=== PATIENT | male | born 1955 | race Caucasian/White ===

== ENCOUNTER 2023-05-14 21:56 | Emergency (ER) | payer OTHER, SELFPAY ==
[2023-05-14 22:02] VITALS: BP 155/78; BMI 25.6
[2023-05-14 22:22] LABS: % Basophils 0.3 % (0-2); % Eosinophils 2.4 % (0-6); % Immature Granulocytes 0.3 % (0-0.5); % Lymphocytes 23.4 % (20.5-51.1); % Monocytes 6.1 % (1.7-9.3); % Neutrophils 67.5 % (42.2-75.2); Absolute Eosinophils 0.2 10^3/uL (0-0.7); Absolute Lymphocytes 2.3 10^3/uL (1.2-3.4); Absolute Monocytes 0.6 10^3/uL (0.1-0.6); Absolute Neutrophils 6.6 10^3/uL (1.4-6.5); Hematocrit 38.6 % (39.0-52.0); Hemoglobin 14.2 g/dL (13.0-18.0); Mean Corp Hgb Conc. 36.8 g/dL (33.0-37.0); Mean Corpuscular Hgb 29.5 pg (27.0-31.0); Mean Corpuscular Volume 80.1 fL (80.0-94.0); Mean Platelet Volume 8.3 fL (7.4-10.4); Nucleated Red Blood Cells % 0 % (-); Platelet Count 193 10^3/uL (130-400); Red Blood Cell Count 4.82 10^6/uL (4.70-6.10); Red Cell Dist. Width 12.3 % (11.5-14.5); White Blood Cell Count 9.7 10^3/uL (4.8-10.8)
[2023-05-14 22:32] LABS: INR 1.05; PT 13.7 Sec (11.4-14.6)
[2023-05-14 22:36] LABS: ALT (SGPT) 24 U/L (0-50); AST (SGOT) 28 U/L (17-59); Albumin 3.7 g/dl (3.5-5.0); Alkaline Phosphatase 57 U/L (38-126); Blood Urea Nitrogen 48 mg/dl (9-20); Calcium 8.7 mg/dl (8.4-10.2); Carbon Dioxide 32 mmol/L (22-30); Chloride 93 mmol/L (98-107); Estimated Creatinine Clearance 59 ml/min; Glucose 298 mg/dl (70-99); Potassium 3.6 mmol/L (3.5-5.1); Sodium 135 mmol/L (135-145); Total Bilirubin 0.8 mg/dl (0.2-1.3); Total Protein 6.7 g/dl (6.3-8.2)
[2023-05-14 22:47] LABS: Troponin I 0.013 ng/ml
[2023-05-15 01:00] VITALS: BP 145/82
--- NOTE | 2023-05-15 01:26 | ED.GENMED ---
History of Present Illness
General
Chief Complaint: Cardiac Symptoms
Source: patient
Exam Limitations: none
Time Seen by Provider: 05/15/23 01:01
Nursing documentation reviewed up to this point in time: agreed with
Travel History
Have you had any contact with someone who has COVID-19?: No
Do you have any symptoms of coronavirus? Fever > 100 degrees, chills, cough, shortness of breath, sore throat, loss of taste or smell, muscle aches, or headache?: No
History of Present Illness
History of Present Illness:
The patient is a 67-year-old man with a past medical history of hypertension, hyperlipidemia and A-fib, on Eliquis, who reports that he developed rapid palpitations this evening, about 1 to 2 hours prior to coming to the emergency department.
Patient reports that by the time he got to the emergency department, his symptoms went away. Patient reports that while he was in A-fib, he felt tightness in his chest and a feeling of indigestion. Patient reports that he has felt comfortable for
hours now without any symptoms. He denies leg pain and leg swelling.
Past History
Past History
ED Past Medical History: Arrthythmia, CAD, COPD, HTN, Hypercholesterolemia, NIDDM and Other (Sleep apnea, BPH, CABG, anxiety)
ED Past Surgical History: Other
Social History
Tobacco: Non-smoker
Alcohol: Other
Drug: None
Personal:
Living: with family
Employment: Other
Family History
Family History: Other
Review of Systems
Review of Systems
Allergies reviewed?: Yes
All Other Systems: ROS reviewed and negative except as documented in HPI and ROS
Constitutional: Reports no symptoms
EENT: Reports no symptoms
Respiratory: Reports no symptoms
Cardiac: Reports chest pain and palpitations
ABD/GI: Reports no symptoms
: Reports no symptoms
Musculoskeletal: Reports no symptoms
Skin: Reports no symptoms
Neurological: Reports no symptoms
Endocrine: Reports no symptoms
Hematologic/Lymphatic: Reports no symptoms
Psychiatric: Reports no symptoms
Phy Exam
Physical Exam
Physical Exam:
Physical Exam
General: no apparent distress, not acutely ill. Smiling, conversational
Neck: supple. no meningeal signs. normal psoterior pharynx
Heart: s1/s2 regular rate and rhythm,
Lungs: no acute respiratory distress. clear bilaterally
Abdomen: normal bowel sounds. not tender. no CVAT. No pulsatile mass
Neuro: alert and oriented. no focal neurological deficits
Skin: no rash
Psychiatric: well kept. interactive and cooperative
Extremities: no edema. no calf tenderness. negative homans. good distal pulses
Course
Orders/Labs/Results
Orders:
Orders
05/14/23 22:01
Electrocardiogram (*1) Urgent
Reason for Study: Chest Pain
EKG- Treatment ONCE
05/14/23 22:15
Complete Blood Count/With Diff Urgent
Comprehensive Metabolic Panel Urgent
Prothrombin Time Urgent
Troponin I Urgent
05/15/23 01:24
ECG [Electrocardiogram (*1)] Urgent
Reason for Study: Atrial Fibrillation
05/15/23 01:25
EKG- Treatment ONCE
Abnormal Lab Results
05/14/23
22:15
Hct 38.6 L %
(39.0-52.0)
Absolute Neuts (auto) 6.6 H 10^3/uL
(1.4-6.5)
Chloride 93 L mmol/L
(98-107)
Carbon Dioxide 32 H mmol/L
(22-30)
BUN 48 H mg/dl
(9-20)
Creatinine 1.5 H mg/dL
(0.7-1.3)
Glucose 298 H mg/dl
(70-99)
05/14/23 22:15
05/14/23 22:15
Vital Signs
Initial and Last Documented VS:
Initial Vital Signs
Temp Pulse Resp BP Pulse Ox
98.1 F 80 16 155/78 100
05/14/23 22:02 05/14/23 22:02 05/14/23 22:02 05/14/23 22:02 05/14/23 22:02
Last Documented Vital Signs
Temp Pulse Resp BP Pulse Ox
98.1 F 68 17 145/82 95
05/14/23 22:02 05/15/23 01:30 05/15/23 01:15 05/15/23 01:00 05/15/23 01:30
MDM/Problems Addressed
Differential Diagnosis Includes:
A-fib with rapid rate, acute coronary syndrome, PE
MDM/Problems Addressed:
Patient presents with acute palpitations chest pain
Chronic conditions affecting care: Arrhythmia
Acute Exacerbation and/or Progression of Chronic Illness: HTN
*Pulse Oximetry
Patient hypoxic: no
*EKG
Interpreted by ED Provider?: Yes
Interpretation: abnormal
Comparison EKG: no changes
Rate: normal
Souris: normal axis
Interval: first degree heart block
QRS Pattern: normal QRS
Ischemia: non-specific ST changes
*Family Law Legal Assistant Interpretation
Rate: normal
Interpretation: normal
Rhythm: sinus
*Critical Care Note
Total Time (30-74mins, 75-104mins- exclusive of procedures): Not Applicable
Data Reviewed
Review of Other/Old Records Reveals: Discharge Summary (Discharge summary reviewed from cardiology from 10/12/2021 when patient was admitted for A-fib and underwent cardioversion)
Source: patient
Further Testing Considered But Not Given:
I considered doing a second troponin, however, patient's EKG looks very similar to his prior EKGs when he is in a normal sinus rhythm. Patient adamantly reports he has been chest pain-free for hours ever since the A-fib stopped. I feel the
patient's chest pain was likely due to his elevated heart rate associated with A-fib. Patient feels extremely well and comfortable and wants to go home. Patient has cardiology appointment this coming up Friday. Patient encouraged to return with
any chest pain or shortness of breath
Patient Management
Social determinants of health affecting care: Living situation and Strong social support
Escalation/DeEscalation of care consider admission/obs:
Patient looks well and comfortable and has been chest pain-free for hours. Patient happy to go home and will return with any chest pain or shortness of breath.
ED Attending Note
-
Portions of this chart may have been created with voice recognition software.� Occasional wrong word or��sound alike� substitutions may have occurred due to the inherent limitations of voice recognition software.
Discharge Plan
Departure
Patient Disposition: Home (Routine Discharge)
Date of Disposition: 05/15/23
Time of Disposition: 01:44
Patient with high blood pressure during this ER visit?: Yes
Condition: Good
Covid-19: Not Applicable
Discharge Problem:
A-fib
Instructions: Atrial Fibrillation and Atrial Flutter ED, BLOOD PRESSURE
Prescriptions:
No Action
amlodipine-benazepril 1 EACH capsule
1 ea PO DAILY
Januvia 100 MG tablet
100 mg PO DAILY
nitroglycerin 0.4 MG tablet, sublingual
0.4 mg sublingual [id number] PRN (Reason: chest pain) Qty: 25 2RF
metoprolol succinate 50 MG tablet extended release 24 hr
50 mg PO DAILY
glimepiride 2 MG tablet
2 mg PO DAILY
clonazepam 0.5 MG tablet
0.5 mg PO PRN PRN (Reason: anxiety)
atorvastatin 40 MG tablet
40 mg PO DAILY
acetaminophen 325 MG tablet
650 mg PO Q4HPRN PRN (Reason: mild pain,headache,temp >101F ) 0RF
Eliquis 5 MG tablet
5 mg PO BID Qty: 60 2RF
hydrochlorothiazide 12.5 mg Tablet
12.5 mg PO DAILY
tamsulosin [Flomax] 0.4 mg Capsule
0.4 mg PO DAILY
metoprolol succinate 50 mg Tablet Extended Release 24 Hr
25 mg PO DAILY@1999 Qty: 90 3RF
methimazole 5 mg Tablet
5 mg PO BID Qty: 180 3RF
Activity Restrictions/Additional Instructions:
Follow-up with cardiology appointment as you have scheduled this coming May 20. Please return immediately with any chest pain or difficulty breathing.
Interventions
Interventions:
*Risk Screen - Suicide Last Done: 05/14/23 22:02
*General Assessment Last Done: 05/15/23 01:33
*Neglect/Abuse Screening Last Done: 05/14/23 22:02
ED- Fall Risk Assessment Last Done: 05/15/23 01:03
*ED COVID-19 Vaccine History Last Done: 05/14/23 22:02
ED- Pulmonary Assessment Last Done: 05/15/23 01:03
ED- Cardiac Assessment Last Done: 05/15/23 01:03
== END 2023-05-15 02:09 | disposition home or self-care (01) ==
LOC: EMR 21:56
PROVIDERS: Emergency Medicine; EMERGENCY PHYSICIAN Emergency Medicine; FAMILY PHYSICIAN Internal Medicine
DX: I48.91 Unspecified atrial fibrillation (principal); I10 Essential (primary) hypertension; E78.00 Pure hypercholesterolemia, unspecified; Z79.01 Long term (current) use of anticoagulants
CPT/HCPCS: 99284; 80053; 84484; 85025; 85610; 93005

== ENCOUNTER → 2023-12-10 14:48 | Outpatient (REF) | payer OTHER, SELFPAY | LOC: HWRAD 14:48 | PROVIDERS: ATTENDING PHYSICIAN Internal Medicine Endocrinology, Diabetes & Metabolism; FAMILY PHYSICIAN Internal Medicine | DX: E04.1 Nontoxic single thyroid nodule (principal) | CPT/HCPCS: 76536 ==

== ENCOUNTER 2024-03-14 20:44 | Inpatient (IN) | payer OTHER, SELFPAY ==
[2024-03-14] VITALS (22 sets, daily range): BP systolic 73–114; BP diastolic 51–85; BMI 25.2
--- NOTE | 2024-03-14 18:32 | ED.GENMED ---
History of Present Illness
General
Chief Complaint: Heart Rate Problem
Time Seen by Provider: 03/14/24 18:32
History of Present Illness
History of Present Illness:
TIME OF INITIAL ENCOUNTER: 6:30 PM A-fib, CAD, high blood pressure, hyperlipidemia
HPI: The patient presents with general unwell feeling and feels that he is back in A-fib over the last 2 to 3 days. 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 He is known to Dr. Bolanos. He
states he has not missed any doses of Eliquis over the last couple of weeks. He has cough and congestion.
EXAM:
GENERAL: Appears somewhat generally weak
HEENT: Moist oral mucosa
CARDIOVASCULAR: No murmurs, tachycardic heart rate, irregular rhythm, No chest wall tenderness
PULMONARY: No respiratory distress, breath sounds are slightly diminished and slightly coarse
ABDOMEN: Soft with no peritoneal signs, no tenderness
NEUROLOGIC: Excellent strength all extremities, no coordination deficits
PSYCHIATRIC: Appropriate mental status, normal insight and judgement
EXTREMITIES: Nontender, minimal lower extremity edema, moves all extremities equally
SKIN: No rash, no lesions
NUMBER AND COMPLEXITY OF PROBLEMS ADDRESSED AT THE ENCOUNTER
� Chronic conditions affecting care: Paroxysmal A-fib, CAD, high blood pressure, hyperlipidemia BPH, diabetes, anxiety, there is also questionable history of COPD
� Acute Exacerbation and/or Progression of Chronic Illness: This is an acute problem
� Differential Diagnosis includes: Atrial fibrillation with RVR, thyroid disease, ACS, CHF, volume overload, MATT
AMOUNT AND/OR COMPLEXITY OF DATA TO BE REVIEWED AND ANALYZED
� I performed an independent evaluation of and my interpretation is:
EKG: A-fib 121, septal Q waves, intraventricular conduction delay with associated ST abnormality which is now more prominent in comparison to 05/15/2023 most notable inferior and laterally
CT:
X-rays: Chest x-ray does not show any significant change compared to 07/30/2020
Laboratory Studies: BNP markedly elevated, white count 26, renal insufficiency noted which is much worse, TSH normal
Other:
� Review of other/old records: Echo from October 2021 showed an EF of 50 to 55% and mild LVH with no significant valvular disease
� Clinical information was obtained by an independent historian: I spoke to at bedside lives at home
� Prescriptions/Medications Considered but not given:
� Further testing considered but not performed:
RISK OF COMPLICATIONS AND/OR MORBIDITY OR MORTALITY OF PATIENT MANAGEMENT
� Social determinants of health affecting care: Lives at home
� Discussion with other providers: I discussed case with Dr. Kellogg at around 7:15 PM who agreed with cardioversion and notified him of the abnormal troponin and he recommended heparin instead of Eliquis. I have ordered the
drip. Dr. Whyte for admission at 7:51 PM
� Escalation of care including admission/observation vs risk of discharge considered: The patient arrived hypotensive in rapid A-fib. Decision made to electrically cardiovert him. He overall felt better after cardioversion.
Repeat EKG does show inferolateral ST abnormality. One of the patient's main symptoms was cough and shortness of breath�in the setting of at least questionable COPD diagnosis, I did give a one-time dose of Solu-Medrol. Leukocytosis of uncertain
etiology.
ANY OTHER UPDATES:
8 PM: Patient feels improved after cardioversion was performed
Past History
Past History
ED Past Medical History: Arrthythmia, CAD, COPD, HTN, Hypercholesterolemia, NIDDM and Other (Sleep apnea, BPH, CABG, anxiety)
ED Past Surgical History: Other
Social History
Tobacco: Non-smoker
Alcohol: Other
Drug: None
Personal:
Living: with family
Employment: Other
Family History
Family History: Other
Phy Exam
Physical Exam
Physical Exam:
See HPI
Course
Orders/Labs/Results
Orders:
Orders
03/14/24 18:14
Electrocardiogram (*1) Urgent
Reason for Study: Atrial Fibrillation
03/14/24 18:15
EKG- Treatment ONCE
03/14/24 18:47
Basic Metabolic Panel Urgent
COVID-19 Antigen Urgent
Source: Nasal Swab
Complete Blood Count/With Diff Urgent
Magnesium Urgent
NT-proBNP Urgent
TSH Reflex To Free T4 Urgent
Troponin I Urgent
INF RAPID [Influenza A+B Rapid Molecular] Urgent
ACSEY Source: Nasal Swab
Specimen Description:
03/14/24 18:51
Portable Chest Xray [CR Chest Portable - 1 View] Urgent
Comment:
Reason For Exam: cough
Reason Study Needs to be Portable: Patient Unstable
03/14/24 19:08
MethylPREDNISolone PF [Solu-Medrol Pf] 125 mg IV NOW STA
03/14/24 19:25
Propofol [Diprivan] 20 ml .ROUTE .STK-MED
03/14/24 19:47
Electrocardiogram (*1) Urgent
Reason for Study: Other
Other Reason for Exam: post cardioversion
EKG- Treatment ONCE
03/14/24 19:49
Heparin 4,000 units IV NOW STA
Nursing to Place Non Medication Order As Directed
Physician Order: PTT 6 hours after initial start of Heparin infusion
Above order entered?: Yes
03/14/24 20:00
Heparin 30308 Units/250 ml 25,000 units in 250 ml IV PER PROTOCOL
Weight to be used for heparin protocol in kilograms (kg):: 96.5
Protocol:: Cardiac Tx/Acute Coronary
PTT Goal Range to be used:: PTT 73 to 111 seconds
Order type:: Initial
INITIAL Infusion Dose (UNITS/KG/hr) & then follow protocol:: 12 units/kg/hr
Infusion Dose in UNITS/hr & then follow protocol (UNITS/hr):: 1,000
INFUSION RATE in mL/hr & then follow protocol (mL/hr):: 10
PTT less than or equal to 64 seconds:: Increase rate by 200 units/hr (+ 2 mL/hr)
PTT 64.1 to 72.9 seconds:: Increase rate by 100 units/hr (+ 1 mL/hr)
PTT 73 to 111 seconds:: Target Range. No change in rate.
PTT 111.1 to 130.9 seconds:: Decrease rate by 100 units/hr (- 1 mL/hr)
PTT 131 to 199.9 seconds:: HOLD for 1 hr. Then decrease rate by 200 units/hr (- 2 mL/hr)
PTT greater than or equal to 200 seconds:: HOLD for 2 hrs & Notify Provider. Then decrease by 200 units/hr (-
2 mL/hr)
Lab follow-up:: Each change, PTT q6h until 2 consecutive are therapeutic. Then PTT
daily.
03/14/24 20:06
Aspirin 325 mg PO NOW STA
03/14/24 20:18
PTT Urgent
Comment: Obtain baseline before beginning heparin infusion if not already collected
03/14/24 20:29
Admit/Transfer Patient As Directed
Co-Sign Provider:
Level of Care: Inpatient admission
Assign to:: IMU- Intermediate Care
Physician / Group: Padmaja Whyte
Diagnosis: NSTEMI, Afib RVR, MATT, hyponatremia
Reason for Hospitalization: NSTEMI, Afib RVR, MATT, hyponatremia
Expected length of stay greater than two midnights?: Yes
ELOS- Estimated Length of Stay in days: 3
I certify the patient meets the requirements for IP care: Yes
PRN Pain Medication Management As Directed
May give lesser potent ordered pain med per pt: Yes
preference::
Protocol:: Medication orders for pain may be administered in a
manner that supports deferring to patient preference
when the pt is:
- Requesting an ordered lesser potent pain medication.
Least to most potent pain medications are defined
as: acetaminophen < NSAID < tramadol < opioids
(morphine, oxycodone, hydromorphone).
- Requesting a lesser dose of the same medication IF
ORDERED.
- Requesting a less intrusive route of administration
if both routes are prescribed by the provider (PO <
IV).
03/14/24 20:30
Code Status As Directed
Resuscitation Status: Full Code
03/14/24 20:39
0.9% Sodium Chloride 500 ml [Nss] 500 ml IV BOLUS
Accucheck Once [Bedside Glucose Monitoring-ONCE] As Directed
03/14/24 22:45
BMP [Basic Metabolic Panel] Urgent
03/15/24 02:30
PTT Urgent
Abnormal Lab Results
03/14/24
18:47
WBC 26.1 H 10^3/uL
(4.8-10.8)
Abs Immat Gran (auto) 0.4 H 10^3/uL
(0-0.05)
Absolute Neuts (auto) 22.3 H 10^3/uL
(1.4-6.5)
Absolute Monos (auto) 2.2 H 10^3/uL
(0.1-0.6)
Immature Gran % 1.5 H %
(0-0.5)
Neutrophils % 85.3 H %
(42.2-75.2)
Lymphocytes % 4.4 L %
(20.5-51.1)
Sodium 128 L mmol/L
(135-145)
Chloride 90 L mmol/L
(98-107)
Carbon Dioxide 21 L mmol/L
(22-30)
BUN 85 H mg/dl
(9-20)
Creatinine 3.1 H mg/dL
(0.7-1.3)
Glucose 411 H mg/dl
(70-99)
Troponin I 5.730 H* ng/ml
03/14/24 18:47
03/14/24 18:47
Vital Signs
Initial and Last Documented VS:
Initial Vital Signs
Temp Pulse Resp BP Pulse Ox
36.4 C 121 16 73/57 99
03/14/24 18:25 03/14/24 18:25 03/14/24 18:25 03/14/24 18:25 03/14/24 18:25
Last Documented Vital Signs
Temp Pulse Resp BP Pulse Ox
37.8 C 108 26 110/55 95
03/14/24 20:22 03/14/24 20:30 03/14/24 20:30 03/14/24 20:30 03/14/24 20:30
Procedures
Cardioversion
Indication:: Afib
Performed by:: , Dr. Garland
Synchronized?: Yes
Energy Used: 200 joules
Number of attempts: 1
Successful?: Yes
ASA Risk Score: Class III
Any reaction or bad outcome to prior sedation/anesthesia?: No history of a reaction
Sedation level to be attained: moderate
Chart and allergies reviewed: Yes
Patient reassessed prior to sedation: Yes
Time out completed at (validating right patient & procedure): 19:42
History of difficult intubation: No
Airway free of obstruction: Yes
Patient has a gag reflex: Yes
Patient is able to open mouth: Yes
Patient has no dentures: Yes
Patient has no loose teeth: Yes
Medication administered by Provider during Moderate Sedation: IV Propofol (mg)
Total dose administered: 60
Time drug administered: 19:42
Start Time: 19:42
Stop Time: 19:53
*Critical Care Note
Total Time (30-74mins, 75-104mins- exclusive of procedures): 60 minutes
comment:
The patient arrived hypotensive and tachycardic. Emergently discussed case with cardiology and prepared for electrical cardioversion. Vital signs continue to be monitored after cardioversion.
ED Attending Note
-
Portions of this chart may have been created with voice recognition software.� Occasional wrong word or��sound alike� substitutions may have occurred due to the inherent limitations of voice recognition software.
Discharge Plan
Departure
Patient Disposition: Admit
Date of Disposition: 03/14/24
Time of Disposition: 20:07
Presentation/result/management discussed w/ accepting MD/DO: Hospitalist
Discharge Problem:
Atrial fibrillation with rapid ventricular response
Interventions
Interventions:
*Risk Screen - Suicide Last Done: 03/14/24 18:25
*General Assessment Last Done: 03/14/24 18:25
*Neglect/Abuse Screening Last Done: 03/14/24 18:25
*ED COVID-19 Vaccine History Last Done: 03/14/24 18:41
ED- Cardiac Assessment Last Done: 03/14/24 18:50
ED- Pulmonary Assessment Last Done: 03/14/24 18:50
[2024-03-14 19:08] LABS: COVID-19 Antigen Negative (Negative)
[2024-03-14 19:11] LABS: % Basophils 0.3 % (0-2); % Immature Granulocytes 1.5 % (0-0.5); % Lymphocytes 4.4 % (20.5-51.1); % Monocytes 8.5 % (1.7-9.3); % Neutrophils 85.3 % (42.2-75.2); Absolute Basophils 0.1 10^3/uL (0-0.2); Absolute Immature Granulocytes 0.4 10^3/uL (0-0.05); Absolute Lymphocytes 1.2 10^3/uL (1.2-3.4); Absolute Monocytes 2.2 10^3/uL (0.1-0.6); Absolute Neutrophils 22.3 10^3/uL (1.4-6.5); Hematocrit 46.3 % (39.0-52.0); Mean Corp Hgb Conc. 34.6 g/dL (33.0-37.0); Mean Corpuscular Hgb 28.5 pg (27.0-31.0); Mean Corpuscular Volume 82.5 fL (80.0-94.0); Mean Platelet Volume 9.6 fL (7.4-10.4); Nucleated Red Blood Cells % 0 % (-); Platelet Count 237 10^3/uL (130-400); Red Blood Cell Count 5.61 10^6/uL (4.70-6.10); Red Cell Dist. Width 12.2 % (11.5-14.5); White Blood Cell Count 26.1 10^3/uL (4.8-10.8)
[2024-03-14] MEDS: SOLU-MEDROL PF 125 MG IV (19:26)
[2024-03-14 19:27] LABS: NT-proBNP 14500 pg/ml
[2024-03-14 19:35] LABS: Blood Urea Nitrogen 85 mg/dl (9-20); Calcium 9.7 mg/dl (8.4-10.2); Carbon Dioxide 21 mmol/L (22-30); Chloride 90 mmol/L (98-107); Estimated Creatinine Clearance 28 ml/min; Glucose 411 mg/dl (70-99); Magnesium 1.8 mg/dl (1.6-2.3); Sodium 128 mmol/L (135-145); eGFR 20.96
[2024-03-14 19:41] LABS: TSH Reflex To Free T4 2.32 uIU/ml (0.47-4.68)
--- NOTE | 2024-03-14 19:56 | HPS.HSE ---
Family Physician
-
Family Physician: Aiden Mejias
Chief Complaint
-
A-fib
History of Present Illness
Patient is a 68-year-old male with past medical history significant for hypertension, hyperlipidemia, type 2 diabetes, a-fib and COPD who presented to [place] ED for evaluation of not feeling well and a-fib. Patient reported that he started not
feeling well on afternoon and described as just 'feeling lousy.' As time progressed he reviewed watch EKG that indicated he was in a-fib. Patient felt he was in a-fib from recent medication dose reduction done by merchandise flow team member so he
increased the dose to what it was previously thinking he would convert. Patient states he never converted and continued to fell lousy through weekend and bringing himself today for evaluation since he continued to be in a-fib. Patient states he has
had intermittent fever and chills, with a moist cough and some periods of dizziness. He denies any nausea, vomiting, constipation, diarrhea, or urinary symptoms.
Medical History
Past Medical History
Past Medical History: Reports Other
Additional Past Medical History:
hypertension
hyperlipidemia
CAD
type 2 diabetes
a-fib
COPD
urinary retention
Past Surgical History: Reports Other
Additional Past Surgical History:
CABG x4 (07/2020)
wisdom teeth
Social History
Tobacco: Former Smoker (quit 50 years ago)
Alcohol: Occasional
Drug: None
Personal:
Living: With Family
Employment: Employed
Family History
Family History: Not pertinent
Allergies / Home Medications
Allergies reflects when Allergies were last updated in [facility].
Home Medications with original date entered in [facility]
Allergy/Medication List:
Allergies
Allergy/AdvReac Type Severity Reaction Status Date / Time
No Known Allergies Allergy Verified 03/14/24 18:24
Home Medications
amlodipine 10 mg-benazepril 40 mg capsule 1 ea PO DAILY Blood pressure 06/27/20
nitroglycerin 0.4 mg sublingual tablet 0.4 mg sublingual [id number] PRN chest pain #25 tabs 06/27/20
sitagliptin phosphate 100 mg tablet (Januvia) 100 mg PO DAILY Diabetes 06/27/20
clonazepam 0.5 mg tablet 0.5 mg PO PRN PRN anxiety 07/25/20
glimepiride 2 mg tablet 2 mg PO DAILY Diabetes 07/25/20
metoprolol succinate 50 mg tablet,extended release 24 hr 50 mg PO DAILY Blood pressure 07/25/20
atorvastatin 40 mg tablet 40 mg PO DAILY High cholesterol 07/28/20
acetaminophen 325 mg tablet 650 mg (2 x 325 mg) PO Q4HPRN PRN mild pain,headache,temp >101F 08/01/20
apixaban 5 mg tablet (Eliquis) 5 mg PO BID #60 tabs 08/01/20
hydrochlorothiazide 12.5 mg tablet 12.5 mg PO DAILY Blood pressure 10/06/21
tamsulosin 0.4 mg capsule (Flomax) 0.4 mg PO DAILY Urinary issue 10/06/21
methimazole 5 mg tablet 5 mg PO BID #180 tabs 10/11/21
metoprolol succinate 50 mg tablet,extended release 24 hr 25 mg (1/2 x 50 mg) PO DAILY@2000 #90 tabs 10/11/21
Review of Systems
-
History Source: Patient
Constitutional: Reports Fever, Fatigue and Chills
EENT: Reports No Symptoms
Respiratory: Reports Cough (moist)
Cardiac: Reports Other (a-fib indicated on watch EKG)
Abdomen/GI: Reports No Symptoms
: Reports No Symptoms
Musculoskeletal: Reports No Symptoms
Skin: Reports No Symptoms
Neurological: Reports Dizzy
Endocrine: Reports No Symptoms
Hematologic/Lymphatic: Reports No Symptoms
Psych: Reports No Symptoms
Physical Exam
Vital Signs
Vital Signs
Temp Pulse Resp BP Pulse Ox
97.8 F 103 24 94/56 98
03/14/24 19:47 03/14/24 19:47 03/14/24 19:47 03/14/24 19:47 03/14/24 19:47
Physical Exam
General: Well Developed, Well Nourished, No Apparent Distress, Comfortable and Conversant
HEENT: NormoCephalic, Moist mucous membranes, Atraumatic, [place] Conjunctivae, Nose Appears Normal and Ears Appear Normal
Respiratory: Clear, Non Labored Respirations and Decreased Breath Sounds
Cardiac: S1/S2 and Regular Rhythm; No Murmur, Rub or Gallop
Breast: Deferred by me
GI: Soft, Non Tender, Non Distended and Normal Bowel Sounds; No Organomegaly
Rectal: Deferred by Provider
Genito-urinary: Deferred by me
Musculoskeletal: No Clubbing, No Cyanosis and No Edema
Skin: Warm and IV/Catheter Site; No Rash
Neuro: Awake, Alert, AO x 3 and Nonfocal/grossly intact
Hematologic/Lymphatic: No Lymphadenopathy
Psych: Calm and Intact Judgment/Insight
Laboratory Results
-
03/14/24 18:47
03/14/24 18:47
Laboratory Results
Troponin I 5.730 ng/ml H* 03/14/24 18:47
Data Reviewed
-
Medical Tests (Nuc Med, Echo, EKG etc): Report Reviewed by me (EKG: ATRIAL FIBRILLATION WITH RAPID VENTRICULAR RESPONSE INCOMPLETE LEFT BUNDLE BLOCK & SINUS TACHYCARDIA WITH PREMATURE ATRIAL COMPLEXES WITH Aberrant conduction MARKED ST ABNORMALITY,
POSSIBLE INFERIOR SUBENDOCARDIAL INJURY ABNORMAL ECG)
Lab Data: Labs Reviewed by me (WBC 26.1, Na+ 128, BUN 85, Creat 3.1, Trop 5.730, BNP 23083)
Impression/Plan
-
IMPRESSION/PLAN:
#NSTEMI
Troponin 5.730
EKG: SINUS TACHYCARDIA WITH PREMATURE ATRIAL COMPLEXES WITH Aberrant conduction
MARKED ST ABNORMALITY, POSSIBLE INFERIOR SUBENDOCARDIAL INJURY
ABNORMAL ECG
- Admit to IMU
- Consult cardiology
- Heparin gtt
- trend troponin to peak with EKGs
- TSH, T4, HgA1C
#A-fib RVR
EKG: ATRIAL FIBRILLATION WITH RAPID VENTRICULAR RESPONSE
INCOMPLETE LEFT BUNDLE BLOCK
MARKED ST ABNORMALITY, POSSIBLE INFERIOR SUBENDOCARDIAL INJURY
ABNORMAL ECG
Cardioverted in ED with 1 shock
Repeat EKG: SINUS TACHYCARDIA WITH PREMATURE ATRIAL COMPLEXES WITH Aberrant conduction
MARKED ST ABNORMALITY, POSSIBLE INFERIOR SUBENDOCARDIAL INJURY
ABNORMAL ECG
- monitor electrolytes
- PRN metoprolol 5mg IV for HR >120
- consult cardiology
- Echo
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
#community acquired pneumonia
CXR: Probable minor scarring or atelectasis in the medial left lung base. Otherwise no acute cardiopulmonary process.
Patient with URI s/s since , observed moist cough, lungs clear to auscultation
Covid negative, Influenza negative
- procal pending
- start empiric antibiotics: Ceftriaxone and Azithromycin
- PRN DuoNeb
#acute kidney injury
BUN 85, Creat 3.1
- IVF bolus
- monitor BMP
#hyponatremia
Sodium 128
- NSS bolus and repeat electrolytes
- urine osmo and urine sodium
#hypertension
- hold amlodipine-benazepril for MATT
- monitor VS
#hyperlipidemia
#CAD
- continue atorvastatin
#type 2 diabetes
- hold glimepiride, and Januvia
- Accuchecks
- SSI
#urinary retention
- continue tamsulosin
#COPD
- PRN DuoNeb
Code Status: Full Code
DVT Prophylaxis: Heparin gtt
--- NOTE | 2024-03-14 20:17 | W.PN.UPDATE ---
Update Note
Progress Note Update
Patient seen in conjunction with FLASK PUSHER. I agree with the findings on history and physical. I concur with assessment plan unless stated otherwise.
This is a 59-year-old male with past medical history of CAD status post CABG several years ago, lcw-cltkzbg-[id number] diabetes, hypertension, remote smoking history, proximal atrial fibrillation status post cardioversion, hyperthyroidism on
methimazole presenting to the emergency department with palpitations and tachycardia with days recent device indicating atrial fibrillation. Patient reported that he started having indication of atrial fibrillation starting about 3 days ago. He
reported feeling dizzy and lightheaded. He denies having any chest pain. He denies any shortness of breath. He denies any worsening dyspnea on exertion. He denies any lower extremity swelling. Patient reported that his last episode of A-fib was
about a year ago and he has been fine since his cardioversion at that time. He has been maintained on methimazole with recent reduction in dose based on his lab levels. Patient and spouse reported that his had about 4 weeks of productive cough and
intermittent fevers to as high as 100.6 at home. No known sick contacts. Patient denies any nausea or vomiting. He reports consistent use of his medications including his Eliquis. Denies polyuria, denies polydipsia.
On arrival in the emergency department patient was in atrial fibrillation and the rate of 130s and BPs was 80 systolic. Given the use of Eliquis consistently the patient underwent cardioversion. Rates now around 106 in sinus. ECG status post
cardioversion shows rate of 1 5 sinus tachycardia without acute ST-T wave changes. Initial troponin was 5. BNP was elevated at 14,000. He had a white count of 26,000 CBC was otherwise unremarkable. Labs otherwise notable for a sodium of 128,
potassium of 4.0, bicarb of 21, BUN of 85 and creatinine of 3.1. His glucose was elevated at 411. No anion gap. TSH was 2.3.
Vital signs status post cardioversion with a blood pressure of 94/56 with a pulse of 103 and satting 90% on 2 L.
On my examination the patient was alert and oriented and appropriate. Lungs clear to auscultation anteriorly but few bibasilar crackles. No JVD. No peripheral edema. No murmurs. Denies current chest pain.
AFIB RVR - h/o pAFB on apixaban s/p cardioversion. Now in sinus tachycardia after cardioversion (cardioverted due to hypotension). He is on maintenance metoprolol at home. Possibly triggered by thyroid dysfunction versus acute infection or [place].
- admit to imu
- prn metoprolol 5 mg IV if SBP > 110
- diltiazem gtt if rate poorly controlled.
- heparin gtt for AC. No bolus
NSTEMI - h/o CAD s/p CABG no stents. Trop 5 prior to cardioversion. BNP elevated. Demand ischemia vs obstructive ACS vs Myocarditis given possible subacute infection. No chest pain.
- aspirin 325 x 1
- heparin gtt, trend troponin
- inflammatory markers
- echo
- cardiology consultation
Leukocytosis - WBC 26.1 with left shift. History of cough and low grade temps with sweats at home. Xray is clear on my read but can't rule out retrocardiac opacity. Negative for COVID/FLU.
- blood cultures if spike
- check legionella ag
- check procalcitonin
- start Ceftriaxone/Azithromycin empirically for CAP
- mrsa swab
MATT - Cr 3.1 up from 1.5 with elevated BUN and hyponatremia. BUN/Cr > 20. Suspect pre-renal azotemia versus ATN from hypotension. Looks dehydrated on exam.
-u/a, urine na, creatinine, protein
-treat underlying process with rate correction, antibiotics
- small bolus hydration for 1 L NS total
- follow i/o, bladder scan
- repeat lytes, if no improvement, obtain renal/bladder u/s
- holding acei
- continue flomax
Hyponateremia - Corrected Na 133. Mild hyponatremia suspect from hypovolemia and prerenal
- 1 L NS
- repeat Na in 4 hours
- correct hyperglycemia
- check urine Na and osm
- tsh normal, check free t4
Hyperglycemia - Suspect adrenargic vs infectious induced. No agap
- 1 L NS, repeat fsg
- give insulin 5 units for glucose > 400
- sliding scale insulin q 6 hours for now
Hyperthyroid
- tsh wnl, check free t4
- continue methimazole
DVT PPX - on heparin gtt
Code status - Full
[2024-03-14] MEDS: ASPIRIN 325 MG PO (20:26)
[2024-03-14] MEDS: HEPARIN 25000 UNITS/250 ML IV (20:30)
[2024-03-14] MEDS: HEPARIN 4000 UNITS IV (20:30)
[2024-03-14 20:34] LABS: APTT 31.7 Sec (23.4-35.0)
[2024-03-14] MEDS: FLUSH (NSS) 1 FLUSH IV (20:59)
[2024-03-14] MEDS: NSS 500 IV (20:59)
[2024-03-14 21:07] LABS: Glucose - Point of Care 439 mg/dl (70-99)
[2024-03-14 21:43] LABS: Blood Urea Nitrogen 86 mg/dl (9-20); Calcium 9.3 mg/dl (8.4-10.2); Carbon Dioxide 21 mmol/L (22-30); Chloride 92 mmol/L (98-107); Estimated Creatinine Clearance 31 ml/min; Glucose 416 mg/dl (70-99); Potassium 4.1 mmol/L (3.5-5.1); Sodium 128 mmol/L (135-145); eGFR 23.68
[2024-03-14] MEDS: NOVOLOG FLEXPEN 5 UNITS SC (22:09)
[2024-03-14] MEDS: PROTONIX 40 MG PO (22:40)
--- NOTE | 2024-03-14 23:00 | EDRN ---
Report received, patient resting comfortably at this time, call tapia in reach.
[2024-03-14 23:53] LABS: Glucose - Point of Care 362 mg/dl (70-99)
[2024-03-15] VITALS (20 sets, daily range): BP systolic 91–125; BP diastolic 47–102; BMI 24.7
--- NOTE | 2024-03-15 00:34 | EDRN ---
Re-checked patients blood sugar was 362, informed Alison chacon NP who is covering IMU who is going to order some more insulin to be given.
[2024-03-15] MEDS: NOVOLOG FLEXPEN 10 UNITS SC ×2 (00:38→03:51)
--- NOTE | 2024-03-15 01:32 | EDRN ---
Patients repeat trop was elevated at 6.030, patient doesn't complain of any pain, informed pelon chacon NP of the new results.
[2024-03-15] MEDS: ZITHROMAX INFUSION 250 IV ×2 (01:40→22:07)
[2024-03-15] MEDS: ROCEPHIN 1000 MG IV (01:40)
[2024-03-15] MEDS: STERILE WATER FOR INJECTION 10 ML IV (01:40)
[2024-03-15 03:29] LABS: Glucose - Point of Care 385 mg/dl (70-99)
[2024-03-15 03:33] LABS: APTT 33.4 Sec (23.4-35.0)
[2024-03-15] MEDS: HEPARIN 4000 UNITS IV (05:06)
--- NOTE | 2024-03-15 06:00 | EDRN ---
Report to ICU, Rn and patient taken upstairs.
[2024-03-15 06:18] LABS: Glucose - Point of Care 301 mg/dl (70-99)
[2024-03-15 07:00] LABS: Hematocrit 49.6 % (39.0-52.0); Hemoglobin 17.4 g/dL (13.0-18.0); Mean Corp Hgb Conc. 35.1 g/dL (33.0-37.0); Mean Corpuscular Hgb 29.1 pg (27.0-31.0); Mean Corpuscular Volume 83.1 fL (80.0-94.0); Mean Platelet Volume 10.1 fL (7.4-10.4); Platelet Count 212 10^3/uL (130-400); Red Blood Cell Count 5.97 10^6/uL (4.70-6.10); Red Cell Dist. Width 12.4 % (11.5-14.5); White Blood Cell Count 23.8 10^3/uL (4.8-10.8)
[2024-03-15 07:14] LABS: Procalcitonin 0.49 ng/ml (0.0-0.25)
[2024-03-15 07:34] LABS: ALT (SGPT) 23 U/L (0-50); AST (SGOT) 31 U/L (17-59); Albumin 3.9 g/dl (3.5-5.0); Alkaline Phosphatase 70 U/L (38-126); Blood Urea Nitrogen 84 mg/dl (9-20); Calcium 9.7 mg/dl (8.4-10.2); Carbon Dioxide 19 mmol/L (22-30); Chloride 98 mmol/L (98-107); Estimated Creatinine Clearance 38 ml/min; Glucose 318 mg/dl (70-99); HDL Cholesterol 36 mg/dl; LDL Cholesterol, Calculated 54 mg/dl; Potassium 4.2 mmol/L (3.5-5.1); Sodium 134 mmol/L (135-145); Total Bilirubin 0.7 mg/dl (0.2-1.3); Total Cholesterol 101 mg/dl (50-199); Total Protein 7.4 g/dl (6.3-8.2); Triglyceride 59 mg/dl (10-149); Very Low Density Lipoprotein 11 mg/dl (0-30); eGFR 29.99
[2024-03-15 07:49] LABS: Free T4 1.44 ng/dl (0.78-2.19)
[2024-03-15 08:20] LABS: Glucose - Point of Care 325 mg/dl (70-99)
[2024-03-15] MEDS: NOVOLOG FLEXPEN-LOW RESISTANCE 4 UNITS SC (08:25)
--- NOTE | 2024-03-15 08:54 | CON.CAR ---
Addendum entered and electronically signed by Maxx Bolanos MD 03/15/24 10:39:
I saw and examined the patient.
The ASSISTANT CORPORATE CONTROLLER or PA's note was reviewed and I agree with the note.
Comment: General: Well developed, well nourished in NAD.
Neck: Supple, no JVD, HJR, carotids +2 B/L, no bruits bilaterally.
Heart: Non displaced PMI, RRR, no murmurs, No S3, S4, no rubs.
Lungs: Scattered rhonchi
Abdomen: Normal bowel sounds, soft, non-tender, non-distended.
Extremities: No clubbing, cyanosis or edema bilaterally.
Neuro: Grossly nonfocal, awake, alert and oriented x3.
Andrew has history of CAD status post CABG in 2020 as well as atrial fibrillation on chronic Eliquis, hypothyroidism, hypertension, diabetes, hyperlipidemia, COPD. He presented with feeling poorly for 3 days. He noted he was in A-fib last week.
He thought this was correlating to decreased dose of levothyroxine so increase the dose with no improvement in A-fib. In the ER is found of a temp 100.6 as well as acute renal insufficiency and A-fib. He was cardioverted to sinus rhythm given
hypotension. Troponin was 6.03. He denies chest pain or short of breath at present.
Will restart Toprol. Will check echocardiogram.
Continue to treat possible infection and follow renal insufficiency.
Might consider cardiac catheterization depending on renal function and results of echocardiogram.
Original Note:
Consultation
Consultation Request
Date/Time Consultation Requested: 03/15/24 at 0656
Date/Time Consultation Performed: 03/15/24 at 0808
Requesting Provider: Dr. Fierro
Performing Provider: Dr. Bolanos
Reason for Consultation: Elevated Troponin, rapid Afib s/p CV in the ER
Medical History
-
History of Present Illness:
Patient came to ER yesterday with complaints of feeling poorly for at least 3 days and was found to be in rapid A-fib and is now admitted with cardiology consultation. Patient was last seen in the office on 05/19/2023 and was in SR at that time.
Initially seen in AF after CABG 07/2020 none recurrence last noted to be 10/2021 as noted above. Patient felt as though he was in AF for about 3 days prior to admission. Patient felt that this correlated with a decrease in his outpatient
levothyroxine dosing in the last several weeks, so he increase the dose, but no improvement in his AF so he finally came to ER yesterday. Patient says he also came to ER because he has been feeling sick and felt as though he had the flu for
the last 1 to 2 months. He says he feels he has a fever at times and this will correlate to a temperature of 100.6 �F when he checks his temperature at home. He says his the symptoms wax and wane and that he feels congested much of the time. He
feels SOB at times, but not consistent. No orthopnea or PND. No bloating. No LE edema. In ER last night patient was found to be in rapid AF and denied missing any Eliquis doses so he had a successful CV and remains in SR this a.m. Patient
reports dramatic symptomatic improvement following christianity of SR. Patient also noted to be in MATT with Cre up to 3.1 last evening, but improved to 2.3 this a.m. Patient reports ongoing congestion, but less SOB. Initial troponin was elevated
at 5.73, then up to 6.03, then down to 5.53 and then even though the troponin was trending down another troponin was checked and was elevated at 6.32. A 5th troponin is now pending, but patient denies any chest pain. He does have a history of CAD
s/p CABG.
PMH:
Paroxysmal Afib
initially seen s/p CABG 07/2020
recurrent Afib treated with CV in [facility] 10/06/21
recurrent Afib treated with rate control and spontaneously converted to SR 10/09/21
Chronic OAC with Eliquis
Hypothyroidism
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
CAD s/p CABG x4 07/2020
HTN
HLD
DM2
COPD
Past Medical History
Past Medical History: Other (in HPI)
Past Surgical History: Cardiac (CABG)
Social History
Tobacco: Former Smoker
Alcohol: Occasional
Drug: None
Personal:
Living: With Family
Family History
Family History: CAD, Diabetes and Hypertension
Allergies / Home Medications
Allergy/AdvReac Type Severity Reaction Status Date / Time
No Known Allergies Allergy Verified 03/14/24 18:24
�Medication �Instructions �Recorded �Confirmed �Type
amlodipine 10 mg-benazepril 40 mg 1 ea PO DAILY Blood pressure 06/27/20 10/10/21 History
capsule
nitroglycerin 0.4 mg sublingual 0.4 mg sublingual [id number] PRN 06/27/20 10/10/21 Rx
tablet chest pain #25 tabs
sitagliptin phosphate 100 mg 100 mg PO DAILY Diabetes 06/27/20 10/10/21 History
tablet (Januvia)
clonazepam 0.5 mg tablet 0.5 mg PO PRN PRN anxiety 07/25/20 10/10/21 History
glimepiride 2 mg tablet 2 mg PO DAILY Diabetes 07/25/20 10/10/21 History
metoprolol succinate 50 mg 50 mg PO DAILY Blood pressure 07/25/20 10/10/21 History
tablet,extended release 24 hr
atorvastatin 40 mg tablet 40 mg PO DAILY High cholesterol 07/28/20 10/10/21 History
acetaminophen 325 mg tablet 650 mg (2 x 325 mg) PO Q4HPRN PRN 08/01/20 10/10/21 Rx
mild pain,headache,temp >101F
apixaban 5 mg tablet (Eliquis) 5 mg PO BID #60 tabs 08/01/20 10/10/21 Rx
hydrochlorothiazide 12.5 mg tablet 12.5 mg PO DAILY Blood pressure 10/06/21 10/10/21 History
tamsulosin 0.4 mg capsule (Flomax) 0.4 mg PO DAILY Urinary issue 10/06/21 10/10/21 History
methimazole 5 mg tablet 5 mg PO BID #180 tabs 10/11/21 Rx
metoprolol succinate 50 mg 25 mg (1/2 x 50 mg) PO DAILY@199910/11/21 Rx
tablet,extended release 24 hr #90 tabs
Review of Systems
-
History Source: Patient
All other systems: Negative unless noted
Physical Exam
Vital Signs
Temp Pulse Resp BP Pulse Ox
97.8 F 87 20 125/74 97
03/15/24 07:25 03/15/24 05:00 03/15/24 05:00 03/15/24 05:00 03/15/24 05:00
GEN: NAD. AAOx3
HEENT: EOMI, MMM
LUNGS: RA. CTA B/L, no audible wheeze
CV: SR on tele. Reg, S1/S2, no murmur
ABD: soft, BS+, NT, ND
EXT: No clubbing, cyanosis, lesions or edema B/L
NEURO: Gross non-focal
SKIN: Warm, dry and pink. No rash
Lab Results
03/15/24 06:14
03/15/24 06:14
Troponin I 6.320 ng/ml H* 03/15/24 06:14
Yxp-Z-Digtgdnsbzg Pept 64573 pg/ml 03/14/24 18:47
Impression / Plan
-
PCP: Dr. Hart
[employer] Store Gift W[employer] Associate: Dr. Bolanos
Impression:
Admitted with MATT, elevated Troponin and recurrent Afib with CV in the ER 03/14/24
MATT
Elevated Troponin
Paroxysmal Afib with RVR s/p successful CV in [facility] 03/14/24
Paroxysmal Afib
initially seen s/p CABG 07/2020
recurrent Afib treated with CV in [facility] 10/06/21
recurrent Afib treated with rate control and spontaneously converted to SR 10/09/21
Chronic OAC with Eliquis
Hypothyroidism
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
CAD s/p CABG x4 07/2020
HTN
HLD
DM2
COPD
ALFREDO 07/2020: EF 60-65%, no RWMA, severe conc LVH, mod dilated LA, mildly dilated mid ascending aorta, mild sessile atheroma in descending aorta and distal arch
ECHO 10/11/21: EF 50 to 55%, no WMA, normal RA/LA size, no significant valve disease
Echo 03/15/24: Study pending
Plan:
-Patient came to ER yesterday with complaints of feeling poorly for at least 3 days and was found to be in rapid A-fib and is now admitted with cardiology consultation. Patient was last seen in the office on 05/19/2023 and was in SR at that time.
Initially seen in AF after CABG 07/2020 none recurrence last noted to be 10/2021 as noted above. Patient felt as though he was in AF for about 3 days prior to admission. Patient felt that this correlated with a decrease in his outpatient
levothyroxine dosing in the last several weeks, so he increase the dose, but no improvement in his AF so he finally came to ER yesterday. Patient says he also came to ER because he has been feeling sick and felt as though he had the flu for
the last 1 to 2 months. He says he feels he has a fever at times and this will correlate to a temperature of 100.6 �F when he checks his temperature at home. He says his the symptoms wax and wane and that he feels congested much of the time. He
feels SOB at times, but not consistent. No orthopnea or PND. No bloating. No LE edema. In ER last night patient was found to be in rapid AF and denied missing any Eliquis doses so he had a successful CV and remains in SR this a.m. Patient
reports dramatic symptomatic improvement following christianity of SR. Patient also noted to be in MATT with Cre up to 3.1 last evening, but improved to 2.3 this a.m. Patient reports ongoing congestion, but less SOB. Initial troponin was elevated
at 5.73, then up to 6.03, then down to 5.53 and then even though the troponin was trending down another troponin was checked and was elevated at 6.32. A 5th troponin is now pending, but patient denies any chest pain. He does have a history of CAD
s/p CABG.
-ECG on admission reviewed by me shows rapid Afib with IC LBBB and inferolateral T wave inversion that persists when compared to ECG post-CV.
-Troponin up to 6.32 and a 5th Troponin is trending, but overall flat in the range of 5-6 since admission.
-No chest pain. Patient states he would like to have cardiac cath, sounds like this was mentioned in the ER. Reviewed possible causes of Troponin elevation including ACS and rapid Afib. Talked about nephrotoxic risks of IV dye. Patient interested in
cath, he has not had cath since CABG in 2020. Pending Cre will plan on cath in AM.
-Echo ordered and pending.
-Patient with MATT on admission, Cre was 3.1 and has improved to 2.3 on labs reviewed by me. Reviewed with patient in room as well.
-Outpatient doses of benazepril 40 mg daily, chlorthalidone 25 mg daily on hold due to MATT. BP stable.
-Outpatient dose of amlodipine 10 mg daily is on hold due to hypotension
-Outpatient dose of Toprol XL 50 mg a.m. and 25 mg at bedtime is on hold due to hypotension, but will restart with hold parameters for SBP less than 90
-Patient with recurrent AF with RVR on admission that was successfully CV'd in the ER. He remains in SR this morning. He reports dramatic symptomatic improvement with christianity of SR. As noted above will restart Toprol XL.
-Patient reports he has not missed any of his chronic Eliquis 5 mg BID doses as an outpatient, but is currently on heparin drip due to elevated troponin and plan for cardiac cath. Will eventually resume Eliquis 5 mg BID (Cre 1.3, age 68, wt 94.3 kg)
-TFTs normal, but patient reports recent decrease in levothyroxine dosing due to elevated free T4 and that there was some discussion that he might have Fior's, but nothing official and plan was to monitor TFTs and adjust levothyroxine as
needed[place] [address], but no edema, orthopnea etc. No evidence of acute HF on CXR. Patient was not taking a loop diuretic prior to admission. No evidence of acute HF currently and will follow for now.
[2024-03-15 09:06] LABS: B-Hydroxybutyrate 0.12 mmol/L (0.02-0.27)
[2024-03-15 10:39] LABS: APTT 78.8 Sec (23.4-35.0)
[2024-03-15] MEDS: NSS 1000 IV (11:17)
[2024-03-15] MEDS: NOVOLIN N vial 0.15 UNITS SC (11:18)
[2024-03-15] MEDS: TOPROL XL 25 MG PO ×2 (11:19→19:39)
[2024-03-15] MEDS: NOVOLOG FLEXPEN-MODERATE RESISTANCE 9 UNITS SC (11:21)
[2024-03-15 11:26] LABS: Glucose - Point of Care 380 mg/dl (70-99)
--- NOTE | 2024-03-15 11:54 | PTCARENOTE ---
ivf initiated as ordered. pt given nph as ordered and aware of increased insulin coverage given elevated blood sugars. pt also given toprol at reduced dose given borderline bp. pt otherwise without complaint.
--- NOTE | 2024-03-15 12:33 | CARDSERVLU ---
Echocardiogram with Lumason completed after protocol screening completed. Allergies verified.
Patent IV site: rt FA
IV site flushed with 0.9% NaCl pre and post administration.
Diluted bolus method utilized to enhance visualization of ventricular lance.
Total volume given: ___2.5_ mL
Patient tolerated all procedures well without complications.
--- NOTE | 2024-03-15 13:00 | W.PN.HOSP.TC ---
Today's Communication/Plan
-
Echocardiogram
Scrotal ultrasound
2 view chest x-ray
Broaden antibiotics
Urology consult
Insulin therapy
Urinalysis
Assessment / Plan
Assessment / Plan
Gen-AAOx3, NAD
HEENT-NC, AT, anicteric, clear oral mm
Neck-supple
CV-reg, no M, +S1/S2
Lungs-clear B/L
Abd-soft, NT, ND
Ext-no edema
Musculoskeletal-no cyanosis, clubbing
Skin-warm and dry
Neuro-grossly non-focal
Psych-calm, cooperative
-right-sided scrotal swelling and tenderness with nodule noted
Sepsis (POA) - source unclear but includes possible pneumonia versus scrotal abscess versus other. Unfortunately blood cultures not sent on admission. Send blood cultures now. Broaden antibiotics.
1 view chest x-ray is limited, probable minor scarring or atelectasis in the medial left lung base.
Will check two-view chest x-ray.
Check scrotal ultrasound to rule out abscess. Consult urology.
Of note, procalcitonin is unreliable in the setting of MATT.
MATT -due to severe volume depletion. Creatinine improving with IV fluid support. Hold chlorthalidone, olmesartan. Hold NSAIDs.
DM2 with hyperglycemia -mild DKA noted. Anion gap 17, bicarbonate 19. Beta hydroxybutyrate 0.12. Hemoglobin A1c 8%. Not on insulin at home. NPH 15 units given this morning, increase corrective scale to moderate resistance. Start Lantus at
bedtime, NovoLog with meals.
At home he uses Farxiga 10 mg daily, Ozempic once weekly.
Troponin elevation -suspect acute nonischemic myocardial injury due to sepsis, rapid atrial fibrillation, acute illness. Echocardiogram done, report pending. Cardiology following.
Rapid paroxysmal atrial fibrillation -successfully cardioverted to sinus rhythm in the ER. IV heparin initiated, Eliquis on hold pending decision on cardiac catheterization by cardiology. Continue Toprol-XL.
Hyperthyroidism -followed by endocrinology, Dr. Denson. Patient is unsure of home dose but believes the methimazole was reduced to 5 mg once daily prior to admission. He tried to increase it back to 5 mg twice daily to abort the atrial
fibrillation to no avail.
TSH 2.32, free T4 1.44.
I spoke with Dr. Denson and confirmed that his home dose of methimazole should be 5 mg once daily on discharge.
Hyponatremia -hypovolemic, improving.
Essential hypertension -hypotensive on arrival due to rapid atrial fibrillation and volume depletion. Blood pressure now improving with IV fluid support. Hold antihypertensives.
Hyperlipidemia -resume atorvastatin.
CAD/CABG -2020.
COPD without exacerbation
Full code
Anticipated Discharge: > 48 hours
Subjective/Interval History
-
Date of Service: March 15, 2024
Patient seen and examined. Complaining of cough, right-sided scrotal pain.
Objective Data
-
Labs:
Laboratory Results
03/15/24 03/15/24 03/15/24
02:29 06:14 10:18
WBC 23.8 H
Hgb 17.4
Hct 49.6
Plt Count 212
APTT 33.4 78.8 H
Sodium 134 L
Potassium 4.2
Chloride 98
Carbon Dioxide 19 L
BUN 84 H
Creatinine 2.3 H
Glucose 318 H
Calcium 9.7
Total Bilirubin 0.7
AST 31
ALT 23
Alkaline Phosphatase 70
03/15/24
16:00
WBC
Hgb
Hct
Plt Count
APTT Pending
Sodium
Potassium
Chloride
Carbon Dioxide
BUN
Creatinine
Glucose
Calcium
Total Bilirubin
AST
ALT
Alkaline Phosphatase
Vital Signs:
Vital Signs
Temp Pulse Resp BP Pulse Ox
98.8 F 92 23 101/53 96
03/15/24 12:00 03/15/24 12:00 03/15/24 12:00 03/15/24 12:00 03/15/24 12:00
I&O
03/14/24 03/15/24 03/16/24
06:59 06:59 06:59
Intake Total 560 / 560
Output Total 750 / 750
Balance -750 / -750 560 / 560
Review of Systems
-
History Source: Patient
All other systems: Reviewed and negative
--- NOTE | 2024-03-15 13:08 | CM ---
CM following re: discharge planning.
Reviewed pt's chart, met with pt.
Pt is a 68 year old male, admitted with primary dx of NSTEMI, A-Fib.
Pt reports he lives with spouse and a daughter 2SH, 1 step to enter, has 3 sportive children. Pt described himself as independent in all areas [employer]. No DME, VN or SNF history.
PCP: Aiden Mejias
Pharmacy: [facility].
D/C plan: home with anticipated no needs. Family to transport at discharge.
CM will follow with discharge plan updates as hospitalization progresses
--- NOTE | 2024-03-15 13:24 | PTCARENOTE ---
pt sent to ultrasound/xray as ordered.
[2024-03-15] MEDS: ZOSYN 50 IV ×2 (15:01→19:39)
[2024-03-15 15:53] LABS: Osmolality Urine 558 mOsm/kg (300-900); Urine Albumin Negative (Neg - Trace); Urine Bilirubin Negative (Negative); Urine Character Clear (Clear); Urine Color Yellow; Urine Glucose 3+ (Negative); Urine Ketone Negative (Negative); Urine Leukocyte Negative (Negative); Urine Nitrite Negative (Negative); Urine Occult Blood Negative (Negative); Urine Specific Gravity 1.015 (<1.030); Urine Urobilinogen Negative (Neg - 1+)
[2024-03-15 16:06] LABS: Urine Sodium 13 mmol/L (30-90)
[2024-03-15] MEDS: NOVOLOG FLEXPEN 8 UNITS SC (17:05)
[2024-03-15] MEDS: NOVOLOG FLEXPEN-LOW RESISTANCE 5 UNITS SC (17:05)
[2024-03-15 17:15] LABS: Glucose - Point of Care 387 mg/dl (70-99)
--- NOTE | 2024-03-15 17:53 | W.PN.URO.CBU ---
Today's Communication / Plan
-
await gi ec[vbal restat flomax heat to buttock area
Assessment / Plan
-
threatened perirectal process non flocculant sugget colo rectal eval may need ct scan heat local tx fornow also restart flomax recheck pvr bladder scan may need wade
Diagnosis
-
Date of Service: March 15, 2024
-
Patient Diagnosis:mild retentionurine and scrotal pain incidentally notedm 2 weks of swillg over rt ischial tuberosity
Post Op Day:
Subjective
-
no ferve chils voided 600cc but had residual
Objective
-
Vital Signs
Temp Pulse Resp BP Pulse Ox
97.8 F 95 24 105/82 99
03/15/24 14:43 03/15/24 14:39 03/15/24 14:39 03/15/24 14:39 03/15/24 14:39
Intake and Output
03/14/24 03/15/24 03/16/24
06:59 06:59 06:59
Intake Total 1000 / 1000
Output Total 750 / 750 750 / 750
Balance -750 / -750 250 / 250
Intake:
Oral fluids 400 / 400
IV fluids (Total) 550 / 550
Nss 1,000 ml @ 100 mls/hr IV . 450 / 450
Q10H NARINDER Rx#:[id number]
heparin 100 / 100
IV piggybacks 50 / 50
Output:
Urine, Voided 750 / 750 750 / 750
Laboratory Results
03/15/24 06:14
03/15/24 06:14
Review of Systems
-
: Difficulty Voiding
Physical Exam
-
General - well developed, well nourished, no acute distress
Chest - clear bilaterally
Abdomen - soft, non-tender, positive bowel sounds, no CVAT, no incisional pain or distention
Genitalia - normal mild swellingof skin no deep tissue problems non tender
Rectal - normal sone swelling erythema outside rectal exam
Skin - warm & dry with no rash
Neuro - AOx3, no motor deficits
Extremities - no clubbing, no cyanosis, no edema
Incision - clean, dry
Dressing - clean, dry, intact
Care Review
Data Reviewed
Discussed with: Hospitalist, Nursing and Family
Ultrasound: Image Pers Reviewed
[2024-03-15] MEDS: FLOMAX 0.4 MG PO (17:55)
--- NOTE | 2024-03-15 18:25 | PTCARENOTE ---
Received a call from Bob Pena from colorectal sx with request to stop heparin and ct scan ordered. Heparin stopped as ordered. Pt and aware about test and now npo status. Dr Crowell requested k pad to buttock 'boil' area. SPD does not
have machine, been calling other units to check for machine
--- NOTE | 2024-03-15 20:00 | PTCARENOTE ---
Received pt. at 1900. Currently in bed. Awake, alert, and oriented. Afebrile. Heart rhythm sinus. Blood pressure normotensive. Currently on room air. Lungs sound diminished. Okay appetite. Voiding in urinal without issue. Skin as documented.
Discussed plan of care with patient. Vital signs stable at this time.
[2024-03-15] MEDS: STERILE WATER FOR INJECTION IV (22:01)
--- NOTE | 2024-03-15 22:01 | CON.CRS ---
Addendum entered and electronically signed by Bob Pena MD 03/15/24 22:25:
Discussed with cardiology, agrees with holding off on reversing Eliquis due to increased risk of VTE; will treat any clinically significant bleeding if it arises
Original Note:
Consultation
-
Requesting Provider: Raman Fierro MD
Performing Provider: Bob Pena MD
Reason for Consultation: Peritoneal infection
Medical History
-
History of Present Illness:
Patient is a 68-year-old with a PMH of A-fib (on Eliquis, last dose p.m. of 03/14), CAD s/p CABG 2020, diabetes, mild COPD, HTN, HLD who presents with 3 days of not feeling well and 5 days of worsening perineal pain on the right. In the ED, he was
noted to be in rapid A-fib and underwent urgent cardioversion due to hypotension. He was also noted to be in MATT and mild DKA, HbA1c 8%. WBC of 26.1, Creatinine 3.1, NA 128. He was initially admitted with IV antibiotics and a scrotal ultrasound
was obtained to rule out a scrotal abscess, which was negative. I was consulted for ruling out perineal infection. A CTAP without contrast was done showing subcutaneous gas through out the right aspect of the perineum, extending from the scrotum
posterior to the ischiorectal space. Currently denies any N/V, fevers, chest pain or shortness of breath.
Past Medical History
Past Medical History: Other (As above)
Past Surgical History: Other (CABG 2020)
Social History
Tobacco: Former Smoker (Quit 50 years ago)
Alcohol: Occasional (Rare)
Drug: None
Personal:
Living: With Family
Family History
Family History: Other (No family history of cancer)
Allergies / Home Medications
Allergy/AdvReac Type Severity Reaction Status Date / Time
No Known Allergies Allergy Verified 03/14/24 18:24
�Medication �Instructions �Recorded �Confirmed �Type
nitroglycerin 0.4 mg sublingual 0.4 mg sublingual [id number] PRN 06/27/20 03/15/24 Rx
tablet chest pain #25 tabs
clonazepam 0.5 mg tablet 0.5 mg PO PRN PRN anxiety 07/25/20 03/15/24 History
metoprolol succinate 50 mg 50 mg PO DAILY Blood pressure 07/25/20 03/15/24 History
tablet,extended release 24 hr
atorvastatin 40 mg tablet 40 mg PO DAILY High cholesterol 07/28/20 03/15/24 History
acetaminophen 325 mg tablet 650 mg (2 x 325 mg) PO Q4HPRN PRN 08/01/20 03/15/24 Rx
mild pain,headache,temp >101F
apixaban 5 mg tablet (Eliquis) 5 mg PO BID #60 tabs 08/01/20 03/15/24 Rx
tamsulosin 0.4 mg capsule (Flomax) 0.4 mg PO DAILY Urinary issue 10/06/21 03/15/24 History
metoprolol succinate 50 mg 25 mg (1/2 x 50 mg) PO DAILY@199910/11/21 03/15/24 Rx
tablet,extended release 24 hr #90 tabs
B-complex with vitamin C 1 cap PO DAILY 03/15/24 03/15/24 History
amino acids (Amino Acid capsule) 1 cap PO DAILY 03/15/24 03/15/24 History
amlodipine 10 mg-olmesartan 40 mg 1 tab PO DAILY 03/15/24 03/15/24 History
tablet
chlorthalidone 25 mg tablet 25 mg PO DAILY 03/15/24 03/15/24 History
dapagliflozin propanediol 10 mg 10 mg PO DAILY 03/15/24 03/15/24 History
tablet (Farxiga)
ibuprofen 200 mg tablet (Advil) 200 mg PO Q6H PRN pain 03/15/24 03/15/24 History
mecobalamin (vitamin B12) 1,000 1,000 mcg PO DAILY 03/15/24 03/15/24 History
mcg chewable tablet (B12 Active)
methimazole 5 mg tablet 5 mg PO BID 03/15/24 03/15/24 History
olive oil 1 ea miscellaneous DAILY 03/15/24 03/15/24 History
semaglutide 1 mg/dose (2 mg/1.5 1 mg SC QWEEK 03/15/24 03/15/24 History
mL) subcutaneous pen injector
Review of Systems
-
A 10 point review of systems was completed, and was negative except as per HPI.
Physical Exam
Vital Signs
Temp 97.8 F 03/15/24 14:43
Pulse 99 03/15/24 19:39
Resp Rate 23 03/15/24 18:21
Blood pressure 102/58 03/15/24 19:39
SaO2 99 03/15/24 20:00
03/14/24 03/15/24 03/16/24
06:59 06:59 06:59
Actual Weight 94.3 kg
Body Mass Index (BMI) 24.7
Lab Results / Allergies
03/15/24 06:14
03/15/24 06:14
WBC 23.8 10^3/uL (4.8-10.8) H 03/15/24 06:14
Hgb 17.4 g/dL (13.0-18.0) 03/15/24 06:14
Hct 49.6 % (39.0-52.0) 03/15/24 06:14
Plt Count 212 10^3/uL (130-400) 03/15/24 06:14
Abs Immat Gran (auto) 0.4 10^3/uL (0-0.05) H 03/14/24 18:47
Neutrophils % 85.3 % (42.2-75.2) H 03/14/24 18:47
Allergy/AdvReac Type Severity Reaction Status Date / Time
No Known Allergies Allergy Verified 03/14/24 18:24
Physical Exam
General: Well Developed, Well Nourished and No Apparent Distress
HEENT: Normocephalic and Atraumatic
Respiratory: Non Labored Respirations
GI: Soft, Non Tender and Non Distended
Rectal: Other (Erythema and induration along the right perineum extending to the base of the scrotum with a 2 to 3 cm subcutaneous swelling at the base of the scrotum, no palpable fluctuance or purulent drainage; the left aspect of the perineum
appears normal without erythema or induration)
Skin: Warm and Dry
Neuro: AO x 3
Data Reviewed
-
CT Scan: Image Personally Visualized and interpreted, Discussed with Physician (Radiology), Discussed with Patient and Discussed with Family
Labs: Labs Reviewed by me and Discussed with Patient
Assessment / Plan
-
Patient is a 68-year-old with a PMH of A-fib (on Eliquis, last dose p.m. of 03/14), CAD s/p CABG 2020, diabetes, mild COPD, HTN, HLD who presents with 3 days of not feeling well and 5 days of worsening perineal pain on the right. Last cscope was 30
years ago, reportly normal. In the ED, he was noted to be in rapid A-fib and underwent urgent cardioversion due to hypotension and started on a hepgtt. He was also noted to be in MATT and mild DKA, HbA1c 8%, glucose 411. WBC of 26.1, Creatinine 3.1,
NA 128. He was initially admitted with IV antibiotics and a scrotal ultrasound was obtained to rule out a scrotal abscess, which was negative. I was consulted for ruling out perineal infection. A CTAP without contrast was done showing
subcutaneous gas through out the right aspect of the perineum, extending from the scrotum posterior to the ischiorectal space.
Tmax 100.0, HR 90s to 100s sinus, normotensive
WBC 23.8, creatinine 2.3, NA 134, glucose 318, troponin 4.1 (from 6.3), UA negative
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
�Recommend prompt surgical debridement for control of infection
�Patient at significantly elevated bleeding risk due to recent Eliquis 24 hours ago; heparin drip held since 6 PM
�Discussed with cardiology; okay to hold AC perioperatively for 1 to 2 days if necessary
�Continue broad-spectrum IV antibiotics; recommend adding clindamycin for antitoxin effect
�Had lengthy discussion regarding risks benefits and alternatives with patient and patient's spouse; explained the elevated cardiac risk as well as as the other risks associated with anesthesia (i.e.�stroke, respiratory failure, DVT/PE); explained
the risks of bleeding, infection/repeat surgeries/continued spread of infection requiring multiple debridements; explained the risk of involvement of nearby structures, such as the scrotum, testicles and rectum; patient and spouse understood, all
questions were answered and they were amenable to surgical debridement
�Continue n.p.o. with IVF; discussed with hospitalist
� Pain control
�Appreciate hospitalist and consultants
[2024-03-15] MEDS: LANTUS 0.15 UNITS SC (22:06)
--- NOTE | 2024-03-15 22:11 | W.PN.UPDATE ---
Update Note
Progress Note Update
Patient with [place] gangrene and requires urgent debridement [place]. Discussed cardiovascular risk with Dr. Pena in a patient presenting with paroxysmal a fib requiring cardioversion with troponin of approximately 6. Echo shows preserved
global ejection fraction with subtle focal wall motion abnormality. History of CABG 2020. Long-standing ST changes that were slightly increased during this hospital stay. Risk of perioperative and postoperative cardiac complications will be
increased in the setting of myocardial injury likely not related to ACS, but assessment of risk and benefit clearly favors proceeding to OR. Okay to hold heparin, we can reassess in morning. We can consider amiodarone. Eventual restart of Eliquis.
Maintain metoprolol as blood pressure permits.
[2024-03-15 22:17] LABS: Glucose - Point of Care 296 mg/dl (70-99)
[2024-03-16] VITALS (33 sets, daily range): BP systolic 77–108; BP diastolic 46–65; BMI 25.6
--- NOTE | 2024-03-16 01:12 | W.IMMPOSTOP ---
Surgical Immed Post Op Note
-
Primary Surgeon: Bob Pena MD
Assisting Surgeon: None
Pre-op Diagnosis: Necrotizing soft tissue infection of perineum
Post-op Diagnosis: Necrotizing soft tissue infection of perineum
Procedure Performed: Flexible sigmoidoscopy, incision and drainage of right perineum, extensive debridement, pulse irrigation
Anesthesia Type: General And local
Specimen / Cultures: Right peritoneal infection culture, right peritoneum
Estimated Blood Loss: 20 mL
Complications: None
Operative Findings: Created elliptical incision over right anterior perineum extending into a subcutaneous bulge at the base of the scrotum; dissected down and identified necrotic malodorous subcutaneous tissue with kern/brown fluid appearance in
the right perineum, which was swabbed for anaerobic and aerobic cultures; this extended to the right ischiorectal space to the right posterior perineum and extended anteriorly towards the base of the scrotum and laterally up towards the inguinal
canal; tissue was debrided to healthy tissue; meticulous hemostasis was obtained with electrocautery; during surgery, anesthesia notified me that patient had increasing pressor requirement; 95% of the necrotic tissue was completely debrided; small
area of necrotic tissue left behind towards the right inguinal area and at the base of the scrotum; pulse irrigated the entire wound and confirmed hemostasis with electrocautery; tissue was sent for pathology; wound was packed with Surgicel and with
Betadine soaked Kerlix x 1
�Switched antibiotics to IV Zosyn, IV Vanco and clindamycin for necrotizing soft tissue infection; keep n.p.o. with aggressive IVF for possible reexploration Friday versus Friday, depending on clinical status; will need urology
available for takeback
[2024-03-16 01:15] LABS: Glucose - Point of Care 346 mg/dl (70-99)
--- NOTE | 2024-03-16 01:41 | OR.RPT ---
Addendum entered and electronically signed by Bob Pena MD 04/01/24 14:57:
for CDI: debridement involved was excisional
Original Note:
Operative Report
Operative Report
DATE OF OPERATION: 03/16/2024
SURGEON: Bob Pena MD
PREOPERATIVE DIAGNOSIS: Necrotizing soft tissue infection of the perineum
POSTOPERATIVE DIAGNOSIS: Necrotizing soft tissue infection of the perineum
OPERATION: Flexible sigmoidoscopy, incision and drainage of right perineal infection, debridement of perineal infection, pulse-irrigation of perineal wound
ASSISTANTS:
1. None
ANESTHESIA: General With local
ESTIMATED BLOOD LOSS: 20 mL
UOP: 500 mL
IVF: 1.7 L crystalloid
FINDINGS:
1. On flexible sigmoidoscopy, advanced to 20 cm; there was some hard stool within the rectum, but the majority of the mucosa was able to be visualized and appeared healthy without any evidence of ischemia or inflammation
2. Noted subcutaneous swelling at the base of the scrotum with erythema extending along the right aspect of the perineum lateral to the anus, associated with induration; made elliptical incision at the center of this area and took this down through
the subcutaneous tissue; encountered kern/brown necrotic fluid, sent cultures
3. Debrided the majority of the right perineum extending from the base of the scrotum and the right inguinal region, extending adjacent to the anus and rectum without involvement of the sphincter complex and extending posteriorly to the right
posterior perianal area
SPECIMENS:
1. Right perineal wound culture
2. Right perineal wound
DRAINS: None
COMPLICATIONS: No immediate complications.
INDICATIONS: The patient is a 68-year-old male who presented to the [place] ED complaining of 3 days of malaise and not feeling well. He was found to be in rapid A-fib associated with hypotension and underwent urgent cardioversion within the
ED, which converted him to sinus rhythm. He then complained about 5 days of right perianal pain associated with a swelling. A CT of the pelvis showed subcutaneous air tracking along the right perineum from the right inguinal region to the right
ischiorectal space. Therefore, he was recommended for urgent surgical debridement for source control. The operation was discussed with the patient in detail, including the risks, benefits and alternatives. Risks described included, but not limited
to, bleeding (especially elevated due to recent Eliquis; per cardiology, recommended against reversing due to risk of stroke), infection, requirement of multiple debridements, extension into nearby structures (i.e.�scrotum, testicles, anus), and
anesthetic risks, including but not limited to CO, stroke, DVT/PE, respiratory failure and . I provided the patient with a NSQIP risk report demonstrating an estimated 25% risk of serious complication, 32% risk of any complication, and 7% risk
of perioperative mortality. The patient understood and agreed to proceed. The same was also discussed with the spouse, who understood and agreed to proceed.
PROCEDURE IN DETAIL: The patient was taken to the operating room and placed on the operating table in supine position. Sequential compression devices were placed bilaterally. General anesthesia was induced and the patient was intubated without
complication. The patient was placed in lithotomy position with the bilateral arm secured to the armboards. Smart catheter was placed with sterile technique. Patient recently received antibiotics. The perineum was prepped and draped in a sterile
fashion. A time-out was performed verifying the correct patient, procedure, operative site, positioning, and special equipment.
I started with flexible sigmoidoscopy. I advanced the sigmoidoscope transanally to about 20 cm when I encountered hard stool. On withdrawal, there was stool within the rectum but the majority of the mucosa was able to be visualized and appeared
healthy without evidence of ischemia or necrosis. The sigmoidoscope was removed.
On evaluation of the perineum, there was erythema along the right aspect of the perineum laterally from the perianal area and extending up towards the base of the scrotum where there was a subcutaneous bulge. This was not obviously fluctuant but
more indurated. I used an 18-gauge needle with syringe to help identify any areas of purulence. However, after testing a few sites along the lateral perineum, no obvious pus was aspirated. Therefore, I created an elliptical incision over the
right perineum centered within the erythema and aided by the radiographic findings. I took this down through the subcutaneous tissue using electrocautery. I encountered necrotic tissue and fluid with dishwater appearance. This was swabbed and
sent for cultures. Using finger fracture technique, the necrotic tissue extended posteriorly into the right ischiorectal space and anteriorly to the base of the scrotum and upwards towards the right inguinal region. I extended my skin incision up
to the base of the scrotum, including the subcutaneous bulge which was clearly infected tissue, and posteriorly to the right lateral perianal skin. The necrotic tissue was debrided using forceps and Metzenbaum scissors to healthy bleeding tissue.
The debridement involved about 160 degrees around the sphincter complex, but did not involve the anal sphincter muscles, which were viable. The fascia of the scrotum was not violated and the testicles were uninvolved. Due to the patient's need for
anticoagulation for his A-fib, meticulous hemostasis was achieved with electrocautery.
At this point, anesthesia alerted me that the patient had an increasing pressor requirement. At this point, 95% of the necrotic tissue was completely debrided to healthy bleeding tissue and hemostasis had been assured. There was a small amount of
necrotic tissue left at the base of the scrotum and in the right inguinal area. However, I felt it safer at this point to return the patient to the ICU for aggressive resuscitation to prevent ensuing coagulopathy and for takeback within 12-24 hours
for additional debridement. I performed pulse irrigation using 3 L of saline to the wound. I evaluated the wound once more and hemostasis was assured. The debrided tissue was sent for pathology. The wound was packed with Surgicel for
preventative measures and with one Betadine�soaked Kerlix.
At this point, the procedure was complete. All needle, sponge and instrument counts were correct. The patient tolerated the procedure well. The area was dressed with gauze and tape.
DICTATED BY: Bob Pena MD
[2024-03-16] MEDS: NOVOLOG FLEXPEN 10 UNITS SC (01:52)
[2024-03-16] MEDS: ZOSYN 50 IV ×4 (01:52→20:31)
[2024-03-16] MEDS: NSS 1000 IV ×3 (01:52→20:28)
[2024-03-16] MEDS: DILAUDID 1 MG IV (01:53)
--- NOTE | 2024-03-16 02:00 | PTCARENOTE ---
Pt. back to unit from OR. Received bedside hand off from NURSE. Pt. is awake, alert, and oriented. C/o pain at debridement site. PRN medication given, see MAR. Afebrile. Heart rhythm is sinus. Blood pressure normotensive. Currently on 6L nasal
cannula. NPO. Maintenance IV fluids ordered. Smart catheter in place from OR. Draining without issue. Skin as documented. Vital signs stable at this time.
[2024-03-16] MEDS: CLEOCIN 50 IV ×3 (02:05→17:41)
[2024-03-16] MEDS: VANCOCIN 540 MG IV (03:09)
[2024-03-16 04:57] LABS: Hemoglobin 13.5 g/dL (13.0-18.0); Mean Corp Hgb Conc. 34.6 g/dL (33.0-37.0); Mean Corpuscular Hgb 28.7 pg (27.0-31.0); Mean Platelet Volume 9.2 fL (7.4-10.4); Platelet Count 187 10^3/uL (130-400); Red Cell Dist. Width 12.3 % (11.5-14.5); White Blood Cell Count 21.4 10^3/uL (4.8-10.8)
[2024-03-16 05:09] LABS: APTT 27.7 Sec (23.4-35.0)
[2024-03-16 05:26] LABS: ALT (SGPT) 19 U/L (0-50); AST (SGOT) 21 U/L (17-59); Albumin 2.7 g/dl (3.5-5.0); Alkaline Phosphatase 56 U/L (38-126); Blood Urea Nitrogen 80 mg/dl (9-20); Calcium 8.1 mg/dl (8.4-10.2); Carbon Dioxide 16 mmol/L (22-30); Chloride 103 mmol/L (98-107); Estimated Creatinine Clearance 44 ml/min; Glucose 349 mg/dl (70-99); Potassium 3.9 mmol/L (3.5-5.1); Sodium 133 mmol/L (135-145); Total Bilirubin 0.3 mg/dl (0.2-1.3); Total Protein 5.6 g/dl (6.3-8.2); eGFR 35.46
[2024-03-16 06:02] LABS: Hepatitis C Antibody Negative (Negative)
[2024-03-16] MEDS: TYLENOL 1000 MG PO ×4 (06:14→23:25)
--- NOTE | 2024-03-16 07:39 | W.PN.CARDCBS ---
Addendum entered and electronically signed by Maxx Bolanos MD 03/16/24 09:54:
I saw and examined the patient.
The CELLAR SUPERVISOR or PA's note was reviewed and I agree with the note.
Comment: General: Well developed, well nourished in NAD.
Neck: Supple, no JVD, HJR, carotids +2 B/L, no bruits bilaterally.
Heart: Non displaced PMI, RRR, no murmurs, No S3, S4, no rubs.
Lungs: Scattered rhonchi
Extremities: No clubbing, cyanosis or edema bilaterally.
Neuro: Grossly nonfocal, awake, alert and oriented x3.
Stable cardiology status remains in sinus rhythm. Eventually resume heparin when okay with surgery. Could consider eventual ischemic evaluation versus outpatient evaluation as ejection fraction is normal. Of note renal function has improved but
would be high risk for ATN with dye with renal insufficiency.
Original Note:
Today's Communication / Plan
-
Remains in SR following CV 03/14/24, need to restart Heparin gtt as soon as possible
Troponin peaked at 6.3, abnormal ECG, new WMA on echo and a h/o CABG.
Follow volume status closely with pro-BNP 65561 on admission, 2.5 L IVFs thus far
51 min face to face and coordination of care
Impression / Plan
-
PCP: Dr. Hart
Primary Organic Extractions Technician: Dr. Bolanos
Impression:
Admitted with MATT, elevated Troponin and recurrent Afib with CV in the ER 03/14/24
MATT
Elevated Troponin
Paroxysmal Afib with RVR s/p successful CV in [facility] 03/14/24
Paroxysmal Afib
initially seen s/p CABG 07/2020
recurrent Afib treated with CV in [facility] 10/06/21
recurrent Afib treated with rate control and spontaneously converted to SR 10/09/21
Chronic OAC with Eliquis
Hypothyroidism
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
CAD s/p CABG x4 07/2020
HTN
HLD
DM2
COPD
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
ALFREDO 07/2020: EF 60-65%, no RWMA, severe conc LVH, mod dilated LA, mildly dilated mid ascending aorta, mild sessile atheroma in descending aorta and distal arch
ECHO 10/11/21: EF 50 to 55%, no WMA, normal RA/LA size, no significant valve disease
Echo 03/15/24: EF 55%, mild hypokinesis of the basal-mid inferoseptal, apical lateral and basal inferior lance, normal RV size and function, trileaflet sclerotic aortic valve with dense calcification on the noncoronary cusp, no /AR
Plan:
-Overnight events noted, patient reports a week or so of perineal pain. He had flex sig, I&D and extensive debridement of the perineum 03/15/24 PM. Antibiotics were switched to Zosyn, vancomycin and clindamycin. He is receiving 'aggressive' IVF for
possible reexploration 03/16/2024 afternoon
-Outpatient dose of Farxiga has been stopped. Patient reports Farxiga was started about 6 months ago by his PCP and he recalls being warned about infections, but figured he did so well for so long and it slipped his mind.
-Patient had CV in [facility] 03/14/24 PM, prior to that he had not missed any doses of his outpatient Eliquis 5 mg BID (Cre 2.0, age 68, wt 94.3 kg). In [facility] due to elevated Troponin he was changed to Heparin gtt on admission.
-Heparin gtt was stopped for OR on 03/15/24 PM and remains off. Patient was not reversed. Given CV on 03/14/24 would push to resume Heparin gtt as soon as possible
-Remains in SR on tele review by me 03/16/24
-Troponin peaked at 6.32. No chest pain, but ECG with inferolateral T wave inversions and IC LBBB. Patient also with new WMA on echo 03/15/24.
-Plan prior to overnight perineal abscess drainage was cardiac cath 03/16/24. Patient interested in cath, he has not had cath since CABG in 2020. Cath is acutely deferred, but will continue to reassess potential need for and timing of cath.
-Heparin gtt on hold, will start aspirin 81 mg daily 03/16/24
-Cre improved to 2.0 on 03/16/24
-Outpatient doses of benazepril 40 mg daily, chlorthalidone 25 mg daily on hold due to MATT. BP stable.
-Outpatient dose of amlodipine 10 mg daily is on hold due to hypotension
-Outpatient dose of Toprol XL 50 mg AM and 25 mg HS has been reduced to 25 mg BID due to hypotension, dose held 03/16/24 held due for SBP less than 90.
[place] [address] on admission, but no edema, orthopnea etc. No evidence of acute HF on CXR. Patient was not taking a loop diuretic prior to admission. No evidence of acute HF currently and will follow for now. Patient has received 2.5 L
IVFs thus far. Weight is up 8 lbs 03/16/24, but this is a bed scale weight.
HPI: Patient came to ER yesterday with complaints of feeling poorly for at least 3 days and was found to be in rapid A-fib and is now admitted with cardiology consultation. Patient was last seen in the office on 05/19/2023 and was in SR at that
time. Initially seen in AF after CABG 07/2020 none recurrence last noted to be 10/2021 as noted above. Patient felt as though he was in AF for about 3 days prior to admission. Patient felt that this correlated with a decrease in his outpatient
levothyroxine dosing in the last several weeks, so he increase the dose, but no improvement in his AF so he finally came to ER yesterday. Patient says he also came to ER because he has been feeling sick and felt as though he had the flu for
the last 1 to 2 months. He says he feels he has a fever at times and this will correlate to a temperature of 100.6 �F when he checks his temperature at home. He says his the symptoms wax and wane and that he feels congested much of the time. He
feels SOB at times, but not consistent. No orthopnea or PND. No bloating. No LE edema. In ER last night patient was found to be in rapid AF and denied missing any Eliquis doses so he had a successful CV and remains in SR this a.m. Patient
reports dramatic symptomatic improvement following lutheran of SR. Patient also noted to be in MATT with Cre up to 3.1 last evening, but improved to 2.3 this a.m. Patient reports ongoing congestion, but less SOB. Initial troponin was elevated
at 5.73, then up to 6.03, then down to 5.53 and then even though the troponin was trending down another troponin was checked and was elevated at 6.32. A 5th troponin is now pending, but patient denies any chest pain. He does have a history of CAD
s/p CABG.
Progress Note - Organic Extractions Technician
Subjective
Date of Service: March 16, 2024
He feels better, no more fevers, no chest pain
Objective
Labs:
03/16/24 04:44
03/16/24 04:44
Labs
Hgb 13.5 g/dL (13.0-18.0) D 03/16/24 04:44
Hct 39.0 % (39.0-52.0) 03/16/24 04:44
Plt Count 187 10^3/uL (130-400) 03/16/24 04:44
APTT 27.7 Sec (23.4-35.0) 03/16/24 04:44
Sodium 133 mmol/L (135-145) L 03/16/24 04:44
Potassium 3.9 mmol/L (3.5-5.1) 03/16/24 04:44
BUN 80 mg/dl (9-20) H 03/16/24 04:44
Creatinine 2.0 mg/dL (0.7-1.3) H 03/16/24 04:44
Glucose 349 mg/dl (70-99) H 03/16/24 04:44
Troponins
03/14/24 03/15/24 03/15/24
18:47 00:37 03:23
Troponin I 5.730 H* 6.030 H* 5.530 H*
03/15/24 03/15/24 03/16/24
06:14 14:47 04:44
Troponin I 6.320 H* 4.120 H* 2.050 H*
Vital Signs and I&O:
Vital Signs
Temp Pulse Resp BP Pulse Ox
98.6 F 80 11 93/59 98
03/16/24 04:00 03/16/24 06:01 03/16/24 06:01 03/16/24 06:01 03/16/24 06:01
Vital Signs
Temp Pulse Resp BP Pulse Ox
98.6 F 80 11 93/59 98
03/16/24 04:00 03/16/24 06:01 03/16/24 06:01 03/16/24 06:01 03/16/24 06:01
Intake & Output
03/14/24 03/15/24 03/16/24 03/17/24
06:59 06:59 06:59 06:59
Intake Total 5022 / 5022
Output Total 750 / 750 3125 / 3125
Balance -750 / -750 1897 / 1897
Physical Exam
Physical Exam
GEN: AAOx3
HEENT: MMM
LUNGS: 2 L NC. No audible wheeze
CV: SR on tele.
ABD: ND
EXT: No edema B/L
NEURO: Gross non-focal
SKIN: No rash
--- NOTE | 2024-03-16 07:49 | W.PN.ANS.POP ---
Anesthesia Post Operative
- Anesthesia Post Op Note
Vital Signs Stable-See Nursing Note: Yes
Airway Patent: Yes
Adequate Pain Control: Yes
Change in Mental Status: No
Current Postoperative Nausea & Vomiting: No
Anesthesia Complications: No
General Anesthetic Recall: No
Unplanned Admission: No
Post Op Hydration Adequate: Yes
[2024-03-16] MEDS: NOVOLOG FLEXPEN-LOW RESISTANCE 4 UNITS SC (08:44)
[2024-03-16] MEDS: NOVOLOG FLEXPEN SC (08:44)
[2024-03-16] MEDS: LIPITOR 40 MG PO (08:46)
[2024-03-16] MEDS: FLOMAX PO (08:46)
[2024-03-16] MEDS: TAPAZOLE 5 MG PO (08:47)
[2024-03-16] MEDS: TOPROL XL PO ×2 (08:47→20:33)
[2024-03-16 08:54] LABS: Glucose - Point of Care 343 mg/dl (70-99)
--- NOTE | 2024-03-16 09:23 | W.PN.HOSP.TC ---
Today's Communication/Plan
-
ID consult
IV fluid bolus
IV insulin
Diabetes TALEND ETL DEVELOPER consult
Certified Medical Dosimetrist consult
Await decision on further surgical debridement
Continue IV antibiotics
Assessment / Plan
Assessment / Plan
Gen-AAOx3, NAD
HEENT-NC, AT, anicteric, clear oral mm
Neck-supple
CV-reg, no M, +S1/S2
Lungs-clear B/L
Abd-soft, NT, ND
Ext-no edema
Musculoskeletal-no cyanosis, clubbing
Skin-warm and dry
Neuro-grossly non-focal
Psych-calm, cooperative
-right-sided scrotal swelling and tenderness with nodule noted
Septic shock due to necrotizing perineal infection -early Williams's gangrene. CT scan noted. Continue broad-spectrum antibiotics, consult ID. Appreciate colorectal surgery input. Had incision and drainage and debridement cake inspector 03/16.
Cultures from the OR pending. Blood cultures from yesterday pending.
Currently n.p.o. awaiting decision on further debridement. Patient states pain in his pereneum him started about a week prior to admission. Discussed permanently stopping SGLT2 inhibitors moving forward. Informed his customer professional
Janiya as well.
Still hypotensive, IV fluid bolus ordered. May need vasopressors if not improved. WBC count trending down.
Upgrade to ICU level. Consult creative art director.
MATT -due to severe volume depletion. Creatinine improving with IV fluid support. Hold chlorthalidone, olmesartan. Hold NSAIDs.
DM2 with hyperglycemia -mild DKA noted. Anion gap 17, bicarbonate 19. Beta hydroxybutyrate 0.12. Hemoglobin A1c 8%. Not on insulin at home. Start glycemic protocol, IV insulin. Consult diabetes TALEND ETL DEVELOPER.
At home he uses Farxiga 10 mg daily, Ozempic once weekly.
Moving forward, permanently discontinue SGL 2 inhibitors given presentation with Williams's gangrene. Discussed with patient.
Troponin elevation -suspect acute nonischemic myocardial injury due to sepsis, rapid atrial fibrillation, acute illness. Echocardiogram shows LVEF 55%, mild hypokinesis of the basal�mid inferior septal, apical lateral, basal inferior lance. Normal
RV size and systolic function.
Rapid paroxysmal atrial fibrillation -successfully cardioverted to sinus rhythm in the ER. IV heparin initiated, Eliquis on hold pending decision on cardiac catheterization by cardiology. Continue Toprol-XL. IV heparin currently on hold pending
further surgical intervention.
Hyperthyroidism -followed by endocrinology, Dr. Denson. Patient is unsure of home dose but believes the methimazole was reduced to 5 mg once daily prior to admission. He tried to increase it back to 5 mg twice daily to abort the atrial
fibrillation to no avail.
TSH 2.32, free T4 1.44.
I spoke with Dr. Denson and confirmed that his home dose of methimazole should be 5 mg once daily on discharge.
Hyponatremia -hypovolemic, improving.
Essential hypertension -hypotensive on arrival due to rapid atrial fibrillation and volume depletion. IV fluid bolus ordered. May need vasopressors. Hold antihypertensives.
Hyperlipidemia -resume atorvastatin.
CAD/CABG -2020.
COPD without exacerbation
Full code
Anticipated Discharge: > 48 hours
Subjective/Interval History
-
Date of Service: March 16, 2024
Patient seen and examined. Feeling better than yesterday. Mild groin pain.
Objective Data
-
Labs:
Laboratory Results
03/16/24
04:44
WBC 21.4 H
Hgb 13.5 D
Hct 39.0
Plt Count 187
APTT 27.7
Sodium 133 L
Potassium 3.9
Chloride 103
Carbon Dioxide 16 L
BUN 80 H
Creatinine 2.0 H
Glucose 349 H
Calcium 8.1 L D
Total Bilirubin 0.3
AST 21
ALT 19
Alkaline Phosphatase 56
Vital Signs:
Vital Signs
Temp Pulse Resp BP Pulse Ox
97.5 F 77 19 87/57 99
03/16/24 07:46 03/16/24 07:00 03/16/24 07:00 03/16/24 08:47 03/16/24 07:46
I&O
03/15/24 03/16/24 03/17/24
06:59 06:59 06:59
Intake Total 5022 / 5022
Output Total 750 / 750 3125 / 3125
Balance -750 / -750 1897 / 1897
Review of Systems
-
History Source: Patient
All other systems: Reviewed and negative
--- NOTE | 2024-03-16 09:32 | PHA.VAN.IN ---
Assessment
- Assessment
Renal Function: Appears elevated from baseline
Maximum Temperature: 100.0
Plan
- Plan
Initial / Loading Dose: 2000mg (20 mg/kg) 03/16 03:09
Maintenance Regimen: dose by level
Monitoring: R 03/17
Pharmacokinetics Vancomycin I
- -
Patient Age: 68
Patient Sex: Male
Vancomycin Day #: 1
Indication: Skin And Soft Tissue (Williams's gangrene)
Requesting Provider: Dr Pena
Pertinent Antimicrobial Allergies:
no known allergies
Height / Weight:
Height 6 ft 5 in
Actual Weight 97.7 kg
- Vital Signs / Lab Results
Temp Pulse Resp BP Pulse Ox
97.5 F 77 19 87/57 99
03/16/24 07:46 03/16/24 07:00 03/16/24 07:00 03/16/24 08:47 03/16/24 07:46
Lab Results - Hematology
03/14/24 03/15/24 03/16/24
18:47 06:14 04:44
WBC 26.1 H 23.8 H 21.4 H
Lab Results - Chemistry
03/14/24 03/14/24 03/14/24
18:47 21:08 22:45
BUN 85 H 86 H Cancelled
Creatinine 3.1 H 2.8 H Cancelled
Estimated Creat Clear 28 31 Cancelled
Albumin
03/15/24 03/16/24
06:14 04:44
BUN 84 H 80 H
Creatinine 2.3 H 2.0 H
Estimated Creat Clear 38 44
Albumin 3.9 2.7 L
Lab Results - Urine
03/15/24
15:35
Urine Nitrite Negative
Ur Leukocyte Esterase Negative
Microbiology Results
03/14/24 18:47 Influenza Types A & B (YOMI) - Final
Nasal Swab Negative for Influenza A & B, NAAT
Negative results must be combined with clinical observations
and patient history.
Nucleic Acid Amplification test (NAAT)performed on the
[employer] platform.
[2024-03-16] MEDS: NSS 500 IV ×2 (09:36→11:22)
[2024-03-16] MEDS: NOVOLIN R 6 UNITS IV (10:24)
[2024-03-16] MEDS: NOVOLIN R INSULIN INFUSION 100 IV ×2 (10:25→14:04)
[2024-03-16 10:33] LABS: Glucose - Point of Care 346 mg/dl (70-99)
[2024-03-16] MEDS: LOW STRENGTH ASPIRIN 81 MG PO (10:37)
--- NOTE | 2024-03-16 11:20 | PTCARENOTE ---
Dr Sousa aware that sbp below 90 after fluid bolus. additional bolus ordered and intiated
--- NOTE | 2024-03-16 11:37 | CON.ID ---
Consultation
-
Date/Time Consultation Requested: March 16, 2024 0917
Date/Time Consultation Performed: March 16, 2024 1135
Requesting Provider: Dr. Raman Fierro
Performing Provider: Dr. Janeen Salas
Reason for Consultation: Williams's gangrene
Chief Complaint / Past History
Chief Complaint
Scrotal pain
History of Present Illness
68 year old male with history of diabetes mellitus, CAD, paroxysmal atrial fibrillation, BPH who presented to the hospital on March 14 due right scrotal pain and feeling unwell. He states that for about a week or 2, he noted posterior right
scrotal discomfort when he drove for long time. Last week on he felt the right side of his scrotum was enlarged. On Friday the pain and redness extended to the front. On Friday redness went up his groin. He came to the ER March 14.
Patient noted to be in A-fib with RVR, hypotensive, status post cardioversion. + troponin. Patient was started on ceftriaxone and azithromycin for possible pneumonia as he had been complaining of a dry cough for 4 weeks. Scrotal ultrasound showed
edematous changes. He then had CT of the abdomen pelvis which showed extensive edema and gas throughout the right aspect of the perineum. Patient was taken to the OR emergently around midnight status post extensive debridement of necrotizing
tissue. Antibiotics changed to vancomycin, Zosyn, clindamycin. Today he is feeling better. No urinary symptoms.
Past History
Additional Past Medical History:
Diabetes mellitus
Hyperthyroidism
CAD status post CABG x 4
Atrial fibrillation
Hypertension
COPD
Dyslipidemia
BPH
Allergy History:
No Known Allergies Allergy (Verified 03/14/24 18:24)
Medications Reviewed: Yes
Current Antibiotics:
Vancomycin
Zosyn d2
Clindamycin d2
Social History
Tobacco: Former Smoker
Alcohol: Occasional
Drug: None
Personal:
Family History
Family History: Not Pertinent
Review of Systems
Review of Systems
General: Chills and Change in Appetite; Negative Fever
HEENT: Negative Stiff Neck, Sinus Problems, Headache or Pharyngitis
Cardiovascular: Negative Chest Pain or Dyspnea
Respiratory: Cough; Negative Sputum Production
Gasteroenterology: Negative Nausea, Vomiting or Diarrhea
Genital / Urological: Negative Dysuria or Flank Pain
Endocrine: Weakness
Neurological: Negative Dizziness
All systems: All other systems were reviewed and were negative
Vital Signs
Temp Pulse Resp BP Pulse Ox
97.5 F 65 19 88/55 96
03/16/24 07:46 03/16/24 11:00 03/16/24 11:00 03/16/24 11:00 03/16/24 11:03
Physical Exam
Physical Exam
Constitutional: No Acute Distress and Comfortable
Eyes: No Conjunctival Hemorrhage and Sclera Anicteric
Cardiovascular: Regular Rate and S1/S2
Pulmonary: Clear
Gastrointestinal: Soft, Non Tender, Non Distended and Normal Bowel Sounds
Genito-Urinary: Other (Right perineum dressing noted. ); Negative CVA Tenderness
Extremities: Negative Edema
Neurological: AO x 3
Lab / Diagnostic Study Results
03/16/24 04:44
03/16/24 04:44
Abs Immat Gran (auto) 0.4 10^3/uL (0-0.05) H 03/14/24 18:47
Absolute Neuts (auto) 22.3 10^3/uL (1.4-6.5) H 03/14/24 18:47
Absolute Lymphs (auto) 1.2 10^3/uL (1.2-3.4) 03/14/24 18:47
Absolute Monos (auto) 2.2 10^3/uL (0.1-0.6) H 03/14/24 18:47
Absolute Basos (auto) 0.1 10^3/uL (0-0.2) 03/14/24 18:47
Immature Gran % 1.5 % (0-0.5) H 03/14/24 18:47
Neutrophils % 85.3 % (42.2-75.2) H 03/14/24 18:47
Lymphocytes % 4.4 % (20.5-51.1) L 03/14/24 18:47
Monocytes % 8.5 % (1.7-9.3) 03/14/24 18:47
Eosinophils % 0.0 % (0-6) 03/14/24 18:47
Basophils % 0.3 % (0-2) 03/14/24 18:47
Procalcitonin 0.49 ng/ml (0.0-0.25) H 03/15/24 06:14
Microbiology Results
Micro:
03/15/24 23:42 Wound Culture - Pending
Ángela-anal Gram Stain - Preliminary
03/15/24 23:42 Anaerobic Culture - Pending
Perineum
03/15/24 15:00 Blood Culture - Pending
Blood/Venous
03/15/24 14:47 Blood Culture - Pending
Blood/Venous
03/14/24 18:47 Influenza Types A & B (YOMI) - Final
Nasal Swab Negative for Influenza A & B, NAAT
Negative results must be combined with clinical observations
and patient history.
Nucleic Acid Amplification test (NAAT)performed on the
[employer] platform.
03/14/24 CXR: Probable minor scarring or atelectasis in the medial left lung base. Otherwise no acute cardiopulmonary process.
03/15/24 Scrotal US: Scrotal edematous changes. Small left hydrocele and small left varicocele. No abnormal collection suspicious for abscess identified at ultrasound.
03/15/24 CT a/p: Extensive subcutaneous edema and gas throughout the right aspect of the perineum extending into the visualized proximal aspect of the scrotum/right inguinal canal. No loculated fluid collections. Findings are suspicious for
Williams's gangrene in the appropriate clinical context.
Assessment / Plan
#Fourniere's gangrene of right perineum
- s/p I+D 03/15/24.
- Gram stain: polymicrobial org; Cx pending
- For further I+D today.
-Continue Vancomycin, Zosyn, IV clindamycin pending culture data.
Monitor Vancomycin level closely
# Sepsis. leukocytosis, hypotensive due to above
- Follow blood cx
-Follow temps/wbc.
# MATT
- Follow closely especially in setting of Vancomycin/Zosyn combo.
# Afib with RVR triggered by infection
-s/p cardioversion, now in sinus.
# Conditions PTGA
Diabetes mellitus
Hyperthyroidism
CAD status post CABG x 4
Atrial fibrillation
Hypertension
COPD
Dyslipidemia
BPH
--- NOTE | 2024-03-16 11:45 | W.PN.CRS1 ---
Today's Communication / Plan
-
� As below
Assessment/Plan
-
68-year-old with a PMH of A-fib (on Eliquis, last dose p.m. of 03/14), CAD s/p CABG 2020, diabetes, mild COPD, HTN, HLD who presents with 3 days of not feeling well and 5 days of worsening perineal pain on the right. Last cscope was 30 years ago,
reportedly normal. In the ED, he was noted to be in rapid A-fib and underwent urgent cardioversion due to hypotension and started on a hepgtt. He was also noted to be in MATT and mild DKA, HbA1c 8%, glucose 411. WBC of 26.1, Creatinine 3.1, NA 128.
He was initially admitted with IV antibiotics and a scrotal ultrasound was obtained to rule out a scrotal abscess, which was negative. I was consulted for ruling out perineal infection. A CTAP without contrast was done showing subcutaneous gas
through out the right aspect of the perineum, extending from the scrotum posterior to the ischiorectal space.
POD 1 flex sig (well-perfused rectum), incision and drainage and debridement of perineal infection
Afebrile, HR WNL, BP systolic 80s to 90s
WBC 21.4 from 23.8, creatinine 2.0 from 2.3, troponin 2.0 from 4.1 (from 6.3), UA negative
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
�Unhealthy tissue extended to the base of the scrotum; discussed with Dr. Crowell; plan for repeat exam under anesthesia with urology for evaluation of the scrotum and likely debridement
�Continue holding hep drip; d/w Dr. Goodwin from cardiology; okay to hold AC perioperatively for 1 to 2 days if necessary, but will restart PAULINO
�Continue IV Zosyn, IV Vanco and IV clinda for antitoxin effect; follow-up or cultures
�Discussed risks, benefits and alternatives with patient and patient's spouse at bedside; agreeable for repeat exam under anesthesia for today; consent signed and placed in the start
�Continue n.p.o
�MATT, improving; continue Smart, strict I's/O, continue aggressive IVF, agree with fluid boluses due to sepsis
�Appreciate cardiology; troponin improving
�DKA, continue glucose control with insulin drip
� Pain control with Tylenol and Dilaudid as needed
�Appreciate hospitalist and jig operator
Subjective Data
Subjective Data
Date of Service: March 16, 2024
No overnight events.
Pain controlled.
Denies nausea/vomiting. Currently n.p.o.
+ Smart
Objective Data
-
Vital Signs
Temp Pulse Resp BP Pulse Ox
97.5 F 65 19 88/55 96
03/16/24 11:42 03/16/24 11:00 03/16/24 11:00 03/16/24 11:00 03/16/24 11:03
Intake & Output
03/15/24 03/16/24 03/17/24
06:59 06:59 06:59
Intake Total 5022 / 5147 1162.5 / 1162.5
Output Total 750 / 750 3125 / 3125 375 / 375
Balance -750 / -750 1896 / 2021 787.5 / 787.5
Intake:
Oral fluids 1040 / 1040
IV fluids (Total) 2992 / 3117 562.5 / 562.5
NSS fluid bolus from OR 1000 / 1000
Nss 1,000 ml @ 100 mls/hr IV . 1250 / 1250
Q10H NARINDER Rx#:[id number]
Nss 1,000 ml @ 125 mls/hr IV . 625 / 750 562.5 / 562.5
Q8H NARINDER Rx#:[id number]
heparin 117 / 117
IV piggybacks 990 / 990 600 / 600
Output:
Urine, Smart 1225 / 1225 375 / 375
Urine, Voided 750 / 750 1900 / 1900
Lab Results
03/16/24 04:44
03/16/24 04:44
Physical Exam
-
General: No Acute Distress and AOx3
HEENT: Grossly Normal
Abdomen: Soft, Non Distended and Non Tender
Skin: Warm and Dry
Wound: Dressing in Place (To right groin)
[2024-03-16 11:47] LABS: Glucose - Point of Care 319 mg/dl (70-99)
--- NOTE | 2024-03-16 11:53 | CON.INTV ---
Consultation
Consultation Request
Date/Time Consultation Requested: 03/16/2024
Date/Time Consultation Performed: 03/16/2024
Requesting Provider: Dr. Fierro
Performing Provider: Dr. Deep Sousa
Reason for Consultation: Severe sepsis/necrotizing fasciitis.
Medical History
-
History of Present Illness:
Should be on 68-year-old man with past medical history significant for hypertension, hyperlipidemia, type 2 diabetes, atrial fibrillation and COPD who presented to [facility] for evaluation of fatigue, atrial fibrillation. Symptoms started
about afternoon he was feeling lousy' patient also was discovered to have leukocytosis with left shift.
Ongoing evaluation for of sepsis on a CAT scan from 03/14/2024 discovered extensive subcutaneous edema and gas throughout the right aspect of the peritoneum extending to the scrotum and right inguinal canal. Emergently taken to the operating room on
03/14/2024Flexible sigmoidoscopy, incision and drainage of right perineum, extensive debridement, pulse irrigation.
Subsequently developed hypotension despite IV fluid resuscitation.
Transferred to the critical care unit 03/16/2024 for further care.
Past Medical History
Past Medical History: Other (See assessment)
Social History
Tobacco: Former Smoker (Quit 50 years ago)
Alcohol: Occasional
Drug: None
Living: With Family
Employment: Employed
Family History
Family History: Reviewed & Not Pertinent
Allergies / Home Medications
Allergies
Allergy/AdvReac Type Severity Reaction Status Date / Time
No Known Allergies Allergy Verified 03/14/24 18:24
Home Medications
�Medication �Instructions �Recorded �Confirmed �Last Taken �Type
nitroglycerin 0.4 mg sublingual 0.4 mg sublingual [id number] PRN 06/27/20 03/15/24 03/12/24 Rx
tablet chest pain #25 tabs
clonazepam 0.5 mg tablet 0.5 mg PO PRN PRN anxiety 07/25/20 03/15/24 02/23/24 History
metoprolol succinate 50 mg 50 mg PO DAILY Blood pressure 07/25/20 03/15/24 1 Day Ago History
tablet,extended release 24 hr ~10/09/21
atorvastatin 40 mg tablet 40 mg PO DAILY High cholesterol 07/28/20 03/15/24 1 Day Ago History
~10/09/21
acetaminophen 325 mg tablet 650 mg (2 x 325 mg) PO Q4HPRN PRN 08/01/20 03/15/24 Unknown Rx
mild pain,headache,temp >101F
apixaban 5 mg tablet (Eliquis) 5 mg PO BID #60 tabs 08/01/20 03/15/24 03/14/24 08:00 Rx
tamsulosin 0.4 mg capsule (Flomax) 0.4 mg PO DAILY Urinary issue 10/06/21 03/15/24 1 Day Ago History
~10/09/21
metoprolol succinate 50 mg 25 mg (1/2 x 50 mg) PO DAILY@199910/11/21 03/15/24 Unknown Rx
tablet,extended release 24 hr #90 tabs
B-complex with vitamin C 1 cap PO DAILY 03/15/24 03/15/24 Unknown History
amino acids (Amino Acid capsule) 1 cap PO DAILY 03/15/24 03/15/24 Unknown History
amlodipine 10 mg-olmesartan 40 mg 1 tab PO DAILY 03/15/24 03/15/24 Unknown History
tablet
chlorthalidone 25 mg tablet 25 mg PO DAILY 03/15/24 03/15/24 Unknown History
dapagliflozin propanediol 10 mg 10 mg PO DAILY 03/15/24 03/15/24 Unknown History
tablet (Farxiga)
ibuprofen 200 mg tablet (Advil) 200 mg PO Q6H PRN pain 03/15/24 03/15/24 Unknown History
mecobalamin (vitamin B12) 1,000 1,000 mcg PO DAILY 03/15/24 03/15/24 Unknown History
mcg chewable tablet (B12 Active)
methimazole 5 mg tablet 5 mg PO BID 03/15/24 03/15/24 Unknown History
olive oil 1 ea miscellaneous DAILY 03/15/24 03/15/24 Unknown History
semaglutide 1 mg/dose (2 mg/1.5 1 mg SC QWEEK 03/15/24 03/15/24 03/10/24 History
mL) subcutaneous pen injector
Review of Systems
-
History Source: Patient
All other systems: Negative unless noted
Vitals / Labs / Diagnostic Testing
Vital Signs
Temp Pulse Resp BP Pulse Ox
97.5 F 65 19 88/55 96
03/16/24 11:42 03/16/24 11:00 03/16/24 11:00 03/16/24 11:00 03/16/24 11:03
Lab Data
03/16/24 04:44
03/16/24 04:44
Laboratory Results
03/15/24 03/16/24
16:20 04:44
APTT 33.0 27.7
Microbiology
03/15/24 23:42 Ángela-anal Gram Stain - Preliminary
03/14/24 18:47 Nasal Swab Influenza Types A & B (YOMI) - Final
Negative for Influenza A & B, NAAT
Negative results must be combined with clinical observations
and patient history.
Nucleic Acid Amplification test (NAAT)performed on the
[employer] platform.
Diagnostic Testing:
Physical Exam
-
HEENT: Normocephalic
Cardiovascular: S1/S2 and Irregular Rhythm
Respiratory: Non-Labored Respirations
GI: Soft, Non Distended, Non Tender and Other (Incision is intact without hematoma)
Neurology: Awake, Alert, AO x 3 and No Motor Deficits
Skin: Warm
General: Comfortable
Assessment
-
68-year-old man with past medical history noted, initially admitted with rapid atrial fibrillation, fevers, leukocytosis, not feeling well. CT abdomen pelvis discovered necrotizing fasciitis. Taken to the operating room 03/14/2024 for debridement.
Developed hypotension and transferred to the critical care unit blintze roller 03/16/2024 for further care.
Severe sepsis/early septic shock
Necrotizing fasciitis
CT abdomen pelvis 03/15/2024:Reviewed, showed extensive subcutaneous emphysema and gas throughout the right aspect of the perineum extending into the visualized proximal aspect of the scrotum/right inguinal canal. No loculated fluid
collections. Suspicious Williams's gangrene.
Hypotension
acute kidney injury
Anion gap metabolic acidosis
Atrial fibrillation with rapid ventricular response: Status post cardioversion in the emergency room
History of coronary artery disease: Increased troponin-denies chest pain
Hyponatremia
Hyperglycemia
Conditions present prior admission:
Hypertension
Hyperlipidemia
Coronary artery disease
Type 2 diabetes
Atrial fibrillation
COPD
Obstructive sleep apnea-on CPAP poor compliant
History of urinary retention
Former smoker
CABG x 4 in July 2020
Former smoker
echocardiogram 03/15/2024: Normal LVEF. Mild hypokinesis in the basal mid inferior septal, apical lateral and basal inferior lance. Ejection fraction 55%. Normal RV function. No pericardial effusion.
Assessment and plan:
Patient is critically: Remains hypotensive ill after surgical intervention.
-
Severe sepsis: ?Evolving septic shock-due to necrotizing fasciitis.
Blood pressure remains borderline but patient mentating well, does not appear toxic. Pain is controlled.
Continue IV fluid resuscitation
Smart in place
Straight I/O
Will give additional bolus of 500 mL
Smart urinary output and renal function
Vasopressors may be needed if mean arterial blood pressure remains under 65.
Obtain lactic acid and if elevated will trend
If pressors needed will start with Vivek-Synephrine given recent increased troponins.
-
Acute kidney injury: Likely hypotensive insult,high risk of contrast-induced nephropathy
Hold antihypertensives
Continue hemodynamic support.
Will follow metabolic acidosis
Lactic acid will be obtained
Fluid resuscitation
Repeat BMP now.
-
Status post incision and drainage 03/15/2024
Surgery following-back to the OR today.
Continue antibiotics Zosyn/clindamycin
Infectious disease has been consulted
Wait for cultures
Surgery following-operative report reviewed.
Patient will remain n.p.o.
-
Hyperglycemia: Not controlled due to ongoing infection
Insulin drip will continue
Hourly Accu-Cheks per protocol
-
Atrial fibrillation
History of coronary to disease-positive troponins -Improving
No evidence for acute coronary syndrome
Eventually to restart heparin
Echocardiogram showed normal LVEF.
Cardiology follow
-
History of COPD: Patient has a chronic cough)
Not bronchospastic on exam.
Does not take any inhalers in the outpatient setting
-
Obstructive sleep apnea-has a CPAP at home. Does not know settings. Will add CPAP 10 cm of water at bedtime
-
N.p.o. aspiration precaution
Head of the evaluation
-
Critical care statement: A total of 42 minutes of critical care time was provided for this patient today. This includes management of unstable vital signs, evaluation of the patient at bedside, reviewing the patient's pertinent medical records
including ventilator settings, arterial blood gases, radiographs, microbiology, laboratory evaluations and discussion with primary team, critical care nursing, and respiratory therapy.
--- NOTE | 2024-03-16 12:42 | PN.DE.MGMTRT ---
Insulin Management
- -
03/16/2024 Diabetes Management Consult
Patient admitted 03/14 due to heart rate issues, with a fib - cardioverted. 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 PMH afib, CAD, HTN, HLD, BPH, diabetes 20 years and anxiety. Prior to admission was taking farxinga
10 mg daily and Ozempic 1 mg weekly. A1c on admission 8%, cr 2, eGFR 35.49.
Patient is awake alert and oriented able to discuss diabetes management. States he has a glucose monitor with supplies.
Patient did have procedure yesterday for Fourniers gangrene 01/13. Glucose since procedure has ranged 296 to 387. Glycemic protocol started, requiring up to 8 units of insulin per hour.
Will continue glycemic protocol.
Discussed with patient and that when ready to transition off of insulin infusion he will require insulin, they are in agreement. Will reassess in AM insulin requirements and readiness to transition.
Will follow.
Discussed with patients nurse.
Diabetes History
- -
Type of Diabetes: 2
Pre-Admission Diabetes Regimen
03/16/24
04:44
Creatinine 2.0 H
Lab Results
Hemoglobin A1c 8.0 % (4.0-5.6) H 03/15/24 06:14
Insulin Pump Settings
IP Diabetes Regimen
03/15/24 03/15/24 03/16/24
17:03 22:05 01:03
Glucose
POC Glucose 387 H 296 H 346 H
03/16/24 03/16/24 03/16/24
04:44 08:43 10:22
Glucose 349 H
POC Glucose 343 H 346 H
03/16/24
11:36
Glucose
POC Glucose 319 H
Meal type: Lunch
Amount consumed: 40%
Patient Education
[2024-03-16 12:47] LABS: Glucose - Point of Care 269 mg/dl (70-99)
[2024-03-16 13:42] LABS: Lactic Acid 1.2 mmol/L (0.7-2.0)
[2024-03-16 13:44] LABS: Blood Urea Nitrogen 74 mg/dl (9-20); Calcium 7.8 mg/dl (8.4-10.2); Carbon Dioxide 18 mmol/L (22-30); Chloride 106 mmol/L (98-107); Estimated Creatinine Clearance 46 ml/min; Glucose 257 mg/dl (70-99); Potassium 3.9 mmol/L (3.5-5.1); Sodium 136 mmol/L (135-145); eGFR 37.71
[2024-03-16 13:57] LABS: Glucose - Point of Care 233 mg/dl (70-99)
--- NOTE | 2024-03-16 14:31 | PTCARENOTE ---
while sleeping, pt sats dropped as low as 64% on room air. placed on 2l and sats improved briefly until pt fell asleep again and sats dropped as low as 70s. dr Sousa aware and approved cpap when sleeping as well as overnight.
--- NOTE | 2024-03-16 14:33 | CM ---
CM following re: discharge planning.
Reviewed pt's chart, met with pt.
Pt is POD 1 flex sig (well-perfused rectum), continue supportive care.
Pt lives with spouse and a daughter 2SH, 1 step to enter, has 3 sportive children and pt is independent in all areas [employer]
D/C plan: home with anticipated no needs. Family to transport at discharge.
CM will follow with discharge plan updates as hospitalization progresses
[2024-03-16 14:48] LABS: Glucose - Point of Care 217 mg/dl (70-99)
--- NOTE | 2024-03-16 15:50 | PTCARENOTE ---
bedside report given to nurse anesthetists. blood sugar treated as charted. pt without complaint at time of transfer.
[2024-03-16 15:54] LABS: Glucose - Point of Care 180 mg/dl (70-99)
[2024-03-16 16:08] LABS: Glucose - Point of Care 188 mg/dl (70-99)
--- NOTE | 2024-03-16 16:37 | W.SUR.POST ---
Surgical Immediate Post Op
Note
Pre Op Diagnosis: scrotal abscess perirectal abscess Fourniers gangrene
Post Op Diagnosis: same
Procedure Performed: incision and drainage abcess debridement of defunctionalized skin and sq tissue
Primary Surgeon: hyun
Secondary Surgeons:
Anesthesia: dr knight
Estimated Blood Loss: 5cc
Fluids: nss
Drains/Shunts: 1/2 inch julien
Specimens/Cultures: devitalized tissue
Doppler/Duplex/Angio (Y/N):
Complications: 0
Operative Findings: seen with Dr Pena who debrided perineal / perirectal abscess A pus pocket had developed up the rt inguinal canal this wias opened drained dbebirded and devitalized tissue excised A julien drain was placed
[2024-03-16 17:01] LABS: Glucose - Point of Care 152 mg/dl (70-99)
--- NOTE | 2024-03-16 17:20 | W.IMMPOSTOP ---
Surgical Immed Post Op Note
-
Primary Surgeon: Bob Pena MD
Assisting Surgeon: None
Pre-op Diagnosis: Necrotizing soft tissue infection of the perineum
Post-op Diagnosis: Necrotizing soft tissue infection of the perineum
Procedure Performed: Exam under anesthesia, debridement of perineal wound, pulse-irrigation of wound; Dr. Crowell from urology performed drainage of scrotal abscess with further debridement of scrotal and inguinal wound
Anesthesia Type: LMA with local
Specimen / Cultures: Perineal wound specimen
Estimated Blood Loss: 10 mL
IVF: 1.0 L
UOP 100 mL
Complications: None
Operative Findings: Minimal accumulation of fibrinous/necrotic tissue in areas already debrided; Dr. Crowell evaluated the scrotum and inguinal region, performed debridement at the base of the scrotum and inguinal region, openned up a small scrotal
abscess, and placed a [place] drain through a right inguinal counterincision; I performed some debridement of the wound base and edges to healthy bleeding tissue; meticulous hemostasis assured; pulse-irrigated; packed with Betadine soaked Kerlix
--- NOTE | 2024-03-16 17:26 | OR.RPT ---
Operative Report
Operative Report
DATE OF OPERATION: 03/16/2024
SURGEON: Bob Pena MD
PREOPERATIVE DIAGNOSIS: Necrotizing soft tissue infection of the perineum
POSTOPERATIVE DIAGNOSIS: Necrotizing soft tissue infection of the perineum
OPERATION: Exam under anesthesia, excisional debridement of perineal wound, pulse irrigation of perineal wound; Dr. Crowell (urology) performed drainage of scrotal abscess, excisional debridement of scrotal and inguinal wound, placement of Nat
drain
ASSISTANTS:
1. None
ANESTHESIA: LMA with local
ESTIMATED BLOOD LOSS: 10 mL
UOP: 100 mL
IVF: 1.0 L
FINDINGS:
1. Additional fibrinous exudate and necrotic tissue at the base of the scrotum and inguinal region was noted; Dr. Crowell performed additional debridement at the base of the scrotum with drainage of a small scrotal abscess; he secured a Leroy
drain in the right inguinal region
2. I performed additional superficial excisional debridement in the ischiorectal area
SPECIMENS:
1. Perineal wound
DRAINS: Leroy drain
COMPLICATIONS: No immediate complications.
INDICATIONS: The patient is a 68-year-old male who presented to the [place] ED complaining of 3 days of malaise and not feeling well. He was found to be in rapid A-fib and underwent cardioversion. He was also discovered to have a necrotizing
infection of the right perineum and underwent debridement last night. The majority of the wound was debrided to healthy bleeding tissue. However, he did have an increase in pressor requirement. Therefore, he was transferred back to the ICU for
aggressive resuscitation with plans for prompt reevaluation in the operating room. After the sedation was weaned off, he responded well to fluid and the pressors were weaned off promptly. As the infection was noted to involve the base of the scrotum
and inguinal region, the case was discussed with Dr. Crowell from urology, who agreed to evaluate the area intraoperatively with me. The operation was discussed with the patient in detail, including the risks, benefits and alternatives. Risks
described included, but not limited to, bleeding, recurrent infection, requirement of multiple debridements, extension into nearby structures (i.e.�scrotum, testicles, anus), and anesthetic risks. The patient understood and agreed to proceed. The
same was also discussed with the spouse, who understood and agreed to proceed.
PROCEDURE IN DETAIL: The patient was taken to the operating room and placed on the operating table in supine position. Sequential compression devices were placed bilaterally. Sedation was commenced and the patient was intubated with an LMA without
complication. The patient was placed in lithotomy position with the bilateral arm secured to the armboards. Smart catheter was already in place. Patient recently received antibiotics. The perineum was prepped and draped in the usual sterile
fashion with Betadine. A time-out was performed verifying the correct patient, procedure, operative site, positioning, and special equipment.
I evaluated the wound with Dr. Crowell. There was minimal fibrinous exudate noted in the upper aspect of the wound as well as a small to moderate amount of necrotic tissue at the base of the scrotum and right inguinal region, which was noted on
the index surgery. There was a minor amount of additional dusky/necrotic tissue that appeared superficial in the ischiorectal region and a minor amount extending posteriorly towards the subcutaneous tissue of the right buttock. Dr. Crowell
performed additional wound exploration, drained a scrotal abscess, performed additional debridement and placed a Nat drain in the right inguinal region. This will be dictated by him separately.
After Dr. Crowell's portion was complete, I did additional excisional debridement using toothed forceps and Metzenbaum scissors down to healthy bleeding tissue in the perianal region just anterior to the sphincter complex as well as in the right
ischiorectal space and posteriorly in the subcutaneous tissue of the right buttock. Hemostasis was achieved with electrocautery. There was no involvement of the anal sphincter complex or rectum. I placed a lubricated finger in the anal canal and
there was plenty of healthy subcutaneous tissue between the wound and the rectum. I performed pulse irrigation with 3 L of saline. I evaluated the wound once more and hemostasis was assured with electrocautery. The debrided tissue was sent for
pathology. The wound was packed with 1 Betadine-soaked Kerlix.
At this point, the procedure was complete. All needle, sponge and instrument counts were correct. The patient tolerated the procedure well. The area was dressed with gauze and tape.
DICTATED BY: Bob Pena MD
[2024-03-16 17:50] LABS: Glucose - Point of Care 141 mg/dl (70-99)
[2024-03-16] MEDS: NOVOLOG FLEXPEN 4 UNITS SC (18:47)
[2024-03-16 18:55] LABS: Glucose - Point of Care 125 mg/dl (70-99)
--- NOTE | 2024-03-16 19:47 | PTCARENOTE ---
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 denies sob. no acute distress.
assisted with repositioning in bed, betadine soaked gauze packing from perineum/buttocks to anterior scrotum area. pt c/o more discomfort this evening in scrotal area after surgery, medicated with standing tylenol as ordered. pt not requesting
dilaudid at this time, aware he can have it if needed. pt requesting food, mouthwash done prior to medicating pt. dr ramos notified of pt request and diet resumed/stool softener added at pt request as ordered. in to see pt. otherwise please
refer to charting.
--- NOTE | 2024-03-16 20:00 | PTCARENOTE ---
rec`d pt at 1900. AAOx3. glycemic protocol continued. SR on monitor. HR 70s. SCDS. POX 92-97%. RA. coarse diminished lung sounds. wade in place. wound on sacrum packed. left FA, LT AC, RT AC. insulin gtt at 5, NS going at 125. call tapia in reach,
safe environment maintained.
[2024-03-16 20:09] LABS: Glucose - Point of Care 111 mg/dl (70-99)
[2024-03-16] MEDS: COLACE PO ×2 (20:28→20:34)
[2024-03-16 22:15] LABS: Glucose - Point of Care 111 mg/dl (70-99)
[2024-03-17] VITALS (25 sets, daily range): BP systolic 83–132; BP diastolic 51–86; PULSE 2–63; BMI 26.0
[2024-03-17] LABS: Glucose - Point of Care 76 mg/dl (70-99)
--- NOTE | 2024-03-17 | PTCARENOTE ---
cpap of 10 on pt. pt reassessed. no changes in pt assessment. call tapia in reach.
[2024-03-17 01:15] LABS: Glucose - Point of Care 102 mg/dl (70-99)
[2024-03-17 02:06] LABS: Glucose - Point of Care 102 mg/dl (70-99)
[2024-03-17] MEDS: CLEOCIN 50 IV ×3 (02:41→18:32)
[2024-03-17] MEDS: ZOSYN 50 IV ×4 (03:13→20:25)
[2024-03-17 03:16] LABS: Glucose - Point of Care 108 mg/dl (70-99)
[2024-03-17 03:33] LABS: Hematocrit 36.1 % (39.0-52.0); Hemoglobin 12.5 g/dL (13.0-18.0); Mean Corp Hgb Conc. 34.6 g/dL (33.0-37.0); Mean Corpuscular Hgb 28.9 pg (27.0-31.0); Mean Corpuscular Volume 83.6 fL (80.0-94.0); Mean Platelet Volume 9.7 fL (7.4-10.4); Platelet Count 203 10^3/uL (130-400); Red Blood Cell Count 4.32 10^6/uL (4.70-6.10); Red Cell Dist. Width 12.6 % (11.5-14.5); White Blood Cell Count 18.2 10^3/uL (4.8-10.8)
[2024-03-17] MEDS: NSS 1000 IV ×2 (03:53→13:26)
[2024-03-17 03:57] LABS: ALT (SGPT) 26 U/L (0-50); AST (SGOT) 31 U/L (17-59); Albumin 2.4 g/dl (3.5-5.0); Alkaline Phosphatase 45 U/L (38-126); Blood Urea Nitrogen 67 mg/dl (9-20); Calcium 7.5 mg/dl (8.4-10.2); Carbon Dioxide 21 mmol/L (22-30); Chloride 109 mmol/L (98-107); Estimated Creatinine Clearance 59 ml/min; Glucose 112 mg/dl (70-99); Potassium 3.7 mmol/L (3.5-5.1); Sodium 138 mmol/L (135-145); Total Bilirubin 0.2 mg/dl (0.2-1.3); Total Protein 4.9 g/dl (6.3-8.2); eGFR 50.08
[2024-03-17 04:03] LABS: Vancomycin Random 8.5 ug/ml
[2024-03-17 04:26] LABS: Glucose - Point of Care 133 mg/dl (70-99)
--- NOTE | 2024-03-17 05:14 | PTCARENOTE ---
pt reassessed. no changes in pt assessment. call tapia in reach.
--- NOTE | 2024-03-17 06:00 | PTCARENOTE ---
cpap off pt. pt sheets changed.
[2024-03-17] MEDS: TYLENOL 1000 MG PO ×3 (06:02→18:32)
[2024-03-17 06:11] LABS: Glucose - Point of Care 86 mg/dl (70-99)
--- NOTE | 2024-03-17 08:08 | PN.DE.MGMTRT ---
Insulin Management
- -
03/17/2024 Diabetes Management Consult Follow up
Patient admitted 03/14 due to heart rate issues, with a fib - cardioverted. 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 PMH afib, CAD, HTN, HLD, BPH, diabetes 20 years and anxiety. Prior to admission was taking farxinga
10 mg daily and Ozempic 1 mg weekly. A1c on admission 8%, cr 2, eGFR 35.49.
Patient is awake alert and oriented able to discuss diabetes management. States he has a glucose monitor with supplies.
03/16 Patient did have procedure yesterday for Fourniers gangrene 01/13. Glucose since procedure has ranged 296 to 387. Glycemic protocol started, requiring up to 8 units of insulin per hour.
03/17 Will transition glycemic protocol to lantus 20 units now, insulin infusion off in 2 hours. Novolog 4 units AC with moderate corrective and 2000 calorie diet.
Discussed with patients nurse.
Will follow.
Diabetes History
- -
Type of Diabetes: 2 requiring insulin
Pre-Admission Diabetes Regimen
03/16/24 03/17/24
13:17 03:23
Creatinine 1.9 H 1.5 H
Lab Results
Hemoglobin A1c 8.0 % (4.0-5.6) H 03/15/24 06:14
Insulin Pump Settings
IP Diabetes Regimen
03/16/24 03/16/24 03/16/24
08:43 10:22 11:36
Glucose
POC Glucose 343 H 346 H 319 H
03/16/24 03/16/24 03/16/24
12:36 13:17 13:46
Glucose 257 H
POC Glucose 269 H 233 H
03/16/24 03/16/24 03/16/24
14:37 15:37 16:07
Glucose
POC Glucose 217 H 180 H 188 H
03/16/24 03/16/24 03/16/24
16:58 17:39 18:44
Glucose
POC Glucose 152 H 141 H 125 H
03/16/24 03/16/24 03/16/24
19:58 22:04 23:49
Glucose
POC Glucose 111 H 111 H 76
03/17/24 03/17/24 03/17/24
01:04 01:56 03:05
Glucose
POC Glucose 102 H 102 H 108 H
03/17/24 03/17/24 03/17/24
03:23 04:15 06:00
Glucose 112 H
POC Glucose 133 H 86
Meal type: Dinner
Patient Education
--- NOTE | 2024-03-17 08:18 | W.PN.CRS1 ---
Today's Communication / Plan
-
OR tomorrow
NPO at midnight
DM diet today
okay for heparin gtt/heparin subq (stop heparin gtt at 8am tomorrow if started)
Assessment/Plan
-
POD#1 Exam under anesthesia, debridement of perineal wound, pulse-irrigation of wound; Dr. Crowell from urology performed drainage of scrotal abscess with further debridement of scrotal and inguinal wound
-Plan is for OR tomorrow, 03/18/24 for a potential debridement.
-NPO at midnight
-Okay to start a heparin gtt today (hold Eliquis) but please hold heparin gtt on 03/18/24 at 8am if started. If not restarted, okay for heparin subq TID.
-OOB as tolerated
-Wound care
-DM diet
-OR pathology pending
Subjective Data
Procedure
03/16/2024- Exam under anesthesia, debridement of perineal wound, pulse-irrigation of wound; Dr. Crowell from urology performed drainage of scrotal abscess with further debridement of scrotal and inguinal wound
Subjective Data
Date of Service: March 17, 2024
Patient states he feels well. He is not in any pain if he does not move his leg. He has no nausea or vomiting.
Objective Data
-
Vital Signs
Temp Pulse Resp BP Pulse Ox
97.4 F 71 13 111/61 97
03/17/24 03:18 03/17/24 06:00 03/17/24 06:00 03/17/24 06:00 03/17/24 06:00
Intake & Output
03/16/24 03/17/24 03/18/24
06:59 06:59 06:59
Intake Total 5022 / 5147 3645.7 / 3645.7
Output Total 3125 / 3125 2225 / 2225
Balance 1896 1420.7 / 1420.7
Intake:
Oral fluids 1040 / 1040 100 / 100
IV fluids (Total) 2992 / 3117 2895.7 / 2895.7
NSS fluid bolus from OR 1000 / 1000
Nss 1,000 ml @ 100 mls/hr IV . 1250 / 1250
Q10H NARINDER Rx#:[id number]
Nss 1,000 ml @ 125 mls/hr IV . 625 / 750 2812.5 / 2812.5
Q8H NARINDER Rx#:[id number]
heparin 117 / 117
insulin 83.2 / 83.2
IV piggybacks 990 / 990 650 / 650
Output:
Urine, Smart 1225 / 1225 2225 / 2225
Urine, Voided 1900 / 1900
Lab Results
03/17/24 03:23
03/17/24 03:23
Physical Exam
-
General: No Acute Distress and AOx3
Abdomen: Soft, Non Distended and Non Tender
Wound: Dressing in Place (packing in place) and Other (wound with packing in place, no erythema noted)
[2024-03-17] MEDS: TAPAZOLE 5 MG PO (08:28)
[2024-03-17] MEDS: LOW STRENGTH ASPIRIN 81 MG PO (08:28)
[2024-03-17] MEDS: FLOMAX 0.4 MG PO (08:28)
[2024-03-17] MEDS: COLACE 100 MG PO (08:28)
[2024-03-17] MEDS: LIPITOR 40 MG PO (08:28)
--- NOTE | 2024-03-17 08:30 | PTCARENOTE ---
Assumed care of pt at 0715 following shift report. Pt awake and resting quietly in bed, watching TV. visiting at bedside. Conversation appropriate, denies c/o pain 'it's a little uncomfortable (perineal area/coccyx) but not bad'. Declined prn
pain med. Pt remains on RA w/ POx 95-97%. 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 Denies SOB. Physical assessment completed as documented. Mitzy VUONG on unit to see pt- new orders received. Pt updated on plan of care. Call regina w/in pt reach. Safe
environment maintained.
[2024-03-17 08:38] LABS: Glucose - Point of Care 142 mg/dl (70-99)
--- NOTE | 2024-03-17 08:38 | W.PN.HOSP.TC ---
Today's Communication/Plan
-
Resume IV heparin
Reduce metoprolol
Continue antibiotics
Assessment / Plan
Assessment / Plan
Gen-AAOx3, NAD
HEENT-NC, AT, anicteric, clear oral mm
Neck-supple
CV-reg, no M, +S1/S2
Lungs-clear B/L
Abd-soft, NT, ND
Ext-no edema
Musculoskeletal-no cyanosis, clubbing
Skin-warm and dry
Neuro-grossly non-focal
Psych-calm, cooperative
-right-sided scrotal swelling and tenderness with nodule noted
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 CT scan noted. Continue broad-spectrum antibiotics as per ID. Appreciate colorectal surgery input. Had incision and drainage and debridement plant propagator 03/16. Cultures
from the OR pending, Gram stain shows many gram-negative rods, gram-positive cocci, gram-positive rods. Blood cultures negative so far but they were drawn after starting antibiotics. Patient states pain in his pereneum him started about a week
prior to admission. Discussed permanently stopping SGLT2 inhibitors moving forward. Informed his reading aide Dr. Denson as well.
Hemodynamically improved. Not on vasopressors.
MATT -due to severe volume depletion. Creatinine improving with IV fluid support. Hold chlorthalidone, olmesartan. Hold NSAIDs.
DM2 with hyperglycemia -DKA resolved. Transition off insulin drip to subcutaneous. Diabetes BIOMEDICAL ENGINEERING AIDE following. Hemoglobin A1c 8%. Will be discharged on insulin.
At home he uses Farxiga 10 mg daily, Ozempic once weekly.
Moving forward, permanently discontinue SGL 2 inhibitors given presentation with Williams's gangrene. Discussed with patient.
Troponin elevation -suspect acute nonischemic myocardial injury due to sepsis, rapid atrial fibrillation, acute illness. Echocardiogram shows LVEF 55%, mild hypokinesis of the basal�mid inferior septal, apical lateral, basal inferior lance. Normal
RV size and systolic function.
Rapid paroxysmal atrial fibrillation -successfully cardioverted to sinus rhythm in the ER. Okay to resume IV heparin today as per colorectal surgery. Resume metoprolol at lower dose 12.5 mg twice daily.
Hyperthyroidism -followed by endocrinology, Dr. Denson. Patient is unsure of home dose but believes the methimazole was reduced to 5 mg once daily prior to admission. He tried to increase it back to 5 mg twice daily to abort the atrial
fibrillation to no avail.
TSH 2.32, free T4 1.44.
I spoke with Dr. Denson and confirmed that his home dose of methimazole should be 5 mg once daily on discharge.
Hyponatremia -resolved.
Essential hypertension -hypotensive on arrival due to rapid atrial fibrillation and volume depletion. IV fluid bolus ordered. May need vasopressors. Hold antihypertensives.
Hyperlipidemia -resume atorvastatin.
CAD/CABG -2020.
COPD without exacerbation
Full code
Anticipated Discharge: > 48 hours
Subjective/Interval History
-
Date of Service: March 17, 2024
Patient seen and examined. Overall feeling better. No complaints.
Objective Data
-
Labs:
Laboratory Results
03/17/24
03:23
WBC 18.2 H
Hgb 12.5 L
Hct 36.1 L
Plt Count 203
Sodium 138
Potassium 3.7
Chloride 109 H
Carbon Dioxide 21 L
BUN 67 H
Creatinine 1.5 H
Glucose 112 H
Calcium 7.5 L
Total Bilirubin 0.2
AST 31
ALT 26
Alkaline Phosphatase 45
Vital Signs:
Vital Signs
Temp Pulse Resp BP Pulse Ox
97.4 F 71 13 111/61 97
03/17/24 03:18 03/17/24 06:00 03/17/24 06:00 03/17/24 06:00 03/17/24 06:00
I&O
03/16/24 03/17/24 03/18/24
06:59 06:59 06:59
Intake Total 5022 / 5147 3645.7 / 3645.7
Output Total 3125 / 3125 2225 / 2225
Balance 1896 1420.7 / 1420.7
Review of Systems
-
History Source: Patient
All other systems: Reviewed and negative
--- NOTE | 2024-03-17 08:56 | PHA.VAN.FU ---
Vancomycin Assessment / Plan
- Assessment
Renal Function: SCR Decreasing
WBC's are: Trending Down
In the past 24 hrs, patient has been: Afebrile
Concomitant Antimicrobials: clindamycin, piperacillin-tazobactam
- Assessment - Therapeutic Drug Monitoring
Random Level: 8.5, 24 hours post 2 g dose
- Dosing Plan
Continue: to dose by level, patient not yet at baseline renal function
Dosing by Level: Re-dose today (1250mg now, 500 mg at 1800)
- Monitoring Plan
Random Level: 12/12 am
- Follow Up
Pharmacy will continue to follow.
Vancomycin Follow UP
- -
Patient Age: 68
Patient Sex: Male
Vancomycin Day #: 2
Indication: Skin And Soft Tissue (Williams's gangrene)
Requesting Provider: Dr Pena/ Dr Salas
Pertinent Antimicrobial Allergies:
no known allergies
Height / Weight:
Height 6 ft 5 in
Actual Weight 99.4 kg
Pertinent Past Medical History: Debridement in OR 03/16
- Vital Signs / Lab Results
Temp Pulse Resp BP Pulse Ox
97.4 F 71 13 111/61 97
03/17/24 03:18 03/17/24 06:00 03/17/24 06:00 03/17/24 06:00 03/17/24 06:00
Lab Results - Hematology
03/14/24 03/15/24 03/16/24
18:47 06:14 04:44
WBC 26.1 H 23.8 H 21.4 H
03/17/24
03:23
WBC 18.2 H
Lab Results - Chemistry
03/14/24 03/14/24 03/14/24
18:47 21:08 22:45
BUN 85 H 86 H Cancelled
Creatinine 3.1 H 2.8 H Cancelled
Estimated Creat Clear 28 31 Cancelled
Albumin
03/15/24 03/16/24 03/16/24
06:14 04:44 13:17
BUN 84 H 80 H 74 H
Creatinine 2.3 H 2.0 H 1.9 H
Estimated Creat Clear 38 44 46
Albumin 3.9 2.7 L
03/17/24
03:23
BUN 67 H
Creatinine 1.5 H
Estimated Creat Clear 59
Albumin 2.4 L
03/16/24
13:17
Lactic Acid 1.2
Microbiology Results
03/15/24 15:00 Blood Culture - Preliminary
Blood/Venous No Growth in 24 hours- Final report to follow
03/15/24 14:47 Blood Culture - Preliminary
Blood/Venous No Growth in 24 hours- Final report to follow
03/15/24 23:42 Gram Stain - Preliminary
Ángela-anal
Therapeutic Drug Monitoring
Random Vancomycin 8.5 ug/ml 03/17/24 03:23
[2024-03-17] MEDS: LANTUS 0.2 UNITS SC (09:31)
--- NOTE | 2024-03-17 09:34 | W.PN.URO.CBU ---
Today's Communication / Plan
-
pefr colo rectal surgery maintain wade
Assessment / Plan
-
sw/p debridement and dfrainage of fournoers and perirectal; abscess Will possibl;y need reeval under anesthesia but clibically much imoprived Discharge planing will be in[potrat foer wound care may ask stoma nurse for intervention and see f
family can do packing
Diagnosis
-
Date of Service: March 17, 2024
-
Patient Diagnosis:
Post Op Day:
Patient Diagnosis:mild retention urine perirectal preineal abscess and fourniers
Post Op Day:
Subjective
-
extremelkty better no pain and fever chills gone
Objective
-
Vital Signs
Temp Pulse Resp BP Pulse Ox
97.4 F 71 13 111/61 97
03/17/24 03:18 03/17/24 06:00 03/17/24 06:00 03/17/24 06:00 03/17/24 06:00
Intake and Output
03/16/24 03/17/24 03/18/24
06:59 06:59 06:59
Intake Total 5022 / 5147 3645.7 / 3645.7
Output Total 3125 / 3125 2225 / 2225
Balance 1896 1420.7 / 1420.7
Intake:
Oral fluids 1040 / 1040 100 / 100
IV fluids (Total) 2992 / 3117 2895.7 / 2895.7
NSS fluid bolus from OR 1000 / 1000
Nss 1,000 ml @ 100 mls/hr IV . 1250 / 1250
Q10H NARINDER Rx#:[id number]
Nss 1,000 ml @ 125 mls/hr IV . 625 / 750 2812.5 / 2812.5
Q8H NARINDER Rx#:[id number]
heparin 117 / 117
insulin 83.2 / 83.2
IV piggybacks 990 / 990 650 / 650
Output:
Urine, Wade 1225 / 1225 2225 / 2225
Urine, Voided 1900 / 1900
Laboratory Results
03/17/24 03:23
03/17/24 03:23
Review of Systems
-
Abdomen/GI: Abdominal Pain
: Difficulty Voiding
Physical Exam
-
General - well developed, well nourished, no acute distress
Chest - clear bilaterally
Abdomen - soft, non-tender, positive bowel sounds, no CVAT, no incisional pain or distention
Genitalia - normal
Rectal - normal
Skin - warm & dry with no rash
Neuro - AOx3, no motor deficits
Extremities - no clubbing, no cyanosis, no edema
Incision - clean, dry
Dressing - clean, dry, intact
Care Review
Data Reviewed
Discussed with: Internal Medicine, Nursing and Family
[2024-03-17] MEDS: VANCOCIN 275 MG IV (09:54)
[2024-03-17] MEDS: LOPRESSOR 12.5 MG PO ×2 (10:03→20:24)
[2024-03-17] MEDS: HEPARIN 25000 UNITS/250 ML IV (10:04)
--- NOTE | 2024-03-17 10:27 | W.PN.CARDCBS ---
Today's Communication / Plan
-
Resume IV heparin if okay with surgery
Eventually resume Eliquis
Hold off on ischemic evaluation given possible need for recurrent surgery and high risk of stent thrombosis if Plavix would need to be stopped
Consider outpatient stress testing versus catheterization
Outpatient Meds on hold due to renal sufficiency and hypotension
Impression / Plan
-
PCP: Dr. Hart
Primary Superintendent Institution: Dr. Bolanos
Impression:
Admitted with MATT, elevated Troponin and recurrent Afib with CV in the ER 03/14/24
MATT
nstemi, peak troponin 6.3
Williams's gangrene, perineal abscess on Farxiga status post surgery March 15March 16
Paroxysmal Afib with RVR s/p successful CV in [facility] 03/14/24
Paroxysmal Afib
initially seen s/p CABG 07/2020
recurrent Afib treated with CV in [facility] 10/06/21
recurrent Afib treated with rate control and spontaneously converted to SR 10/09/21
Chronic OAC with Eliquis
Hypothyroidism
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
CAD s/p CABG x4 07/2020
HTN
HLD
DM2
COPD
ALFREDO 07/2020: EF 60-65%, no RWMA, severe conc LVH, mod dilated LA, mildly dilated mid ascending aorta, mild sessile atheroma in descending aorta and distal arch
ECHO 10/11/21: EF 50 to 55%, no WMA, normal RA/LA size, no significant valve disease
Echo 03/15/24: EF 55%, mild hypokinesis of the basal-mid inferoseptal, apical lateral and basal inferior lance, normal RV size and function, trileaflet sclerotic aortic valve with dense calcification on the noncoronary cusp, no /AR
Plan:
He continues to do well from a cardiology viewpoint
He remains in sinus rhythm
Discussed with primary service and plan to start IV heparin if okay with surgery
Eventually resume Eliquis
Likely address elevated troponin as an outpatient. Consider stress testing versus catheterization as an outpatient
Considering that if he were to have cardiac catheterization and stent placement there could be risk for stent thrombosis if Plavix would need to be stopped if more surgery would be needed
Outpatient doses of benazepril 40 mg daily, chlorthalidone 25 mg daily on hold due to MATT. BP stable.
Outpatient dose of amlodipine 10 mg daily is on hold due to hypotension
Outpatient dose of Toprol XL 50 mg AM and 25 mg HS has been reduced to 25 mg BID due to hypotension, dose held 03/16/24 held due for SBP less than 90.
Renal function continues to improve with creatinine of 1.5
Could need eventual Lasix given weight gain with IV fluids but will hold off for now
Discussed with primary service as well as patient's at bedside
HPI: Patient came to ER yesterday with complaints of feeling poorly for at least 3 days and was found to be in rapid A-fib and is now admitted with cardiology consultation. Patient was last seen in the office on 05/19/2023 and was in SR at that
time. Initially seen in AF after CABG 07/2020 none recurrence last noted to be 10/2021 as noted above. Patient felt as though he was in AF for about 3 days prior to admission. Patient felt that this correlated with a decrease in his outpatient
levothyroxine dosing in the last several weeks, so he increase the dose, but no improvement in his AF so he finally came to ER yesterday. Patient says he also came to ER because he has been feeling sick and felt as though he had the flu for
the last 1 to 2 months. He says he feels he has a fever at times and this will correlate to a temperature of 100.6 �F when he checks his temperature at home. He says his the symptoms wax and wane and that he feels congested much of the time. He
feels SOB at times, but not consistent. No orthopnea or PND. No bloating. No LE edema. In ER last night patient was found to be in rapid AF and denied missing any Eliquis doses so he had a successful CV and remains in SR this a.m. Patient
reports dramatic symptomatic improvement following protestant of SR. Patient also noted to be in MATT with Cre up to 3.1 last evening, but improved to 2.3 this a.m. Patient reports ongoing congestion, but less SOB. Initial troponin was elevated
at 5.73, then up to 6.03, then down to 5.53 and then even though the troponin was trending down another troponin was checked and was elevated at 6.32. A 5th troponin is now pending, but patient denies any chest pain. He does have a history of CAD
s/p CABG.
Progress Note - Superintendent Institution
Subjective
Date of Service: March 17, 2024
No chest pain or shortness of breath. Remains in sinus rhythm.
Objective
Labs:
03/17/24 03:23
03/17/24 03:23
Labs
Hgb 12.5 g/dL (13.0-18.0) L 03/17/24 03:23
Hct 36.1 % (39.0-52.0) L 03/17/24 03:23
Plt Count 203 10^3/uL (130-400) 03/17/24 03:23
APTT 27.7 Sec (23.4-35.0) 03/16/24 04:44
Sodium 138 mmol/L (135-145) 03/17/24 03:23
Potassium 3.7 mmol/L (3.5-5.1) 03/17/24 03:23
BUN 67 mg/dl (9-20) H 03/17/24 03:23
Creatinine 1.5 mg/dL (0.7-1.3) H 03/17/24 03:23
Glucose 112 mg/dl (70-99) H 03/17/24 03:23
Troponins
03/14/24 03/15/24 03/15/24
18:47 00:37 03:23
Troponin I 5.730 H* 6.030 H* 5.530 H*
03/15/24 03/15/24 03/16/24
06:14 14:47 04:44
Troponin I 6.320 H* 4.120 H* 2.050 H*
Vital Signs and I&O:
Vital Signs
Temp Pulse Resp BP Pulse Ox
97.4 F 94 13 132/76 97
03/17/24 03:18 03/17/24 10:03 03/17/24 06:00 03/17/24 10:03 03/17/24 06:00
Vital Signs
Temp Pulse Resp BP Pulse Ox
97.4 F 94 13 132/76 97
03/17/24 03:18 03/17/24 10:03 03/17/24 06:00 03/17/24 10:03 03/17/24 06:00
Intake & Output
03/15/24 03/16/24 03/17/24 03/18/24
06:59 06:59 06:59 06:59
Intake Total 5022 / 5147 3645.7 / 3645.7
Output Total 750 / 750 3125 / 3125 2225 / 2225
Balance -750 / -750 1896 / 2021 1420.7 / 1420.7
Physical Exam
Physical Exam
General: Well developed, well nourished in NAD.
Neck: Supple, no JVD, HJR, carotids +2 B/L, no bruits bilaterally.
Heart: Non displaced PMI, RRR, no murmurs, No S3, S4, no rubs.
Lungs: Scattered rhonchi
Extremities: No clubbing, cyanosis or edema bilaterally.
Neuro: Grossly nonfocal, awake, alert and oriented x3.
[2024-03-17] MEDS: NOVOLOG FLEXPEN 4 UNITS SC ×3 (10:32→17:34)
[2024-03-17 10:40] LABS: Glucose - Point of Care 154 mg/dl (70-99)
[2024-03-17 10:44] LABS: INR 1.07; PT 14.4 Sec (11.4-14.6)
[2024-03-17] MEDS: TOPROL XL PO (11:25)
--- NOTE | 2024-03-17 11:34 | W.PN.INTV ---
Today's Communication / Plan
Recommendations
Continue with surgical management
Tomorrow back to the OR
Continue antibiotics
Follow culture
Follow renal function
Transfer to intermediate care unit
Critical care team will sign off
Assessment
-
68-year-old man with past medical history noted, initially admitted with rapid atrial fibrillation, fevers, leukocytosis, not feeling well. CT abdomen pelvis discovered necrotizing fasciitis. Taken to the operating room 03/14/2024 for debridement.
Developed hypotension and transferred to the critical care unit soil science technical officer 03/16/2024 for further care.
Severe sepsis/early septic shock
Necrotizing fasciitis
CT abdomen pelvis 03/15/2024:Reviewed, showed extensive subcutaneous emphysema and gas throughout the right aspect of the perineum extending into the visualized proximal aspect of the scrotum/right inguinal canal. No loculated fluid
collections. Suspicious Williams's gangrene.
Hypotension
acute kidney injury
Anion gap metabolic acidosis
Atrial fibrillation with rapid ventricular response: Status post cardioversion in the emergency room
History of coronary artery disease: Increased troponin-denies chest pain
Hyponatremia
Hyperglycemia
Conditions present prior admission:
Hypertension
Hyperlipidemia
Coronary artery disease
Type 2 diabetes
Atrial fibrillation
COPD
Obstructive sleep apnea-on CPAP poor compliant
History of urinary retention
Former smoker
CABG x 4 in July 2020
Former smoker
echocardiogram 03/15/2024: Normal LVEF. Mild hypokinesis in the basal mid inferior septal, apical lateral and basal inferior lance. Ejection fraction 55%. Normal RV function. No pericardial effusion.
Assessment and plan:
Patient observed in the critical care unit for 36 hours, no vasopressor requirement.
Status post incision and drainage/lavage of the peritoneum x 2. Last 03/16/2024.
This morning hemodynamics improved.
Patient denies any significant symptoms.
-
necrotizing fasciitis.
Hemodynamics improved. Never required vasopressors
Status post fluid resuscitation per
Smart in place
Renal function improving
Patient does not appear toxic.
Afebrile
Leukocytosis improving.
-
Surgical correspondence reviewed/urology correspondence reviewed status post debridement.
Status post incision and drainage 03/15/2024 and 03/16/2024
Continue with wound care
Likely OR tomorrow 03/18/2024.
Follow cultures: Positive for Streptococcus. Follow final identification.
-
Antibiotics per infectious disease
-
Acute kidney injury: Likely hypotensive insult,high risk of contrast-induced nephropathy
Improving
Continue to hold antihypertensive
No significant metabolic acidosis
-
Hyperglycemia: Not controlled due to ongoing infection-insulin drip discontinued
Transition to subcu insulin
Advance diet
-
Atrial fibrillation
History of coronary to disease-positive troponins -Improving-denies chest pain.
No evidence for acute coronary syndrome
Anticoagulation when cleared by surgery
Echocardiogram showed normal LVEF.
Cardiology follow
-
History of COPD: Patient has a chronic cough)
Not bronchospastic on exam.
Does not take any inhalers in the outpatient setting
-
Obstructive sleep apnea-continue BiPAP at bedtime while in the hospital. Patient does have CPAP at home. Not using frequently.
-
Increase mobility
Nutritional support
Transferred to intermediate care unit
Critical care team will sign off.
-
Case discussed with primary team and urology.
Subjective Dataa
Subjective Data
Date of Service:
Date of Service: March 17, 2024
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
Subjective:
This morning complaining of some discomfort in the perineum.
Denies shortness of breath.
Denies lightheadedness
Tolerated breakfast
Review of Systems
General: Fever (n)
Cardiopulmonary: Dyspnea (n), Cough (n) and Chest Pain (n)
GI: Abdominal Pain (n) and Nausea (n)
Objective Data
Data Reviewed
Vital Signs / I&O / Oxygen:
Vital Signs
Temp Pulse Resp BP Pulse Ox
97.4 F 94 13 132/76 97
03/17/24 03:18 03/17/24 10:03 03/17/24 06:00 03/17/24 10:03 03/17/24 06:00
Intake and Output
03/16/24 03/17/24 03/18/24
06:59 06:59 06:59
Intake Total 5022 / 5147 3645.7 / 3771.1 639.8 / 639.8
Output Total 3125 / 3125 2225 / 2225
Balance 1896 / 2 1420.7 / 1546.1 639.8 / 639.8
SaO2 97
Nasal Cannula flow liters per 4
minute
Physical Exam
General: Comfortable
HEENT: Normocephalic
Cardiovascular: S1-S2
Respiratory: Non-Labored Respirations
GI: Soft and Non Distended
Neurology: Awake, Alert, AO x 3 and No Motor Deficits
Skin: Warm
Labs/Micro/Reports
Lab Data
03/17/24 03:23
03/17/24 03:23
Laboratory Results
03/17/24
10:16
PT 14.4
INR 1.07
APTT 26.0
Microbiology
03/15/24 23:42 Ángela-anal Wound Culture - Preliminary
Streptococcus species
03/15/24 23:42 Ángela-anal Gram Stain - Preliminary
03/15/24 15:00 Blood/Venous Blood Culture - Preliminary
No Growth in 24 hours- Final report to follow
03/15/24 14:47 Blood/Venous Blood Culture - Preliminary
No Growth in 24 hours- Final report to follow
03/14/24 18:47 Nasal Swab Influenza Types A & B (YOMI) - Final
Negative for Influenza A & B, NAAT
Negative results must be combined with clinical observations
and patient history.
Nucleic Acid Amplification test (NAAT)performed on the
[employer] platform.
[2024-03-17] MEDS: DILAUDID 0.5 MG IV ×2 (12:21→16:19)
--- NOTE | 2024-03-17 12:30 | PTCARENOTE ---
Dr Pena to bedside to change dressing. Pt premedicated w/ Dilaudid 0.5mg IV per Dr Pena order. Pt tolerated well. Continues to rest quietly in bed. Occasional moist harsh cough productive of small amount of white sputum. Pt remains on RA w/ POx
91-94%. No additional changes from previous assessment findings.
--- NOTE | 2024-03-17 12:38 | PN.CDI ---
CDI
- -
CDI:
Physician Documentation Request
Admit Date: 03/14/24 20:44
Dear Doctor Mervat,
Patient admitted for sepsis.
03/16 Operative Note: 'Tissue was debrided, necrotic tissue... I then saw the debrided tissue around this area and removed this with Metzenbaum scissors and maintained electrocautery for hemostasis.'
03/16 Immediate Operative Note: 'incision and drainage abcess debridement of defunctionalized skin and sq tissue'
Could you provide, in the progress notes further clarification regarding the debridement.
Please specify the type of debridement performed:
1. Excisional Debridement - defined as removal by excision of devitalized tissue, necrosis or slough
2. Non-excisional debridement - defined as removal of devitalized tissue, necrosis or slough by such methods as irrigation, brushing, scrubbing or washing.
If the debridement was excisional, please also include:
1. Type of instrument used (#11 blade, #15 blade etc.)
2. What was excised (necrotic tissue, gangrenous tissue, slough etc.)
For excisional or non-excisional, please also include:
1. Depth of debridement (skin, subcutaneous tissue, fascia, muscle, bone etc)
2. Size and appearance of the wound (L, W, D, color of wound, drainage)
Use of terms such as suspected, likely, concern for, or probable (associated with a specific diagnosis that is being evaluated, monitored, or treated as if it exists) are acceptable and can be coded in the inpatient setting, when documented at the
time of discharge.
Thank you,
Catie Olguin RN, BSN
CDI Specialist
Available via [place] text
Please use your independent medical judgment in providing your response.
[2024-03-17] MEDS: NOVOLOG FLEXPEN-MODERATE RESISTANCE SC (13:30)
[2024-03-17] MEDS: NOVOLOG FLEXPEN SC (13:30)
--- NOTE | 2024-03-17 13:36 | W.PN.ID1 ---
Date of Service
Date of Service: March 17, 2024
Today's Communication
DC Vanco.
Continue Zosyn/clinda
Assessment / Plan
#Fourniere's gangrene of right perineum
- s/p I+D 03/15/24 and 03/16/24
- Gram stain: polymicrobial org; Cx Strep species
-Discontinue Vancomycin
- Continue Zosyn and IV clindamycin for now.
# Sepsis. leukocytosis, hypotensive due to above
- Blood cx neg to date
-Leukocytosis trending down.
-Follow temps/wbc.
# MATT - improving
# Afib with RVR triggered by infection
-s/p cardioversion, now in sinus.
# Conditions PTGA
Diabetes mellitus
Hyperthyroidism
CAD status post CABG x 4
Atrial fibrillation
Hypertension
COPD
Dyslipidemia
BPH
Chief Complaint
-: Other (Williams's)
Subjective / Review of Systems
Some post-op pain. No diarrhea.
Vital Signs / Physical Exam
Vital Signs
Vital Signs
Temp Pulse Resp BP Pulse Ox
98.1 F 88 17 107/67 97
03/17/24 11:10 03/17/24 11:00 03/17/24 11:00 03/17/24 11:00 03/17/24 08:00
Physical Exam
Constitutional: No Acute Distress and Comfortable
Pulmonary: Clear
Gastrointestinal: Soft, Non Tender and Non Distended
Extremities: Negative Edema
Neurological: AO x 3
Objective Data
Lab Data
Lab Results
03/17/24 03:23
03/17/24 03:23
PT 14.4 Sec (11.4-14.6) 03/17/24 10:16
INR 1.07 03/17/24 10:16
APTT 26.0 Sec (23.4-35.0) 03/17/24 10:16
Estimated Creat Clear 59 ml/min 03/17/24 03:23
Lactic Acid 1.2 mmol/L (0.7-2.0) 03/16/24 13:17
Total Bilirubin 0.2 mg/dl (0.2-1.3) 03/17/24 03:23
AST 31 U/L (17-59) 03/17/24 03:23
ALT 26 U/L (0-50) 03/17/24 03:23
Alkaline Phosphatase 45 U/L (38-126) 03/17/24 03:23
Most recent labs reviewed.
Micro Results:
03/15/24 23:42 Wound Culture - Preliminary
Ángela-anal Streptococcus species
Gram Stain - Preliminary
03/15/24 15:00 Blood Culture - Preliminary
Blood/Venous No Growth in 24 hours- Final report to follow
03/15/24 14:47 Blood Culture - Preliminary
Blood/Venous No Growth in 24 hours- Final report to follow
03/15/24 23:42 Anaerobic Culture - Pending
Perineum
03/14/24 18:47 Influenza Types A & B (YOMI) - Final
Nasal Swab Negative for Influenza A & B, NAAT
Negative results must be combined with clinical observations
and patient history.
Nucleic Acid Amplification test (NAAT)performed on the
[employer] platform.
03/14/24 CXR: Probable minor scarring or atelectasis in the medial left lung base. Otherwise no acute cardiopulmonary process.
03/15/24 Scrotal US: Scrotal edematous changes. Small left hydrocele and small left varicocele. No abnormal collection suspicious for abscess identified at ultrasound.
03/15/24 CT a/p: Extensive subcutaneous edema and gas throughout the right aspect of the perineum extending into the visualized proximal aspect of the scrotum/right inguinal canal. No loculated fluid collections. Findings are suspicious for
Williams's gangrene in the appropriate clinical context.
--- NOTE | 2024-03-17 15:48 | PTCARENOTE ---
Pt assisted OOB to chair- using air donut cushion on chair. Pt reported 'a little' lightheadedness w/ sitting up at edge of bed. Transferred w/o complication and reported lightheadedness 'better' once in chair. Pt remains on RA w/ POx 91%. No
additional changes or complaints noted. Call tapia remains in reach and safe environment maintained.
[2024-03-17 16:38] LABS: APTT 41.5 Sec (23.4-35.0)
[2024-03-17] MEDS: NOVOLOG FLEXPEN-MODERATE RESISTANCE 3 UNITS SC (17:33)
[2024-03-17 17:44] LABS: Glucose - Point of Care 213 mg/dl (70-99)
[2024-03-17] MEDS: COLACE PO (20:29)
[2024-03-17] MEDS: DILAUDID 1 MG IV (22:34)
[2024-03-17] MEDS: NSS IV ×2 (22:42→23:44)
[2024-03-17 23:22] LABS: Glucose - Point of Care 235 mg/dl (70-99)
[2024-03-17] MEDS: TYLENOL PO (23:43)
[2024-03-17 23:54] LABS: APTT 58.5 Sec (23.4-35.0)
[2024-03-18] VITALS (29 sets, daily range): BP systolic 88–157; BP diastolic 54–101; PULSE 2–70; BMI 26.6
[2024-03-18] MEDS: HEPARIN 25000 UNITS/250 ML IV (00:38)
[2024-03-18] MEDS: CLEOCIN 50 IV ×2 (02:30→10:17)
[2024-03-18] MEDS: ZOSYN 50 IV ×4 (03:00→19:56)
[2024-03-18] MEDS: DILAUDID 0.5 MG IV ×3 (05:34→22:56)
[2024-03-18 06:24] LABS: % Basophils 0.3 % (0-2); % Eosinophils 0.2 % (0-6); % Immature Granulocytes 2.9 % (0-0.5); % Lymphocytes 12.4 % (20.5-51.1); % Monocytes 5.9 % (1.7-9.3); % Neutrophils 78.3 % (42.2-75.2); Absolute Immature Granulocytes 0.4 10^3/uL (0-0.05); Absolute Lymphocytes 1.8 10^3/uL (1.2-3.4); Absolute Monocytes 0.9 10^3/uL (0.1-0.6); Absolute Neutrophils 11.5 10^3/uL (1.4-6.5); Hematocrit 44.4 % (39.0-52.0); Hemoglobin 14.9 g/dL (13.0-18.0); Mean Corp Hgb Conc. 33.6 g/dL (33.0-37.0); Mean Corpuscular Hgb 28.7 pg (27.0-31.0); Mean Corpuscular Volume 85.5 fL (80.0-94.0); Mean Platelet Volume 9.5 fL (7.4-10.4); Nucleated Red Blood Cells % 0 % (-); Platelet Count 210 10^3/uL (130-400); Red Blood Cell Count 5.19 10^6/uL (4.70-6.10); Red Cell Dist. Width 12.7 % (11.5-14.5); White Blood Cell Count 14.7 10^3/uL (4.8-10.8)
[2024-03-18 06:38] LABS: APTT 79.6 Sec (23.4-35.0)
[2024-03-18] MEDS: TYLENOL PO (06:47)
[2024-03-18 07:21] LABS: Blood Urea Nitrogen 52 mg/dl (9-20); Calcium 7.9 mg/dl (8.4-10.2); Carbon Dioxide 23 mmol/L (22-30); Chloride 106 mmol/L (98-107); Estimated Creatinine Clearance 59 ml/min; Glucose 185 mg/dl (70-99); Potassium 3.6 mmol/L (3.5-5.1); Sodium 137 mmol/L (135-145); eGFR 50.08
--- NOTE | 2024-03-18 07:25 | PTCARENOTE ---
Addendum entered by Waldemar Grant RN 03/18/24 07:26:
BM was at approx. 2230
Original Note:
Pt had a large gelatinous brown BM in the bedside commode. Some stool entered the wound and wound care was performed by this RN, see documentation.
--- NOTE | 2024-03-18 07:47 | PN.DE.MGMTRT ---
Insulin Management
- -
03/18/2024 Diabetes Management Consult Follow up
Patient admitted 03/14 due to heart rate issues, with a fib - cardioverted. 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 PMH afib, CAD, HTN, HLD, BPH, diabetes 20 years and anxiety. Prior to admission was taking farxinga
10 mg daily and Ozempic 1 mg weekly. A1c on admission 8%, cr 2, eGFR 35.49.
Patient is awake alert and oriented able to discuss diabetes management. States he has a glucose monitor with supplies.
03/17 Transitioned from glycemic protocol to lantus 20 units now, insulin infusion off in 2 hours. Novolog 4 units AC with moderate corrective and 2000 calorie diet.
03/18 Glucose trended up to 235 yesterday, 185 Fasting today. Will increase AM lantus to 24 units and increase AC novolog to 6 units with moderate corrective.
Patient is for OR today AC novolog to be held, may receive corrective insulin.
Discussed with patients nurse.
Will follow.
Diabetes History
- -
Type of Diabetes: 2 requiring insulin
Pre-Admission Diabetes Regimen
03/18/24
06:08
Creatinine 1.5 H
Lab Results
Hemoglobin A1c 8.0 % (4.0-5.6) H 03/15/24 06:14
Insulin Pump Settings
IP Diabetes Regimen
03/17/24 03/17/24 03/17/24
08:26 10:29 17:32
Glucose
POC Glucose 142 H 154 H 213 H
03/17/24 03/18/24
23:11 06:08
Glucose 185 H
POC Glucose 235 H
Meal type: Dinner
Meal type: Lunch
Meal type: Breakfast
Amount consumed: 100%
Amount consumed: Patient refused
Amount consumed: 50%
Patient Education
[2024-03-18] MEDS: FLOMAX 0.4 MG PO (07:49)
[2024-03-18] MEDS: TAPAZOLE 5 MG PO (07:49)
[2024-03-18] MEDS: LOPRESSOR 12.5 MG PO ×2 (07:49→18:34)
[2024-03-18] MEDS: COLACE 100 MG PO ×2 (07:50→19:56)
[2024-03-18] MEDS: LIPITOR 40 MG PO (07:50)
[2024-03-18] MEDS: LOW STRENGTH ASPIRIN 81 MG PO (07:50)
[2024-03-18] MEDS: NOVOLOG FLEXPEN-MODERATE RESISTANCE 1 UNITS SC ×2 (07:55→12:31)
[2024-03-18 08:03] LABS: Glucose - Point of Care 178 mg/dl (70-99)
[2024-03-18] MEDS: NOVOLOG FLEXPEN SC ×3 (08:50→11:40)
[2024-03-18] MEDS: LANTUS 0.24 UNITS SC (09:07)
--- NOTE | 2024-03-18 10:57 | W.PN.ID1 ---
Date of Service
Date of Service: March 18, 2024
Today's Communication
DC clindamycin.
Continue Zosyn.
Assessment / Plan
#Fourniere's gangrene of right perineum
- s/p I+D 03/15/24 and 03/16/24
- Gram stain: polymicrobial org; Cx Strep species
-Discontinue clindamycin.
- Continue Zosyn
# s/p Sepsis, hypotensive due to above
- Blood cx neg to date
-Leukocytosis trending down.
-wbc.
# MATT - improving
# Afib with RVR triggered by infection
-s/p cardioversion, now in sinus.
# Conditions PTGA
Diabetes mellitus
Hyperthyroidism
CAD status post CABG x 4
Atrial fibrillation
Hypertension
COPD
Dyslipidemia
BPH
Chief Complaint
-: Other (Williams's)
Subjective / Review of Systems
No complaints today.
Vital Signs / Physical Exam
Vital Signs
Vital Signs
Temp Pulse Resp BP Pulse Ox
97.3 F 96 22 138/75 94
03/18/24 07:27 03/18/24 10:17 03/18/24 10:17 03/18/24 10:17 03/18/24 10:17
Physical Exam
Constitutional: No Acute Distress and Comfortable
Cardiovascular: Regular Rate and S1/S2
Pulmonary: Clear
Gastrointestinal: Soft, Non Tender and Non Distended
Neurological: AO x 3
Objective Data
Lab Data
Lab Results
03/18/24 06:08
03/18/24 06:08
PT 14.4 Sec (11.4-14.6) 03/17/24 10:16
INR 1.07 03/17/24 10:16
APTT 79.6 Sec (23.4-35.0) H 03/18/24 06:08
Estimated Creat Clear 59 ml/min 03/18/24 06:08
Lactic Acid 1.2 mmol/L (0.7-2.0) 03/16/24 13:17
Total Bilirubin 0.2 mg/dl (0.2-1.3) 03/17/24 03:23
AST 31 U/L (17-59) 03/17/24 03:23
ALT 26 U/L (0-50) 03/17/24 03:23
Alkaline Phosphatase 45 U/L (38-126) 03/17/24 03:23
Most recent labs reviewed.
Micro Results:
03/15/24 15:00 Blood Culture - Preliminary
Blood/Venous No Growth in 48 hours- Final report to follow
03/15/24 14:47 Blood Culture - Preliminary
Blood/Venous No Growth in 48 hours- Final report to follow
03/15/24 23:42 Anaerobic Culture - Preliminary
Perineum Culture pending. Anaerobic cultures are examined after 3
days incubation. Additional information to follow.
03/15/24 23:42 Wound Culture - Preliminary
Ángela-anal Streptococcus species
Gram Stain - Preliminary
03/14/24 18:47 Influenza Types A & B (YOMI) - Final
Nasal Swab Negative for Influenza A & B, NAAT
Negative results must be combined with clinical observations
and patient history.
Nucleic Acid Amplification test (NAAT)performed on the
[employer] platform.
03/14/24 CXR: Probable minor scarring or atelectasis in the medial left lung base. Otherwise no acute cardiopulmonary process.
03/15/24 Scrotal US: Scrotal edematous changes. Small left hydrocele and small left varicocele. No abnormal collection suspicious for abscess identified at ultrasound.
03/15/24 CT a/p: Extensive subcutaneous edema and gas throughout the right aspect of the perineum extending into the visualized proximal aspect of the scrotum/right inguinal canal. No loculated fluid collections. Findings are suspicious for
Williams's gangrene in the appropriate clinical context.
--- NOTE | 2024-03-18 11:21 | PTCARENOTE ---
Pt received start of shift, HR SR w/ BBB on tele. Spoke w/ outreach educator about insulin coverage while NPO prior to procedure, okay to give novolog sliding scale and ordered Lantus. Colorectal surgery at bedside, heparin ordered to stop. Pt with
loose, gelatinous BM. Fecal matter in wound. Contaminated gauze cut away, wound cleansed with sterile gauze and saline. PRN dilaudid for pain at procedure site - see JUN.
[2024-03-18 12:03] LABS: Glucose - Point of Care 160 mg/dl (70-99)
--- NOTE | 2024-03-18 12:20 | W.PN.HOSP.TC ---
Addendum entered and electronically signed by Raman Fierro DO 03/18/24 13:58:
Troponin elevation due to NSTEMI. Discussed with cardiology.
Echocardiogram did show mild hypokinesis of the basal�mid inferior septal, apical lateral and basal inferior lance. LVEF 55%.
Original Note:
Today's Communication/Plan
-
PT
Assessment / Plan
Assessment / Plan
Gen-AAOx3, NAD
HEENT-NC, AT, anicteric, clear oral mm
Neck-supple
CV-reg, no M, +S1/S2
Lungs-clear B/L
Abd-soft, NT, ND
Ext-no edema
Musculoskeletal-no cyanosis, clubbing
Skin-warm and dry
Neuro-grossly non-focal
Psych-calm, cooperative
-right-sided scrotal swelling and tenderness with nodule noted
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 CT scan noted. Antibiotics per infectious disease. Appreciate colorectal surgery input. Had incision and drainage and debridement numberer and wirer 03/16. Wound cultures
positive for strep species. Blood cultures negative so far but they were drawn after starting antibiotics. Patient states pain in his pereneum him started about a week prior to admission. Discussed permanently stopping SGLT2 inhibitors moving
forward. Informed his enterer Dr. Denson as well.
Hemodynamically improved. Not on vasopressors. Sepsis and shock resolved.
MATT -due to severe volume depletion. Creatinine improving with IV fluid support. Hold chlorthalidone, olmesartan. Hold NSAIDs.
DM2 with hyperglycemia -DKA resolved. Basal/bolus insulin to continue. Diabetes BOX PRINTER following. Hemoglobin A1c 8%. Will be discharged on insulin.
At home he uses Farxiga 10 mg daily, Ozempic once weekly.
Moving forward, permanently discontinue SGL 2 inhibitors given presentation with Williams's gangrene. Discussed with patient.
Troponin elevation -suspect acute nonischemic myocardial injury due to sepsis, rapid atrial fibrillation, acute illness. Echocardiogram shows LVEF 55%, mild hypokinesis of the basal�mid inferior septal, apical lateral, basal inferior lance. Normal
RV size and systolic function.
Rapid paroxysmal atrial fibrillation -successfully cardioverted to sinus rhythm in the ER. Heparin on hold for OR today. Resume metoprolol at lower dose 12.5 mg twice daily.
Hyperthyroidism -followed by endocrinology, Dr. Denson. Patient is unsure of home dose but believes the methimazole was reduced to 5 mg once daily prior to admission. He tried to increase it back to 5 mg twice daily to abort the atrial
fibrillation to no avail.
TSH 2.32, free T4 1.44.
I spoke with Dr. Denson and confirmed that his home dose of methimazole should be 5 mg once daily on discharge.
Hyponatremia -resolved.
Essential hypertension -hypotensive on arrival due to rapid atrial fibrillation and volume depletion. IV fluid bolus ordered. May need vasopressors. Hold antihypertensives.
Hyperlipidemia -resume atorvastatin.
CAD/CABG -2020.
COPD without exacerbation
Full code
Anticipated Discharge: > 48 hours
Subjective/Interval History
-
Date of Service: March 18, 2024
Patient seen and examined. No new complaints.
Objective Data
-
Labs:
Laboratory Results
03/18/24 03/18/24
06:08 12:00
WBC 14.7 H
Hgb 14.9
Hct 44.4
Plt Count 210
APTT 79.6 H Cancelled
Sodium 137
Potassium 3.6
Chloride 106
Carbon Dioxide 23
BUN 52 H
Creatinine 1.5 H
Glucose 185 H
Calcium 7.9 L
Vital Signs:
Vital Signs
Temp Pulse Resp BP Pulse Ox
98.5 F 96 22 138/75 94
03/18/24 11:17 03/18/24 10:17 03/18/24 10:17 03/18/24 10:17 03/18/24 10:17
I&O
03/17/24 03/18/24 03/19/24
06:59 06:59 06:59
Intake Total 3645.7 / 3771.1 3099.8 / 3099.8
Output Total 2225 / 2225 1987 / 1987 750 / 750
Balance 1420.7 / 1546.1 1111.8 / 1111.8 -750 / -750
Review of Systems
-
History Source: Patient
All other systems: Reviewed and negative
[2024-03-18] MEDS: TYLENOL 1000 MG PO ×3 (12:30→23:59)
--- NOTE | 2024-03-18 13:29 | PN.CDI ---
CDI
- -
CDI:
Physician Documentation Request
Admit Date: 03/14/24 20:44
Dear Doctor Vadim,
Patient admitted for Williams's gangrene.
03/17 Cardiology PN: 'Hold off on ischemic evaluation given possible need for recurrent surgery and high risk of stent thrombosis if Plavix would need to be stopped...nstemi, peak troponin 6.3'
03/18 Hospitalist PN: 'Troponin elevation -suspect acute nonischemic myocardial injury due to sepsis, rapid atrial fibrillation, acute illness.'
Please clarify the following regarding the documented myocardial infarction
NSTEMI
Non-ischemic troponin elevation
Other
Use of terms such as suspected, likely, concern for, or probable (associated with a specific diagnosis that is being evaluated, monitored, or treated as if it exists) are acceptable and can be coded in the inpatient setting, when documented at the
time of discharge.
Thank you,
Catie Olguin RN, BSN
CDI Specialist
Available via [place] text
Please use your independent medical judgment in providing your response.
--- NOTE | 2024-03-18 13:32 | PN.CDI ---
CDI
- -
CDI:
Physician Documentation Request
Admit Date: 03/14/24 20:44
Dear Doctor Vadim,
Patient admitted for Williams's gangrene.
03/17 Cardiology PN: 'Hold off on ischemic evaluation given possible need for recurrent surgery and high risk of stent thrombosis if Plavix would need to be stopped...nstemi, peak troponin 6.3'
03/18 Hospitalist PN: 'Troponin elevation -suspect acute nonischemic myocardial injury due to sepsis, rapid atrial fibrillation, acute illness.'
Please clarify the following regarding the documented myocardial infarction
NSTEMI
Non-ischemic myocardial injury
Other
Use of terms such as suspected, likely, concern for, or probable (associated with a specific diagnosis that is being evaluated, monitored, or treated as if it exists) are acceptable and can be coded in the inpatient setting, when documented at the
time of discharge.
Thank you,
Catie Olguin RN, BSN
CDI Specialist
Available via [place] text
Please use your independent medical judgment in providing your response.
--- NOTE | 2024-03-18 13:52 | W.PN.CARDCBS ---
Addendum entered and electronically signed by Waldemar Arenas MD 03/18/24 16:58:
I saw and examined the patient on morning rounds.
The Final Assembly Worker's note was reviewed and I agree with the note.
Comment: Briefly, 68-year-old man past medical history of CAD status post CABG and atrial fibrillation presenting with atrial fibrillation with rapid ventricular response for which he underwent direct-current cardioversion to [facility] emergency
department on 03/14/2024, subsequently found to have Williams's gangrene requiring multiple surgeries for debridement
In regards to his atrial fibrillation, currently maintaining sinus rhythm
Continue heparin for now, can transition back to outpatient Eliquis when no further surgeries are planned
Troponin was elevated on admission and ECG with nonspecific ST/T wave changes
Patient tells me he was not experiencing any chest pain or pressure
Possible troponin elevation is related to A-fib RVR and/or sepsis
As he is asymptomatic would favor medical management at this time -aspirin/statin, beta-austen, heparin gtt
Would consider ischemic evaluation after Williams's gangrene has been treated, this could be done as an outpatient
proBNP was significantly elevated on admission and his weight is up over the last several days
Suspect that he will need diuresis prior to discharge
Recommend judicious use of IV fluids for now
Rest per Valerie Eaton
Original Note:
Today's Communication / Plan
-
Eventually restart Heparin gtt
Recheck pro-BNP, weight is up
Impression / Plan
-
PCP: Dr. Hart
Primary Polyethylene Combiner: Dr. Bolanos
Impression:
Admitted with MATT, elevated Troponin and recurrent Afib with CV in the ER 03/14/24
MATT
NSTEMI, peak troponin 6.3
CAD s/p CABG x4 07/2020
Williams's gangrene, perineal abscess on Farxiga status post surgery 03/15/24 and 03/16/24
Paroxysmal Afib with RVR s/p successful CV in [facility] 03/14/24
Paroxysmal Afib
initially seen s/p CABG 07/2020
recurrent Afib treated with CV in [facility] 10/06/21
recurrent Afib treated with rate control and spontaneously converted to SR 10/09/21
Chronic OAC with Eliquis
Hypothyroidism
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
HTN
HLD
DM2
COPD
ALFREDO 07/2020: EF 60-65%, no RWMA, severe conc LVH, mod dilated LA, mildly dilated mid ascending aorta, mild sessile atheroma in descending aorta and distal arch
ECHO 10/11/21: EF 50 to 55%, no WMA, normal RA/LA size, no significant valve disease
Echo 03/15/24: EF 55%, mild hypokinesis of the basal-mid inferoseptal, apical lateral and basal inferior lnace, normal RV size and function, trileaflet sclerotic aortic valve with dense calcification on the noncoronary cusp, no /AR
Plan:
-Patient with necrotizing perineal infection managed with IV antibiotics and I&D and debridement of perineal wound and small scrotal abscess in the OR 03/15/24. Patient returned to the OR 03/16/24 with I&D and additional debridement. Patient reports
that he is likely returning to the OR 03/18/24 for additional debridement
-Surgery notes reviewed and patient can start Heparin gtt, but it should be held 6 hours prior to surgery. Will attempt to restart Heparin gtt 03/19/24
-Tele reviewed by me and patient remains in SR following CV in [facility] 03/14/24 PM, prior to that he had not missed any doses of his outpatient Eliquis 5 mg BID. [facility] to elevated Troponin he was changed to Heparin gtt on admission.
-Troponin peaked at 6.32. No chest pain, but ECG with inferolateral T wave inversions and IC LBBB. Patient also with new WMA on echo 03/15/24. Will manage as a NSTEMI. Would eventually start on Plavix and consider transitioning to Plavix and Eliquis
at time of d/c. For now he remains on aspirin which is a new med this admission.
-Plan prior to perineal abscess drainage was cardiac cath 03/16/24. Patient interested in cath, he has not had cath since CABG in 2020. Cath is acutely deferred, but will continue to reassess potential need for and timing of cath.
-Outpatient dose of Toprol XL changed to Lopressor.
-Outpatient doses of benazepril 40 mg daily, chlorthalidone 25 mg daily on hold due to MATT. BP stable.
-Outpatient dose of amlodipine 10 mg daily is on hold due to hypotension
-LDL 54 and outpatient dose of atorvastatin 40 mg daily has been continued
-Patient is not a candidate for cardiac rehab due to acute illness
-Weight is up at least 9 lbs. He has received 7.5 L IVFs. Eventual diuresis. Patient was not taking a loop diuretic prior to admission.
-Recheck pro-BNP, was [id number] on admission
-Outpatient dose of Farxiga has been stopped. Patient reports Farxiga was started about 6 months ago by his PCP and he recalls being warned about infections, but figured he did so well for so long and it slipped his mind.
HPI: Patient came to ER yesterday with complaints of feeling poorly for at least 3 days and was found to be in rapid A-fib and is now admitted with cardiology consultation. Patient was last seen in the office on 05/19/2023 and was in SR at that
time. Initially seen in AF after CABG 07/2020 none recurrence last noted to be 10/2021 as noted above. Patient felt as though he was in AF for about 3 days prior to admission. Patient felt that this correlated with a decrease in his outpatient
levothyroxine dosing in the last several weeks, so he increase the dose, but no improvement in his AF so he finally came to ER yesterday. Patient says he also came to ER because he has been feeling sick and felt as though he had the flu for
the last 1 to 2 months. He says he feels he has a fever at times and this will correlate to a temperature of 100.6 �F when he checks his temperature at home. He says his the symptoms wax and wane and that he feels congested much of the time. He
feels SOB at times, but not consistent. No orthopnea or PND. No bloating. No LE edema. In ER last night patient was found to be in rapid AF and denied missing any Eliquis doses so he had a successful CV and remains in SR this a.m. Patient
reports dramatic symptomatic improvement following buddhist of SR. Patient also noted to be in MATT with Cre up to 3.1 last evening, but improved to 2.3 this a.m. Patient reports ongoing congestion, but less SOB. Initial troponin was elevated
at 5.73, then up to 6.03, then down to 5.53 and then even though the troponin was trending down another troponin was checked and was elevated at 6.32. A 5th troponin is now pending, but patient denies any chest pain. He does have a history of CAD
s/p CABG.
Progress Note - Polyethylene Combiner
Subjective
Date of Service: March 18, 2024
Objective
Labs:
03/18/24 06:08
03/18/24 06:08
Labs
Hgb 14.9 g/dL (13.0-18.0) 03/18/24 06:08
Hct 44.4 % (39.0-52.0) 03/18/24 06:08
Plt Count 210 10^3/uL (130-400) 03/18/24 06:08
PT 14.4 Sec (11.4-14.6) 03/17/24 10:16
INR 1.07 03/17/24 10:16
APTT Cancelled 03/18/24 12:00
Sodium 137 mmol/L (135-145) 03/18/24 06:08
Potassium 3.6 mmol/L (3.5-5.1) 03/18/24 06:08
BUN 52 mg/dl (9-20) H 03/18/24 06:08
Creatinine 1.5 mg/dL (0.7-1.3) H 03/18/24 06:08
Glucose 185 mg/dl (70-99) H 03/18/24 06:08
Troponins
03/15/24 03/16/24
14:47 04:44
Troponin I 4.120 H* 2.050 H*
Vital Signs and I&O:
Vital Signs
Temp Pulse Resp BP Pulse Ox
98.5 F 96 22 138/75 94
03/18/24 11:17 03/18/24 10:17 03/18/24 10:17 03/18/24 10:17 03/18/24 10:17
Vital Signs
Temp Pulse Resp BP Pulse Ox
98.5 F 96 22 138/75 94
03/18/24 11:17 03/18/24 10:17 03/18/24 10:17 03/18/24 10:17 03/18/24 10:17
Intake & Output
03/16/24 03/17/24 03/18/24 03/19/24
06:59 06:59 06:59 06:59
Intake Total 5022 / 5147 3645.7 / 3771.1 3099.8 / 3099.8
Output Total 3125 / 3125 2225 / 2225 1987 / 1987 1000 / 1000
Balance 1896 / 2021 1420.7 / 1546.1 1111.8 / 1111.8 -1000 / -1000
Scores
DENNY for NSTEMI
Age >/= 65: Yes
>/=3 CAD risk factors-HTN,High Chol,Fam hx CAD,DM,Smoker: Yes
Known CAD (stenosis >/=50%): Yes
ASA use in past 7 days: Yes
Severe angina (>/= 2 episodes in 24 hrs): No
EKG ST Changes >/= 0.5mm: No
Positive cardiac marker: Yes
Score: 5
Risk at 14 days-mortality, new/recurrent ND, severe ischemia: Intermediate Risk- 26% Risk at 14 days- all cause mortality, new or recurrent ND, or severe recurrent ischemia requiring urgent revascularization
[2024-03-18 16:15] LABS: NT-proBNP 2460 pg/ml
--- NOTE | 2024-03-18 17:11 | W.IMMPOSTOP ---
Surgical Immed Post Op Note
-
Primary Surgeon: Bob Pena MD
Co-surgeon: Renny Canales MD
Pre-op Diagnosis: Necrotizing soft tissue infection of the perineum
Post-op Diagnosis: Necrotizing soft tissue infection of the perineum
Procedure Performed: Exam under anesthesia, debridement of perineal wound, pulse lavage of the wound
Anesthesia Type: LMA with local
Specimen / Cultures: None
Estimated Blood Loss: 10 mL
Complications: None
Operative Findings: A few small areas of brown/kern fluid drainage with blunt dissection in the right lower scrotum and right inguinal region; performed additional debridement with Dr. Canales, urology, of this area with extension of the wound more
superiorly; minor debridement of the base of the wound and the ischiorectal space and posterior right gluteal subcutaneous space; debridement was to healthy bleeding tissue; still no involvement of the testicles or rectum; about 160 degrees of anal
sphincter complex free-floating
--- NOTE | 2024-03-18 17:18 | OR.RPT ---
Addendum entered and electronically signed by Bob Pena MD 04/01/24 14:58:
for CDI: debridement involved was excisional
Original Note:
Operative Report
Operative Report
DATE OF OPERATION: 03/18/2024
SURGEON: Bob Pena MD
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
OPERATION: Exam under anesthesia, debridement of right perineal wound and pulse lavage
ASSISTANTS:
1. None
CO-SURGEON: Renny Canales MD
ANESTHESIA: LMA/sedation with local
ESTIMATED BLOOD LOSS: 10 mL
UOP: 100 mL
IVF: 500 mL
FINDINGS:
1. Additional necrotic debris with minimal amount of kern/brown fluid at the right scrotum and right inguinal region; evaluated with Dr. Canales and performed further debridement; dartos fascia still intact and testicles remain uninvolved
2. Small amount of additional necrotic debris in the base of the wound along right ischiorectal space and posteriorly in the subcutaneous space of the right buttock, which was debrided
SPECIMENS:
1. None
DRAINS: None
COMPLICATIONS: No immediate complications.
INDICATIONS: The patient is a 68-year-old male who initially presented with necrotizing soft tissue infection of the right perineum and has undergone two debridements so far for source control. As there was some necrotic material at the last
debridement, I recommended another exam under anesthesia with possible additional debridement. The operation was discussed with the patient and patient's spouse in detail, including the risks, benefits and alternatives. Risks described included,
but not limited to, bleeding, continued infection requiring further debridement, recurrent infection, damage to nearby structures, debridement of nearby structures, anal dysfunction and anesthetic risks. The patient understood and agreed to proceed.
PROCEDURE IN DETAIL: The patient was taken to the operating room and placed on the operating table in supine position. Sequential compression devices were placed bilaterally. Sedation was commenced and the patient was intubated with an LMA. The
patient already had an indwelling Smart. The patient was placed in lithotomy position with bilateral arms secured to the armboards. The perineum was prepped and draped with Betadine in the usual fashion. A time-out was then performed verifying the
correct patient, procedure, operative site, positioning, and special equipment.
On evaluation with Dr. Canales present, there was additional necrotic debris overlying dartos fascia at the base of the right scrotum and up into the right inguinal region. The Nat drain was removed. With blunt dissection, a minimal amount of
kern/brown fluid was expressed from the area. Therefore, this tissue was sharply debrided with Metzenbaum scissors. Additionally, the skin overlying the right inguinal region appeared somewhat dusky and thin. This was sharply excised to healthy
bleeding skin, extending the wound superiorly towards the right inguinal region. A little more debridement in the right inguinal region was performed, down to healthy bleeding tissue. Hemostasis was achieved with electrocautery. Dartos fascia was
still intact and the testicles remain uninvolved. There is still remains enough healthy scrotal skin that may serve as a flap in the future for wound closure.
There was a small amount of superficial necrotic debris along the base of the wound overlying the right ischiorectal space, which was debrided with Metzenbaum scissors. Posteriorly, using finger fracture technique, there was a softness to the
subcutaneous adipose that led to a small track posteriorly, but only by 2 to 3 cm. The subcutaneous band was incised in order to open up the tract and improve future packing to this aspect of the wound. There was no additional necrotic debris or
infection in this area. Hemostasis was achieved with electrocautery.
I performed pulse irrigation with 1 L of saline to the entire extent of the wound. Hemostasis was confirmed with electrocautery. I packed the wound with Betadine soaked Kerlix. At this point, the procedure was complete. All needle, sponge and
instrument counts were correct. The patient tolerated the procedure well. The area was dressed with an ABD pad and mesh underwear was placed.
DICTATED BY: Bob Pena MD
[2024-03-18 17:33] LABS: Glucose - Point of Care 143 mg/dl (70-99)
[2024-03-18] MEDS: NOVOLOG FLEXPEN-MODERATE RESISTANCE SC (17:36)
[2024-03-18] MEDS: NOVOLOG FLEXPEN 6 UNITS SC (17:37)
--- NOTE | 2024-03-18 18:05 | PTCARENOTE ---
Pt received back from PACU. Breath sounds present, diminished and coarse b/l. Pt tachycardic - ekg completed, reads sinus tach. Fast HR resolved without intervention. Pt states he feels great - no complaints of pain. POX 94% 2L NC, weaned from
simple mask. BP stable.
[2024-03-18 21:52] LABS: Glucose - Point of Care 263 mg/dl (70-99)
--- NOTE | 2024-03-18 22:00 | PTCARENOTE ---
Pt transferred to room 2137 via bed after report to Guerrero GONZALEZ.
[2024-03-19] VITALS (9 sets, daily range): BP systolic 124–158; BP diastolic 72–90; PULSE 2–78; O2SAT 94; BMI 25.9
--- NOTE | 2024-03-19 00:41 | PTCARENOTE ---
Patient transferred from ICU to room 2136. Patient's VSS as documented. Assessment as documented. Patient AAOx3. Patient oriented to room, bed in lowest position, call tapia within reach.
[2024-03-19] MEDS: ZOSYN 50 IV ×2 (02:29→09:25)
[2024-03-19 03:13] LABS: Glucose - Point of Care 233 mg/dl (70-99)
[2024-03-19] MEDS: TYLENOL 1000 MG PO ×3 (05:54→17:11)
--- NOTE | 2024-03-19 07:11 | PN.DE.MGMTRT ---
Insulin Management
- -
03/19/2024 Diabetes Management Consult Follow up
Patient admitted 03/14 due to heart rate issues, with a fib - cardioverted. 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 PMH afib, CAD, HTN, HLD, BPH, diabetes 20 years and anxiety. Prior to admission was taking farxinga
10 mg daily and Ozempic 1 mg weekly. A1c on admission 8%, cr 2, eGFR 35.49.
Patient is awake alert and oriented able to discuss diabetes management. States he has a glucose monitor with supplies.
03/18 Glucose trended up to 235 yesterday, 185 Fasting today. AM lantus increased to 24 units and AC novolog increased to 6 units with moderate corrective.
Patient is for OR today AC novolog to be held, may receive corrective insulin.
03/19 Patient had further debridement of wound yesterday, NPO for most of day. Diet resumed glucose up to 263. Will give AM lantus reduced dose 15 units and start 30 units lantus @ hs. Will increase novolog to 10 units AC with moderate
corrective. Will check 3AM glucose.
Discussed with patients nurse.
Will follow.
Diabetes History
- -
Type of Diabetes: 2 requiring insulin
Pre-Admission Diabetes Regimen
03/18/24
06:08
Creatinine 1.5 H
Lab Results
Hemoglobin A1c 8.0 % (4.0-5.6) H 03/15/24 06:14
Insulin Pump Settings
IP Diabetes Regimen
03/18/24 03/18/24 03/18/24
06:08 07:52 11:52
Glucose 185 H
POC Glucose 178 H 160 H
03/18/24 03/18/24 03/19/24
17:22 21:41 03:12
Glucose
POC Glucose 143 H 263 H 233 H
Meal type: Lunch
Meal type: Breakfast
Patient Education
[2024-03-19 07:44] LABS: Glucose - Point of Care 194 mg/dl (70-99)
[2024-03-19] MEDS: LANTUS 0.15 UNITS SC (07:46)
[2024-03-19] MEDS: DILAUDID 0.5 MG IV ×3 (07:46→22:29)
[2024-03-19 09:17] LABS: % Basophils 0.2 % (0-2); % Immature Granulocytes 3.9 % (0-0.5); % Lymphocytes 7.6 % (20.5-51.1); % Monocytes 3.6 % (1.7-9.3); % Neutrophils 84.7 % (42.2-75.2); Absolute Immature Granulocytes 0.6 10^3/uL (0-0.05); Absolute Lymphocytes 1.2 10^3/uL (1.2-3.4); Absolute Monocytes 0.6 10^3/uL (0.1-0.6); Hematocrit 41.4 % (39.0-52.0); Hemoglobin 14.1 g/dL (13.0-18.0); Mean Corp Hgb Conc. 34.1 g/dL (33.0-37.0); Mean Corpuscular Hgb 28.4 pg (27.0-31.0); Mean Corpuscular Volume 83.3 fL (80.0-94.0); Mean Platelet Volume 9.4 fL (7.4-10.4); Nucleated Red Blood Cells % 0 % (-); Platelet Count 245 10^3/uL (130-400); Red Blood Cell Count 4.97 10^6/uL (4.70-6.10); Red Cell Dist. Width 12.3 % (11.5-14.5); White Blood Cell Count 15.3 10^3/uL (4.8-10.8)
[2024-03-19] MEDS: LIPITOR 40 MG PO (09:17)
[2024-03-19] MEDS: COLACE 100 MG PO ×2 (09:17→20:48)
[2024-03-19] MEDS: LOW STRENGTH ASPIRIN 81 MG PO (09:18)
[2024-03-19] MEDS: TAPAZOLE 5 MG PO (09:18)
[2024-03-19] MEDS: LOPRESSOR 12.5 MG PO ×2 (09:18→20:47)
--- NOTE | 2024-03-19 09:20 | W.PN.URO.CBU ---
Today's Communication / Plan
-
no gu changes
Assessment / Plan
-
sw/p debridement and dfrainage of fournoers and perirectal; abscess Will possibl;y need reeval under anesthesia but clibically much imoprived Discharge planing will be in[potrat foer wound care may ask stoma nurse for intervention and see f
family can do packing keepy as goingback to op room tomorrow
Diagnosis
-
Date of Service: March 19, 2024
-
Patient Diagnosis:
Post Op Day:
Patient Diagnosis:
Post Op Day:
Patient Diagnosis:mild retention urine perirectal preineal abscess and fourniers
Post Op Day:
Subjective
-
improving
Objective
-
Vital Signs
Temp Pulse Resp BP Pulse Ox
98.1 F 80 16 150/80 95
03/19/24 03:35 03/19/24 03:35 03/19/24 03:35 03/19/24 03:35 03/19/24 03:35
Intake and Output
03/18/24 03/19/24 03/20/24
06:59 06:59 06:59
Intake Total 3099.8 / 3099.8 1490 / 1490
Output Total 1987 / 1987 2975 / 2975
Balance 1111.8 / 1111.8 -1485 / -1485
Intake:
Oral fluids 960 / 960 1440 / 1440
IV fluids (Total) 2088.8 / 2088.8
Nss 1,000 ml @ 125 mls/hr IV . 1750 / 1750
Q8H NARINDER Rx#:[id number]
heparin 325 / 325
insulin 14.8 / 14.8
IV piggybacks 50 / 50 50 / 50
Output:
Urine, Smart 1987 2975 / 2975
Laboratory Results
03/19/24 08:53
Review of Systems
-
: Other (perineal discomfort but much better)
Physical Exam
-
General - well developed, well nourished, no acute distress
Chest - clear bilaterally
Abdomen - soft, non-tender, positive bowel sounds, no CVAT, no incisional pain or distention
Genitalia - normal
Rectal - normal
Skin - warm & dry with no rash
Neuro - AOx3, no motor deficits
Extremities - no clubbing, no cyanosis, no edema
Incision - clean, dry
Dressing - clean, dry, intact
Care Review
Data Reviewed
Discussed with: Nursing
[2024-03-19] MEDS: FLOMAX 0.4 MG PO (09:24)
[2024-03-19] MEDS: NOVOLOG FLEXPEN-MODERATE RESISTANCE 1 UNITS SC ×2 (09:25→14:57)
[2024-03-19] MEDS: NOVOLOG FLEXPEN 10 UNITS SC ×2 (09:26→17:17)
--- NOTE | 2024-03-19 09:49 | W.PN.HOSP.TC ---
Today's Communication/Plan
-
Acapella, incentive spirometer
resume IV heparin
Out of bed to chair
Assessment / Plan
Assessment / Plan
Gen-AAOx3, NAD
HEENT-NC, AT, anicteric, clear oral mm
Neck-supple
CV-reg, no M, +S1/S2
Lungs-clear B/L
Abd-soft, NT, ND
Ext-no edema
Musculoskeletal-no cyanosis, clubbing
Skin-warm and dry
Neuro-grossly non-focal
Psych-calm, cooperative
-right-sided scrotal swelling and tenderness with nodule noted
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 CT scan noted. Antibiotics per infectious disease. Appreciate colorectal surgery input. Had incision and drainage and debridement informaticist 03/16. Wound cultures
positive for strep species. Blood cultures negative so far but they were drawn after starting antibiotics. Patient states pain in his pereneum him started about a week prior to admission. Discussed permanently stopping SGLT2 inhibitors moving
forward. 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
Hemodynamically improved. Not on vasopressors. Sepsis and shock resolved.
MATT -due to severe volume depletion. Creatinine improving. Hold chlorthalidone, olmesartan. Hold NSAIDs. Weight is up 4 kg but not symptomatic, denies shortness of breath. No peripheral edema. Hold further IV fluids.
DM2 with hyperglycemia -DKA resolved. Basal/bolus insulin to continue. Diabetes BUSINESS ACCOUNT EXECUTIVE following. Hemoglobin A1c 8%. Will be discharged on insulin.
At home he uses Farxiga 10 mg daily, Ozempic once weekly.
Moving forward, permanently discontinue SGL 2 inhibitors given presentation with Williams's gangrene. Discussed with patient.
Troponin elevation -suspect acute nonischemic myocardial injury due to sepsis, rapid atrial fibrillation, acute illness. Echocardiogram shows LVEF 55%, mild hypokinesis of the basal�mid inferior septal, apical lateral, basal inferior lance. Normal
RV size and systolic function.
Rapid paroxysmal atrial fibrillation -successfully cardioverted to sinus rhythm in the ER. Okay to resume heparin today, hold tomorrow morning for OR. Resume metoprolol at lower dose 12.5 mg twice daily.
Hyperthyroidism -followed by endocrinology, Dr. Denson. Patient is unsure of home dose but believes the methimazole was reduced to 5 mg once daily prior to admission. He tried to increase it back to 5 mg twice daily to abort the atrial
fibrillation to no avail.
TSH 2.32, free T4 1.44.
I spoke with Dr. Denson and confirmed that his home dose of methimazole should be 5 mg once daily on discharge.
Hyponatremia -resolved.
Essential hypertension -hypotensive on arrival due to rapid atrial fibrillation and volume depletion. IV fluid bolus ordered. May need vasopressors. Hold antihypertensives.
Hyperlipidemia -resume atorvastatin.
CAD/CABG -2020.
COPD without exacerbation
Full code
Anticipated Discharge: > 48 hours
Subjective/Interval History
-
Date of Service: March 19, 2024
Patient seen and examined. Complaining of cough but denies shortness of breath.
Objective Data
-
Labs:
Laboratory Results
03/19/24
08:53
WBC 15.3 H
Hgb 14.1
Hct 41.4
Plt Count 245
Sodium Pending
Potassium Pending
Chloride Pending
Carbon Dioxide Pending
BUN Pending
Creatinine Pending
Glucose Pending
Calcium Pending
Vital Signs:
Vital Signs
Temp Pulse Resp BP Pulse Ox
98.5 F 91 16 156/65 96
03/19/24 07:45 03/19/24 09:18 03/19/24 07:45 03/19/24 09:18 03/19/24 07:45
I&O
03/18/24 03/19/24 03/20/24
06:59 06:59 06:59
Intake Total 3099.8 / 3099.8 1490 / 1490
Output Total 1987 2975 / 2975
Balance 1111.8 / 1111.8 -1485 / -1485
Review of Systems
-
History Source: Patient
All other systems: Reviewed and negative
[2024-03-19 09:56] LABS: Blood Urea Nitrogen 34 mg/dl (9-20); Calcium 7.7 mg/dl (8.4-10.2); Carbon Dioxide 23 mmol/L (22-30); Chloride 103 mmol/L (98-107); Estimated Creatinine Clearance 73 ml/min; Glucose 199 mg/dl (70-99); Potassium 3.9 mmol/L (3.5-5.1); Sodium 136 mmol/L (135-145); eGFR > 60.00
--- NOTE | 2024-03-19 10:27 | W.PN.ID1 ---
Date of Service
Date of Service: March 19, 2024
Today's Communication
Narrow Zosyn to Unasyn.
Assessment / Plan
#Fourniere's gangrene of right perineum
- s/p I+D 03/15/24, 03/16/24, 03/18/24.
- Gram stain: polymicrobial org; Cx Strep species
- Narrow Zosyn to Unasyn
# s/p Sepsis, hypotensive due to above
- Blood cx neg to date
-Leukocytosis
-Follow wbc.
# MATT - improving
# Afib with RVR triggered by infection
-s/p cardioversion, now in sinus.
# Conditions PTGA
Diabetes mellitus
Hyperthyroidism
CAD status post CABG x 4
Atrial fibrillation
Hypertension
COPD
Dyslipidemia
BPH
Chief Complaint
-: Other (Williams's)
Subjective / Review of Systems
Stable
Vital Signs / Physical Exam
Vital Signs
Vital Signs
Temp Pulse Resp BP Pulse Ox
98.5 F 91 16 156/65 96
03/19/24 07:45 03/19/24 09:18 03/19/24 07:45 03/19/24 09:18 03/19/24 07:45
Physical Exam
Constitutional: No Acute Distress and Comfortable
Cardiovascular: Regular Rate and S1/S2
Gastrointestinal: Soft, Non Tender and Non Distended
Neurological: AO x 3
Objective Data
Lab Data
Lab Results
03/19/24 08:53
03/19/24 08:53
PT 14.4 Sec (11.4-14.6) 03/17/24 10:16
INR 1.07 03/17/24 10:16
APTT Cancelled 03/18/24 12:00
Estimated Creat Clear 73 ml/min 03/19/24 08:53
Lactic Acid 1.2 mmol/L (0.7-2.0) 03/16/24 13:17
Total Bilirubin 0.2 mg/dl (0.2-1.3) 03/17/24 03:23
AST 31 U/L (17-59) 03/17/24 03:23
ALT 26 U/L (0-50) 03/17/24 03:23
Alkaline Phosphatase 45 U/L (38-126) 03/17/24 03:23
Most recent labs reviewed.
Micro Results:
03/15/24 15:00 Blood Culture - Preliminary
Blood/Venous No Growth in 72 hours- Final report to follow
03/15/24 14:47 Blood Culture - Preliminary
Blood/Venous No Growth in 72 hours- Final report to follow
03/15/24 23:42 Wound Culture - Preliminary
[place]-anal Streptococcus species
Gram Stain - Preliminary
03/15/24 23:42 Anaerobic Culture - Preliminary
Perineum Culture pending. Anaerobic cultures are examined after 3
days incubation. Additional information to follow.
03/14/24 18:47 Influenza Types A & B (YOMI) - Final
Nasal Swab Negative for Influenza A & B, NAAT
Negative results must be combined with clinical observations
and patient history.
Nucleic Acid Amplification test (NAAT)performed on the
[employer] platform.
03/14/24 CXR: Probable minor scarring or atelectasis in the medial left lung base. Otherwise no acute cardiopulmonary process.
03/15/24 Scrotal US: Scrotal edematous changes. Small left hydrocele and small left varicocele. No abnormal collection suspicious for abscess identified at ultrasound.
03/15/24 CT a/p: Extensive subcutaneous edema and gas throughout the right aspect of the perineum extending into the visualized proximal aspect of the scrotum/right inguinal canal. No loculated fluid collections. Findings are suspicious for
Williams's gangrene in the appropriate clinical context.
--- NOTE | 2024-03-19 11:04 | W.PN.CRS1 ---
Today's Communication / Plan
-
plan for another debridement tomorrow morning
NPO at midnight
Assessment/Plan
-
POD#3 Exam under anesthesia, debridement of perineal wound, pulse-irrigation of wound; Dr. Crowell from urology performed drainage of scrotal abscess with further debridement of scrotal and inguinal wound
POD#1 Exam under anesthesia, debridement of perineal wound, pulse lavage of the wound
-Plan is for OR tomorrow AM, 03/20/24 for a potential debridement.
-NPO at midnight, 03/20/2024
-Okay to start a heparin gtt today (hold Eliquis) but please hold heparin gtt on 03/20/24 at midnight
-OOB as tolerated
-Wound care
-DM diet
-OR pathology pending
Subjective Data
Procedure
03/16/2024- Exam under anesthesia, debridement of perineal wound, pulse-irrigation of wound; Dr. Crowell from urology performed drainage of scrotal abscess with further debridement of scrotal and inguinal wound
Subjective Data
Date of Service: March 19, 2024
Patient states he feels well after surgery. His pain is controlled. He has no nausea or vomiting.
Objective Data
-
Vital Signs
Temp Pulse Resp BP Pulse Ox
98.5 F 91 16 156/65 96
03/19/24 07:45 03/19/24 09:18 03/19/24 07:45 03/19/24 09:18 03/19/24 11:00
Intake & Output
03/18/24 03/19/24 03/20/24
06:59 06:59 06:59
Intake Total 3099.8 / 3099.8 1490 / 1490
Output Total 1987 / 1987 2975 / 2975
Balance 1111.8 / 1111.8 -1485 / -1485
Intake:
Oral fluids 960 / 960 1440 / 1440
IV fluids (Total) 2088.8 / 2088.8
Nss 1,000 ml @ 125 mls/hr IV . 1750 / 1750
Q8H NARINDER Rx#:[id number]
heparin 325 / 325
insulin 14.8 / 14.8
IV piggybacks 50 / 50 50 / 50
Output:
Urine, Smart 1987 / 1987 2975 / 2975
Lab Results
03/19/24 08:53
03/19/24 08:53
Physical Exam
-
General: No Acute Distress and AOx3
Abdomen: Soft, Non Distended and Non Tender
Wound: Dressing in Place
[2024-03-19] MEDS: UNASYN IV ×2 (11:05→17:14)
[2024-03-19] MEDS: HEPARIN 25000 UNITS/250 ML IV (11:11)
--- NOTE | 2024-03-19 11:15 | PTCARENOTE ---
Patient's perineal wound dressing saturated with betadine through ABD pads, cavidian, and bedding. This RN reapplied fresh ABD pads and mesh underwear. Wound packing intact. Colorectal surgery made aware, no new orders at this time.
--- NOTE | 2024-03-19 11:24 | W.PN.CARDCBS ---
Today's Communication / Plan
-
Heparin gtt when able
Monitor fluid status
Eventual ischemic evaluation
Impression / Plan
-
PCP: Dr. Hart
Primary Math Tutor: Dr. Bolanos
Impression:
Admitted with MATT, elevated Troponin and recurrent Afib with CV in the ER 03/14/24
MATT
NSTEMI, peak troponin 6.3
CAD s/p CABG x4 07/2020
Williams's gangrene, perineal abscess on Farxiga status post surgery 03/15/24, 03/16/24, 03/18/2024; planned debridement 03/20/2024
Paroxysmal Afib
initially seen s/p CABG 07/2020
recurrent Afib treated with CV in [facility] 10/06/21
recurrent Afib treated with rate control and spontaneously converted to SR 10/09/21
DCCV in [facility] 03/14/2024
Chronic OAC with Eliquis
Hypothyroidism
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
HTN
HLD
DM2
COPD
ALFREDO 07/2020: EF 60-65%, no RWMA, severe conc LVH, mod dilated LA, mildly dilated mid ascending aorta, mild sessile atheroma in descending aorta and distal arch
ECHO 10/11/21: EF 50 to 55%, no WMA, normal RA/LA size, no significant valve disease
Echo 03/15/24: EF 55%, mild hypokinesis of the basal-mid inferoseptal, apical lateral and basal inferior lance, normal RV size and function, trileaflet sclerotic aortic valve with dense calcification on the noncoronary cusp, no /AR
Plan:
-Patient with necrotizing perineal infection managed with IV antibiotics and I&D and debridement of perineal wound and small scrotal abscess in the OR 03/15/24. Patient returned to the OR 03/16/24 with I&D and additional debridement. Patient reports
that he is likely returning to the OR 03/18/24 for additional debridement
-Surgery notes reviewed and patient can start Heparin gtt, but it should be held 6 hours prior to surgery. Will attempt to restart Heparin gtt 03/19/24
-Tele reviewed by me and patient remains in SR following CV in [facility] 03/14/24 PM, prior to that he had not missed any doses of his outpatient Eliquis 5 mg BID. In [facility] due to elevated Troponin he was changed to Heparin gtt on admission.
-Troponin peaked at 6.32. No chest pain, but ECG with inferolateral T wave inversions and IC LBBB. Patient also with new WMA on echo 03/15/24. Will manage as a NSTEMI -> Would eventually start on Plavix and consider transitioning to Plavix and
Eliquis at time of d/c. For now he remains on aspirin which is a new med this admission.
-Plan prior to perineal abscess drainage was cardiac cath 03/16/24. Patient interested in cath, he has not had cath since CABG in 2020. Cath is acutely deferred, but will continue to reassess potential need for and timing of cath; would benefit from
ischemic evaluation when stable from surgical/infection standpoint
-Outpatient dose of Toprol XL changed to Lopressor; return to toprol XL on DC
-Outpatient doses of benazepril 40 mg daily, chlorthalidone 25 mg daily on hold due to MATT. BP stable.
-Outpatient dose of amlodipine 10 mg daily is on hold due to hypotension
-LDL 54 and outpatient dose of atorvastatin 40 mg daily has been continued
-Patient is not a candidate for cardiac rehab due to acute illness
-Weight is up at least 9 lbs. He has received 7.5 L IVFs. Eventual diuresis. Patient was not taking a loop diuretic prior to admission.
-Recheck pro-BNP, was 50811 on admission; repeat 2400
-Outpatient dose of Farxiga has been stopped. Patient reports Farxiga was started about 6 months ago by his PCP and he recalls being warned about infections, but figured he did so well for so long and it slipped his mind.
HPI: Patient came to ER yesterday with complaints of feeling poorly for at least 3 days and was found to be in rapid A-fib and is now admitted with cardiology consultation. Patient was last seen in the office on 05/19/2023 and was in SR at that
time. Initially seen in AF after CABG 07/2020 none recurrence last noted to be 10/2021 as noted above. Patient felt as though he was in AF for about 3 days prior to admission. Patient felt that this correlated with a decrease in his outpatient
levothyroxine dosing in the last several weeks, so he increase the dose, but no improvement in his AF so he finally came to ER yesterday. Patient says he also came to ER because he has been feeling sick and felt as though he had the flu for
the last 1 to 2 months. He says he feels he has a fever at times and this will correlate to a temperature of 100.6 �F when he checks his temperature at home. He says his the symptoms wax and wane and that he feels congested much of the time. He
feels SOB at times, but not consistent. No orthopnea or PND. No bloating. No LE edema. In ER last night patient was found to be in rapid AF and denied missing any Eliquis doses so he had a successful CV and remains in SR this a.m. Patient
reports dramatic symptomatic improvement following cheondoism of SR. Patient also noted to be in MATT with Cre up to 3.1 last evening, but improved to 2.3 this a.m. Patient reports ongoing congestion, but less SOB. Initial troponin was elevated
at 5.73, then up to 6.03, then down to 5.53 and then even though the troponin was trending down another troponin was checked and was elevated at 6.32. A 5th troponin is now pending, but patient denies any chest pain. He does have a history of CAD
s/p CABG.
Progress Note - Math Tutor
Subjective
Date of Service: March 19, 2024
Patient seen and examined. No acute events overnight. Patient with groin/abdominal discomfort. No cp, sob, palpitations, or weakness. Tele SR
Objective
Labs:
03/19/24 08:53
03/19/24 08:53
Labs
Hgb 14.1 g/dL (13.0-18.0) 03/19/24 08:53
Hct 41.4 % (39.0-52.0) 03/19/24 08:53
Plt Count 245 10^3/uL (130-400) 03/19/24 08:53
PT 14.4 Sec (11.4-14.6) 03/17/24 10:16
INR 1.07 03/17/24 10:16
APTT Cancelled 03/18/24 12:00
Sodium 136 mmol/L (135-145) 03/19/24 08:53
Potassium 3.9 mmol/L (3.5-5.1) 03/19/24 08:53
BUN 34 mg/dl (9-20) H 03/19/24 08:53
Creatinine 1.2 mg/dL (0.7-1.3) 03/19/24 08:53
Glucose 199 mg/dl (70-99) H 03/19/24 08:53
Vital Signs and I&O:
Vital Signs
Temp Pulse Resp BP Pulse Ox
98.5 F 91 16 156/65 96
03/19/24 07:45 03/19/24 09:18 03/19/24 07:45 03/19/24 09:18 03/19/24 11:00
Vital Signs
Temp Pulse Resp BP Pulse Ox
98.5 F 91 16 156/65 96
03/19/24 07:45 03/19/24 09:18 03/19/24 07:45 03/19/24 09:18 03/19/24 11:00
Intake & Output
03/17/24 03/18/24 03/19/24 03/20/24
06:59 06:59 06:59 06:59
Intake Total 3645.7 / 3771.1 3099.8 / 3099.8 1490 / 1490
Output Total 2225 / 2225 1987 / 1987 2975 / 2975
Balance 1420.7 / 1546.1 1111.8 / 1111.8 -1485 / -1485
Physical Exam
Physical Exam
General: Well developed, well nourished in NAD.
Neck: Supple, no JVD, HJR, carotids +2 B/L, no bruits bilaterally.
Heart: Non displaced PMI, RRR, no murmurs, No S3, S4, no rubs.
Lungs: Scattered rhonchi
Extremities: No clubbing, cyanosis or edema bilaterally.
Neuro: Grossly nonfocal, awake, alert and oriented x3.
[2024-03-19 12:07] LABS: Glucose - Point of Care 164 mg/dl (70-99)
[2024-03-19] MEDS: NOVOLOG FLEXPEN SC ×2 (12:10→14:33)
--- NOTE | 2024-03-19 12:15 | PTCARENOTE ---
Heparin gtt resumed at 19 ml/hr per MD order. Heparin gtt to go on hold tonight at midnight in preparation for OR tomorrow AM per colorectal surgery. Next PTT scheduled for 17:45.
[2024-03-19 14:56] LABS: Glucose - Point of Care 150 mg/dl (70-99)
--- NOTE | 2024-03-19 15:28 | CM ---
Reviewed the chart notes. Per notes, plan is for OR tomorrow for potential debridement. IV abx now Unasyn. PT evaluation today recommends homecare vs no needs. CM continues to be available to patient/family and is monitoring medical plan for
needs at discharge.
Plan: Discharge to home when medically stable. Potential need for VN services.
[2024-03-19 17:05] LABS: Glucose - Point of Care 120 mg/dl (70-99)
[2024-03-19] MEDS: NOVOLOG FLEXPEN-MODERATE RESISTANCE SC (17:11)
[2024-03-19 18:56] LABS: APTT 76.8 Sec (23.4-35.0)
[2024-03-19 21:39] LABS: Glucose - Point of Care 187 mg/dl (70-99)
[2024-03-19] MEDS: LANTUS 0.3 UNITS SC (22:25)
[2024-03-20] VITALS (14 sets, daily range): BP systolic 114–164; BP diastolic 65–94; PULSE 2–84; BMI 26.2
[2024-03-20] MEDS: TYLENOL 1000 MG PO ×2 (00:02→20:05)
[2024-03-20] MEDS: UNASYN IV ×4 (00:02→20:02)
[2024-03-20 05:45] LABS: Glucose - Point of Care 112 mg/dl (70-99)
[2024-03-20] MEDS: TYLENOL PO ×2 (06:03→14:45)
[2024-03-20] MEDS: DILAUDID 0.5 MG IV ×3 (06:13→16:39)
[2024-03-20] MEDS: NOVOLOG FLEXPEN SC ×2 (06:55→14:44)
[2024-03-20] MEDS: NOVOLOG FLEXPEN-MODERATE RESISTANCE SC ×2 (06:56→14:44)
--- NOTE | 2024-03-20 08:13 | W.PN.HOSP.TC ---
Today's Communication/Plan
-
Stop IV fluids
OR today
Assessment / Plan
Assessment / Plan
Gen-AAOx3, NAD
HEENT-NC, AT, anicteric, clear oral mm
Neck-supple
CV-reg, no M, +S1/S2
Lungs-clear B/L
Abd-soft, NT, ND
Ext-no edema
Musculoskeletal-no cyanosis, clubbing
Skin-warm and dry
Neuro-grossly non-focal
Psych-calm, cooperative
-right-sided scrotal swelling and tenderness with nodule noted
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 CT scan noted. Antibiotics per infectious disease. Appreciate colorectal surgery input. Had incision and drainage and debridement in flight refueling craftsman 03/16. Revisit to the OR
03/18 for further debridement. Back to the OR today 03/20 for further debridement today wound cultures positive for strep species. Blood cultures negative so far but they were drawn after starting antibiotics. Patient states pain in his perineum
him started about a week prior to admission. Discussed permanently stopping SGLT2 inhibitors moving forward. Informed his engineering mathematician Dr. Denson as well.
Hemodynamically improved. Not on vasopressors. Sepsis and shock resolved.
MATT -due to severe volume depletion. Creatinine improving. Hold chlorthalidone, olmesartan. Hold NSAIDs. Weight is up 6 kg but not symptomatic, denies shortness of breath. No peripheral edema. Hold further IV fluids. Discussed with Dr. Pena.
May need IV Lasix soon.
DM2 with hyperglycemia -DKA resolved. Basal/bolus insulin to continue. Diabetes LICENSED CUSTOMS BROKER following. Hemoglobin A1c 8%. Will be discharged on insulin. Glucose 112 this morning.
At home he uses Farxiga 10 mg daily, Ozempic once weekly.
Moving forward, permanently discontinue SGLT-2 inhibitors given presentation with Williams's gangrene. Discussed with patient.
NSTEMI - Echocardiogram shows LVEF 55%, mild hypokinesis of the basal�mid inferior septal, apical lateral, basal inferior lance. Normal RV size and systolic function. Anticipate outpatient ischemic evaluation as per cardiology.
Rapid paroxysmal atrial fibrillation -successfully cardioverted to sinus rhythm in the ER. IV heparin on hold for OR today. Continue low-dose metoprolol.
Hyperthyroidism -followed by endocrinology, Dr. Denson. Patient is unsure of home dose but believes the methimazole was reduced to 5 mg once daily prior to admission. He tried to increase it back to 5 mg twice daily to abort the atrial
fibrillation to no avail.
TSH 2.32, free T4 1.44.
I spoke with Dr. Denson and confirmed that his home dose of methimazole should be 5 mg once daily on discharge.
Hyponatremia -resolved.
Essential hypertension -hypotensive on arrival due to rapid atrial fibrillation and volume depletion. IV fluid bolus ordered. May need vasopressors. Hold antihypertensives.
Hyperlipidemia - atorvastatin.
CAD/CABG -2020.
COPD without exacerbation
Full code
Anticipated Discharge: > 48 hours
Subjective/Interval History
-
Date of Service: March 20, 2024
Patient seen and examined. Overall improving, no complaints.
Objective Data
-
Vital Signs:
Vital Signs
Temp Pulse Resp BP Pulse Ox
98.3 F 77 16 148/86 96
03/20/24 07:40 03/20/24 07:40 03/20/24 07:40 03/20/24 07:40 03/20/24 07:40
I&O
03/19/24 03/20/24 03/21/24
06:59 06:59 06:59
Intake Total 1490 / 1490 1660 / 1660
Output Total 2975 / 2975 1650 / 1650
Balance -1485 / -1485
Review of Systems
-
History Source: Patient
All other systems: Reviewed and negative
[2024-03-20] MEDS: LOPRESSOR 12.5 MG PO ×2 (08:46→20:11)
[2024-03-20] MEDS: TAPAZOLE PO (08:47)
[2024-03-20] MEDS: FLOMAX PO (08:47)
[2024-03-20] MEDS: COLACE PO (08:47)
[2024-03-20] MEDS: LIPITOR PO (08:47)
[2024-03-20] MEDS: LOW STRENGTH ASPIRIN PO (08:47)
--- NOTE | 2024-03-20 09:04 | W.PN.ID1 ---
Date of Service
Date of Service: March 20, 2024
Today's Communication
Continue Unasyn.
Assessment / Plan
#Fourniere's gangrene of right perineum
- s/p I+D 03/15/24, 03/16/24, 03/18/24.
- Gram stain: polymicrobial org; Cx Strep species
- Continue Unasyn
- For more OR debridement today, per colorectal.
# s/p Sepsis, hypotensive due to above
- Blood cx neg to date
-Leukocytosis
-Follow wbc.
# MATT - improving
# Afib with RVR triggered by infection
-s/p cardioversion, now in sinus.
# Conditions PTGA
Diabetes mellitus
Hyperthyroidism
CAD status post CABG x 4
Atrial fibrillation
Hypertension
COPD
Dyslipidemia
BPH
Chief Complaint
-: Other (Williams's)
Subjective / Review of Systems
Feels well. No compliants.
Vital Signs / Physical Exam
Vital Signs
Vital Signs
Temp Pulse Resp BP Pulse Ox
98.3 F 77 16 148/86 96
03/20/24 07:40 03/20/24 08:46 03/20/24 07:40 03/20/24 08:46 03/20/24 07:40
Physical Exam
Constitutional: No Acute Distress and Comfortable
Pulmonary: Clear
Gastrointestinal: Soft, Non Tender, Non Distended and Normal Bowel Sounds
Extremities: Negative Edema
Neurological: AO x 3
Objective Data
Lab Data
Lab Results
03/19/24 08:53
03/19/24 08:53
PT 14.4 Sec (11.4-14.6) 03/17/24 10:16
INR 1.07 03/17/24 10:16
APTT 76.8 Sec (23.4-35.0) H 03/19/24 18:35
Estimated Creat Clear 73 ml/min 03/19/24 08:53
Lactic Acid 1.2 mmol/L (0.7-2.0) 03/16/24 13:17
Total Bilirubin 0.2 mg/dl (0.2-1.3) 03/17/24 03:23
AST 31 U/L (17-59) 03/17/24 03:23
ALT 26 U/L (0-50) 03/17/24 03:23
Alkaline Phosphatase 45 U/L (38-126) 03/17/24 03:23
Most recent labs reviewed.
Micro Results:
03/15/24 15:00 Blood Culture - Preliminary
Blood/Venous No Growth in 4 days- Final report to follow
03/15/24 14:47 Blood Culture - Preliminary
Blood/Venous No Growth in 4 days- Final report to follow
03/15/24 23:42 Anaerobic Culture - Preliminary
Perineum Culture pending. Anaerobic cultures are examined after 3
days incubation. Additional information to follow.
03/15/24 23:42 Wound Culture - Preliminary
Ángela-anal Streptococcus species
Gram Stain - Preliminary
03/14/24 18:47 Influenza Types A & B (YOMI) - Final
Nasal Swab Negative for Influenza A & B, NAAT
Negative results must be combined with clinical observations
and patient history.
Nucleic Acid Amplification test (NAAT)performed on the
[employer] platform.
03/14/24 CXR: Probable minor scarring or atelectasis in the medial left lung base. Otherwise no acute cardiopulmonary process.
03/15/24 Scrotal US: Scrotal edematous changes. Small left hydrocele and small left varicocele. No abnormal collection suspicious for abscess identified at ultrasound.
03/15/24 CT a/p: Extensive subcutaneous edema and gas throughout the right aspect of the perineum extending into the visualized proximal aspect of the scrotum/right inguinal canal. No loculated fluid collections. Findings are suspicious for
Williams's gangrene in the appropriate clinical context.
--- NOTE | 2024-03-20 12:55 | W.IMMPOSTOP ---
Surgical Immed Post Op Note
-
Primary Surgeon: Bob Pena MD
Co- Surgeon: Ovidio Herndon MD
Pre-op Diagnosis: Necrotizing soft tissue infection of the right perineum
Post-op Diagnosis: Necrotizing soft tissue infection of the right perineum
Procedure Performed: Exam under anesthesia, debridement of fibrinous material, partial closure around the anal sphincter
Anesthesia Type: Sedation
Specimen / Cultures: None
Estimated Blood Loss: 5 mL
Complications: None
Operative Findings: Additional fibrinous exudate noted in the right inguinal region as well as scattered areas throughout the wound; did some mild additional debridement to healthy bleeding tissue with Dr. Herndon; no additional evidence of infection
or abscesses; wound extends superiorly from the right inguinal region to the base of the right scrotum and down to the right ischiorectal space and right buttock; remainder of wound had evidence of granulation tissue; Dr. Herndon closed an area of
dartos fascia with a few Vicryl stitches; performed pulse irrigation; meticulous hemostasis achieved with electrocautery; I reapproximated some subcutaneous tissue adjacent to the right aspect of the sphincter complex and stapled closed the skin
from the external sphincter to the right buttock, extending about 5 cm in length; superior wound and inferior wound packed with Betadine soaked gauze
--- NOTE | 2024-03-20 12:57 | W.PN.UPDATE ---
Update Note
Progress Note Update
Assisted Dr. Pena with exam under anesthesia, debridement, wound packing
Well healing and granulating/bleeding tissue in the wound bed
No remaining purulent discharge
Closed some of thinned dartos fascia over R hemiscrotum
Continue wound care
--- NOTE | 2024-03-20 12:59 | OR.RPT ---
Operative Report
Operative Report
DATE OF OPERATION: 03/20/2024
SURGEON: Bob Pena MD
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
OPERATION: Exam under anesthesia, debridement of perineal wound with partial closure
ASSISTANTS:
1. Ovidio Herndon MD
ANESTHESIA: LMA with MAC
ESTIMATED BLOOD LOSS: 5 mL
FINDINGS:
1. No additional infected tissue; debrided some superficial fibrinous areas; debrided some of the wound bed in the right inguinal portion, but bleeding tissue was encountered immediately superficially
2. The majority of the wound bed appeared healthy with granulating tissue
3. Dr. Herndon closed an area of dartos fascia that had some thinning over the right hemiscrotum with interrupted Vicryls
4. Approximated the anoderm of the right lateral portion of the anal sphincter complex to the skin of the right buttock with subcutaneous Vicryl's and skin cailin
SPECIMENS:
1. None
DRAINS: None
COMPLICATIONS: No immediate complications.
INDICATIONS: The patient is a 68-year-old male who initially presented with necrotizing soft tissue infection of the right perineum requiring multiple debridements. On the last debridement, there was still some unhealthy tissue that was debrided
by myself and Dr. Canales of urology. Therefore, a repeat exam under anesthesia was recommended to ensure there was no additional necrotic tissue or involvement of adjacent structures. The operation was discussed with the patient in detail,
including the risks, benefits and alternatives. Risks described included, but not limited to, bleeding, continued infection requiring further debridement, recurrent infection, damage to nearby structures, debridement of nearby structures, anal
dysfunction and anesthetic risks. The patient understood and agreed to proceed.
PROCEDURE IN DETAIL: The patient was taken to the operating room and placed on the operating table in supine position. Sequential compression devices were placed bilaterally. Sedation was commenced and the patient was intubated with an LMA. The
patient already had an indwelling Smart. The patient was placed in lithotomy position with bilateral arms secured to the armboards. The perineum was prepped and draped with Betadine in the usual fashion. A time-out was then performed verifying the
correct patient, procedure, operative site, positioning, and special equipment.
On evaluation with Dr. Herndon present, the majority of the wound appeared healthy with granulating tissue. Upon exploration of the base of the scrotum in the inguinal region, there was no additional infection or necrotic tissue. There was some
thinning of the dartos fascia at the right aspect towards the base of the scrotum. Dr. Herndon placed interrupted imbricating Vicryl stitches to reinforce this area. There was some fibrinous exudate along the left aspect of the base of the scrotum,
which was debrided with Metzenbaum scissors. Immediately underlying the fibrinous exudate was healthy bleeding tissue. Within the right inguinal portion of the wound, with blunt palpation, it was discovered that the wound extended into the right
inguinal canal. However, there was no necrotic tissue or infection in this area. This connection was left open to allow drainage by gravity. Some light debridement was performed in the inguinal region, but healthy bleeding tissue was immediately
encountered, confirming the area was well-perfused.
The base of the wound overlying the right ischiorectal space was healthy without necrotic tissue. The posterior aspect towards the right buttock had some areas of darker adipose and fibrinous exudate. This was lightly debrided and healthy bleeding
tissue was immediately encountered, confirming that this area was healthy as well. There was no grossly necrotic or infected tissue. I performed pulse irrigation with 1 L of saline. Meticulous hemostasis was achieved with electrocautery.
As the wound had no evidence of further infection and the skin edges were healthy, including the anoderm overlying the sphincter complex, Dr. Herndon and I agreed that reapproximating the anoderm to the right aspect of the right gluteal skin would
appropriately recreate the perineum with minimal risk of recurrent infection. I placed 3 to 4 Vicryl stitches to reapproximate the subcutaneous tissue to the sphincter complex. I used skin cailin to reapproximate the anoderm to the skin of the
right buttock. This converted one large wound extending the entire length of the perineum, from the right inguinal region to the medial posterior aspect of the right buttock into 2 separate wounds. I packed the superior wound and inferior wounds
separately with Betadine soaked Kerlix. At this point, the procedure was complete. All needle, sponge and instrument counts were correct. The patient tolerated the procedure well. The area was dressed with an ABD pad and mesh underwear was placed.
Of note, Ovidio Herndon MD, curatorial assistant, was necessary during this procedure for traction, countertraction, and exploratory purposes. I was present for the entire duration of the case.
DICTATED BY: Bob Pena MD
[2024-03-20 14:39] LABS: Glucose - Point of Care 125 mg/dl (70-99)
--- NOTE | 2024-03-20 16:00 | PTCARENOTE ---
pt returned form PACU, BG 125; no complains of pain, call tapia within reach.
[2024-03-20 18:41] LABS: Glucose - Point of Care 224 mg/dl (70-99)
[2024-03-20 19:46] LABS: Glucose - Point of Care 233 mg/dl (70-99)
[2024-03-20] MEDS: COLACE 100 MG PO (20:02)
[2024-03-20] MEDS: NOVOLOG FLEXPEN 10 UNITS SC (20:03)
[2024-03-20] MEDS: NOVOLOG FLEXPEN-MODERATE RESISTANCE 3 UNITS SC (20:05)
[2024-03-20] MEDS: HEPARIN 25000 UNITS/250 ML IV (21:11)
[2024-03-20 22:07] LABS: Glucose - Point of Care 198 mg/dl (70-99)
[2024-03-20] MEDS: LANTUS 0.3 UNITS SC (22:56)
[2024-03-21] VITALS (7 sets, daily range): BP systolic 104–148; BP diastolic 66–78; PULSE 2–88; BMI 25.8
[2024-03-21] MEDS: TYLENOL 1000 MG PO ×4 (01:28→23:55)
[2024-03-21] MEDS: UNASYN IV ×5 (01:28→23:55)
[2024-03-21] MEDS: DILAUDID 0.5 MG IV ×6 (01:29→23:56)
[2024-03-21] MEDS: TUMS CHEWABLE TABLET 200 MG PO (01:33)
[2024-03-21 02:00] LABS: APTT 78.1 Sec (23.4-35.0)
[2024-03-21 07:45] LABS: Glucose - Point of Care 92 mg/dl (70-99)
[2024-03-21] MEDS: NOVOLOG FLEXPEN-MODERATE RESISTANCE SC ×3 (07:49→16:15)
[2024-03-21 07:59] LABS: % Basophils 0.2 % (0-2); % Eosinophils 0.8 % (0-6); % Immature Granulocytes 4.5 % (0-0.5); % Lymphocytes 15.7 % (20.5-51.1); % Monocytes 5.8 % (1.7-9.3); Absolute Eosinophils 0.1 10^3/uL (0-0.7); Absolute Immature Granulocytes 0.7 10^3/uL (0-0.05); Absolute Lymphocytes 2.6 10^3/uL (1.2-3.4); Absolute Neutrophils 11.9 10^3/uL (1.4-6.5); Hematocrit 42.9 % (39.0-52.0); Hemoglobin 14.9 g/dL (13.0-18.0); Mean Corp Hgb Conc. 34.7 g/dL (33.0-37.0); Mean Corpuscular Volume 83.6 fL (80.0-94.0); Mean Platelet Volume 8.7 fL (7.4-10.4); Nucleated Red Blood Cells % 0 % (-); Platelet Count 237 10^3/uL (130-400); Red Blood Cell Count 5.13 10^6/uL (4.70-6.10); Red Cell Dist. Width 12.1 % (11.5-14.5); White Blood Cell Count 16.4 10^3/uL (4.8-10.8)
[2024-03-21] MEDS: FLOMAX 0.4 MG PO (07:59)
[2024-03-21] MEDS: TAPAZOLE 5 MG PO (07:59)
[2024-03-21] MEDS: LIPITOR 40 MG PO (07:59)
[2024-03-21] MEDS: LOPRESSOR 12.5 MG PO (07:59)
[2024-03-21] MEDS: LOW STRENGTH ASPIRIN 81 MG PO (07:59)
[2024-03-21] MEDS: COLACE 100 MG PO ×2 (07:59→20:46)
[2024-03-21] MEDS: NOVOLOG FLEXPEN 10 UNITS SC ×3 (08:00→17:42)
[2024-03-21 08:23] LABS: APTT 85.2 Sec (23.4-35.0)
[2024-03-21 08:25] LABS: ALT (SGPT) 22 U/L (0-50); AST (SGOT) 21 U/L (17-59); Albumin 2.5 g/dl (3.5-5.0); Alkaline Phosphatase 42 U/L (38-126); Blood Urea Nitrogen 20 mg/dl (9-20); Calcium 7.8 mg/dl (8.4-10.2); Carbon Dioxide 31 mmol/L (22-30); Chloride 103 mmol/L (98-107); Estimated Creatinine Clearance 88 ml/min; Glucose 89 mg/dl (70-99); Potassium 3.7 mmol/L (3.5-5.1); Sodium 138 mmol/L (135-145); Total Bilirubin 0.4 mg/dl (0.2-1.3); Total Protein 5.6 g/dl (6.3-8.2); eGFR > 60.00
[2024-03-21 09:39] LABS: Glucose - Point of Care 92 mg/dl (70-99)
--- NOTE | 2024-03-21 10:47 | W.PN.URO.CBU ---
Today's Communication / Plan
-
Continue wound care
Assessment / Plan
-
68M with Williams's gangrene, perirectal/perianal abscess s/p drainage and debridement
Some urinary retention with wade placed
s/p takeback to OR 03/20 for exam, minimal debridement
Well healing with fully controlled infection and healthy wound bed
Partial wound closure performed
- Continue wound packing and routine wound care
- Further wound closure likely best facilitated with a scrotal skin transposition once groin/inguinal cavity has had further granulation
- Trial of void before discharge
Diagnosis
-
Date of Service: March 21, 2024
-
Patient Diagnosis:
Williams's gangrene
Urinary retention
Post Op s/p incision and drainage, debridement, and follow up exam under anesthesia last on 03/20
Subjective
-
Feeling well
pain controlled
wade tolerated
Objective
-
Vital Signs
Temp Pulse Resp BP Pulse Ox
98.5 F 62 18 143/78 94
03/21/24 07:40 03/21/24 07:59 03/21/24 07:40 03/21/24 07:59 03/21/24 10:12
Intake and Output
03/20/24 03/21/24 03/22/24
06:59 06:59 06:59
Intake Total 1660 / 1660 1868.5 / 1868.5
Output Total 1650 / 1650 1900 / 1900
Balance 10 10 -31.5 / -31.5
Intake:
Oral fluids 1220 / 1220 1200 / 1200
IV fluids (Total) 0 / 0 250 / 250
normosol 250 / 250
IV piggybacks 440 / 440 418.5 / 418.5
Output:
Urine, Wade 1650 / 1650 1900 / 190
Other:
Number of unmeasured liquid
stools
Rectum 2
Laboratory Results
03/21/24 07:54
03/21/24 07:54
Physical Exam
-
General - well developed, well nourished, no acute distress
Chest - clear
Abdomen - soft, non-tender
- stable mild R hemiscrotum swelling
Incision - clean, dry
Dressing - clean, dry, intact
Healthy wound edges
[2024-03-21 11:18] LABS: Glucose - Point of Care 103 mg/dl (70-99)
[2024-03-21] MEDS: HEPARIN 25000 UNITS/250 ML IV (11:35)
--- NOTE | 2024-03-21 12:52 | W.PN.ID1 ---
Date of Service
Date of Service: March 21, 2024
Today's Communication
Continue Unasyn
Assessment / Plan
#Fourniere's gangrene of right perineum
- s/p I+D 03/15/24, 03/16/24, 03/18/24, 03/20/24
- Gram stain: polymicrobial org; Cx Strep species
- Continue Unasyn
# s/p Sepsis, hypotensive due to above
- Blood cx neg to date
-Leukocytosis
-Follow wbc.
# MATT - improving
# Afib with RVR triggered by infection
-s/p cardioversion, now in sinus.
# Conditions PTGA
Diabetes mellitus
Hyperthyroidism
CAD status post CABG x 4
Atrial fibrillation
Hypertension
COPD
Dyslipidemia
BPH
Chief Complaint
-: Other (Williams's)
Subjective / Review of Systems
Feels OK.
Vital Signs / Physical Exam
Vital Signs
Vital Signs
Temp Pulse Resp BP Pulse Ox
98.5 F 60 18 138/78 97
03/21/24 11:10 03/21/24 11:10 03/21/24 11:10 03/21/24 11:10 03/21/24 11:10
Physical Exam
Constitutional: No Acute Distress
Pulmonary: Clear
Gastrointestinal: Soft, Non Tender, Non Distended and Normal Bowel Sounds
Neurological: AO x 3
Objective Data
Lab Data
Lab Results
03/21/24 07:54
03/21/24 07:54
PT 14.4 Sec (11.4-14.6) 03/17/24 10:16
INR 1.07 03/17/24 10:16
APTT 85.2 Sec (23.4-35.0) H 03/21/24 07:54
Estimated Creat Clear 88 ml/min 03/21/24 07:54
Lactic Acid 1.2 mmol/L (0.7-2.0) 03/16/24 13:17
Total Bilirubin 0.4 mg/dl (0.2-1.3) 03/21/24 07:54
AST 21 U/L (17-59) 03/21/24 07:54
ALT 22 U/L (0-50) 03/21/24 07:54
Alkaline Phosphatase 42 U/L (38-126) 03/21/24 07:54
Most recent labs reviewed.
Micro Results:
03/15/24 23:42 Wound Culture - Final
Ángela-anal Streptococcus species
Gram Stain - Final
03/15/24 23:42 Anaerobic Culture - Final
Perineum
03/15/24 15:00 Blood Culture - Final
Blood/Venous No Growth - Final Report
03/15/24 14:47 Blood Culture - Final
Blood/Venous No Growth - Final Report
03/14/24 18:47 Influenza Types A & B (YOMI) - Final
Nasal Swab Negative for Influenza A & B, NAAT
Negative results must be combined with clinical observations
and patient history.
Nucleic Acid Amplification test (NAAT)performed on the
[employer] platform.
03/14/24 CXR: Probable minor scarring or atelectasis in the medial left lung base. Otherwise no acute cardiopulmonary process.
03/15/24 Scrotal US: Scrotal edematous changes. Small left hydrocele and small left varicocele. No abnormal collection suspicious for abscess identified at ultrasound.
03/15/24 CT a/p: Extensive subcutaneous edema and gas throughout the right aspect of the perineum extending into the visualized proximal aspect of the scrotum/right inguinal canal. No loculated fluid collections. Findings are suspicious for
Williams's gangrene in the appropriate clinical context.
--- NOTE | 2024-03-21 13:37 | W.PN.HOSP.TC ---
Today's Communication/Plan
-
Continue wound care.
Continue IV antibiotics per
Continue IV heparin
Monitor volume status closely while off Lasix.
Assessment / Plan
Assessment / Plan
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 CT scan noted. Antibiotics per infectious disease consolidated to Unasyn. Appreciate colorectal surgery input. Had incision and drainage and debridement early childhood educator aide
03/16. Revisit to the OR 03/18 for further debridement. Status post additional wound inspection and debridement on 03/20. Blood cultures negative so far but they were drawn after starting antibiotics. Patient states pain in his perineum him
started about a week prior to admission. Discussed permanently stopping SGLT2 inhibitors moving forward. Informed his resource forester Dr. Denson as well.
Hemodynamically improved. Not on vasopressors. Sepsis and shock resolved.
MATT -due to severe volume depletion. Creatinine improving. Hold chlorthalidone, olmesartan. Hold NSAIDs. Weight is up 6 kg but not symptomatic, denies shortness of breath. No peripheral edema. Hold further IV fluids. Discussed with Dr. Pena.
May need IV Lasix soon.
DM2 with hyperglycemia -DKA resolved. Basal/bolus insulin to continue. Diabetes PIGMENT MAKING SUPERVISOR following. Hemoglobin A1c 8%. Will be discharged on insulin. Glucose 112 this morning.
At home he uses Farxiga 10 mg daily, Ozempic once weekly.
Moving forward, permanently discontinue SGLT-2 inhibitors given presentation with Williams's gangrene. Discussed with patient.
NSTEMI - Echocardiogram shows LVEF 55%, mild hypokinesis of the basal�mid inferior septal, apical lateral, basal inferior lance. Normal RV size and systolic function. Anticipate outpatient ischemic evaluation as per cardiology.
Rapid paroxysmal atrial fibrillation -successfully cardioverted to sinus rhythm in the ER. IV heparin on hold for OR today. Continue low-dose metoprolol.
Hyperthyroidism -followed by endocrinology, Dr. Denson. Patient is unsure of home dose but believes the methimazole was reduced to 5 mg once daily prior to admission. He tried to increase it back to 5 mg twice daily to abort the atrial
fibrillation to no avail.
TSH 2.32, free T4 1.44.
I spoke with Dr. Denson and confirmed that his home dose of methimazole should be 5 mg once daily on discharge.
Hyponatremia -resolved.
Essential hypertension -hypotensive on arrival due to rapid atrial fibrillation and volume depletion. IV fluid bolus ordered. May need vasopressors. Hold antihypertensives.
Hyperlipidemia - atorvastatin.
CAD/CABG -2020.
COPD without exacerbation
Full code
Anticipated Discharge: > 48 hours
Subjective/Interval History
-
Date of Service: March 21, 2024
Objective Data
-
Labs:
Laboratory Results
03/21/24 03/21/24
01:39 07:54
WBC 16.4 H
Hgb 14.9
Hct 42.9
Plt Count 237
APTT 78.1 H 85.2 H
Sodium 138
Potassium 3.7
Chloride 103
Carbon Dioxide 31 H
BUN 20
Creatinine 1.0
Glucose 89
Calcium 7.8 L
Total Bilirubin 0.4
AST 21
ALT 22
Alkaline Phosphatase 42
Vital Signs:
Vital Signs
Temp Pulse Resp BP Pulse Ox
98.5 F 60 18 138/78 97
03/21/24 11:10 03/21/24 11:10 03/21/24 11:10 03/21/24 11:10 03/21/24 11:10
I&O
03/20/24 03/21/24 03/22/24
06:59 06:59 06:59
Intake Total 1660 / 1660 1868.5 / 1868.5
Output Total 1650 / 1650 1900 / 1900
Balance 10 -31.5 / -31.5
Physical Exam
-
General: Well Developed and Well Nourished
HEENT: Normocephalic and Atraumatic
Respiratory: Clear to Auscultation; Negative Wheezes, Rales or Rhonchi
Cardiac: Irregular Rhythm
GI: Soft, Nontender, Nondistended and Normal Bowel Sounds
Genito-urinary: No Costovertebral Tender
Musculoskeletal: No Edema
Neuro: AO x 3
Hematologic / Lymphatic: No Lymphadenopathy
Psych: Calm
[2024-03-21 16:13] LABS: Glucose - Point of Care 105 mg/dl (70-99)
--- NOTE | 2024-03-21 16:59 | W.PN.CRS1 ---
Addendum entered and electronically signed by Bob Pena MD 03/21/24 18:26:
I saw and examined the patient.
The MACHINE STUFFER's note was reviewed and I agree with the note.
�Continue daily packing
�No plans takeback's; will watch course and monitor wound
�We will plan to get plastic surgery input this week
Original Note:
Today's Communication / Plan
-
Wound care
Assessment/Plan
-
68 yo male presenting with necrotizing soft tissue infection of the right perineum
POD#5 Exam under anesthesia, debridement of perineal wound, pulse-irrigation of wound; Dr. Crowell from urology performed drainage of scrotal abscess with further debridement of scrotal and inguinal wound
POD#3 Exam under anesthesia, debridement of perineal wound, pulse lavage of the wound
POD #1Exam under anesthesia, debridement of fibrinous material, partial closure around the anal sphincter
AFVSS
Improving clinically
Leukocytosis still present
cailin intact to the perineum. right scrotal and right perirectal wound with granulation tissue without purulence. Packing changed.
-Continue ABX as per ID
-Trend labs
-OOB as tolerated
-Surgery will change packing daily at this time, ok to change overlying ABD pads
-DM diet
-Analgesics prn
Subjective Data
Procedure
03/16/2024- Exam under anesthesia, debridement of perineal wound, pulse-irrigation of wound; Dr. Crowell from urology performed drainage of scrotal abscess with further debridement of scrotal and inguinal wound
03/18/24 Exam under anesthesia, debridement of fibrinous material
03/20/24 Exam under anesthesia, debridement of fibrinous material, partial closure around the anal sphincter
Subjective Data
Date of Service: March 21, 2024
Patient seen and examined at bedside with Dr. Pena. Pain well controlled. Continent of stool with regular BM's.
Objective Data
-
Vital Signs
Temp Pulse Resp BP Pulse Ox
98.4 F 67 18 124/66 92
03/21/24 15:25 03/21/24 15:25 03/21/24 15:25 03/21/24 15:25 03/21/24 15:25
Intake & Output
03/20/24 03/21/24 03/22/24
06:59 06:59 06:59
Intake Total 1660 / 1660 1868.5 / 1868.5
Output Total 1650 / 1650 1900 / 1900
Balance 10 / 10 -31.5 / -31.5
Intake:
Oral fluids 1220 / 1220 1200 / 1200
IV fluids (Total) 0 / 0 250 / 250
normosol 250 / 250
IV piggybacks 440 / 440 418.5 / 418.5
Output:
Urine, Smart 1650 / 1650 1900 / 1900
Other:
Number of unmeasured liquid
stools
Rectum 2
Lab Results
03/21/24 07:54
03/21/24 07:54
Physical Exam
-
General: No Acute Distress and AOx3
Abdomen: Soft, Non Distended and Non Tender
Wound: Granulating Well, Dressing Changed and Other (cailin intact to the perineum. right scrotal and right perirectal wound with granulation tissue without purulence. Packing changed.)
[2024-03-21] MEDS: TYLENOL PO (18:07)
[2024-03-21] MEDS: LOPRESSOR PO (20:56)
[2024-03-21 21:51] LABS: Glucose - Point of Care 103 mg/dl (70-99)
[2024-03-21] MEDS: LANTUS 0.3 UNITS SC (22:18)
[2024-03-22] VITALS (7 sets, daily range): BP systolic 125–153; BP diastolic 69–74; PULSE 2; BMI 26.2
[2024-03-22] MEDS: HEPARIN 25000 UNITS/250 ML IV ×2 (00:47→13:51)
--- NOTE | 2024-03-22 02:33 | PTCARENOTE ---
patient has not had a bm for 3 days, he has no nausea or abd pain, he has good bowel sounds and is passing gas, patient states his appetite has been poor with all his surgeries.
[2024-03-22] MEDS: DILAUDID 0.5 MG IV ×3 (03:48→14:45)
[2024-03-22] MEDS: TYLENOL 1000 MG PO ×4 (06:11→23:21)
[2024-03-22] MEDS: UNASYN IV ×4 (06:11→23:21)
[2024-03-22 06:19] LABS: % Basophils 0.2 % (0-2); % Eosinophils 1.1 % (0-6); % Immature Granulocytes 4.5 % (0-0.5); % Lymphocytes 10.6 % (20.5-51.1); % Monocytes 5.9 % (1.7-9.3); % Neutrophils 77.7 % (42.2-75.2); Absolute Eosinophils 0.2 10^3/uL (0-0.7); Absolute Immature Granulocytes 0.7 10^3/uL (0-0.05); Absolute Lymphocytes 1.6 10^3/uL (1.2-3.4); Absolute Monocytes 0.9 10^3/uL (0.1-0.6); Absolute Neutrophils 11.8 10^3/uL (1.4-6.5); Hematocrit 38.3 % (39.0-52.0); Hemoglobin 13.1 g/dL (13.0-18.0); Mean Corp Hgb Conc. 34.2 g/dL (33.0-37.0); Mean Corpuscular Hgb 28.5 pg (27.0-31.0); Mean Corpuscular Volume 83.4 fL (80.0-94.0); Mean Platelet Volume 8.8 fL (7.4-10.4); Nucleated Red Blood Cells % 0 % (-); Platelet Count 230 10^3/uL (130-400); Red Blood Cell Count 4.59 10^6/uL (4.70-6.10); Red Cell Dist. Width 12.1 % (11.5-14.5); White Blood Cell Count 15.1 10^3/uL (4.8-10.8)
[2024-03-22 06:43] LABS: Blood Urea Nitrogen 18 mg/dl (9-20); Calcium 7.3 mg/dl (8.4-10.2); Carbon Dioxide 28 mmol/L (22-30); Chloride 101 mmol/L (98-107); Estimated Creatinine Clearance 98 ml/min; Glucose 91 mg/dl (70-99); Potassium 3.6 mmol/L (3.5-5.1); Sodium 133 mmol/L (135-145); eGFR > 60.00
--- NOTE | 2024-03-22 07:08 | PN.DE.MGMTRT ---
Insulin Management
- -
03/22/2024 Diabetes Management Consult Follow up
Patient admitted 03/14 due to heart rate issues, with a fib - cardioverted. 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 PMH afib, CAD, HTN, HLD, BPH, diabetes 20 years and anxiety. Prior to admission was taking farxinga
10 mg daily and Ozempic 1 mg weekly. A1c on admission 8%, cr 2, eGFR 35.49.
Patient is awake alert and oriented able to discuss diabetes management. States he has a glucose monitor with supplies.
03/22 Patient is awake alert and oriented able to discuss diabetes management. Patient did return to the OR on 03/20. Glucose has ranged 91 to 105, required no corrective insulin for 2 days. Fasting glucose this AM 67, Dr. Perez has reduced
lantus to 25 units, and novolog to 7 units AC.
Discussed with patients nurse.
Will follow.
Diabetes History
- -
Type of Diabetes: 2 requiring insulin
Pre-Admission Diabetes Regimen
03/21/24 03/22/24
07:54 06:07
Creatinine 1.0 0.9
Lab Results
Hemoglobin A1c 8.0 % (4.0-5.6) H 03/15/24 06:14
Insulin Pump Settings
IP Diabetes Regimen
03/21/24 03/21/24 03/21/24
07:44 07:54 09:38
Glucose 89
POC Glucose 92 92
03/21/24 03/21/24 03/21/24
11:17 16:12 21:48
Glucose
POC Glucose 103 H 105 H 103 H
03/22/24
06:07
Glucose 91
POC Glucose
Meal type: Dinner
Meal type: Lunch
Meal type: Breakfast
Amount consumed: 100%
Amount consumed: 100%
Amount consumed: 100%
Patient Education
[2024-03-22 07:44] LABS: Glucose - Point of Care 67 mg/dl (70-99)
[2024-03-22 08:11] LABS: Glucose - Point of Care 84 mg/dl (70-99)
--- NOTE | 2024-03-22 08:17 | PTCARENOTE ---
Patient's blood sugar this AM 67. Patient provided 4oz orange juice by tech, repeat blood sugar after drinking orange juice 84. Diabetic medicare biller made aware, stated to give scheduled 10 units with breakfast as ordered. Patient asymptomatic, states no
complaints at this time.
--- NOTE | 2024-03-22 08:33 | W.PN.URO.CBU ---
Today's Communication / Plan
-
Trial of void
Continue wound care
Assessment / Plan
-
68M with Williams's gangrene, perirectal/perianal abscess s/p drainage and debridement
Some urinary retention with wade placed
s/p takeback to OR 03/20 for exam, minimal debridement
Well healing with fully controlled infection and healthy wound bed
Partial wound closure performed
- Continue wound packing and routine wound care
- Dressing/packing change done by surgery team
- Further wound closure likely best facilitated with a scrotal skin transposition once groin/inguinal cavity has had further granulation
- Trial of void today - patients states he has no history of urinary retention
Diagnosis
-
Date of Service: March 22, 2024
-
Patient Diagnosis:
Williams's gangrene
Perirectal abscess
Urinary retention
Post Op s/p incision and drainage, debridement, and follow up exam under anesthesia last on 03/20
Subjective
-
No events overnight
Packing change done by surgery
Objective
-
Vital Signs
Temp Pulse Resp BP Pulse Ox
98.3 F 58 16 148/73 99
03/22/24 07:30 03/22/24 07:30 03/22/24 07:30 03/22/24 07:30 03/22/24 07:30
Intake and Output
03/21/24 03/22/24 03/23/24
06:59 06:59 06:59
Intake Total 1868.5 / 1868.5 2640 / 2640
Output Total 1900 / 1900 2845 / 2845
Balance -31.5 / -31.5 -205 / -205
Intake:
Oral fluids 1200 / 1200 2160 / 2160
IV fluids (Total) 250 / 250
normosol 250 / 250
IV piggybacks 418.5 / 418.5 480 / 480
Output:
Urine, Wade 1900 / 1900 2845 / 2845
Laboratory Results
03/22/24 06:07
03/22/24 06:07
Physical Exam
-
General - well developed, well nourished, no acute distress
Chest - clear
Abdomen - soft, non-tender
Wade in place clear urine
Dressing in place/mesh underwear
[2024-03-22] MEDS: NOVOLOG FLEXPEN-MODERATE RESISTANCE SC ×2 (08:35→12:29)
[2024-03-22] MEDS: TAPAZOLE 5 MG PO (08:36)
[2024-03-22] MEDS: LIPITOR 40 MG PO (08:36)
[2024-03-22] MEDS: LOPRESSOR 12.5 MG PO ×2 (08:36→20:01)
[2024-03-22] MEDS: COLACE 100 MG PO ×2 (08:44→20:02)
[2024-03-22] MEDS: FLOMAX 0.4 MG PO (08:44)
[2024-03-22] MEDS: LOW STRENGTH ASPIRIN 81 MG PO (08:44)
[2024-03-22] MEDS: NOVOLOG FLEXPEN 10 UNITS SC ×2 (08:45→13:47)
[2024-03-22 10:35] LABS: Glucose - Point of Care 93 mg/dl (70-99)
--- NOTE | 2024-03-22 10:37 | W.PN.CARDCBS ---
Today's Communication / Plan
-
Cont IV Heparin and eventual resume Eliquis.
Remains in SR following CV in [facility] 03/14/24 PM, prior to that he had not missed any doses of his outpatient Eliquis 5 mg BID.
In [facility] due to elevated Troponin he was changed to Heparin gtt on admission.
Troponin peaked at 6.32. No chest pain, but ECG with inferolateral T wave inversions and IC LBBB. Patient also with new WMA on echo 03/15/24. Cont medical therapy for NSTEMI
Eventually start Plavix and transition to Plavix and Eliquis at d/c.
Plan prior to perineal abscess drainage was cardiac cath 03/16/24. Patient interested in cath, he has not had cath since CABG in 2020.
Cath has been deferred for now due to colorectal surgery.
Cont outpatient dose of Toprol XL changed to Lopressor; return to toprol XL on DC
Outpatient doses of benazepril 40 mg daily, chlorthalidone 25 mg daily on hold due to MATT. BP stable.
Outpatient dose of amlodipine 10 mg daily is on hold due to hypotension
LDL 54 and outpatient dose of atorvastatin 40 mg daily has been continued
Recheck pro-BNP, was 51809 on admission; repeat 2400. He appears euvolemic
-Outpatient dose of Farxiga has been stopped.
Impression / Plan
-
.
PCP: Dr. Hart
Primary Calibration Laboratory Technician: Dr. Bolanos
Impression:
Admitted with MATT, elevated Troponin and recurrent Afib with CV in the ER 03/14/24
MATT
NSTEMI, peak troponin 6.3
CAD s/p CABG x4 07/2020
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
Paroxysmal Afib
initially seen s/p CABG 07/2020
recurrent Afib treated with CV in [facility] 10/06/21
recurrent Afib treated with rate control and spontaneously converted to SR 10/09/21
DCCV in [facility] 03/14/2024
Chronic OAC with Eliquis
Hypothyroidism
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
HTN
HLD
DM2
COPD
ALFREDO 07/2020: EF 60-65%, no RWMA, severe conc LVH, mod dilated LA, mildly dilated mid ascending aorta, mild sessile atheroma in descending aorta and distal arch
ECHO 10/11/21: EF 50 to 55%, no WMA, normal RA/LA size, no significant valve disease
Echo 03/15/24: EF 55%, mild hypokinesis of the basal-mid inferoseptal, apical lateral and basal inferior lance, normal RV size and function, trileaflet sclerotic aortic valve with dense calcification on the noncoronary cusp, no /AR
Plan:
-Patient with necrotizing perineal infection managed with IV antibiotics and I&D and debridement of perineal wound and small scrotal abscess in the OR 03/15/24. Patient returned to the OR 03/16/24, 03/18/24 and 03/20/2024 for additional debridement.
Cont IV Heparin and eventual resume Eliquis.
Remains in SR following CV in [facility] 03/14/24 PM, prior to that he had not missed any doses of his outpatient Eliquis 5 mg BID.
[facility] due to elevated Troponin he was changed to Heparin gtt on admission.
Troponin peaked at 6.32. No chest pain, but ECG with inferolateral T wave inversions and IC LBBB. Patient also with new WMA on echo 03/15/24. Cont medical therapy for NSTEMI
Eventually start Plavix and transition to Plavix and Eliquis at d/c.
Plan prior to perineal abscess drainage was cardiac cath 03/16/24. Patient interested in cath, he has not had cath since CABG in 2020.
Cath has been deferred for now due to colorectal surgery.
Cont outpatient dose of Toprol XL changed to Lopressor; return to toprol XL on DC
Outpatient doses of benazepril 40 mg daily, chlorthalidone 25 mg daily on hold due to MATT. BP stable.
Outpatient dose of amlodipine 10 mg daily is on hold due to hypotension
LDL 54 and outpatient dose of atorvastatin 40 mg daily has been continued
Recheck pro-BNP, was 88264 on admission; repeat 2400. He appears euvolemic
-Outpatient dose of Farxiga has been stopped.
HPI: Patient came to ER yesterday with complaints of feeling poorly for at least 3 days and was found to be in rapid A-fib and is now admitted with cardiology consultation. Patient was last seen in the office on 05/19/2023 and was in SR at that
time. Initially seen in AF after CABG 07/2020 none recurrence last noted to be 10/2021 as noted above. Patient felt as though he was in AF for about 3 days prior to admission. Patient felt that this correlated with a decrease in his outpatient
levothyroxine dosing in the last several weeks, so he increase the dose, but no improvement in his AF so he finally came to ER yesterday. Patient says he also came to ER because he has been feeling sick and felt as though he had the flu for
the last 1 to 2 months. He says he feels he has a fever at times and this will correlate to a temperature of 100.6 �F when he checks his temperature at home. He says his the symptoms wax and wane and that he feels congested much of the time. He
feels SOB at times, but not consistent. No orthopnea or PND. No bloating. No LE edema. In ER last night patient was found to be in rapid AF and denied missing any Eliquis doses so he had a successful CV and remains in SR this a.m. Patient
reports dramatic symptomatic improvement following yazidism of SR. Patient also noted to be in MATT with Cre up to 3.1 last evening, but improved to 2.3 this a.m. Patient reports ongoing congestion, but less SOB. Initial troponin was elevated
at 5.73, then up to 6.03, then down to 5.53 and then even though the troponin was trending down another troponin was checked and was elevated at 6.32. A 5th troponin is now pending, but patient denies any chest pain. He does have a history of CAD
s/p CABG.
Progress Note - Calibration Laboratory Technician
Subjective
Date of Service: March 22, 2024
Pt seen and examined. No complaints. No chest pain or shortness of breath.
Objective
Labs:
03/22/24 06:07
03/22/24 06:07
Labs
Hgb 13.1 g/dL (13.0-18.0) 03/22/24 06:07
Hct 38.3 % (39.0-52.0) L 03/22/24 06:07
Plt Count 230 10^3/uL (130-400) 03/22/24 06:07
PT 14.4 Sec (11.4-14.6) 03/17/24 10:16
INR 1.07 03/17/24 10:16
APTT 122.0 Sec (23.4-35.0) H 03/22/24 06:07
Sodium 133 mmol/L (135-145) L 03/22/24 06:07
Potassium 3.6 mmol/L (3.5-5.1) 03/22/24 06:07
BUN 18 mg/dl (9-20) 03/22/24 06:07
Creatinine 0.9 mg/dL (0.7-1.3) 03/22/24 06:07
Glucose 91 mg/dl (70-99) 03/22/24 06:07
Vital Signs and I&O:
Vital Signs
Temp Pulse Resp BP Pulse Ox
98.3 F 90 16 148/73 99
03/22/24 07:30 03/22/24 08:36 03/22/24 07:30 03/22/24 08:36 03/22/24 09:37
Vital Signs
Temp Pulse Resp BP Pulse Ox
98.3 F 90 16 148/73 99
03/22/24 07:30 03/22/24 08:36 03/22/24 07:30 03/22/24 08:36 03/22/24 09:37
Intake & Output
03/20/24 03/21/24 03/22/24 03/23/24
06:59 06:59 06:59 06:59
Intake Total 1660 / 1660 1868.5 / 1868.5 2640 / 2640
Output Total 1650 / 1650 1900 / 1900 2845 / 2845 1500 / 1500
Balance 10 / 10 -31.5 / -31.5 -205 / -205 -1500 / -1500
Physical Exam
Physical Exam
General: No acute distress, AAOX3
Neck: Negative JVD
Heart: Regular, Negative S3 positive S1/S2, Negative S4, No murmur
Lungs: CTA b/l, negative wheezes/rales/rhonchi
Abd: Positive BS, NT/ND, neg rebound/rigidity/guarding
Ext: Negative cyanosis/clubbing/edema
Neuro: nonfocal
--- NOTE | 2024-03-22 11:07 | W.PN.CRS1 ---
Today's Communication / Plan
-
wound RN consult
glucerna BID
d/c wade
Assessment/Plan
-
68 yo male presenting with necrotizing soft tissue infection of the right perineum
POD#6 Exam under anesthesia, debridement of perineal wound, pulse-irrigation of wound; Dr. Crowell from urology performed drainage of scrotal abscess with further debridement of scrotal and inguinal wound
POD#4 Exam under anesthesia, debridement of perineal wound, pulse lavage of the wound
POD#2 Exam under anesthesia, debridement of fibrinous material, partial closure around the anal sphincter
AFVSS
Improving clinically
Leukocytosis still present - 15.1 (16.4)
Soldier intact to the perineum. right scrotal and right perirectal wound with granulation tissue without purulence. Packing changed at bedside.
-Continue ABX as per ID
-Trend labs
-OOB as tolerated
-Wound RN consulted for wound management. Changed at bedside with wet Kerlix.
-DM diet, added Glucerna BID
-Analgesics prn
-Discontinued wade (discussed with urology)
Subjective Data
Procedure
03/16/2024- Exam under anesthesia, debridement of perineal wound, pulse-irrigation of wound; Dr. Crowell from urology performed drainage of scrotal abscess with further debridement of scrotal and inguinal wound
03/18/24 Exam under anesthesia, debridement of fibrinous material
03/20/24 Exam under anesthesia, debridement of fibrinous material, partial closure around the anal sphincter
Subjective Data
Date of Service: March 22, 2024
Patient states he is sore. He is having bowel movements. He denies nausea or vomiting.
Objective Data
-
Vital Signs
Temp Pulse Resp BP Pulse Ox
98.3 F 90 16 148/73 99
03/22/24 07:30 03/22/24 08:36 03/22/24 07:30 03/22/24 08:36 03/22/24 09:37
Intake & Output
03/21/24 03/22/24 03/23/24
06:59 06:59 06:59
Intake Total 1868.5 / 1868.5 2640 / 2640
Output Total 1900 / 1900 2845 / 2845 1500 / 1500
Balance -31.5 / -31.5 -205 / -205 -1500 / -1500
Intake:
Oral fluids 1200 / 1200 2160 / 2160
IV fluids (Total) 250 / 250
normosol 250 / 250
IV piggybacks 418.5 / 418.5 480 / 480
Output:
Urine, Wade 1900 / 1900 2845 / 2845 1500 / 1500
Lab Results
03/22/24 06:07
03/22/24 06:07
Physical Exam
-
General: No Acute Distress and AOx3
Abdomen: Soft, Non Distended and Non Tender
Skin: Warm and Dry
Wound: Dressing Changed (wet kerilex dressing, no erythema or necrotic tissue noted)
--- NOTE | 2024-03-22 12:05 | PTCARENOTE ---
Smart removed per MD order. Patient tolerated procedure, due to void by 1800.
[2024-03-22 12:26] LABS: Glucose - Point of Care 96 mg/dl (70-99)
[2024-03-22 13:19] LABS: APTT 92.1 Sec (23.4-35.0)
--- NOTE | 2024-03-22 13:30 | PTCARENOTE ---
Wound Consult placed this AM. orthodontic technician spoke with RN and patient about wound care. Per patient and the patient's primary RN, surgery team already completed wound care/packing this AM (per colorectal surgery progress note, they used 'wet kerlix'
to pack the wound).
Will reevaluate tomorrow and provide wound care recommendations at that time.
--- NOTE | 2024-03-22 14:09 | W.PN.ID1 ---
Date of Service
Date of Service: March 22, 2024
Today's Communication
Continue Unasyn.
Tomorrow transition to po abx.
Assessment / Plan
#Fourniere's gangrene of right perineum
- s/p I+D 03/15/24, 03/16/24, 03/18/24, 03/20/24
- Gram stain: polymicrobial org; Cx Strep species
- Continue Unasyn (d8 abx)
- Anticipate transition to po Augmentin tomorrow.
# s/p Sepsis, hypotensive due to above
- Blood cx neg
-Leukocytosis trending down
-Follow wbc.
# MATT - resolved
# Afib with RVR triggered by infection
-s/p cardioversion, now in sinus.
# Conditions PTGA
Diabetes mellitus
Hyperthyroidism
CAD status post CABG x 4
Atrial fibrillation
Hypertension
COPD
Dyslipidemia
BPH
Chief Complaint
-: Other (Williams's)
Subjective / Review of Systems
No pain.
No BM x 2 days.
Vital Signs / Physical Exam
Vital Signs
Vital Signs
Temp Pulse Resp BP Pulse Ox
99.0 F 69 16 144/70 96
03/22/24 11:30 03/22/24 11:30 03/22/24 11:30 03/22/24 11:30 03/22/24 11:30
Physical Exam
Constitutional: No Acute Distress and Comfortable
Cardiovascular: Regular Rate and S1/S2
Pulmonary: Clear
Gastrointestinal: Soft, Non Tender and Non Distended
Neurological: AO x 3
Objective Data
Lab Data
Lab Results
03/22/24 06:07
03/22/24 06:07
PT 14.4 Sec (11.4-14.6) 03/17/24 10:16
INR 1.07 03/17/24 10:16
APTT 92.1 Sec (23.4-35.0) H 03/22/24 12:46
Estimated Creat Clear 98 ml/min 03/22/24 06:07
Lactic Acid 1.2 mmol/L (0.7-2.0) 03/16/24 13:17
Total Bilirubin 0.4 mg/dl (0.2-1.3) 03/21/24 07:54
AST 21 U/L (17-59) 03/21/24 07:54
ALT 22 U/L (0-50) 03/21/24 07:54
Alkaline Phosphatase 42 U/L (38-126) 03/21/24 07:54
Most recent labs reviewed.
Micro Results:
03/15/24 23:42 Wound Culture - Final
Ángela-anal Streptococcus species
Gram Stain - Final
03/15/24 23:42 Anaerobic Culture - Final
Perineum
03/15/24 15:00 Blood Culture - Final
Blood/Venous No Growth - Final Report
03/15/24 14:47 Blood Culture - Final
Blood/Venous No Growth - Final Report
03/14/24 18:47 Influenza Types A & B (YOMI) - Final
Nasal Swab Negative for Influenza A & B, NAAT
Negative results must be combined with clinical observations
and patient history.
Nucleic Acid Amplification test (NAAT)performed on the
[employer] platform.
03/14/24 CXR: Probable minor scarring or atelectasis in the medial left lung base. Otherwise no acute cardiopulmonary process.
03/15/24 Scrotal US: Scrotal edematous changes. Small left hydrocele and small left varicocele. No abnormal collection suspicious for abscess identified at ultrasound.
03/15/24 CT a/p: Extensive subcutaneous edema and gas throughout the right aspect of the perineum extending into the visualized proximal aspect of the scrotum/right inguinal canal. No loculated fluid collections. Findings are suspicious for
Williams's gangrene in the appropriate clinical context.
--- NOTE | 2024-03-22 14:26 | W.PN.HOSP.TC ---
Today's Communication/Plan
-
Continue wound care
Antibiotics.
Trial of voiding.
Hold Lasix monitoring weight and respiratory status
Continue IV heparin.
With hypoglycemia reduce dose of insulin Lantus/NovoLog. Continue basal bolus protocol.
Assessment / Plan
Assessment / Plan
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 CT scan noted. Antibiotics per infectious disease consolidated to Unasyn. Appreciate colorectal surgery input. Had incision and drainage and debridement manager psychiatry
03/16. Revisit to the OR 03/18 for further debridement. Status post additional wound inspection and debridement on 03/20. Blood cultures negative so far but they were drawn after starting antibiotics. Patient states pain in his perineum him
started about a week prior to admission. Discussed permanently stopping SGLT2 inhibitors moving forward. Informed his commercial engineer Dr. Denson as well.
Hemodynamically improved. Not on vasopressors. Sepsis and shock resolved.
MATT -due to severe volume depletion. Creatinine improving. Hold chlorthalidone, olmesartan. Hold NSAIDs. Weight is up 6 kg but not symptomatic, denies shortness of breath. No peripheral edema. Hold further IV fluids. Discussed with Dr. Pena.
May need IV Lasix soon. Smart discontinued for trial of voiding on 03/22
DM2 with hyperglycemia -DKA resolved. Basal/bolus insulin to continue. Diabetes GRINDING MACHINE TENDER following. Hemoglobin A1c 8%. Will be discharged on insulin. Glucose 112 this morning.
At home he uses Farxiga 10 mg daily, Ozempic once weekly.
Moving forward, permanently discontinue SGLT-2 inhibitors given presentation with Williams's gangrene. Discussed with patient.
NSTEMI - Echocardiogram shows LVEF 55%, mild hypokinesis of the basal�mid inferior septal, apical lateral, basal inferior lance. Normal RV size and systolic function. Anticipate outpatient ischemic evaluation as per cardiology.
Rapid paroxysmal atrial fibrillation -successfully cardioverted to sinus rhythm in the ER. IV heparin on hold for OR today. Continue low-dose metoprolol.
Hyperthyroidism -followed by endocrinology, Dr. Denson. Patient is unsure of home dose but believes the methimazole was reduced to 5 mg once daily prior to admission. He tried to increase it back to 5 mg twice daily to abort the atrial
fibrillation to no avail.
TSH 2.32, free T4 1.44.
I spoke with Dr. Denson and confirmed that his home dose of methimazole should be 5 mg once daily on discharge.
Hyponatremia -resolved.
Essential hypertension -hypotensive on arrival due to rapid atrial fibrillation and volume depletion. IV fluid bolus ordered. May need vasopressors. Hold antihypertensives.
Hyperlipidemia - atorvastatin.
CAD/CABG -2020.
COPD without exacerbation
Full code
Anticipated Discharge: > 48 hours
Subjective/Interval History
-
Date of Service: March 22, 2024
Objective Data
-
Labs:
Laboratory Results
03/22/24 03/22/24 03/22/24
06:07 12:46 18:45
WBC 15.1 H
Hgb 13.1
Hct 38.3 L
Plt Count 230
APTT 122.0 H 92.1 H Pending
Sodium 133 L
Potassium 3.6
Chloride 101
Carbon Dioxide 28
BUN 18
Creatinine 0.9
Glucose 91
Calcium 7.3 L
Vital Signs:
Vital Signs
Temp Pulse Resp BP Pulse Ox
99.0 F 69 16 144/70 96
03/22/24 11:30 03/22/24 11:30 03/22/24 11:30 03/22/24 11:30 03/22/24 11:30
I&O
03/21/24 03/22/24 03/23/24
06:59 06:59 06:59
Intake Total 1868.5 / 1868.5 2640 / 2640
Output Total 1900 / 1900 2845 / 2845 1500 / 1500
Balance -31.5 / -31.5 -205 / -205 -1500 / -1500
Physical Exam
-
General: Well Developed and Well Nourished
HEENT: Normocephalic and Atraumatic
Respiratory: Clear to Auscultation; Negative Wheezes, Rales or Rhonchi
Cardiac: Irregular Rhythm
GI: Soft, Nontender, Nondistended and Normal Bowel Sounds
Genito-urinary: No Costovertebral Tender
Musculoskeletal: No Edema
Neuro: AO x 3
Hematologic / Lymphatic: No Lymphadenopathy
Psych: Calm
--- NOTE | 2024-03-22 15:25 | PTCARENOTE ---
Patient with small amount of urination when having bowel movement in bathroom. Patient bladder scanned post void for 406ml. Patient states he feels urge to void but cannot urinate. Surgery and urology made aware, per urology bladder scan patient in
few hours and replace wade if bladder scan >600ml.
--- NOTE | 2024-03-22 15:25 | CM ---
Reviewed the chart notes and spoke with the patient at the bedside. Discussed discharge plans. Patient anticipates being discharged to home with VN services. Discussed area VNs. Patient selected VN as first choice. Referral sent via [facility] continues to be available to patient/family and is monitoring medical plan for needs at discharge.
Plan: Discharge to home with VN services.
[2024-03-22 17:06] LABS: Glucose - Point of Care 165 mg/dl (70-99)
[2024-03-22] MEDS: NOVOLOG FLEXPEN 7 UNITS SC (17:13)
[2024-03-22] MEDS: NOVOLOG FLEXPEN-MODERATE RESISTANCE 1 UNITS SC (17:13)
[2024-03-22] MEDS: DILAUDID 1 MG IV (18:15)
[2024-03-22 18:48] LABS: APTT 88.8 Sec (23.4-35.0)
--- NOTE | 2024-03-22 19:23 | PTCARENOTE ---
Patient with bladder scan of 621 ml after small urination in bathroom. This RN communicated with urology, wade order placed for urology determination. 16Fr wade inserted by this RN with initial output of 650 ml clear yellow urine. Patient
tolerated procedure, states no concerns at this time.
[2024-03-22 21:28] LABS: Glucose - Point of Care 106 mg/dl (70-99)
[2024-03-22] MEDS: LANTUS 0.25 UNITS SC (21:36)
[2024-03-23] VITALS (21 sets, daily range): BP systolic 98–160; BP diastolic 54–90; PULSE 2–80; BMI 26.4
[2024-03-23] MEDS: DILAUDID 0.5 MG IV ×3 (00:23→10:39)
[2024-03-23 04:01] LABS: Glucose - Point of Care 81 mg/dl (70-99)
[2024-03-23] MEDS: HEPARIN 25000 UNITS/250 ML IV (05:08)
[2024-03-23] MEDS: UNASYN IV ×2 (05:11→12:37)
[2024-03-23] MEDS: TYLENOL 1000 MG PO ×3 (05:12→23:04)
[2024-03-23 07:28] LABS: % Basophils 0.4 % (0-2); % Eosinophils 0.8 % (0-6); % Lymphocytes 12.4 % (20.5-51.1); % Monocytes 6.5 % (1.7-9.3); % Neutrophils 75.9 % (42.2-75.2); Absolute Basophils 0.1 10^3/uL (0-0.2); Absolute Eosinophils 0.1 10^3/uL (0-0.7); Absolute Immature Granulocytes 0.5 10^3/uL (0-0.05); Absolute Lymphocytes 1.5 10^3/uL (1.2-3.4); Absolute Monocytes 0.8 10^3/uL (0.1-0.6); Absolute Neutrophils 9.2 10^3/uL (1.4-6.5); Hematocrit 37.3 % (39.0-52.0); Hemoglobin 12.9 g/dL (13.0-18.0); Mean Corp Hgb Conc. 34.6 g/dL (33.0-37.0); Mean Corpuscular Hgb 28.7 pg (27.0-31.0); Mean Corpuscular Volume 82.9 fL (80.0-94.0); Nucleated Red Blood Cells % 0 % (-); Platelet Count 231 10^3/uL (130-400); Red Cell Dist. Width 12.4 % (11.5-14.5); White Blood Cell Count 12.2 10^3/uL (4.8-10.8)
[2024-03-23 07:47] LABS: Blood Urea Nitrogen 14 mg/dl (9-20); Calcium 7.5 mg/dl (8.4-10.2); Carbon Dioxide 29 mmol/L (22-30); Chloride 100 mmol/L (98-107); Estimated Creatinine Clearance 88 ml/min; Glucose 122 mg/dl (70-99); Potassium 3.8 mmol/L (3.5-5.1); Sodium 135 mmol/L (135-145); eGFR > 60.00
[2024-03-23 07:55] LABS: Glucose - Point of Care 112 mg/dl (70-99)
[2024-03-23] MEDS: NOVOLOG FLEXPEN-MODERATE RESISTANCE SC ×3 (08:15→17:04)
--- NOTE | 2024-03-23 08:16 | PN.DE.MGMTRT ---
Insulin Management
- -
03/23/2024 Diabetes Management Consult Follow up
Patient admitted 03/14 due to heart rate issues, with a fib - cardioverted. 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 PMH afib, CAD, HTN, HLD, BPH, diabetes 20 years and anxiety. Prior to admission was taking farxinga
10 mg daily and Ozempic 1 mg weekly. A1c on admission 8%, cr 2, eGFR 35.49.
Patient is awake alert and oriented able to discuss diabetes management. States he has a glucose monitor with supplies.
03/23 Patient did return to the OR on 03/20. Glucose has ranged 81 to 165. Fasting glucose this AM 122 venous, [address] Perez reduced lantus to 25 units, and novolog to 7 units AC 03/22. Will make no change to current regimen.
Discussed with patients nurse.
Will follow.
Diabetes History
- -
Type of Diabetes: 2 requiring insulin
Pre-Admission Diabetes Regimen
03/23/24
06:24
Creatinine 1.0
Lab Results
Hemoglobin A1c 8.0 % (4.0-5.6) H 03/15/24 06:14
Insulin Pump Settings
IP Diabetes Regimen
03/22/24 03/22/24 03/22/24
10:33 12:25 17:02
Glucose
POC Glucose 93 96 165 H
03/22/24 03/23/24 03/23/24
21:26 03:59 06:24
Glucose 122 H
POC Glucose 106 H 81
03/23/24
07:54
Glucose
POC Glucose 112 H
Meal type: Lunch
Meal type: Breakfast
Amount consumed: 100%
Amount consumed: 100%
Patient Education
[2024-03-23] MEDS: NOVOLOG FLEXPEN 7 UNITS SC (08:57)
[2024-03-23] MEDS: FLOMAX 0.4 MG PO (08:58)
[2024-03-23] MEDS: TAPAZOLE 5 MG PO (08:58)
[2024-03-23] MEDS: LOW STRENGTH ASPIRIN 81 MG PO (08:58)
[2024-03-23] MEDS: COLACE 100 MG PO ×2 (08:58→21:03)
[2024-03-23] MEDS: LIPITOR 40 MG PO (08:58)
[2024-03-23] MEDS: LOPRESSOR 12.5 MG PO (08:58)
--- NOTE | 2024-03-23 09:15 | W.PN.CRS1 ---
Today's Communication / Plan
-
-As below
Assessment/Plan
-
68-year-old with a PMH of A-fib (on Eliquis, last dose p.m. of 03/14), CAD s/p CABG 2020, diabetes, mild COPD, HTN, HLD who presents with 3 days of not feeling well and 5 days of worsening perineal pain on the right. Last cscope was 30 years ago,
reportedly normal. In the ED, he was noted to be in rapid A-fib and underwent urgent cardioversion due to hypotension and started on a hepgtt. He was also noted to be in MATT and mild DKA, HbA1c 8%, glucose 411. WBC of 26.1, Creatinine 3.1, NA 128.
He was initially admitted with IV antibiotics and a scrotal ultrasound was obtained to rule out a scrotal abscess, which was negative. A CTAP without contrast was done showing subcutaneous gas through out the right aspect of the perineum, extending
from the scrotum posteriorly to the ischiorectal space.
03/16 (1am) flex sig (well-perfused rectum), incision and drainage and debridement of perineal infection
03/16 (4pm) debridement of perineal wound, urology debrided small scrotal abscess and placed julien in R inguinal
03/18 additional debridement into inguinal region and base of scrotum with urology
03/20 minimal debridement, wound healthy with evidence of granulation; urology closed superficial defect in dartos fascia, partial closure around anus creating an anterior and posterior wound
AFVSS, packing not changed this morning
WBC 12.2 from 15.1
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
�Wound now without any additional infectious/necrotic tissue; no further planned debridements
� Discussed with Dr. Alas from plastics; continue local wound care, he would not consider closing wound currently
�Will consult wound care; will need follow-up in the wound care center with Dr. Guidry
�Appreciate ID; continue IV Unasyn
�Continue regular diet
� Continue hep drip for AC; appreciate cardiology
�MATT, resolved; strict I/Os
�Discussed with urology, replaced wade due to retention; cont floxmax
� Pain control with Tylenol and Dilaudid as needed
� Encourage OOB/IS; patient needs mesh underwear to keep packing in place if getting OOB; appreciate PT
�Appreciate hospitalist and cardiology
Subjective Data
Procedure
03/16/2024- Exam under anesthesia, debridement of perineal wound, pulse-irrigation of wound; Dr. Crowell from urology performed drainage of scrotal abscess with further debridement of scrotal and inguinal wound
03/18/24 Exam under anesthesia, debridement of fibrinous material
03/20/24 Exam under anesthesia, debridement of fibrinous material, partial closure around the anal sphincter
Subjective Data
Date of Service: March 23, 2024
No overnight events.
Pain controlled.
Denies nausea/vomiting. Tolerating diet.
+flatus +BMs (no incontinence, difficult with discernment) +voiding
Objective Data
-
Vital Signs
Temp Pulse Resp BP Pulse Ox
99.2 F 70 16 138/68 95
03/23/24 07:44 03/23/24 07:44 03/23/24 07:44 03/23/24 08:58 03/23/24 07:44
Intake & Output
03/22/24 03/23/24 03/24/24
06:59 06:59 06:59
Intake Total 2640 / 2640 1380 / 1380
Output Total 2845 / 2845 3430 / 3430
Balance -205 / -205 -2049 / -2049
Intake:
Oral fluids 2160 / 2160 1140 / 1140
IV piggybacks 480 / 480 240 / 240
Output:
Urine, Wade 2845 / 2845 3430 / 3430
Other:
Number of approximated SMALL 1
amounts of urine
Lab Results
03/23/24 06:24
03/23/24 06:24
Physical Exam
-
General: No Acute Distress and AOx3
HEENT: Grossly Normal
Abdomen: Soft, Non Distended and Non Tender
Wound: No Signs of Infection, Dressing in Place and No Skin Erythema
--- NOTE | 2024-03-23 10:56 | W.PN.CARDCBS ---
Addendum entered and electronically signed by Jose C Bravo MD 03/23/24 12:54:
I saw and examined the patient.
The Vocational Adviser's note was reviewed and I agree with the note.
Comment:
GEN: No distress, awake, Ox3
HEENT: supple, anicteric, mmm
LUNGS: CTA, no wheezes/rales
CV: Reg, S1/S2, 1/6 syst LSB, no gallop
ABD: soft, BS+, NT/ND
EXT: No edema
NEURO: Gross non-focal
SKIN: dressing intact
Plan:
He is improving. Continue with antibiotics. Per surgery there are no further plans for debridement.
With abnormal troponin, history of CABG, and echo we will proceed with cardiac cath later this week. Possibly consider cath tomorrow if everything remains stable. Hemoglobin at 12.9. Make n.p.o.
Continue aspirin, Toprol, atorvastatin. Remains on IV heparin.
Original Note:
Today's Communication / Plan
-
ideally would cath patient this admission, discussions regarding timing ongoing with colorectal surgery
continue wound care
continue asa, IV heparin
transition lopressor to toprol 25mg daily
Impression / Plan
-
.
PCP: Dr. Hart
Primary Size Tester: Dr. Bolanos
Impression:
Admitted with MATT, elevated Troponin and recurrent Afib with CV in the ER 03/14/24
MATT
NSTEMI, peak troponin 6.3
CAD s/p CABG x4 07/2020
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
Paroxysmal Afib
initially seen s/p CABG 07/2020 at
[facility]
recurrent Afib treated with rate control and spontaneously converted to SR 10/09/21
DCCV in [facility] 03/14/2024
Chronic OAC with Eliquis
Hypothyroidism
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
HTN
HLD
DM2
COPD
ALFREDO 07/2020: EF 60-65%, no RWMA, severe conc LVH, mod dilated LA, mildly dilated mid ascending aorta, mild sessile atheroma in descending aorta and distal arch
ECHO 10/11/21: EF 50 to 55%, no WMA, normal RA/LA size, no significant valve disease
Echo 03/15/24: EF 55%, mild hypokinesis of the basal-mid inferoseptal, apical lateral and basal inferior lance, normal RV size and function, trileaflet sclerotic aortic valve with dense calcification on the noncoronary cusp, no /AR
Plan:
-Patient with necrotizing perineal infection managed with IV antibiotics and I&D and debridement of perineal wound and small scrotal abscess in the OR 03/15/24. Patient returned to the OR 03/16/24, 03/18/24 and 03/20/2024 for additional debridement.
-he presented in afib with RVR and had undergone CV in [facility] 03/14/24. he remains in SR at this time on review of tele.
-he has history of CAD s/p CABG in 2020 at . ruled in for NSTEMI with trop of 6. echo with new RWMA and EKG with inferolateral T wave inversions. ideally would cath this admission. reached out to colorectal via TT to discuss timing with regards to
Williams's gangrene
-continue asa, IV heparin. was on eliquis as OP
-will transition lopressor to toprol 25mg daily, was on 50mg QAM and 25mg QPM prior to admission. uptitrate to preadmission dosing as able
-OP amlodipine/olmesartan, chlorthalidone initially on hold due to MATT, normalized. now on hold due to relative hypotension
-LDL 54. continue OP lipitor
-proBNP much improved from admission. appears euvolemic.
-OP farxiga has been stopped as felt to be etiology for Williams's gangrene.
HPI: Patient came to ER yesterday with complaints of feeling poorly for at least 3 days and was found to be in rapid A-fib and is now admitted with cardiology consultation. Patient was last seen in the office on 05/19/2023 and was in SR at that
time. Initially seen in AF after CABG 07/2020 none recurrence last noted to be 10/2021 as noted above. Patient felt as though he was in AF for about 3 days prior to admission. Patient felt that this correlated with a decrease in his outpatient
levothyroxine dosing in the last several weeks, so he increase the dose, but no improvement in his AF so he finally came to ER yesterday. Patient says he also came to ER because he has been feeling sick and felt as though he had the flu for
the last 1 to 2 months. He says he feels he has a fever at times and this will correlate to a temperature of 100.6 �F when he checks his temperature at home. He says his the symptoms wax and wane and that he feels congested much of the time. He
feels SOB at times, but not consistent. No orthopnea or PND. No bloating. No LE edema. In ER last night patient was found to be in rapid AF and denied missing any Eliquis doses so he had a successful CV and remains in SR this a.m. Patient
reports dramatic symptomatic improvement following episcopal of SR. Patient also noted to be in MATT with Cre up to 3.1 last evening, but improved to 2.3 this a.m. Patient reports ongoing congestion, but less SOB. Initial troponin was elevated
at 5.73, then up to 6.03, then down to 5.53 and then even though the troponin was trending down another troponin was checked and was elevated at 6.32. A 5th troponin is now pending, but patient denies any chest pain. He does have a history of CAD
s/p CABG.
Progress Note - Size Tester
Subjective
Date of Service: March 23, 2024
no CP, SOB.
Objective
Labs:
03/23/24 06:24
03/23/24 06:24
Labs
Hgb 12.9 g/dL (13.0-18.0) L 03/23/24 06:24
Hct 37.3 % (39.0-52.0) L 03/23/24 06:24
Plt Count 231 10^3/uL (130-400) 03/23/24 06:24
PT 14.4 Sec (11.4-14.6) 03/17/24 10:16
INR 1.07 03/17/24 10:16
APTT 100.0 Sec (23.4-35.0) H 03/23/24 06:24
Sodium 135 mmol/L (135-145) 03/23/24 06:24
Potassium 3.8 mmol/L (3.5-5.1) 03/23/24 06:24
BUN 14 mg/dl (9-20) 03/23/24 06:24
Creatinine 1.0 mg/dL (0.7-1.3) 03/23/24 06:24
Glucose 122 mg/dl (70-99) H 03/23/24 06:24
Vital Signs and I&O:
Vital Signs
Temp Pulse Resp BP Pulse Ox
99.2 F 70 16 138/68 95
03/23/24 07:44 03/23/24 07:44 03/23/24 07:44 03/23/24 08:58 03/23/24 07:44
Vital Signs
Temp Pulse Resp BP Pulse Ox
99.2 F 70 16 138/68 95
03/23/24 07:44 03/23/24 07:44 03/23/24 07:44 03/23/24 08:58 03/23/24 07:44
Intake & Output
03/21/24 03/22/24 03/23/24 03/24/24
07:59 07:59 07:59 07:59
Intake Total 1868.5 / 1868.5 2640 / 2640 1380 / 1380
Output Total 1899 / 190 2845 / 2845 3430 / 3430
Balance -31.5 / -31.5 -205 / -205 -2049 /
Physical Exam
Physical Exam
GEN: No distress, awake, alert, oriented x3
HEENT: supple, anicteric, mmm, eomi
LUNGS: CTA B/L, no wheezes/rales
CV: Reg, S1/S2, no murmur
ABD: soft, BS+, NT/ND
EXT: No cyanosis, clubbing. trace edema of B/L LE
NEURO: Gross non-focal
SKIN: Warm, pink, dry. No rash
--- NOTE | 2024-03-23 12:09 | WOUNDNOTE ---
R POSTERIOR SCROTUM/ PERINEUM
--- NOTE | 2024-03-23 12:09 | W.PN.ID1 ---
Date of Service
Date of Service: March 23, 2024
Today's Communication
Transition Unasyn (d8 abx) to po Augmentin 875mg po bid through 03/29/24
Assessment / Plan
#Fourniere's gangrene of right perineum
- s/p I+D 03/15/24, 03/16/24, 03/18/24, 03/20/24
- Gram stain: polymicrobial org; Cx Strep species
- Transition Unasyn (d8 abx) to po Augmentin 875mg po bid through 03/29/24
# s/p Sepsis, hypotensive due to above
- Blood cx neg
-Leukocytosis resolving
-Follow wbc.
# MATT - resolved
# Afib with RVR triggered by infection
-s/p cardioversion, now in sinus.
# Conditions PTGA
Diabetes mellitus
Hyperthyroidism
CAD status post CABG x 4
Atrial fibrillation
Hypertension
COPD
Dyslipidemia
BPH
Chief Complaint
-: Other (Williams's)
Subjective / Review of Systems
Doing well.
Vital Signs / Physical Exam
Vital Signs
Vital Signs
Temp Pulse Resp BP Pulse Ox
99.1 F 69 18 126/59 95
03/23/24 11:41 03/23/24 11:41 03/23/24 11:41 03/23/24 11:41 03/23/24 11:41
Physical Exam
Constitutional: No Acute Distress and Comfortable
Cardiovascular: Regular Rate and S1/S2
Pulmonary: Clear
Gastrointestinal: Soft, Non Tender and Non Distended
Neurological: AO x 3
Objective Data
Lab Data
Lab Results
03/23/24 06:24
03/23/24 06:24
PT 14.4 Sec (11.4-14.6) 03/17/24 10:16
INR 1.07 03/17/24 10:16
APTT 100.0 Sec (23.4-35.0) H 03/23/24 06:24
Estimated Creat Clear 88 ml/min 03/23/24 06:24
Lactic Acid 1.2 mmol/L (0.7-2.0) 03/16/24 13:17
Total Bilirubin 0.4 mg/dl (0.2-1.3) 03/21/24 07:54
AST 21 U/L (17-59) 03/21/24 07:54
ALT 22 U/L (0-50) 03/21/24 07:54
Alkaline Phosphatase 42 U/L (38-126) 03/21/24 07:54
Most recent labs reviewed.
Micro Results:
03/15/24 23:42 Wound Culture - Final
Ángela-anal Streptococcus species
Gram Stain - Final
03/15/24 23:42 Anaerobic Culture - Final
Perineum
03/15/24 15:00 Blood Culture - Final
Blood/Venous No Growth - Final Report
03/15/24 14:47 Blood Culture - Final
Blood/Venous No Growth - Final Report
03/14/24 18:47 Influenza Types A & B (YOMI) - Final
Nasal Swab Negative for Influenza A & B, NAAT
Negative results must be combined with clinical observations
and patient history.
Nucleic Acid Amplification test (NAAT)performed on the
[employer] platform.
03/14/24 CXR: Probable minor scarring or atelectasis in the medial left lung base. Otherwise no acute cardiopulmonary process.
03/15/24 Scrotal US: Scrotal edematous changes. Small left hydrocele and small left varicocele. No abnormal collection suspicious for abscess identified at ultrasound.
03/15/24 CT a/p: Extensive subcutaneous edema and gas throughout the right aspect of the perineum extending into the visualized proximal aspect of the scrotum/right inguinal canal. No loculated fluid collections. Findings are suspicious for
Williams's gangrene in the appropriate clinical context.
--- NOTE | 2024-03-23 12:10 | WOUNDNOTE ---
ANTONINA RN note: Patient admitted with A Fib with rapid ventricular response-cardioversion done.
See H&P for complete history.
PMH: A Fib, CAD, HTN, urgency, DM and anxiety.
Wound Location and type/assessment: Patient admitted with: Scrotal swelling, determined necrosis of soft tissue infection requiring multiple I&D's in OR. Being followed by [place]-rectal surgical team and plastics evaluated. No further surgical
intervention planned, R scrotum and perineum sites are clean, cailin intact distally. Scrotum swollen and painful to touch, patient was medicated for pain. Wound care consulted to evaluate for possible wound vac, not a candidate. Extensive packing
with saline moistened kerlix removed, unable to remove section by distal anterior scrotum near cailin. Large amt of bleeding during dressing change- on blood thinners, stopped on own. Discussed the above with KAMERON Cotto, aware of remaining
packing left in and bleeding during removal. KAMERON Cotto will follow this afternoon to remove remainder of packing. Obtained wound care orders, ok for nursing to change daily.
Appetite: Good, encouraged protein in diet.
Pressure redistribution devices in place: On versa care air bed, air chair cushion in use.
Plan: Packing daily with saline moistened Kerlix, cover with ABD's and secure with mesh underwear. Ice pack given for scrotal swelling and pain, confirmed wound care with KAMERON Cotto. Updated nurse, care plan and will follow as needed.
Note to case management of equipment requested for discharge: KD
Recommend follow up at wound care center upon discharge.
--- NOTE | 2024-03-23 12:19 | CM ---
Reviewed the chart notes. Per ID, transition Unasyn (d8 abx) to po Augmentin 875mg po bid through 03/29/24. Smart placed due to residual. CM continues to be available to patient/family and is monitoring medical plan for needs at discharge.
Plan: Discharge to home with [facility] services when medically stable.
[2024-03-23] MEDS: DILAUDID 1 MG IV ×2 (12:46→23:04)
[2024-03-23] MEDS: AUGMENTIN 875 MG/125 MG 1 TABLET PO ×2 (12:46→21:03)
[2024-03-23] MEDS: TOPROL XL 25 MG PO (12:47)
--- NOTE | 2024-03-23 13:31 | PTCARENOTE ---
Addendum entered by Ashley Amado RN 03/23/24 17:32:
pt still with copious amounts of bloody output from debridement sites. PA and MD made aware. Dr. Pena assessed at bedside and patient put in for OR stat. heparin gtt held at 1505, and pt made npo. last meal was 0930. pt VSS, type and screen taken
and CBC prior to going to OR. report given to ICU at 2365 initally due to OR staff not being available. to be determined if coming back to medsur/tele unit. nurse will continue to follow
Addendum entered by Ashley Amado RN 03/23/24 14:53:
wound repacked with KAMERON ji at the bedside. more copious drainage. KAMERON educated this nurse on proper packing and changes. will pass along in report.
Original Note:
perineum site packed by wound care. pt walked to bathroom and packing and abd fell out per PCT. pt premedicated with prn pain med, see MAR.sites repacked by this nurse and pct. pt with copious serous drainage. MD and surgery made aware. pt remains
on heparin gtt, PTT remains therapeutic.
[2024-03-23] MEDS: NOVOLOG FLEXPEN SC ×2 (14:26→17:04)
--- NOTE | 2024-03-23 15:48 | W.PN.UPDATE ---
Addendum entered and electronically signed by Bob Pena MD 03/23/24 16:35:
Notifed the OR at 3:35pm that I need to take the patient PAULINO (within 1 hour). They said they are working on getting an OR and pulling in more staff. OR still not available so will transfer to ICU for close monitoring and will give a pRBC x1.
Patient remains asymptomatic (no chest pain, sob, light-headedness) and most recent vitals BP 150/70, HR 70. D/w Evan Perez and nursing security officer supervisor.
Original Note:
Update Note
Progress Note Update
Notified by nurse via [place] text that patient was having bleeding from the wound after wound care attempted to change the packing earlier today. claudia Kimbrough, went to the bedside to evaluate. She stated that there was a pool of
blood within the wound and some blood saturating the packing. She removed all of the clotted blood to evaluate the wound base. She said there was no active bleeding vessel, but more of a diffuse ooze. She placed 3 Surgicel within the wound and
packed it tightly with kerlix and monitored for over 15 minutes with no additional bleeding noted. However, notified by the nurse within the last 30 or so minutes that the packing is now saturated with blood. I left my office to come evaluate the
patient at the bedside. On arrival, I noted the kerlix and ABD pad were saturated with red blood. The patient was awake and alert and denying any current symptoms. I felt that any additional attempts at bedside control would be futile and delay
from definitive control. Therefore, I recommended proceeding urgently to the operating room for exam under anesthesia and control of bleeding. I explained the risks benefits and alternatives, including, but not limited to, bleeding/recurrent
bleeding, infection, need for repeat surgery, need for re-opening up the wound, and anesthetic risks such as hemodynamic instability. The patient understood and agreed to proceed. All questions were answered. The consent was signed and placed in
the chart. Will send a stat CBC and type and screen, will keep 2 units pRBC on hold for OR.
[2024-03-23 16:45] LABS: % Basophils 0.3 % (0-2); % Eosinophils 0.4 % (0-6); % Immature Granulocytes 3.3 % (0-0.5); % Lymphocytes 11.8 % (20.5-51.1); % Monocytes 6.7 % (1.7-9.3); % Neutrophils 77.5 % (42.2-75.2); Absolute Eosinophils 0.1 10^3/uL (0-0.7); Absolute Immature Granulocytes 0.5 10^3/uL (0-0.05); Absolute Lymphocytes 1.7 10^3/uL (1.2-3.4); Hematocrit 36.4 % (39.0-52.0); Hemoglobin 12.2 g/dL (13.0-18.0); Mean Corp Hgb Conc. 33.5 g/dL (33.0-37.0); Mean Corpuscular Hgb 28.1 pg (27.0-31.0); Mean Corpuscular Volume 83.9 fL (80.0-94.0); Mean Platelet Volume 8.7 fL (7.4-10.4); Nucleated Red Blood Cells % 0 % (-); Platelet Count 250 10^3/uL (130-400); Red Blood Cell Count 4.34 10^6/uL (4.70-6.10); Red Cell Dist. Width 12.3 % (11.5-14.5); White Blood Cell Count 14.2 10^3/uL (4.8-10.8)
--- NOTE | 2024-03-23 16:49 | SUR.PHASEI ---
Pt received pre-operatively to PACU at 1642. Pt on front desk monitor, no complaint of pain at this time.
--- NOTE | 2024-03-23 17:03 | SUR.PHASEI ---
Pt taken to OR with OR staff at 1704
--- NOTE | 2024-03-23 17:23 | W.PN.HOSP.TC ---
Today's Communication/Plan
-
With perineal bleeding, hold heparin.
Monitor hemoglobin
Surgery to take back to the OR for wound revision.
Transfusion as per surgery.
Hold insulin Lantus and continue basal bolus avoiding hypoglycemia.
Remains on oral antibiotics
With active bleeding monitor in ICU postoperatively.
Assessment / Plan
Assessment / Plan
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 CT scan noted. Antibiotics per infectious disease consolidated to Unasyn. Appreciate colorectal surgery input. Had incision and drainage and debridement early years teacher
03/16. Revisit to the OR 03/18 for further debridement. Status post additional wound inspection and debridement on 03/20. Blood cultures negative so far but they were drawn after starting antibiotics. Patient states pain in his perineum him
started about a week prior to admission. Discussed permanently stopping SGLT2 inhibitors moving forward. Informed his street inspector Dr. Denson as well.
Hemodynamically improved. Not on vasopressors. Sepsis and shock resolved.
Recurrent bleeding from perineal area on 03/23. Heparin discontinued. Follow serial hemoglobin. Colorectal surgery to take back to the OR for wound revision and packing. Follow serial hemoglobin. 1 unit of packed red blood cells ordered for
transfusion.
MATT -due to severe volume depletion. Creatinine improving. Hold chlorthalidone, olmesartan. Hold NSAIDs. Weight is up 6 kg but not symptomatic, denies shortness of breath. No peripheral edema. Hold further IV fluids. Discussed with Dr. Pena.
May need IV Lasix soon. Smart discontinued for trial of voiding on 03/22
DM2 with hyperglycemia -DKA resolved. Basal/bolus insulin to continue. Diabetes WIRE HANGER following. Hemoglobin A1c 8%. Will be discharged on insulin.
At home he uses Farxiga 10 mg daily, Ozempic once weekly.
Moving forward, permanently discontinue SGLT-2 inhibitors given presentation with Williams's gangrene. Discussed with patient.
NSTEMI - Echocardiogram shows LVEF 55%, mild hypokinesis of the basal�mid inferior septal, apical lateral, basal inferior lance. Normal RV size and systolic function. Anticipate outpatient ischemic evaluation as per cardiology.
Plan is for ischemic evaluation with left heart cath tentatively on 03/24.
Rapid paroxysmal atrial fibrillation -successfully cardioverted to sinus rhythm in the ER. IV heparin on hold for OR today. Continue low-dose metoprolol.
Hyperthyroidism -followed by endocrinology, Dr. Denson. Patient is unsure of home dose but believes the methimazole was reduced to 5 mg once daily prior to admission. He tried to increase it back to 5 mg twice daily to abort the atrial
fibrillation to no avail.
TSH 2.32, free T4 1.44.
I spoke with Dr. Denson and confirmed that his home dose of methimazole should be 5 mg once daily on discharge.
Hyponatremia -resolved.
Essential hypertension -hypotensive on arrival due to rapid atrial fibrillation and volume depletion. IV fluid bolus ordered. May need vasopressors. Hold antihypertensives.
Hyperlipidemia - atorvastatin.
CAD/CABG -2020.
COPD without exacerbation
Full code
Anticipated Discharge: > 48 hours
Subjective/Interval History
-
Date of Service: March 23, 2024
Objective Data
-
Labs:
Laboratory Results
03/23/24 03/23/24
06:24 16:35
WBC 12.2 H 14.2 H
Hgb 12.9 L 12.2 L
Hct 37.3 L 36.4 L
Plt Count 231 250
APTT 100.0 H
Sodium 135
Potassium 3.8
Chloride 100
Carbon Dioxide 29
BUN 14
Creatinine 1.0
Glucose 122 H
Calcium 7.5 L
Vital Signs:
Vital Signs
Temp Pulse Resp BP Pulse Ox
98.9 F 76 16 151/67 94
03/23/24 15:32 03/23/24 16:43 03/23/24 16:43 03/23/24 16:45 03/23/24 16:45
I&O
03/22/24 03/23/24 03/24/24
06:59 06:59 06:59
Intake Total 2640 / 2640 1380 / 1380
Output Total 2845 / 2845 3430 / 3430
Balance - / - -2049 / -2049
Physical Exam
-
General: Well Developed and Well Nourished
HEENT: Normocephalic and Atraumatic
Respiratory: Clear to Auscultation; Negative Wheezes, Rales or Rhonchi
Cardiac: Irregular Rhythm
GI: Soft, Nontender, Nondistended and Normal Bowel Sounds
Genito-urinary: No Costovertebral Tender
Musculoskeletal: No Edema
Neuro: AO x 3
Hematologic / Lymphatic: No Lymphadenopathy
Psych: Calm
[2024-03-23] MEDS: TYLENOL PO (17:54)
--- NOTE | 2024-03-23 18:31 | W.IMMPOSTOP ---
Surgical Immed Post Op Note
-
Primary Surgeon: Bob Pena MD
Assisting Surgeon: None
Pre-op Diagnosis: Bleeding from perineal wound
Post-op Diagnosis: Bleeding from perineal wound
Procedure Performed: Exam under anesthesia, control of bleeding from perineal wound, debridement of perineal wound
Anesthesia Type: Sedation
Specimen / Cultures: None
Estimated Blood Loss: 300 mL
Complications: None
Operative Findings: Saturated Kerlix packing mixed with blood clot within the superior and inferior wounds; after clot and packing completely removed, slow diffuse oozing was noted; no significant streaming of blood, no pulsatile bleeding; I noted
the skin edges of the partial wound closure appeared slightly ischemic; after evaluation of the partial wound closure from inside the wound, there appeared to be necrotic tissue at the area of the closure; therefore, I remove the cailin and
reopened the wound; I debrided additional necrotic tissue in the right ischiorectal space and the right gluteal space; debrided to healthy bleeding tissue; meticulous hemostasis with electrocautery was achieved; sprayed the base of the wound with
Renita and packed with 2 Betadine soaked Kerlix
Dispo�intraoperatively, blood pressure drifted low requiring boluses of bing, responding to fluids; therefore, we will transfer patient back to ICU for serial CBCs and close monitoring
--- NOTE | 2024-03-23 18:49 | OR.RPT ---
Addendum entered and electronically signed by Bob Pena MD 04/01/24 14:58:
for CDI: debridement involved was excisional
Original Note:
Operative Report
Operative Report
DATE OF OPERATION: 03/23/2024
SURGEON: Bbo Pena MD
PREOPERATIVE DIAGNOSIS: Hemorrhage from the right perineal wound
POSTOPERATIVE DIAGNOSIS: Hemorrhage from the right perineal wound
OPERATION: Exam under anesthesia, control of bleeding from the perineal wound, debridement of the right perineal wound, pulse irrigation of perineal wound
ASSISTANTS:
1. None
ANESTHESIA: Sedation
ESTIMATED BLOOD LOSS: 300 mL
FINDINGS:
1. Significant amount of blood clot and saturated packing identified within the superior and inferior wounds; estimated to be about 300 mL total
2. After removal of the blood clot and packing, only bleeding noted was a diffuse ooze throughout the lower aspect of the superior wound and from the inferior wound
3. The skin edges of the previous closure were noted to be slightly ischemic; after removing the cailin, the underlying tissue appeared necrotic, but not infected; therefore, I took down the partial closure of the anoderm to the right gluteal skin
and debrided this area down to healthy bleeding tissue
4. Mild amount of unhealthy tissue in the right gluteal aspect of the wound, which was debrided to healthy bleeding tissue
SPECIMENS:
1. None
DRAINS: None
COMPLICATIONS: No immediate complications.
INDICATIONS: The patient is a 68-year-old male who initially presented with necrotizing soft tissue infection of the right perineum requiring multiple debridements. On the last debridement, there was no additional necrotic or infected tissue. The
subcutaneous tissue at the right lateral perineum and the tissue overlying the sphincter complex appeared healthy and was reapproximated. The patient was doing well and his leukocytosis was improving. However, after packing change with wound care
this morning, the patient started to bleed from the wound. After a bedside attempt at hemostasis with Surgicel and tight packing, he continued to bleed through the dressings. Therefore, I stopped his heparin drip and recommended urgent exam under
anesthesia for control of bleeding. The operation was discussed with the patient in detail, including the risks, benefits and alternatives. Risks described included, but not limited to, bleeding/recurrent bleeding, continued/recurrent infection
requiring further debridement, damage to nearby structures, debridement of nearby structures, anal dysfunction and anesthetic risks, such as hemodynamic instability. The patient understood and agreed to proceed.
PROCEDURE IN DETAIL: The patient was taken to the operating room and placed on the operating table in supine position. Sequential compression devices were placed bilaterally. Sedation was commenced without complication. The patient already had an
indwelling Smart. The patient was placed in lithotomy position with bilateral arms secured to the armboards. A significant amount of blood clot and saturated packing and dressings were removed from the perineum and perineal wound. No significant
streaming of blood or pulsatile bleeding was noted. The bleeding appeared more diffuse from the base of the wounds. The perineum was prepped and draped with Betadine in the usual fashion. A time-out was then performed verifying the correct
patient, procedure, operative site, positioning, and special equipment.
On evaluation, the upper aspect of the superior wound appeared healthy, including the base of the scrotum and the inguinal region. No bleeding was noted in this area. The reapproximated Dartos fascia remained intact and healthy. In the lower
aspect of the superior wound, there was diffuse oozing from the subcutaneous tissues in the ischiorectal space. Furthermore, necrotic tissue was noted at the site of the partial wound closure around the sphincter complex. The skin edges were still
approximated, but had a slight dusky appearance to them. Therefore, I remove the cailin and encountered necrotic tissue. Therefore, I reopened up the partial closure and debrided this area down to healthy bleeding tissue. The rectum and
sphincter complex remained healthy and intact. Meticulous hemostasis was achieved with electrocautery.
On evaluation of the inferior wound, there was additional unhealthy tissue within the subcutaneous region of the right buttock. This was debrided down to healthy bleeding tissue. Meticulous hemostasis was achieved with electrocautery. No infected
tissue, dishwater fluid or purulent fluid was encountered. Therefore, the development of further necrotic tissue was likely related to poor perfusion as opposed to persistent infection. I performed a pulse irrigation with 1 L of saline. The wound
was closely examined once more and meticulous hemostasis was achieved with electrocautery. Renita was applied to the entire wound base. The wound was then packed with two Betadine-soaked Kerlix.
At this point, the procedure was complete. All needle, sponge and instrument counts were correct. The patient tolerated the procedure well. The area was dressed with an ABD pad and mesh underwear was placed.
DICTATED BY: Bob Pena MD
[2024-03-23 18:51] LABS: Glucose - Point of Care 134 mg/dl (70-99)
[2024-03-23] MEDS: DILAUDID 0.25 MG IV (19:39)
[2024-03-23 21:49] LABS: % Basophils 0.1 % (0-2); % Eosinophils 0.3 % (0-6); % Immature Granulocytes 2.9 % (0-0.5); % Lymphocytes 11.9 % (20.5-51.1); % Monocytes 6.9 % (1.7-9.3); % Neutrophils 77.9 % (42.2-75.2); Absolute Eosinophils 0.1 10^3/uL (0-0.7); Absolute Immature Granulocytes 0.4 10^3/uL (0-0.05); Absolute Lymphocytes 1.8 10^3/uL (1.2-3.4); Absolute Monocytes 1.1 10^3/uL (0.1-0.6); Absolute Neutrophils 11.9 10^3/uL (1.4-6.5); Hemoglobin 10.9 g/dL (13.0-18.0); Mean Corp Hgb Conc. 34.1 g/dL (33.0-37.0); Mean Corpuscular Hgb 28.6 pg (27.0-31.0); Mean Platelet Volume 8.6 fL (7.4-10.4); Nucleated Red Blood Cells % 0 % (-); Platelet Count 232 10^3/uL (130-400); Red Blood Cell Count 3.81 10^6/uL (4.70-6.10); Red Cell Dist. Width 12.4 % (11.5-14.5); White Blood Cell Count 15.3 10^3/uL (4.8-10.8)
--- NOTE | 2024-03-23 22:29 | PTCARENOTE ---
Received pt via handoff from PACU. Pt AAOx3, able to KAUR, slightly drowsy. BP and HR within normal limits. 99% on 2L, lung sounds diminished. Hypoactive bowel sounds in all 4Q. Smart CDI draining clear yellow urine. Gluteal and sacral surgical
dressing in place. Call tapia and family at bed side.
[2024-03-23 23:23] LABS: Glucose - Point of Care 130 mg/dl (70-99)
--- NOTE | 2024-03-23 23:56 | PTCARENOTE ---
All systems reassessed. No change in status. Call tapia at bedside.
[2024-03-24] VITALS (48 sets, daily range): BP systolic 98–134; BP diastolic 48–70; BMI 25.9
[2024-03-24] MEDS: DILAUDID 1 MG IV (04:27)
[2024-03-24 04:41] LABS: % Basophils 0.2 % (0-2); % Basophils 0.3 % (0-2); % Eosinophils 0.4 % (0-6); % Eosinophils 0.5 % (0-6); % Immature Granulocytes 2.4 % (0-0.5); % Immature Granulocytes 2.9 % (0-0.5); % Lymphocytes 12.4 % (20.5-51.1); % Monocytes 6.9 % (1.7-9.3); % Monocytes 7.1 % (1.7-9.3); % Neutrophils 76.5 % (42.2-75.2); % Neutrophils 77.4 % (42.2-75.2); Absolute Eosinophils 0.1 10^3/uL (0-0.7); Absolute Immature Granulocytes 0.3 10^3/uL (0-0.05); Absolute Immature Granulocytes 0.4 10^3/uL (0-0.05); Absolute Lymphocytes 1.6 10^3/uL (1.2-3.4); Absolute Monocytes 0.9 10^3/uL (0.1-0.6); Absolute Neutrophils 9.5 10^3/uL (1.4-6.5); Hematocrit 32.3 % (39.0-52.0); Hematocrit 32.8 % (39.0-52.0); Mean Corp Hgb Conc. 33.5 g/dL (33.0-37.0); Mean Corp Hgb Conc. 34.1 g/dL (33.0-37.0); Mean Corpuscular Hgb 28.6 pg (27.0-31.0); Mean Corpuscular Volume 84.1 fL (80.0-94.0); Mean Corpuscular Volume 85.2 fL (80.0-94.0); Mean Platelet Volume 8.9 fL (7.4-10.4); Nucleated Red Blood Cells % 0 % (-); Platelet Count 242 10^3/uL (130-400); Platelet Count 254 10^3/uL (130-400); Red Blood Cell Count 3.84 10^6/uL (4.70-6.10); Red Blood Cell Count 3.85 10^6/uL (4.70-6.10); Red Cell Dist. Width 12.4 % (11.5-14.5); White Blood Cell Count 12.4 10^3/uL (4.8-10.8); White Blood Cell Count 12.9 10^3/uL (4.8-10.8)
--- NOTE | 2024-03-24 04:43 | PTCARENOTE ---
All systems reassessed, labs drawn, EKG completed, hygiene performed, call tapia at bedside.
[2024-03-24 04:46] LABS: INR 1.04; PT 13.9 Sec (11.4-14.6)
[2024-03-24 04:47] LABS: APTT 37.9 Sec (23.4-35.0)
[2024-03-24 05:02] LABS: Blood Urea Nitrogen 10 mg/dl (9-20); Carbon Dioxide 31 mmol/L (22-30); Chloride 98 mmol/L (98-107); Estimated Creatinine Clearance 80 ml/min; Glucose 105 mg/dl (70-99); Magnesium 1.9 mg/dl (1.6-2.3); Phosphorus 3.5 mg/dl (2.5-4.5); Potassium 4.2 mmol/L (3.5-5.1); Sodium 132 mmol/L (135-145); eGFR > 60.00
[2024-03-24] MEDS: TYLENOL 1000 MG PO ×4 (06:05→23:12)
[2024-03-24 06:18] LABS: Glucose - Point of Care 100 mg/dl (70-99)
--- NOTE | 2024-03-24 07:45 | PTCARENOTE ---
Assumed care of patient. Pt rec'd A&Ox3. Pleasant. KAUR's. Mild achy discomfort in perineal area...would like to hold off on pain meds at present. S1 S2 reg w/ NSR/1st degree AVB/BBC on monitor. +PP. Trace pedal edema. Knee hi SCD's. 2L
N/C...sats 98%. Moist NPC. Lungs diminished but clear. Abdomen round...+BS. Will advance diet per orders. Able to take po meds w/o issue. Smart in for urologic determination. Draining yellow urine. Skin pale. Large perineal wound...dressing
to be changed by surgery this am. 20P LW capped. 20P RFA capped. VS documented. Call tapia within reach. Will continue to monitor closely.
[2024-03-24] MEDS: DILAUDID 0.5 MG IV ×4 (08:09→19:58)
--- NOTE | 2024-03-24 08:15 | PTCARENOTE ---
Dilaudid 0.5mg IV provided for perineal pain of 5/10. Surgery at bedside...dressing changed.
[2024-03-24] MEDS: LOW STRENGTH ASPIRIN 81 MG PO (08:20)
[2024-03-24] MEDS: COLACE 100 MG PO ×2 (08:21→20:05)
[2024-03-24] MEDS: TOPROL XL 25 MG PO (08:21)
[2024-03-24] MEDS: LIPITOR 40 MG PO (08:21)
[2024-03-24] MEDS: FLOMAX 0.4 MG PO (08:22)
[2024-03-24] MEDS: TAPAZOLE 5 MG PO (08:22)
[2024-03-24] MEDS: AUGMENTIN 875 MG/125 MG 1 TABLET PO ×2 (08:23→20:05)
--- NOTE | 2024-03-24 08:27 | W.PN.INTV ---
Today's Communication / Plan
Recommendations
Pain control
Packing of right perineal wound as per colorectal surgery
BiPAP with sleep - encouraged patient to wear for the entirety of sleep
Maintain SpO2 88-95%
prn DuoNebs
Up OOB as tolerated
PT/OT
Transfuse as needed to keep Hb>7, plt>50k
Defer ischemic evaluation to cardiology assuming the stability of his Williams's gangrene
Patient is stable for downgrade out of ICU to telemetry. No additional recommendations at this time. Director [employer]/Pulmonary service will now sign off. Please re-consult if there are any additional questions/concerns, or if patient's respiratory
status deteriorates.
Assessment
-
68-year-old man with past medical history noted, initially admitted with rapid atrial fibrillation, fevers, leukocytosis, not feeling well. CT abdomen pelvis discovered necrotizing fasciitis. Taken to the operating room 03/14/2024 for debridement.
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 He was then downgraded and has been managed on the floor until he had a right perineal bleeding on 03/23/2024 and had to go to the OR for
treatment, and was transferred to the ICU postoperatively. He now remains in the ICU for further care with Director [employer] Management services following again.
Impression:
Hemorrhage from right perineal wound s/p debridement with pulse irrigation and control bleeding (POD #1)
Necrotizing fasciitis
CT abdomen pelvis 03/15/2024:Reviewed, showed extensive subcutaneous emphysema and gas throughout the right aspect of the perineum extending into the visualized proximal aspect of the scrotum/right inguinal canal. No loculated fluid collections.
Suspicious Williams's gangrene.
Hyponatremia
Increased troponin (peaked at 6.32 on 03/15/2024) -likely due to demand ischemia with type II OK in the setting of sepsis
Atrial fibrillation with rapid ventricular response: Status post cardioversion in the emergency room
History of coronary artery disease
Hyponatremia
Hyperglycemia
Conditions present prior admission:
Hypertension
Hyperlipidemia
Coronary artery disease
Type 2 diabetes
Atrial fibrillation
COPD
Obstructive sleep apnea-on CPAP poor compliant
History of urinary retention
Former smoker
CABG x 4 in July 2020
Former smoker
echocardiogram 03/15/2024: Normal LVEF. Mild hypokinesis in the basal mid inferior septal, apical lateral and basal inferior lance. Ejection fraction 55%. Normal RV function. No pericardial effusion.
Assessment and plan:
Patient was found to have bleeding from his right perineal wound on 03/23/2024 and went to the OR for debridement and pulse irrigation with an estimated EBL of 300 cc, and was transferred to the ICU postoperatively for close monitoring
He is doing very well today, he is normotensive with mild pain in his right testicle and is alert and oriented and in no acute distress
Continue with postoperative care as per colorectal surgery
Continue with packing as per surgery and continue to hold heparin drip
He was going to undergo a left heart catheterization which is currently postponed especially in the setting of this bleed; may end up getting left heart cath as an outpatient
Continue with ABx per ID - currently on Augmentin s/p Unasyn (03/19 - 03/23) and s/p Zosyn (03/15- 03/19), and also s/p clindamycin (03/16 - 03/18); he also received IV vanco x2 doses, zithromax x2 doses and Rocephin x 1 dose
Continue with Smart due to retention and continue with Flomax
Pain control
Encourage patient to get up out of bed as tolerated; encourage incentive spirometer use
PT/OT
Home antihypertensives currently on hold; resume as clinically indicated assuming his blood pressure remains stable
-
Surgical correspondence reviewed/urology correspondence reviewed
Status post incision and drainage 03/15/2024 and 03/16/2024
Continue with wound care
Perianal wound cultures from 03/15/2024 grew Streptococcus spp.
-
Atrial fibrillation
History of coronary to disease
Troponin initially was elevated earlier this hospitalization and peaked at 6.32 on 03/15/2024; no longer need to continue trending at this point
No evidence for acute coronary syndrome
Anticoagulation when cleared by surgery
Transthoracic echocardiogram on 03/15/2024 showed normal LVEF at 55% with normal RV size and function
Cardiology following and recs appreciated
-
History of COPD: Patient has a chronic cough
Not bronchospastic on exam.
Does not take any inhalers in the outpatient setting
Continue to monitor; continue prn DuoNebs
-
Obstructive sleep apnea-continue BiPAP at bedtime while in the hospital. Patient does have CPAP at home. Not using frequently.
-
Increase mobility
Nutritional support
DVT ppx: SCDs for now
Case discussed with primary hospitalist + colorectal surgery
Patient is stable for downgrade out of ICU to telemetry. No additional recommendations at this time. Director [employer]/Pulmonary service will now sign off. Thank you for allowing us to be involved in the care of this patient. Please reconsult if there
are any additional questions/concerns, or if patient's respiratory status deteriorates.
Total time spent today was 38 minutes for this encounter. Time includes reviewing laboratory test/imaging results, reviewing pertinent medical records, obtaining and reviewing medical history, performing an appropriate exam, ordering medications,
tests and procedures. Time also includes documentation of this encounter, coordinating patient care and communicating with other healthcare professionals. Total time does not include separately billed tests performed on this date of service.
Subjective Dataa
Subjective Data
Date of Service:
Date of Service: March 24, 2024
Chief Complaint: Director Talent Management Follow Up (Necrotizing fasciitis)
Subjective:
Patient seen and evaluated this morning. Having pain in his right testicle. Heart rate 70, BP 104/58 and saturating 96% on 2.5 L/min. Wore BiPAP overnight on 01/08 bled with 5 L/min - he did remove it himself overnight. Afebrile overnight. Hb
this AM is 11 from 10.9 last night. Heparin gtt is off. He currently denies chest pain, MARINO, SOB, nausea, fevers or chills.
Review of Systems
General: Other (Negative unless mentioned above)
Objective Data
Data Reviewed
Vital Signs / I&O / Oxygen:
Vital Signs
Temp Pulse Resp BP Pulse Ox
99.5 F 76 13 123/58 97
03/23/24 23:08 03/24/24 08:21 03/24/24 07:30 03/24/24 08:21 03/24/24 07:30
Intake and Output
03/23/24 03/24/24 03/25/24
06:59 06:59 06:59
Intake Total 1380 / 1380 1184 / 1184
Output Total 3430 / 3430 3250 / 3250
Balance -2049 / -2049 -2065 / -2065
SaO2 97
Nasal Cannula flow liters per 2
minute
Physical Exam
General: Respiratory Distress (negative), Comfortable, Chills (negative) and Sweats (negative)
HEENT: Normocephalic and Anicteric
Cardiovascular: S1-S2, Murmur (DAX, heard across precordium, grade II/) and Peripheral Edema (negative)
Respiratory: Wheeze (negative), Crackles (negative), Rhonchi (negative) and Non-Labored Respirations
GI: Soft, Non Distended, Non Tender and Normal Bowel Sounds
Neurology: AO x 3 and Tremors (negative)
Skin: Warm, Dry, Cyanosis (negative), Jaundice (negative) and Other (Bandage across right groin/perineum)
Labs/Micro/Reports
Lab Data
03/24/24 04:12
Laboratory Results
03/24/24
04:12
PT 13.9
INR 1.04
APTT 37.9 H
Microbiology
03/15/24 23:42 Ángela-anal Wound Culture - Final
Streptococcus species
03/15/24 23:42 Ángela-anal Gram Stain - Final
03/15/24 23:42 Perineum Anaerobic Culture - Final
[2024-03-24 08:28] LABS: Glucose - Point of Care 95 mg/dl (70-99)
--- NOTE | 2024-03-24 08:47 | W.PN.CRS1 ---
Today's Communication / Plan
-
hold heparin gtt for 24 hours
dressing changed by surgery this morning
okay for regular diet
discussed with urology/plastics
Assessment/Plan
-
68-year-old with a PMH of A-fib (on Eliquis, last dose p.m. of 03/14), CAD s/p CABG 2020, diabetes, mild COPD, HTN, HLD who presents with 3 days of not feeling well and 5 days of worsening perineal pain on the right. Last cscope was 30 years ago,
reportedly normal. In the ED, he was noted to be in rapid A-fib and underwent urgent cardioversion due to hypotension and started on a hepgtt. He was also noted to be in MATT and mild DKA, HbA1c 8%, glucose 411. WBC of 26.1, Creatinine 3.1, NA 128.
He was initially admitted with IV antibiotics and a scrotal ultrasound was obtained to rule out a scrotal abscess, which was negative. A CTAP without contrast was done showing subcutaneous gas through out the right aspect of the perineum, extending
from the scrotum posteriorly to the ischiorectal space.
03/16 (1am) flex sig (well-perfused rectum), incision and drainage and debridement of perineal infection
03/16 (4pm) debridement of perineal wound, urology debrided small scrotal abscess and placed julien in R inguinal
03/18 additional debridement into inguinal region and base of scrotum with urology
03/20 minimal debridement, wound healthy with evidence of granulation; urology closed superficial defect in dartos fascia, partial closure around anus creating an anterior and posterior wound
03/23 Exam under anesthesia, control of bleeding from perineal wound, debridement of perineal wound
AFVSS, packing not changed this morning
WBC 12.2 from 15.19 from 12.4
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
�Discussed with Dr. Alas from plastics; continue local wound care, he would not consider closing wound currently
�Appreciate wound RN; will need follow-up in the wound care center with Dr. Guidry
-Surgery changed dressing today and will change tomorrow, 03/25.
�Appreciate ID; continue IV Unasyn
�Continue regular diet
�Hold heparin gtt for 24 hours, will re-evaluate tomorrow, 03/25
�MATT, resolved; strict I/Os
�Discussed with urology, replaced wade due to retention; cont floxmax
� Pain control with Tylenol and Dilaudid as needed
� Encourage OOB/IS; patient needs mesh underwear to keep packing in place if getting OOB; appreciate PT
�Appreciate hospitalist and cardiology
-Holding on cardiac cath given events of yesterday
-Discussed case with urology (Dr. Michele) and plastic surgery (Dr. Loco)
Subjective Data
Procedure
03/16/2024- Exam under anesthesia, debridement of perineal wound, pulse-irrigation of wound; Dr. Crowell from urology performed drainage of scrotal abscess with further debridement of scrotal and inguinal wound
03/18/24 Exam under anesthesia, debridement of fibrinous material
03/20/24 Exam under anesthesia, debridement of fibrinous material, partial closure around the anal sphincter
03/23/24- Exam under anesthesia, control of bleeding from perineal wound, debridement of perineal wound
Subjective Data
Date of Service: March 24, 2024
Patient states he is sore and he had a 'rough night'. He denies nausea or vomiting. He is hungry. He has had no further active bleeding.
Objective Data
-
Vital Signs
Temp Pulse Resp BP Pulse Ox
99.5 F 76 13 123/58 97
03/23/24 23:08 03/24/24 08:21 03/24/24 07:30 03/24/24 08:21 03/24/24 07:30
Intake & Output
03/23/24 03/24/24 03/25/24
06:59 06:59 06:59
Intake Total 1380 / 1380 1184 / 1184
Output Total 3430 / 3430 3250 / 3250
Balance -2049 / -2049 -2065 /
Intake:
Oral fluids 1140 / 1140 840 / 840
IV fluids (Total) 344 / 344
normosol 200 / 200
IV piggybacks 240 / 240
Output:
Urine, Wade 3430 / 3430 2250 / 2250
Urine, Voided 1000 / 1000
Other:
Number of approximated SMALL 1
amounts of urine
Lab Results
03/24/24 04:12
Physical Exam
-
General: No Acute Distress and AOx3
Abdomen: Soft, Non Distended and Non Tender
Skin: Warm and Dry
Wound: Dressing Changed (kerilex saturated with saline placed into scrotal wound) and Other (no active bleeding, no further necrosis )
[2024-03-24] MEDS: NOVOLOG FLEXPEN SC (09:15)
--- NOTE | 2024-03-24 09:42 | PN.DE.MGMTRT ---
Insulin Management
- -
03/24/2024 Diabetes Management Consult Follow up
Patient admitted 03/14 due to heart rate issues, with a fib - cardioverted. 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 PMH afib, CAD, HTN, HLD, BPH, diabetes 20 years and anxiety. Prior to admission was taking farxinga
10 mg daily and Ozempic 1 mg weekly. A1c on admission 8%, cr 2, eGFR 35.49.
Patient is awake alert and oriented able to discuss diabetes management. States he has a glucose monitor with supplies.
03/24 Patient did return to the OR on 03/23. Glucose has ranged 100 to 134. Fasting glucose this AM 100 venous, 95 POC. Will further reduce HS lantus to 15 units and AC novolog to 5 units with low corrective.
Discussed with patients nurse.
Will follow.
Diabetes History
- -
Type of Diabetes: 2 requiring insulin
Pre-Admission Diabetes Regimen
03/24/24
04:12
Creatinine 1.1
Lab Results
Hemoglobin A1c 8.0 % (4.0-5.6) H 03/15/24 06:14
Insulin Pump Settings
IP Diabetes Regimen
03/23/24 03/23/24 03/24/24
18:50 23:12 04:12
Glucose 105 H
POC Glucose 134 H 130 H
03/24/24 03/24/24
06:06 08:17
Glucose
POC Glucose 100 H 95
Meal type: Breakfast
Meal type: Lunch
Patient Education
--- NOTE | 2024-03-24 10:30 | W.PN.CARDCBS ---
Today's Communication / Plan
-
Hold on catheterization after fifth operation for Williams's gangrene and hemorrhage on 03/23/2024
Heparin has been on hold
Eventually resume Eliquis but would wait till catheterization if that is performed during this admission
But would consider delaying catheterization and consider as an outpatient
Discussed with primary service
Impression / Plan
-
.
PCP: Dr. Hart
Primary Corporate Specialist: Dr. Bolanos
Impression:
Admitted with MATT, elevated Troponin and recurrent Afib with CV in the ER 03/14/24
MATT
NSTEMI, peak troponin 6.3
CAD s/p CABG x4 07/2020
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
Paroxysmal Afib
initially seen s/p CABG 07/2020 at
recurrent Afib treated with CV in [facility] 10/06/21
recurrent Afib treated with rate control and spontaneously converted to SR 10/09/21
DCCV in [facility] 03/14/2024
Chronic OAC with Eliquis
Hypothyroidism
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
HTN
HLD
DM2
COPD
ALFREDO 07/2020: EF 60-65%, no RWMA, severe conc LVH, mod dilated LA, mildly dilated mid ascending aorta, mild sessile atheroma in descending aorta and distal arch
ECHO 10/11/21: EF 50 to 55%, no WMA, normal RA/LA size, no significant valve disease
Echo 03/15/24: EF 55%, mild hypokinesis of the basal-mid inferoseptal, apical lateral and basal inferior lance, normal RV size and function, trileaflet sclerotic aortic valve with dense calcification on the noncoronary cusp, no /AR
Plan:
Heparin is now on hold after reoperation for right perineal wound bleed on 03/23/2024
Hold off on catheterization for now given high risk of rebleeding and possible stent thrombosis if stent was to be performed and Plavix had to be held. Of note patient has now had 5 operations for Williams's gangrene.
Eventually resume Eliquis but would wait till catheterization if that is performed during this admission
But would consider delaying catheterization and consider as an outpatient
Remains in sinus rhythm. Continue Lopressor. Eventually resume Eliquis
OP amlodipine/olmesartan, chlorthalidone initially on hold due to MATT, normalized. now on hold due to relative hypotension
LDL 54. continue OP lipitor
proBNP much improved from admission. appears euvolemic.
OP farxiga has been stopped as felt to be etiology for Williams's gangrene.
HPI: Patient came to ER yesterday with complaints of feeling poorly for at least 3 days and was found to be in rapid A-fib and is now admitted with cardiology consultation. Patient was last seen in the office on 05/19/2023 and was in SR at that
time. Initially seen in AF after CABG 07/2020 none recurrence last noted to be 10/2021 as noted above. Patient felt as though he was in AF for about 3 days prior to admission. Patient felt that this correlated with a decrease in his outpatient
levothyroxine dosing in the last several weeks, so he increase the dose, but no improvement in his AF so he finally came to ER yesterday. Patient says he also came to ER because he has been feeling sick and felt as though he had the flu for
the last 1 to 2 months. He says he feels he has a fever at times and this will correlate to a temperature of 100.6 �F when he checks his temperature at home. He says his the symptoms wax and wane and that he feels congested much of the time. He
feels SOB at times, but not consistent. No orthopnea or PND. No bloating. No LE edema. In ER last night patient was found to be in rapid AF and denied missing any Eliquis doses so he had a successful CV and remains in SR this a.m. Patient
reports dramatic symptomatic improvement following cheondoism of SR. Patient also noted to be in MATT with Cre up to 3.1 last evening, but improved to 2.3 this a.m. Patient reports ongoing congestion, but less SOB. Initial troponin was elevated
at 5.73, then up to 6.03, then down to 5.53 and then even though the troponin was trending down another troponin was checked and was elevated at 6.32. A 5th troponin is now pending, but patient denies any chest pain. He does have a history of CAD
s/p CABG.
Progress Note - Corporate Specialist
Subjective
Date of Service: March 24, 2024
No complaints
Objective
Labs:
03/24/24 04:12
Labs
Hgb 11.0 g/dL (13.0-18.0) L 03/24/24 04:12
Hgb 11.0 g/dL (13.0-18.0) L 03/24/24 04:12
Hct 32.3 % (39.0-52.0) L 03/24/24 04:12
Hct 32.8 % (39.0-52.0) L 03/24/24 04:12
Plt Count 242 10^3/uL (130-400) 03/24/24 04:12
Plt Count 254 10^3/uL (130-400) 03/24/24 04:12
PT 13.9 Sec (11.4-14.6) 03/24/24 04:12
INR 1.04 03/24/24 04:12
APTT 37.9 Sec (23.4-35.0) H 03/24/24 04:12
Sodium 132 mmol/L (135-145) L 03/24/24 04:12
Potassium 4.2 mmol/L (3.5-5.1) 03/24/24 04:12
BUN 10 mg/dl (9-20) 03/24/24 04:12
Creatinine 1.1 mg/dL (0.7-1.3) 03/24/24 04:12
Glucose 105 mg/dl (70-99) H 03/24/24 04:12
Vital Signs and I&O:
Vital Signs
Temp Pulse Resp BP Pulse Ox
99.5 F 76 13 123/58 97
03/23/24 23:08 03/24/24 08:21 03/24/24 07:30 03/24/24 08:21 03/24/24 07:30
Vital Signs
Temp Pulse Resp BP Pulse Ox
99.5 F 76 13 123/58 97
03/23/24 23:08 03/24/24 08:21 03/24/24 07:30 03/24/24 08:21 03/24/24 07:30
Intake & Output
03/22/24 03/23/24 03/24/24 03/25/24
06:59 06:59 06:59 06:59
Intake Total 2640 / 2640 1380 / 1380 1184 / 1184 480 / 480
Output Total 2845 / 2845 3430 / 3430 3250 / 3250 775 / 775
Balance -205 / -205 -205 / -2049 -2065 / -2066 -295 / -295
Physical Exam
Physical Exam
General: Well developed, well nourished in NAD.
Neck: Supple, no JVD, HJR, carotids +2 B/L, no bruits bilaterally.
Heart: Non displaced PMI, RRR, no murmurs, No S3, S4, no rubs.
Lungs: Clear to auscultation bilaterally, no wheeze, rhonchi, rubs bilaterally,
normal expiratory phase.
Extremities: No clubbing, cyanosis or edema bilaterally.
Neuro: Grossly nonfocal, awake, alert and oriented x3.
[2024-03-24] MEDS: NOVOLOG FLEXPEN-LOW RESISTANCE SC ×2 (11:11→17:26)
[2024-03-24] MEDS: NOVOLOG FLEXPEN 5 UNITS SC ×2 (11:12→17:24)
[2024-03-24 11:23] LABS: Glucose - Point of Care 149 mg/dl (70-99)
--- NOTE | 2024-03-24 12:01 | W.PN.ID1 ---
Date of Service
Date of Service: March 24, 2024
Today's Communication
Continue po Augmentin 875mg po bid through 03/29/24
Assessment / Plan
#Fourniere's gangrene of right perineum
- s/p I+D 03/15/24, 03/16/24, 03/18/24, 03/20/24. 03/23/24
- Gram stain: polymicrobial org; Cx Strep species
- s/p 8d Unasyn
-Continue po Augmentin 875mg po bid through 03/29/24
# s/p Sepsis, hypotensive due to above
- Blood cx neg
-Leukocytosis resolving
-Follow wbc.
# MATT - resolved
# Afib with RVR
-s/p cardioversion, now in sinus.
# Conditions PTGA
Diabetes mellitus
Hyperthyroidism
CAD status post CABG x 4
Atrial fibrillation
Hypertension
COPD
Dyslipidemia
BPH
Chief Complaint
-: Other (Williams's)
Subjective / Review of Systems
Events noted. Profuse bleeding from perineum taken back to OR yesterday.
Doing OK today.
Vital Signs / Physical Exam
Vital Signs
Vital Signs
Temp Pulse Resp BP Pulse Ox
98 F 82 16 131/70 98
03/24/24 11:49 03/24/24 11:00 03/24/24 11:00 03/24/24 11:00 03/24/24 11:00
Physical Exam
Constitutional: No Acute Distress and Comfortable
Cardiovascular: Regular Rate and S1/S2
Pulmonary: Clear
Gastrointestinal: Soft, Non Tender and Non Distended
Extremities: Negative Edema
Neurological: AO x 3
Objective Data
Lab Data
Lab Results
03/24/24 04:12
PT 13.9 Sec (11.4-14.6) 03/24/24 04:12
INR 1.04 03/24/24 04:12
APTT 37.9 Sec (23.4-35.0) H 03/24/24 04:12
Estimated Creat Clear 80 ml/min 03/24/24 04:12
Lactic Acid 1.2 mmol/L (0.7-2.0) 03/16/24 13:17
Total Bilirubin 0.4 mg/dl (0.2-1.3) 03/21/24 07:54
AST 21 U/L (17-59) 03/21/24 07:54
ALT 22 U/L (0-50) 03/21/24 07:54
Alkaline Phosphatase 42 U/L (38-126) 03/21/24 07:54
Most recent labs reviewed.
Micro Results:
03/15/24 23:42 Wound Culture - Final
Ángela-anal Streptococcus species
Gram Stain - Final
03/15/24 23:42 Anaerobic Culture - Final
Perineum
03/15/24 15:00 Blood Culture - Final
Blood/Venous No Growth - Final Report
03/15/24 14:47 Blood Culture - Final
Blood/Venous No Growth - Final Report
03/14/24 18:47 Influenza Types A & B (YOMI) - Final
Nasal Swab Negative for Influenza A & B, NAAT
Negative results must be combined with clinical observations
and patient history.
Nucleic Acid Amplification test (NAAT)performed on the
[employer] platform.
03/14/24 CXR: Probable minor scarring or atelectasis in the medial left lung base. Otherwise no acute cardiopulmonary process.
03/15/24 Scrotal US: Scrotal edematous changes. Small left hydrocele and small left varicocele. No abnormal collection suspicious for abscess identified at ultrasound.
03/15/24 CT a/p: Extensive subcutaneous edema and gas throughout the right aspect of the perineum extending into the visualized proximal aspect of the scrotum/right inguinal canal. No loculated fluid collections. Findings are suspicious for
Williams's gangrene in the appropriate clinical context.
--- NOTE | 2024-03-24 12:15 | PTCARENOTE ---
No major changes in physical assessment. VS documented. Seen by . Probable d/c out of ICU. Tentative cardiac cath tmr. Call tapia in reach.
--- NOTE | 2024-03-24 14:51 | W.PN.HOSP.TC ---
Today's Communication/Plan
-
Monitor hemoglobin
Hold heparin
Wound care
Oral antibiotics
Possibly for [facility] in a.m.
Insulin dose has been adjusted
Assessment / Plan
Assessment / Plan
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 CT scan noted. Antibiotics per infectious disease consolidated to Unasyn. Appreciate colorectal surgery input. Had incision and drainage and debridement communications field technician
03/16. Revisit to the OR 03/18 for further debridement. Status post additional wound inspection and debridement on 03/20. Blood cultures negative so far but they were drawn after starting antibiotics. Patient states pain in his perineum him
started about a week prior to admission. Discussed permanently stopping SGLT2 inhibitors moving forward. Informed his business services director Dr. Denson as well.
Hemodynamically improved. Not on vasopressors. Sepsis and shock resolved.
Acute bleeding from the wound on 03/23 requiring another trip to the OR for revision and packing. Continue holding anticoagulation with heparin.
MATT -due to severe volume depletion. Creatinine improving. Hold chlorthalidone, olmesartan. Hold NSAIDs. Weight is up 6 kg but not symptomatic, denies shortness of breath. No peripheral edema. Hold further IV fluids. Discussed with Dr. Pena.
May need IV Lasix soon. Smart discontinued for trial of voiding on 03/22
DM2 with hyperglycemia -DKA resolved. Basal/bolus insulin to continue. Diabetes SOUND PRINTER following. Hemoglobin A1c 8%. Will be discharged on insulin.
At home he uses Farxiga 10 mg daily, Ozempic once weekly.
Moving forward, permanently discontinue SGLT-2 inhibitors given presentation with Williams's gangrene. Discussed with patient.
NSTEMI - Echocardiogram shows LVEF 55%, mild hypokinesis of the basal�mid inferior septal, apical lateral, basal inferior lance. Normal RV size and systolic function. Anticipate outpatient ischemic evaluation as per cardiology.
Plan is for ischemic evaluation with left heart cath tentatively on 03/24.
Rapid paroxysmal atrial fibrillation -successfully cardioverted to sinus rhythm in the ER. IV heparin on hold for OR today. Continue low-dose metoprolol.
Hyperthyroidism -followed by endocrinology, Dr. Denson. Patient is unsure of home dose but believes the methimazole was reduced to 5 mg once daily prior to admission. He tried to increase it back to 5 mg twice daily to abort the atrial
fibrillation to no avail.
TSH 2.32, free T4 1.44.
I spoke with Dr. Denson and confirmed that his home dose of methimazole should be 5 mg once daily on discharge.
Hyponatremia -resolved.
Essential hypertension -hypotensive on arrival due to rapid atrial fibrillation and volume depletion. IV fluid bolus ordered. May need vasopressors. Hold antihypertensives.
Hyperlipidemia - atorvastatin.
CAD/CABG -2020.
COPD without exacerbation
Full code
Anticipated Discharge: > 48 hours
Subjective/Interval History
-
Date of Service: March 24, 2024
Objective Data
-
Labs:
Laboratory Results
03/24/24 03/24/24 03/24/24
04:12 04:12 04:12
WBC 12.4 H 12.9 H
Hgb 11.0 L 11.0 L
Hct 32.8 L
Plt Count
PT
INR
APTT
Sodium
Potassium
Chloride
Carbon Dioxide
BUN
Creatinine
Glucose
Calcium
03/24/24 03/24/24 03/24/24
04:12 04:12 08:26
WBC
Hgb
Hct 32.3 L
Plt Count 254 242
PT 13.9
INR 1.04
APTT 37.9 H
Sodium 132 L Pending
Potassium 4.2 Pending
Chloride 98 Pending
Carbon Dioxide 31 H Pending
BUN 10 Pending
Creatinine 1.1 Pending
Glucose 105 H Pending
Calcium 8.0 L Pending
Vital Signs:
Vital Signs
Temp Pulse Resp BP Pulse Ox
98 F 82 16 131/70 98
03/24/24 11:49 03/24/24 11:00 03/24/24 11:00 03/24/24 11:00 03/24/24 11:00
I&O
03/23/24 03/24/24 03/25/24
06:59 06:59 06:59
Intake Total 1380 / 1380 1184 / 1184 480 / 480
Output Total 3430 / 3430 3250 / 3250 775 / 775
Balance -2049 / -2049 -2065 / -2065 -295 / -295
Physical Exam
-
General: Well Developed and Well Nourished
HEENT: Normocephalic and Atraumatic
Respiratory: Clear to Auscultation; Negative Wheezes, Rales or Rhonchi
Cardiac: Irregular Rhythm
GI: Soft, Nontender, Nondistended and Normal Bowel Sounds
Genito-urinary: No Costovertebral Tender
Musculoskeletal: No Edema
Neuro: AO x 3
Hematologic / Lymphatic: No Lymphadenopathy
Psych: Calm
--- NOTE | 2024-03-24 15:15 | PTCARENOTE ---
Report called to RN. Pt to transfer to [id number].
--- NOTE | 2024-03-24 15:30 | CM ---
CM following rte: discharge planning.
Reviewed pt's chart, met with pt.
PT and OT evaluations noted - home PT/OT recommended. Pt is aware, expressed his agreement.
A referral to [facility] noted. [facility] liaison following.
D/C plan: home with [facility] and family support.
CM will follow with discharge plan updates as hospitalization progresses
--- NOTE | 2024-03-24 15:41 | PTCARENOTE ---
Pt continent for large brown loose BM....no issues...packing remained intact. Pain meds provided prior to transfer to [address] [place] [address]. Helga GONZALEZ aware.
--- NOTE | 2024-03-24 15:57 | PTCARENOTE ---
Pt transferred to from ICU with TABLE GAMES DUAL RATE SUPERVISOR at bedside, pt stood and pivoted to new bed, VSS, pt resting comfortably in bed at this time.
[2024-03-24 16:43] LABS: Glucose - Point of Care 134 mg/dl (70-99)
[2024-03-24] MEDS: LANTUS 0.15 UNITS SC (21:33)
[2024-03-24 21:35] LABS: Glucose - Point of Care 195 mg/dl (70-99)
[2024-03-25] VITALS (11 sets, daily range): BP systolic 108–144; BP diastolic 55–89; PULSE 2–86; O2SAT 96
[2024-03-25] MEDS: DILAUDID 0.5 MG IV ×2 (00:36→15:45)
[2024-03-25] MEDS: NITROSTAT (SUBLINGUAL) 0.4 MG SL (03:30)
[2024-03-25] MEDS: LOPRESSOR 5 MG IV (04:02)
--- NOTE | 2024-03-25 04:08 | PTCARENOTE ---
Patients heart rate on monitor in the 130s. Patient states he has heat burn, 2/10 dull pain. Nitrostat given at 03:30, BP of 137/89. EKG obtained. At 03:35, BP 120/73, Heart rate in 120s. Messaged SEAMAN. IV Lopressor given at 04:00. BP 127/72 HR 120.
At 04:10 HR 88. Patient still has heart burn. Troponin will be relieved
--- NOTE | 2024-03-25 04:14 | PTCARENOTE ---
Patients heart rate on monitor in the 130s. Patient states he has heat burn, 2/10 dull pain. Nitrostat given at 03:30, BP of 137/89. EKG obtained. At 03:35, BP 120/73, Heart rate in 120s. Messaged SPECIAL DUTY NURSE. IV Lopressor given at 04:00. BP 127/72 HR 120.
At 04:10 HR 88. Patient still has heart burn, Tums given. Troponin will be obtained with morning blood work.
[2024-03-25] MEDS: TUMS CHEWABLE TABLET 200 MG PO (04:17)
[2024-03-25] MEDS: TYLENOL 1000 MG PO ×4 (05:53→23:59)
[2024-03-25 06:57] LABS: % Basophils 0.3 % (0-2); % Eosinophils 0.6 % (0-6); % Immature Granulocytes 1.9 % (0-0.5); % Lymphocytes 11.2 % (20.5-51.1); % Monocytes 6.7 % (1.7-9.3); % Neutrophils 79.3 % (42.2-75.2); Absolute Eosinophils 0.1 10^3/uL (0-0.7); Absolute Immature Granulocytes 0.2 10^3/uL (0-0.05); Absolute Lymphocytes 1.2 10^3/uL (1.2-3.4); Absolute Monocytes 0.7 10^3/uL (0.1-0.6); Absolute Neutrophils 8.6 10^3/uL (1.4-6.5); Hematocrit 25.9 % (39.0-52.0); Hemoglobin 8.9 g/dL (13.0-18.0); Mean Corp Hgb Conc. 34.4 g/dL (33.0-37.0); Mean Corpuscular Hgb 28.9 pg (27.0-31.0); Mean Corpuscular Volume 84.1 fL (80.0-94.0); Mean Platelet Volume 8.8 fL (7.4-10.4); Nucleated Red Blood Cells % 0 % (-); Platelet Count 225 10^3/uL (130-400); Red Blood Cell Count 3.08 10^6/uL (4.70-6.10); Red Cell Dist. Width 12.7 % (11.5-14.5); White Blood Cell Count 10.8 10^3/uL (4.8-10.8)
[2024-03-25 07:17] LABS: Blood Urea Nitrogen 11 mg/dl (9-20); Calcium 7.7 mg/dl (8.4-10.2); Carbon Dioxide 30 mmol/L (22-30); Chloride 101 mmol/L (98-107); Estimated Creatinine Clearance 80 ml/min; Glucose 101 mg/dl (70-99); Phosphorus 3.6 mg/dl (2.5-4.5); Potassium 4.2 mmol/L (3.5-5.1); Sodium 134 mmol/L (135-145); eGFR > 60.00
--- NOTE | 2024-03-25 07:17 | PN.DE.MGMTRT ---
Insulin Management
- -
03/25/2024 Diabetes Management Consult Follow up
Patient admitted 03/14 due to heart rate issues, with a fib - cardioverted. 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 PMH afib, CAD, HTN, HLD, BPH, diabetes 20 years and anxiety. Prior to admission was taking farxinga
10 mg daily and Ozempic 1 mg weekly. A1c on admission 8%, cr 2, eGFR 35.49.
Patient is awake alert and oriented able to discuss diabetes management. States he has a glucose monitor with supplies.
03/25 POD 2 from last debridement. Glucose has ranged 95 to 195. Fasting glucose this AM 101. Will make no change to HS lantus 15 units and AC novolog 5 units with low corrective.
Discussed with patients nurse.
Will follow.
Diabetes History
- -
Type of Diabetes: 2 requiring insulin
Pre-Admission Diabetes Regimen
03/24/24
08:26
Creatinine Cancelled
Lab Results
Hemoglobin A1c 8.0 % (4.0-5.6) H 03/15/24 06:14
Insulin Pump Settings
IP Diabetes Regimen
03/24/24 03/24/24 03/24/24
08:17 08:26 11:10
Glucose Cancelled
POC Glucose 95 149 H
03/24/24 03/24/24
16:41 21:26
Glucose
POC Glucose 134 H 195 H
Meal type: Dinner
Meal type: Breakfast
Meal type: Breakfast
Amount consumed: 100%
Amount consumed: 100%
Patient Education
[2024-03-25 07:21] LABS: Troponin I 0.151 ng/ml
[2024-03-25 08:24] LABS: Glucose - Point of Care 119 mg/dl (70-99)
--- NOTE | 2024-03-25 08:27 | W.PN.CARDCBS ---
Addendum entered and electronically signed by Jose C Bravo MD 03/25/24 12:37:
I saw and examined the patient.
The Pipe Recovery Specialist's note was reviewed and I agree with the note.
Comment:
GEN: No distress, awake, Ox3
HEENT: supple, anicteric, mmm
LUNGS: CTA, no wheezes/rales
CV: Reg, S1/S2, /6 syst LSB, no gallop
ABD: soft, BS+, NT/ND
EXT: No edema
NEURO: Gross non-focal
SKIN: No rash
Plan:
No new bleeding. Restart IV heparin today.
Will hold off on cath for now. Cont wound care
Increase Toprol today
would like to let wound recover before cath as outpt
Original Note:
Today's Communication / Plan
-
continue wound care
ok to resume IV heparin today per colorectal
increase toprol
eventual cath
Impression / Plan
-
.
PCP: Dr. Hart
Primary Plastics Tooling Engineer: Dr. Bolanos
Impression:
Admitted with MATT, elevated Troponin and recurrent Afib with CV in the ER 03/14/24
MATT
NSTEMI, peak troponin 6.3
CAD s/p CABG x4 07/2020
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
Paroxysmal Afib
initially seen s/p CABG 07/2020 at
recurrent Afib treated with CV in [facility] 10/06/21
recurrent Afib treated with rate control and spontaneously converted to SR 10/09/21
DCCV in [facility] 03/14/2024
Chronic OAC with Eliquis
History of thyroid issues and tremors with amiodarone
Hypothyroidism
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
HTN
HLD
DM2
COPD
ALFREDO 07/2020: EF 60-65%, no RWMA, severe conc LVH, mod dilated LA, mildly dilated mid ascending aorta, mild sessile atheroma in descending aorta and distal arch
ECHO 10/11/21: EF 50 to 55%, no WMA, normal RA/LA size, no significant valve disease
Echo 03/15/24: EF 55%, mild hypokinesis of the basal-mid inferoseptal, apical lateral and basal inferior lance, normal RV size and function, trileaflet sclerotic aortic valve with dense calcification on the noncoronary cusp, no /AR
Plan:
-he has now had 5 operations for Williams's gangrene since admission
-heparin remains on hold. hgb 8.9
-he also ruled in for NSTEMI this admission with peak trop 6.3 and had RWMA by echo. for now would attempt to manage conservatively given ongoing bleeding/wound.
-reports he had some angina/chest pain overnight - noted to have episode of ~[address] vs atach with RVR on review of tele correlating with his discomfort. fortunately trop remains lower at 0.151. will attempt to increase toprol dose and follow
on tele. of note, he has history of tremors and thyroid issues on amiodarone in past, however would be willing to retry amiodarone if needed.
-ideally would cath patient this admission, however discussed current risks of proceeding and he expresses understanding. will continue to reevaluate safety and timing of cardiac cath this admission
-d/w colorectal surgery. ok to resume IV heparin today. no bolus. eventually will need transition back to eliquis
-OP amlodipine/olmesartan, chlorthalidone initially on hold due to MATT, normalized. now on hold due to relative hypotension
-LDL 54. continue OP lipitor
-proBNP much improved from admission. appears euvolemic.
-OP farxiga has been stopped as felt to be etiology for Williams's gangrene.
-d/w nursing
HPI: Patient came to ER yesterday with complaints of feeling poorly for at least 3 days and was found to be in rapid A-fib and is now admitted with cardiology consultation. Patient was last seen in the office on 05/19/2023 and was in SR at that
time. Initially seen in AF after CABG 07/2020 none recurrence last noted to be 10/2021 as noted above. Patient felt as though he was in AF for about 3 days prior to admission. Patient felt that this correlated with a decrease in his outpatient
levothyroxine dosing in the last several weeks, so he increase the dose, but no improvement in his AF so he finally came to ER yesterday. Patient says he also came to ER because he has been feeling sick and felt as though he had the flu for
the last 1 to 2 months. He says he feels he has a fever at times and this will correlate to a temperature of 100.6 �F when he checks his temperature at home. He says his the symptoms wax and wane and that he feels congested much of the time. He
feels SOB at times, but not consistent. No orthopnea or PND. No bloating. No LE edema. In ER last night patient was found to be in rapid AF and denied missing any Eliquis doses so he had a successful CV and remains in SR this a.m. Patient
reports dramatic symptomatic improvement following mormon of SR. Patient also noted to be in MATT with Cre up to 3.1 last evening, but improved to 2.3 this a.m. Patient reports ongoing congestion, but less SOB. Initial troponin was elevated
at 5.73, then up to 6.03, then down to 5.53 and then even though the troponin was trending down another troponin was checked and was elevated at 6.32. A 5th troponin is now pending, but patient denies any chest pain. He does have a history of CAD
s/p CABG.
Progress Note - Plastics Tooling Engineer
Subjective
Date of Service: March 25, 2024
reports had ~1 hour of angina overnight, now resolved
Objective
Labs:
03/25/24 06:35
03/25/24 06:35
Labs
Hgb 8.9 g/dL (13.0-18.0) L 03/25/24 06:35
Hct 25.9 % (39.0-52.0) L 03/25/24 06:35
Plt Count 225 10^3/uL (130-400) 03/25/24 06:35
PT 13.9 Sec (11.4-14.6) 03/24/24 04:12
INR 1.04 03/24/24 04:12
APTT 37.9 Sec (23.4-35.0) H 03/24/24 04:12
Sodium 134 mmol/L (135-145) L 03/25/24 06:35
Potassium 4.2 mmol/L (3.5-5.1) 03/25/24 06:35
BUN 11 mg/dl (9-20) 03/25/24 06:35
Creatinine 1.1 mg/dL (0.7-1.3) 03/25/24 06:35
Glucose 101 mg/dl (70-99) H 03/25/24 06:35
Troponins
03/25/24
06:35
Troponin I 0.151 H*
Vital Signs and I&O:
Vital Signs
Temp Pulse Resp BP Pulse Ox
98.3 F 64 16 108/59 95
03/25/24 07:13 03/25/24 07:13 03/25/24 07:13 03/25/24 07:13 03/25/24 07:13
Vital Signs
Temp Pulse Resp BP Pulse Ox
98.3 F 64 16 108/59 95
03/25/24 07:13 03/25/24 07:13 03/25/24 07:13 03/25/24 07:13 03/25/24 07:13
Intake & Output
03/23/24 03/24/24 03/25/24 03/26/24
07:59 07:59 07:59 07:59
Intake Total 1380 / 1380 1184 / 1184 2199 / 2199
Output Total 3430 / 3430 3250 / 3250 4425 / 4425
Balance -2049 / -2049 -2065 / -2065 -2224 / -2224
Physical Exam
Physical Exam
GEN: No distress, awake, alert, oriented x3
HEENT: supple, anicteric, mmm, eomi
LUNGS: CTA B/L, no wheezes
CV: Reg, S1/S2, no murmur
ABD: soft, BS+, NT/ND
EXT: No cyanosis, clubbing, edema
NEURO: Gross non-focal
[2024-03-25] MEDS: NOVOLOG FLEXPEN-LOW RESISTANCE SC (08:37)
[2024-03-25] MEDS: TOPROL XL 25 MG PO ×2 (08:40→20:37)
[2024-03-25] MEDS: LOW STRENGTH ASPIRIN 81 MG PO (08:40)
[2024-03-25] MEDS: B COMPLEX w/VITAMIN C 1 CAPLET PO (08:40)
[2024-03-25] MEDS: NOVOLOG FLEXPEN 5 UNITS SC ×3 (08:41→18:46)
[2024-03-25] MEDS: COLACE 100 MG PO ×2 (08:41→20:37)
[2024-03-25] MEDS: FLOMAX 0.4 MG PO (08:41)
[2024-03-25] MEDS: LIPITOR 40 MG PO (08:41)
[2024-03-25] MEDS: AUGMENTIN 875 MG/125 MG 1 TABLET PO ×2 (08:41→20:45)
[2024-03-25] MEDS: TAPAZOLE 5 MG PO (08:41)
[2024-03-25] MEDS: DILAUDID 1 MG IV (08:41)
--- NOTE | 2024-03-25 08:50 | PTCARENOTE ---
pt site packed by Surgery at [facility]. nurse witnessed packed. minimal drainage. pt given prn pain medication rated 9/10 pain. See MAR for proper documentation. Cardiology and MD made aware of tachycardia that happened overnight and elevated
troponin result this morning.
--- NOTE | 2024-03-25 09:35 | W.PN.CRS1 ---
Today's Communication / Plan
-
Wound change done by surgery team at rounds
If heparin drip needs to be restarted, please no bolus
Assessment/Plan
-
68-year-old with a PMH of A-fib (on Eliquis, last dose p.m. of 03/14), CAD s/p CABG 2020, diabetes, mild COPD, HTN, HLD who presents with 3 days of not feeling well and 5 days of worsening perineal pain on the right. Last cscope was 30 years ago,
reportedly normal. In the ED, he was noted to be in rapid A-fib and underwent urgent cardioversion due to hypotension and started on a hepgtt. He was also noted to be in MATT and mild DKA, HbA1c 8%, glucose 411. WBC of 26.1, Creatinine 3.1, NA 128.
He was initially admitted with IV antibiotics and a scrotal ultrasound was obtained to rule out a scrotal abscess, which was negative. A CTAP without contrast was done showing subcutaneous gas through out the right aspect of the perineum, extending
from the scrotum posteriorly to the ischiorectal space.
03/16 (1am) flex sig (well-perfused rectum), incision and drainage and debridement of perineal infection
03/16 (4pm) debridement of perineal wound, urology debrided small scrotal abscess and placed julien in R inguinal
03/18 additional debridement into inguinal region and base of scrotum with urology
03/20 minimal debridement, wound healthy with evidence of granulation; urology closed superficial defect in dartos fascia, partial closure around anus creating an anterior and posterior wound
03/23 Exam under anesthesia, control of bleeding from perineal wound, debridement of perineal wound
AFVSS, packing not changed this morning
WBC 10.8. Hemoglobin 8.9.
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
�Discussed with Dr. Alas from plastics; continue local wound care, he would not consider closing wound currently
�Appreciate wound RN; will need follow-up in the wound care center with Dr. Guidry
-Surgery changed dressing today, will have nurse change tomorrow
�Appreciate ID; continue IV Unasyn
�Continue regular diet
� If heparin drip needs to be restarted, okay to do so from our perspective. Please do not bolus. Discussed with cardiology PA.
�MATT, resolved; strict I/Os
�Discussed with urology, replaced wade due to retention; cont floxmax
� Pain control with Tylenol and Dilaudid as needed
� Encourage OOB/IS; patient needs mesh underwear to keep packing in place if getting OOB; appreciate PT
�Appreciate hospitalist and cardiology
-Eventual cardiac cath
Subjective Data
Procedure
03/16/2024- Exam under anesthesia, debridement of perineal wound, pulse-irrigation of wound; Dr. Crowell from urology performed drainage of scrotal abscess with further debridement of scrotal and inguinal wound
03/18/24 Exam under anesthesia, debridement of fibrinous material
03/20/24 Exam under anesthesia, debridement of fibrinous material, partial closure around the anal sphincter
03/23/24- Exam under anesthesia, control of bleeding from perineal wound, debridement of perineal wound
Subjective Data
Date of Service: March 25, 2024
Patient states he had some chest pain overnight. He does not have it at this moment. Otherwise his pain is controlled.
Objective Data
-
Vital Signs
Temp Pulse Resp BP Pulse Ox
98.3 F 64 16 110/56 95
03/25/24 07:13 03/25/24 07:13 03/25/24 07:13 03/25/24 08:40 03/25/24 07:13
Intake & Output
03/24/24 03/25/24 03/26/24
06:59 06:59 06:59
Intake Total 1184 / 1184 2200 / 2200
Output Total 3250 / 3250 4425 / 4425
Balance -6 / -6 -5 / -2224
Intake:
Oral fluids 840 / 840 2200 / 2200
IV fluids (Total) 344 / 344
normosol 200 / 200
Output:
Urine, Wade 2250 / 2250 4425 / 4425
Urine, Voided 1000 / 1000
Lab Results
03/25/24 06:35
03/25/24 06:35
Physical Exam
-
General: No Acute Distress and AOx3
Abdomen: Soft, Non Distended and Non Tender
Wound: Dressing Changed (Kerlix soaked with saline)
--- NOTE | 2024-03-25 10:21 | W.PN.ID1 ---
Date of Service
Date of Service: March 25, 2024
Today's Communication
Continue po Augmentin 875mg po bid through 03/29/24
ID will sign off. Call prn.
Assessment / Plan
#Fourniere's gangrene of right perineum
- s/p I+D 03/15/24, 03/16/24, 03/18/24, 03/20/24. 03/23/24
- Gram stain: polymicrobial org; Cx Strep species
- s/p 8d Unasyn
-Continue po Augmentin 875mg po bid through 03/29/24
# s/p Sepsis, hypotensive due to above
- Blood cx neg
-Leukocytosis resolved
# MATT - resolved
# Afib with RVR
-s/p cardioversion, now in sinus.
ID will sign off.
# Conditions PTGA
Diabetes mellitus
Hyperthyroidism
CAD status post CABG x 4
Atrial fibrillation
Hypertension
COPD
Dyslipidemia
BPH
Chief Complaint
-: Other (Williams's)
Subjective / Review of Systems
Had angina last night, now resolved. For eventual cath per cardiology.
Feels well today.
Vital Signs / Physical Exam
Vital Signs
Vital Signs
Temp Pulse Resp BP Pulse Ox
98.3 F 64 16 110/56 95
03/25/24 07:13 03/25/24 07:13 03/25/24 07:13 03/25/24 08:40 03/25/24 07:13
Physical Exam
Constitutional: No Acute Distress and Comfortable
Eyes: No Conjunctival Hemorrhage and Sclera Anicteric
Cardiovascular: Regular Rate and S1/S2
Pulmonary: Clear
Gastrointestinal: Soft
Genito-Urinary: Negative CVA Tenderness
Extremities: Negative Edema
Neurological: AO x 3
Objective Data
Lab Data
Lab Results
03/25/24 06:35
03/25/24 06:35
PT 13.9 Sec (11.4-14.6) 03/24/24 04:12
INR 1.04 03/24/24 04:12
APTT 37.9 Sec (23.4-35.0) H 03/24/24 04:12
Estimated Creat Clear 80 ml/min 03/25/24 06:35
Lactic Acid 1.2 mmol/L (0.7-2.0) 03/16/24 13:17
Total Bilirubin 0.4 mg/dl (0.2-1.3) 03/21/24 07:54
AST 21 U/L (17-59) 03/21/24 07:54
ALT 22 U/L (0-50) 03/21/24 07:54
Alkaline Phosphatase 42 U/L (38-126) 03/21/24 07:54
Most recent labs reviewed.
Micro Results:
03/15/24 23:42 Wound Culture - Final
Ángela-anal Streptococcus species
Gram Stain - Final
03/15/24 23:42 Anaerobic Culture - Final
Perineum
03/15/24 15:00 Blood Culture - Final
Blood/Venous No Growth - Final Report
03/15/24 14:47 Blood Culture - Final
Blood/Venous No Growth - Final Report
03/14/24 18:47 Influenza Types A & B (YOMI) - Final
Nasal Swab Negative for Influenza A & B, NAAT
Negative results must be combined with clinical observations
and patient history.
Nucleic Acid Amplification test (NAAT)performed on the
[employer] platform.
03/14/24 CXR: Probable minor scarring or atelectasis in the medial left lung base. Otherwise no acute cardiopulmonary process.
03/15/24 Scrotal US: Scrotal edematous changes. Small left hydrocele and small left varicocele. No abnormal collection suspicious for abscess identified at ultrasound.
03/15/24 CT a/p: Extensive subcutaneous edema and gas throughout the right aspect of the perineum extending into the visualized proximal aspect of the scrotum/right inguinal canal. No loculated fluid collections. Findings are suspicious for
Williams's gangrene in the appropriate clinical context.
--- NOTE | 2024-03-25 10:22 | VNURNOTE ---
Home Health Liaison spoke with with patient to discuss [facility] nurse/therapy, visits, schedule and homebound status. He requested liaison speak with partner Tatiana. Called Tatiana. Explained [facility] nurse/therapy, visits, schedule and homebound status
Patient is agreeable and understands that visits at home will be 2-3 x per week to assess and teach medical management and wound care. Answered all questions. [facility] contact information provided. Partner is aware that [facility] will contact them for
start of care in 1-2 days after discharge from . [facility] referral accepted in [facility].
[2024-03-25] MEDS: HEPARIN 25000 UNITS/250 ML IV (10:25)
--- NOTE | 2024-03-25 11:18 | CM ---
Reviewed the chart notes and spoke with the patient at the bedside. Patient seen ambulating with therapy in hallway with walker. CM continues to be available to patient/family and is monitoring medical plan for needs at discharge.
Plan: Discharge to home when medically stable with [facility] services.
[2024-03-25 13:08] LABS: Glucose - Point of Care 216 mg/dl (70-99)
[2024-03-25] MEDS: NOVOLOG FLEXPEN-LOW RESISTANCE 2 UNITS SC (14:48)
--- NOTE | 2024-03-25 15:32 | W.PN.HOSP.TC ---
Today's Communication/Plan
-
Wound care per
Monitor for excessive bleeding.
Follow hemoglobin.
Resume heparin drip without bolus
Continue current insulin regimen monitoring for hypoglycemia
Oral antibiotics.
Assessment / Plan
Assessment / Plan
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 CT scan noted. Antibiotics per infectious disease consolidated to Unasyn. Appreciate colorectal surgery input. Had incision and drainage and debridement sports psychologist
03/16. Revisit to the OR 03/18 for further debridement. Status post additional wound inspection and debridement on 03/20. Blood cultures negative so far but they were drawn after starting antibiotics. Patient states pain in his perineum him
started about a week prior to admission. Discussed permanently stopping SGLT2 inhibitors moving forward. Informed his electrical foreman Dr. Denson as well.
Hemodynamically improved. Not on vasopressors. Sepsis and shock resolved.
Acute bleeding from the wound on 03/23 requiring another trip to the OR for revision and packing. Continue holding anticoagulation with heparin.
MATT -due to severe volume depletion. Creatinine improving. Hold chlorthalidone, olmesartan. Hold NSAIDs. Weight is up 6 kg but not symptomatic, denies shortness of breath. No peripheral edema. Hold further IV fluids. Discussed with Dr. Pena.
May need IV Lasix soon. Smart discontinued for trial of voiding on 03/22
DM2 with hyperglycemia -DKA resolved. Basal/bolus insulin to continue. Diabetes INSPECTOR AND UNLOADER following. Hemoglobin A1c 8%. Will be discharged on insulin.
At home he uses Farxiga 10 mg daily, Ozempic once weekly.
Moving forward, permanently discontinue SGLT-2 inhibitors given presentation with Williams's gangrene. Discussed with patient.
NSTEMI - Echocardiogram shows LVEF 55%, mild hypokinesis of the basal�mid inferior septal, apical lateral, basal inferior lance. Normal RV size and systolic function. Anticipate outpatient ischemic evaluation as per cardiology.
Plan is for ischemic evaluation with left heart cath tentatively on 03/24.
Rapid paroxysmal atrial fibrillation -successfully cardioverted to sinus rhythm in the ER. IV heparin on hold for OR today. Continue metoprolol. Dose has been adjusted for better rate control
Hyperthyroidism -followed by endocrinology, Dr. Denson. Patient is unsure of home dose but believes the methimazole was reduced to 5 mg once daily prior to admission. He tried to increase it back to 5 mg twice daily to abort the atrial
fibrillation to no avail.
TSH 2.32, free T4 1.44.
I spoke with Dr. Denson and confirmed that his home dose of methimazole should be 5 mg once daily on discharge.
Hyponatremia -resolved.
Essential hypertension -hypotensive on arrival due to rapid atrial fibrillation and volume depletion. IV fluid bolus ordered. May need vasopressors. Hold antihypertensives.
Hyperlipidemia - atorvastatin.
CAD/CABG -2020.
COPD without exacerbation
Full code
Anticipated Discharge: > 48 hours
Subjective/Interval History
-
Date of Service: March 25, 2024
Objective Data
-
Labs:
Laboratory Results
03/25/24 03/25/24
06:35 16:30
WBC 10.8
Hgb 8.9 L
Hct 25.9 L
Plt Count 225
APTT Pending
Sodium 134 L
Potassium 4.2
Chloride 101
Carbon Dioxide 30
BUN 11
Creatinine 1.1
Glucose 101 H
Calcium 7.7 L
Vital Signs:
Vital Signs
Temp Pulse Resp BP Pulse Ox
99.3 F 76 16 133/64 100
03/25/24 11:20 03/25/24 11:20 03/25/24 11:20 03/25/24 11:20 03/25/24 11:20
I&O
03/24/24 03/25/24 03/26/24
06:59 06:59 06:59
Intake Total 1184 / 1184 2200 / 2200
Output Total 3250 / 3250 4425 / 4425
Balance -2065 / -2065 -2224 /
Physical Exam
-
General: Well Developed and Well Nourished
HEENT: Normocephalic and Atraumatic
Respiratory: Clear to Auscultation; Negative Wheezes, Rales or Rhonchi
Cardiac: Irregular Rhythm
GI: Soft, Nontender, Nondistended and Normal Bowel Sounds
Genito-urinary: No Costovertebral Tender
Musculoskeletal: No Edema
Neuro: AO x 3
Hematologic / Lymphatic: No Lymphadenopathy
Psych: Calm
[2024-03-25 17:40] LABS: APTT 85.3 Sec (23.4-35.0)
[2024-03-25 18:07] LABS: Glucose - Point of Care 177 mg/dl (70-99)
[2024-03-25] MEDS: NOVOLOG FLEXPEN-LOW RESISTANCE 1 UNITS SC (18:45)
[2024-03-25 21:03] LABS: Glucose - Point of Care 169 mg/dl (70-99)
[2024-03-25] MEDS: LANTUS 0.15 UNITS SC (21:52)
[2024-03-26] VITALS (8 sets, daily range): BP systolic 112–137; BP diastolic 55–68; PULSE 2–71
[2024-03-26] MEDS: DILAUDID 0.5 MG IV ×3 (00:01→22:15)
[2024-03-26 00:05] LABS: APTT 136.5 Sec (23.4-35.0)
[2024-03-26] MEDS: HEPARIN 25000 UNITS/250 ML IV ×2 (01:51→17:53)
[2024-03-26] MEDS: TYLENOL PO (06:28)
--- NOTE | 2024-03-26 07:24 | W.PN.CARDCBS ---
Addendum entered and electronically signed by Jose C Bravo MD 03/26/24 11:29:
I saw and examined the patient.
[employer]'s note was reviewed and I agree with the note.
Comment:
GEN: No distress, awake, Ox3
HEENT: supple, anicteric, mmm
LUNGS: CTA, no wheezes/rales
CV: Reg, S1/S2, 1/6 syst LSB, no gallop
ABD: soft, BS+, NT/ND
EXT: dressing intact
NEURO: Gross non-focal
SKIN: No rash
PLan:
No new chest pains. Hemoglobin at 8.6. Continue to follow. Remains on IV heparin and aspirin.
Continue wound care.
Will likely proceed with cath as outpatient as long as he remains stable.
Eventually will need to restart Eliquis but will hold off for now until hemoglobin is stable.
Original Note:
Today's Communication / Plan
-
follow hgb on IV heparin, asa
wound care
eventual cath, likely as OP once recovered
Impression / Plan
-
.
PCP: Dr. Hart
Primary Oyster Cultivator: Dr. Bolanos
Impression:
Admitted with MATT, elevated Troponin and recurrent Afib with CV in the ER 03/14/24
MATT
NSTEMI, peak troponin 6.3
CAD s/p CABG x4 07/2020
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
Paroxysmal Afib
initially seen s/p CABG 07/2020 at
recurrent Afib treated with CV in [facility] 10/06/21
recurrent Afib treated with rate control and spontaneously converted to SR 10/09/21
DCCV in [facility] 03/14/2024
Chronic OAC with Eliquis
History of thyroid issues and tremors with amiodarone
Hypothyroidism
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
HTN
HLD
DM2
COPD
ALFREDO 07/2020: EF 60-65%, no RWMA, severe conc LVH, mod dilated LA, mildly dilated mid ascending aorta, mild sessile atheroma in descending aorta and distal arch
ECHO 10/11/21: EF 50 to 55%, no WMA, normal RA/LA size, no significant valve disease
Echo 03/15/24: EF 55%, mild hypokinesis of the basal-mid inferoseptal, apical lateral and basal inferior lance, normal RV size and function, trileaflet sclerotic aortic valve with dense calcification on the noncoronary cusp, no /AR
Plan:
-he has now had 5 operations for Williams's gangrene since admission
-IV heparin was resumed last evening. hgb 8.6 on 03/26. eventual transition back to [facility] when ok per surgery
-he also ruled in for NSTEMI this admission with peak trop 6.3 and had RWMA by echo. for now would attempt to manage conservatively given ongoing bleeding/wound.
-no angina overnight
-continue toprol
-he has history of PAF and had afib earlier in admission. of note, he has history of tremors and thyroid issues on amiodarone in past, however would be willing to retry amiodarone if needed.
-ideally would cath patient this admission, however discussed current risks of proceeding and he expresses understanding. will continue to reevaluate safety and timing of cardiac cath, likely as OP
-OP amlodipine/olmesartan, chlorthalidone initially on hold due to MATT, normalized. now on hold due to relative hypotension
-LDL 54. continue OP lipitor
-proBNP much improved from admission. appears euvolemic.
-OP farxiga has been stopped as felt to be etiology for Williams's gangrene.
HPI: Patient came to ER yesterday with complaints of feeling poorly for at least 3 days and was found to be in rapid A-fib and is now admitted with cardiology consultation. Patient was last seen in the office on 05/19/2023 and was in SR at that
time. Initially seen in AF after CABG 07/2020 none recurrence last noted to be 10/2021 as noted above. Patient felt as though he was in AF for about 3 days prior to admission. Patient felt that this correlated with a decrease in his outpatient
levothyroxine dosing in the last several weeks, so he increase the dose, but no improvement in his AF so he finally came to ER yesterday. Patient says he also came to ER because he has been feeling sick and felt as though he had the flu for
the last 1 to 2 months. He says he feels he has a fever at times and this will correlate to a temperature of 100.6 �F when he checks his temperature at home. He says his the symptoms wax and wane and that he feels congested much of the time. He
feels SOB at times, but not consistent. No orthopnea or PND. No bloating. No LE edema. In ER last night patient was found to be in rapid AF and denied missing any Eliquis doses so he had a successful CV and remains in SR this a.m. Patient
reports dramatic symptomatic improvement following cheondoism of SR. Patient also noted to be in MATT with Cre up to 3.1 last evening, but improved to 2.3 this a.m. Patient reports ongoing congestion, but less SOB. Initial troponin was elevated
at 5.73, then up to 6.03, then down to 5.53 and then even though the troponin was trending down another troponin was checked and was elevated at 6.32. A 5th troponin is now pending, but patient denies any chest pain. He does have a history of CAD
s/p CABG.
Progress Note - Oyster Cultivator
Subjective
Date of Service: March 26, 2024
no CP, palpitations, SOB. reports no significant bleeding overnight
Objective
Labs:
Labs
Hgb 8.9 g/dL (13.0-18.0) L 03/25/24 06:35
Hct 25.9 % (39.0-52.0) L 03/25/24 06:35
Plt Count 225 10^3/uL (130-400) 03/25/24 06:35
PT 13.9 Sec (11.4-14.6) 03/24/24 04:12
INR 1.04 03/24/24 04:12
APTT 136.5 Sec (23.4-35.0) H 03/25/24 23:44
Sodium 134 mmol/L (135-145) L 03/25/24 06:35
Potassium 4.2 mmol/L (3.5-5.1) 03/25/24 06:35
BUN 11 mg/dl (9-20) 03/25/24 06:35
Creatinine 1.1 mg/dL (0.7-1.3) 03/25/24 06:35
Glucose 101 mg/dl (70-99) H 03/25/24 06:35
Troponins
03/25/24
06:35
Troponin I 0.151 H*
Vital Signs and I&O:
Vital Signs
Temp Pulse Resp BP Pulse Ox
98.6 F 70 16 133/64 97
03/26/24 03:20 03/26/24 03:20 03/26/24 03:20 03/26/24 03:20 03/26/24 03:20
Vital Signs
Temp Pulse Resp BP Pulse Ox
98.6 F 70 16 133/64 97
03/26/24 03:20 03/26/24 03:20 03/26/24 03:20 03/26/24 03:20 03/26/24 03:20
Intake & Output
03/23/24 03/24/24 03/25/24 03/26/24
07:59 07:59 07:59 07:59
Intake Total 1380 / 1380 1184 / 1184 2200 / 2200 1440 / 1440
Output Total 3430 / 3430 3250 / 3250 4425 / 4425 3650 / 3650
Balance -2049 / -2049 -2065 / -2065 -2224 / -2224 -2209 / -2209
Physical Exam
Physical Exam
GEN: No distress, awake, alert, oriented x3
HEENT: supple, anicteric, mmm, eomi
LUNGS: CTA B/L, no wheezes
CV: Reg, S1/S2, no murmur
ABD: soft, BS+, NT/ND
EXT: No cyanosis, clubbing, edema
NEURO: Gross non-focal
SKIN: Warm, pink, dry. No rash
--- NOTE | 2024-03-26 07:30 | PN.DE.MGMTRT ---
Insulin Management
- -
03/26/2024 Diabetes Management Consult Follow up
Patient admitted 03/14 due to heart rate issues, with a fib - cardioverted. 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 PMH afib, CAD, HTN, HLD, BPH, diabetes 20 years and anxiety. Prior to admission was taking farxinga
10 mg daily and Ozempic 1 mg weekly. A1c on admission 8%, cr 2, eGFR 35.49.
Patient is awake alert and oriented able to discuss diabetes management. States he has a glucose monitor with supplies.
03/26 POD 3 from last debridement. Glucose has ranged 101 to 216. Fasting glucose this AM 146. Will make no change to HS lantus 15 units and AC novolog 5 units with low corrective.
Discussed with patients nurse.
Will follow.
Diabetes History
- -
Type of Diabetes: 2 requiring insulin
Pre-Admission Diabetes Regimen
Lab Results
Hemoglobin A1c 8.0 % (4.0-5.6) H 03/15/24 06:14
Insulin Pump Settings
IP Diabetes Regimen
03/25/24 03/25/24 03/25/24
08:18 13:07 18:05
POC Glucose 119 H 216 H 177 H
03/25/24
21:01
POC Glucose 169 H
Meal type: Lunch
Meal type: Breakfast
Amount consumed: 100%
Amount consumed: 100%
Patient Education
[2024-03-26] MEDS: TOPROL XL 25 MG PO ×2 (08:29→20:46)
[2024-03-26] MEDS: B COMPLEX w/VITAMIN C 1 CAPLET PO (08:29)
[2024-03-26] MEDS: AUGMENTIN 875 MG/125 MG 1 TABLET PO ×2 (08:29→20:46)
[2024-03-26] MEDS: COLACE 100 MG PO ×2 (08:29→20:46)
[2024-03-26] MEDS: FLOMAX 0.4 MG PO (08:30)
[2024-03-26] MEDS: DILAUDID 1 MG IV (08:30)
[2024-03-26] MEDS: TAPAZOLE 5 MG PO (08:30)
[2024-03-26] MEDS: LIPITOR 40 MG PO (08:30)
[2024-03-26] MEDS: LOW STRENGTH ASPIRIN 81 MG PO (08:30)
[2024-03-26 08:49] LABS: APTT 94.6 Sec (23.4-35.0)
[2024-03-26 09:12] LABS: % Basophils 0.2 % (0-2); % Eosinophils 0.6 % (0-6); % Immature Granulocytes 1.6 % (0-0.5); % Lymphocytes 17.2 % (20.5-51.1); % Monocytes 7.5 % (1.7-9.3); % Neutrophils 72.9 % (42.2-75.2); Absolute Eosinophils 0.1 10^3/uL (0-0.7); Absolute Immature Granulocytes 0.1 10^3/uL (0-0.05); Absolute Lymphocytes 1.5 10^3/uL (1.2-3.4); Absolute Monocytes 0.7 10^3/uL (0.1-0.6); Absolute Neutrophils 6.5 10^3/uL (1.4-6.5); Hematocrit 25.9 % (39.0-52.0); Hemoglobin 8.6 g/dL (13.0-18.0); Mean Corp Hgb Conc. 33.2 g/dL (33.0-37.0); Mean Corpuscular Hgb 28.4 pg (27.0-31.0); Mean Corpuscular Volume 85.5 fL (80.0-94.0); Mean Platelet Volume 9.1 fL (7.4-10.4); Nucleated Red Blood Cells % 0 % (-); Platelet Count 249 10^3/uL (130-400); Red Blood Cell Count 3.03 10^6/uL (4.70-6.10); White Blood Cell Count 8.9 10^3/uL (4.8-10.8)
[2024-03-26 09:13] LABS: Glucose - Point of Care 146 mg/dl (70-99)
[2024-03-26 09:16] LABS: Blood Urea Nitrogen 11 mg/dl (9-20); Calcium 7.8 mg/dl (8.4-10.2); Carbon Dioxide 26 mmol/L (22-30); Chloride 103 mmol/L (98-107); Estimated Creatinine Clearance 73 ml/min; Glucose 110 mg/dl (70-99); Potassium 4.3 mmol/L (3.5-5.1); Sodium 135 mmol/L (135-145); eGFR > 60.00
--- NOTE | 2024-03-26 09:42 | W.PN.CRS1 ---
Today's Communication / Plan
-
Daily wound care changes
No plan for surgery today
Assessment/Plan
-
68-year-old with a PMH of A-fib (on Eliquis, last dose p.m. of 03/14), CAD s/p CABG 2020, diabetes, mild COPD, HTN, HLD who presents with 3 days of not feeling well and 5 days of worsening perineal pain on the right. Last cscope was 30 years ago,
reportedly normal. In the ED, he was noted to be in rapid A-fib and underwent urgent cardioversion due to hypotension and started on a hepgtt. He was also noted to be in MATT and mild DKA, HbA1c 8%, glucose 411. WBC of 26.1, Creatinine 3.1, NA 128.
He was initially admitted with IV antibiotics and a scrotal ultrasound was obtained to rule out a scrotal abscess, which was negative. A CTAP without contrast was done showing subcutaneous gas through out the right aspect of the perineum, extending
from the scrotum posteriorly to the ischiorectal space.
03/16 (1am) flex sig (well-perfused rectum), incision and drainage and debridement of perineal infection
03/16 (4pm) debridement of perineal wound, urology debrided small scrotal abscess and placed julien in R inguinal
03/18 additional debridement into inguinal region and base of scrotum with urology
03/20 minimal debridement, wound healthy with evidence of granulation; urology closed superficial defect in dartos fascia, partial closure around anus creating an anterior and posterior wound
03/23 Exam under anesthesia, control of bleeding from perineal wound, debridement of perineal wound
AFVSS, packing not changed this morning
WBC 8.9. Hemoglobin 8. 6.
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
�Discussed with Dr. lAas from plastics; continue local wound care, he would not consider closing wound currently
�Appreciate wound RN; will need follow-up in the wound care center with Dr. Guidry
-Surgery changed dressing today, will have nurse change tomorrow. Daily wound care orders in place.
�Appreciate ID; continue IV Unasyn
�Continue regular diet
�On a heparin drip
�MATT, resolved; strict I/Os
�Discussed with urology, replaced wade due to retention; cont floxmax
� Pain control with Tylenol and Dilaudid as needed
� Encourage OOB/IS; patient needs mesh underwear to keep packing in place if getting OOB; appreciate PT
�Appreciate hospitalist and cardiology
-Eventual cardiac cath
Subjective Data
Procedure
03/16/2024- Exam under anesthesia, debridement of perineal wound, pulse-irrigation of wound; Dr. Crowell from urology performed drainage of scrotal abscess with further debridement of scrotal and inguinal wound
03/18/24 Exam under anesthesia, debridement of fibrinous material
03/20/24 Exam under anesthesia, debridement of fibrinous material, partial closure around the anal sphincter
03/23/24- Exam under anesthesia, control of bleeding from perineal wound, debridement of perineal wound
Subjective Data
Date of Service: March 26, 2024
Patient states he feels well. He is in no pain this morning. He has no complaints.
Objective Data
-
Vital Signs
Temp Pulse Resp BP Pulse Ox
98.8 F 68 16 137/68 97
03/26/24 07:28 03/26/24 08:29 03/26/24 07:28 03/26/24 08:29 03/26/24 07:28
Intake & Output
03/25/24 03/26/24 03/27/24
06:59 06:59 06:59
Intake Total 2200 / 2200 1440 / 1440
Output Total 4425 / 4425 365 / 3650
Balance -2225 / -2225 -2210 / -2210
Intake:
Oral fluids 2200 / 2200 1440 / 1440
Output:
Urine, Wade 4425 / 4425 3650 / 3650
Lab Results
03/26/24 07:13
03/26/24 07:13
Physical Exam
-
General: No Acute Distress and AOx3
Abdomen: Soft, Non Distended and Non Tender
Wound: Dressing Changed
Incision: Other (Serous drainage, no active bleeding, no area of erythema or necrosis)
[2024-03-26] MEDS: NOVOLOG FLEXPEN-LOW RESISTANCE SC ×2 (09:46→17:56)
[2024-03-26] MEDS: NOVOLOG FLEXPEN 5 UNITS SC ×3 (09:52→18:39)
--- NOTE | 2024-03-26 11:15 | CM ---
CM following rte: discharge planning.
Reviewed pt's chart, met with pt.
PT and OT evaluations noted - home PT/OT recommended. Pt is aware, expressed his agreement.
A referral to [facility] noted. [facility] liaison following.
IMM reviewed, placed on chart, pt has a copy
D/C plan: home with [facility] and family support.
CM will follow with discharge plan updates as hospitalization progresses
[2024-03-26 13:11] LABS: Glucose - Point of Care 176 mg/dl (70-99)
[2024-03-26] MEDS: NOVOLOG FLEXPEN-LOW RESISTANCE 1 UNITS SC (13:28)
[2024-03-26] MEDS: TYLENOL 1000 MG PO ×2 (13:28→17:54)
--- NOTE | 2024-03-26 13:58 | W.PN.HOSP.TC ---
Today's Communication/Plan
-
Continue wound care.
Continue antibiotics.
Continue heparin monitoring hemoglobin closely.
Blood glucose relatively controlled with no changes to insulin dose today.
Assessment / Plan
Assessment / Plan
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 CT scan noted. Antibiotics per infectious disease consolidated to Unasyn. Appreciate colorectal surgery input. Had incision and drainage and debridement magnetic prospector
03/16. Revisit to the OR 03/18 for further debridement. Status post additional wound inspection and debridement on 03/20. Blood cultures negative so far but they were drawn after starting antibiotics. Patient states pain in his perineum him
started about a week prior to admission. Discussed permanently stopping SGLT2 inhibitors moving forward. Informed his lieutenant firefighter Dr. Denson as well.
Hemodynamically improved. Not on vasopressors. Sepsis and shock resolved.
Acute bleeding from the wound on 03/23 requiring another trip to the OR for revision and packing. Continue holding anticoagulation with heparin.
MATT -due to severe volume depletion. Creatinine improving. Hold chlorthalidone, olmesartan. Hold NSAIDs. Weight is up 6 kg but not symptomatic, denies shortness of breath. No peripheral edema. Hold further IV fluids. Discussed with Dr. Pena.
May need IV Lasix soon. Smart discontinued for trial of voiding on 03/22
DM2 with hyperglycemia -DKA resolved. Basal/bolus insulin to continue. Diabetes SENIOR ANALYST PROGRAMMER following. Hemoglobin A1c 8%. Will be discharged on insulin.
At home he uses Farxiga 10 mg daily, Ozempic once weekly.
Moving forward, permanently discontinue SGLT-2 inhibitors given presentation with Williams's gangrene. Discussed with patient.
NSTEMI - Echocardiogram shows LVEF 55%, mild hypokinesis of the basal�mid inferior septal, apical lateral, basal inferior lance. Normal RV size and systolic function. Anticipate outpatient ischemic evaluation as per cardiology.
Plan is for ischemic evaluation with left heart cath tentatively on 03/24.
Rapid paroxysmal atrial fibrillation -successfully cardioverted to sinus rhythm in the ER. IV heparin on hold for OR today. Continue metoprolol. Dose has been adjusted for better rate control
Hyperthyroidism -followed by endocrinology, Dr. Denson. Patient is unsure of home dose but believes the methimazole was reduced to 5 mg once daily prior to admission. He tried to increase it back to 5 mg twice daily to abort the atrial
fibrillation to no avail.
TSH 2.32, free T4 1.44.
I spoke with Dr. Denson and confirmed that his home dose of methimazole should be 5 mg once daily on discharge.
Hyponatremia -resolved.
Essential hypertension -hypotensive on arrival due to rapid atrial fibrillation and volume depletion. IV fluid bolus ordered. May need vasopressors. Hold antihypertensives.
Hyperlipidemia - atorvastatin.
CAD/CABG -2020.
COPD without exacerbation
Full code
Anticipated Discharge: > 48 hours
Subjective/Interval History
-
Date of Service: March 26, 2024
Objective Data
-
Labs:
Laboratory Results
03/26/24 03/26/24
07:13 13:14
WBC 8.9
Hgb 8.6 L
Hct 25.9 L
Plt Count 249
APTT 94.6 H Pending
Sodium 135
Potassium 4.3
Chloride 103
Carbon Dioxide 26
BUN 11
Creatinine 1.2
Glucose 110 H
Calcium 7.8 L
Vital Signs:
Vital Signs
Temp Pulse Resp BP Pulse Ox
99.0 F 66 16 112/67 98
03/26/24 11:51 03/26/24 11:51 03/26/24 11:51 03/26/24 11:51 03/26/24 11:51
I&O
03/25/24 03/26/24 03/27/24
06:59 06:59 06:59
Intake Total 2200 / 2200 1440 / 1440
Output Total 4425 / 4425 3650 / 365
Balance -5 / -5 -2209 / -2209
Physical Exam
-
General: Well Developed and Well Nourished
HEENT: Normocephalic and Atraumatic
Respiratory: Clear to Auscultation; Negative Wheezes, Rales or Rhonchi
Cardiac: Irregular Rhythm
GI: Soft, Nontender, Nondistended and Normal Bowel Sounds
Genito-urinary: No Costovertebral Tender
Musculoskeletal: No Edema
Neuro: AO x 3
Hematologic / Lymphatic: No Lymphadenopathy
Psych: Calm
[2024-03-26 17:57] LABS: Glucose - Point of Care 148 mg/dl (70-99)
[2024-03-26 22:01] LABS: Glucose - Point of Care 117 mg/dl (70-99)
[2024-03-26] MEDS: LANTUS 0.15 UNITS SC (22:08)
[2024-03-27] VITALS (7 sets, daily range): BP systolic 111–137; BP diastolic 51–69; PULSE 2–84
[2024-03-27] MEDS: TYLENOL 1000 MG PO ×3 (01:01→17:53)
[2024-03-27] MEDS: DILAUDID 0.5 MG IV ×3 (02:54→21:46)
[2024-03-27 06:57] LABS: % Basophils 0.4 % (0-2); % Immature Granulocytes 1.2 % (0-0.5); % Lymphocytes 20.8 % (20.5-51.1); % Monocytes 8.2 % (1.7-9.3); % Neutrophils 68.4 % (42.2-75.2); Absolute Eosinophils 0.1 10^3/uL (0-0.7); Absolute Immature Granulocytes 0.1 10^3/uL (0-0.05); Absolute Lymphocytes 1.5 10^3/uL (1.2-3.4); Absolute Monocytes 0.6 10^3/uL (0.1-0.6); Hemoglobin 8.7 g/dL (13.0-18.0); Mean Corp Hgb Conc. 33.5 g/dL (33.0-37.0); Mean Corpuscular Hgb 28.8 pg (27.0-31.0); Mean Corpuscular Volume 86.1 fL (80.0-94.0); Mean Platelet Volume 8.6 fL (7.4-10.4); Nucleated Red Blood Cells % 0 % (-); Platelet Count 250 10^3/uL (130-400); Red Blood Cell Count 3.02 10^6/uL (4.70-6.10); Red Cell Dist. Width 13.1 % (11.5-14.5); White Blood Cell Count 7.4 10^3/uL (4.8-10.8)
[2024-03-27 07:16] LABS: APTT 127.7 Sec (23.4-35.0)
[2024-03-27 07:52] LABS: Blood Urea Nitrogen 9 mg/dl (9-20); Calcium 8.2 mg/dl (8.4-10.2); Carbon Dioxide 30 mmol/L (22-30); Chloride 103 mmol/L (98-107); Estimated Creatinine Clearance 73 ml/min; Glucose 114 mg/dl (70-99); Potassium 4.7 mmol/L (3.5-5.1); Sodium 136 mmol/L (135-145); eGFR > 60.00
[2024-03-27 07:59] LABS: Glucose - Point of Care 128 mg/dl (70-99)
[2024-03-27] MEDS: NOVOLOG FLEXPEN-LOW RESISTANCE SC ×3 (08:00→17:52)
[2024-03-27] MEDS: COLACE 100 MG PO ×2 (08:29→21:38)
[2024-03-27] MEDS: LIPITOR 40 MG PO (08:29)
[2024-03-27] MEDS: LOW STRENGTH ASPIRIN 81 MG PO (08:29)
[2024-03-27] MEDS: AUGMENTIN 875 MG/125 MG 1 TABLET PO ×2 (08:29→21:37)
[2024-03-27] MEDS: B COMPLEX w/VITAMIN C 1 CAPLET PO (08:29)
[2024-03-27] MEDS: TAPAZOLE 5 MG PO (08:29)
[2024-03-27] MEDS: FLOMAX 0.4 MG PO (08:29)
[2024-03-27] MEDS: NOVOLOG FLEXPEN 5 UNITS SC ×3 (08:30→17:53)
[2024-03-27] MEDS: TOPROL XL PO ×3 (08:44→21:50)
--- NOTE | 2024-03-27 10:10 | W.PN.CARDCBS ---
Today's Communication / Plan
-
Cardiac issues stable. Continue IV heparin. Eventually transition to Eliquis when no further procedures planned.
Hemoglobin stable at 8.7.
Plan will be for cardiac catheterization as outpatient when stable.
Continue metoprolol, atorvastatin, and aspirin.
Impression / Plan
-
.
PCP: Dr. Hart
Primary Tobacco Cloth Reclaimer: Dr. Bolanos
Impression:
Admitted with MATT, elevated Troponin and recurrent Afib with CV in the ER 03/14/24
MATT
NSTEMI, peak troponin 6.3
CAD s/p CABG x4 07/2020
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
Paroxysmal Afib
initially seen s/p CABG 07/2020 at
recurrent Afib treated with CV in [facility] 10/06/21
recurrent Afib treated with rate control and spontaneously converted to SR 10/09/21
DCCV in [facility] 03/14/2024
Chronic OAC with Eliquis
History of thyroid issues and tremors with amiodarone
Hypothyroidism
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
HTN
HLD
DM2
COPD
ALFREDO 07/2020: EF 60-65%, no RWMA, severe conc LVH, mod dilated LA, mildly dilated mid ascending aorta, mild sessile atheroma in descending aorta and distal arch
ECHO 10/11/21: EF 50 to 55%, no WMA, normal RA/LA size, no significant valve disease
Echo 03/15/24: EF 55%, mild hypokinesis of the basal-mid inferoseptal, apical lateral and basal inferior lance, normal RV size and function, trileaflet sclerotic aortic valve with dense calcification on the noncoronary cusp, no /AR
Plan:
-he has now had 5 operations for Williams's gangrene since admission
-Back on IV heparin. Hemoglobin stable at 8.7. Continue to follow.
-he also ruled in for NSTEMI this admission with peak trop 6.3 and had RWMA by echo. for now would attempt to manage conservatively given ongoing bleeding/wound.
-no angina overnight
-continue toprol
-he has history of PAF and had afib earlier in admission. of note, he has history of tremors and thyroid issues on amiodarone in past, however would be willing to retry amiodarone if needed.
-ideally would cath patient this admission, however discussed current risks of proceeding and he expresses understanding. will continue to reevaluate safety and timing of cardiac cath, likely as OP
-OP amlodipine/olmesartan, chlorthalidone initially on hold due to MATT, normalized. now on hold due to relative hypotension
-LDL 54. continue OP lipitor
-proBNP much improved from admission. appears euvolemic.
-OP farxiga has been stopped as felt to be etiology for Williams's gangrene.
HPI: Patient came to ER yesterday with complaints of feeling poorly for at least 3 days and was found to be in rapid A-fib and is now admitted with cardiology consultation. Patient was last seen in the office on 05/19/2023 and was in SR at that
time. Initially seen in AF after CABG 07/2020 none recurrence last noted to be 10/2021 as noted above. Patient felt as though he was in AF for about 3 days prior to admission. Patient felt that this correlated with a decrease in his outpatient
levothyroxine dosing in the last several weeks, so he increase the dose, but no improvement in his AF so he finally came to ER yesterday. Patient says he also came to ER because he has been feeling sick and felt as though he had the flu for
the last 1 to 2 months. He says he feels he has a fever at times and this will correlate to a temperature of 100.6 �F when he checks his temperature at home. He says his the symptoms wax and wane and that he feels congested much of the time. He
feels SOB at times, but not consistent. No orthopnea or PND. No bloating. No LE edema. In ER last night patient was found to be in rapid AF and denied missing any Eliquis doses so he had a successful CV and remains in SR this a.m. Patient
reports dramatic symptomatic improvement following pentecostalism of SR. Patient also noted to be in MATT with Cre up to 3.1 last evening, but improved to 2.3 this a.m. Patient reports ongoing congestion, but less SOB. Initial troponin was elevated
at 5.73, then up to 6.03, then down to 5.53 and then even though the troponin was trending down another troponin was checked and was elevated at 6.32. A 5th troponin is now pending, but patient denies any chest pain. He does have a history of CAD
s/p CABG.
Progress Note - Tobacco Cloth Reclaimer
Subjective
Date of Service: March 27, 2024
No new chest pains. Overall doing well. No further bleeding.
Objective
Labs:
03/27/24 06:45
03/27/24 06:45
Labs
Hgb 8.7 g/dL (13.0-18.0) L 03/27/24 06:45
Hct 26.0 % (39.0-52.0) L 03/27/24 06:45
Plt Count 250 10^3/uL (130-400) 03/27/24 06:45
PT 13.9 Sec (11.4-14.6) 03/24/24 04:12
INR 1.04 03/24/24 04:12
APTT 127.7 Sec (23.4-35.0) H 03/27/24 06:45
Sodium 136 mmol/L (135-145) 03/27/24 06:45
Potassium 4.7 mmol/L (3.5-5.1) 03/27/24 06:45
BUN 9 mg/dl (9-20) 03/27/24 06:45
Creatinine 1.2 mg/dL (0.7-1.3) 03/27/24 06:45
Glucose 114 mg/dl (70-99) H 03/27/24 06:45
Troponins
03/25/24
06:35
Troponin I 0.151 H*
Vital Signs and I&O:
Vital Signs
Temp Pulse Resp BP Pulse Ox
98.5 F 54 18 111/51 98
03/27/24 08:00 03/27/24 08:44 03/27/24 08:00 03/27/24 08:00 03/27/24 08:00
Vital Signs
Temp Pulse Resp BP Pulse Ox
98.5 F 54 18 111/51 98
03/27/24 08:00 03/27/24 08:44 03/27/24 08:00 03/27/24 08:00 03/27/24 08:00
Intake & Output
03/25/24 03/26/24 03/27/24 03/28/24
06:59 06:59 06:59 06:59
Intake Total 2200 / 2200 1440 / 1440 2432 / 2432
Output Total 4425 / 4425 3650 / 3650 4625 / 4625
Balance -2225 / -2225 -2210 / -2210 -2193 / -2193
Physical Exam
Physical Exam
GEN: No distress, awake, Ox3
HEENT: supple, anicteric, mmm
LUNGS: CTA, no wheezes/rales
CV: Reg, S1/S2, 1/6 syst LSB, no gallop
ABD: soft, BS+, NT/ND
EXT: No edema
NEURO: Gross non-focal
SKIN: dressing intact
--- NOTE | 2024-03-27 11:13 | W.PN.GS2 ---
Today's Communication / Plan
-
- No changes from surgical perspective
- OK for PO anticoagulation
Assessment / Plan
-
68-year-old with a PMH of A-fib (on Eliquis, last dose p.m. of 03/14), CAD s/p CABG 2020, diabetes, mild COPD, HTN, HLD who presents with 3 days of not feeling well and 5 days of worsening perineal pain on the right. Last cscope was 30 years ago,
reportedly normal. In the ED, he was noted to be in rapid A-fib and underwent urgent cardioversion due to hypotension and started on a hepgtt. He was also noted to be in MATT and mild DKA, HbA1c 8%, glucose 411. WBC of 26.1, Creatinine 3.1, NA 128.
He was initially admitted with IV antibiotics and a scrotal ultrasound was obtained to rule out a scrotal abscess, which was negative. A CTAP without contrast was done showing subcutaneous gas through out the right aspect of the perineum, extending
from the scrotum posteriorly to the ischiorectal space.
03/16 (1am) flex sig (well-perfused rectum), incision and drainage and debridement of perineal infection
03/16 (4pm) debridement of perineal wound, urology debrided small scrotal abscess and placed julien in R inguinal
03/18 additional debridement into inguinal region and base of scrotum with urology
03/20 minimal debridement, wound healthy with evidence of granulation; urology closed superficial defect in dartos fascia, partial closure around anus creating an anterior and posterior wound
03/23 Exam under anesthesia, control of bleeding from perineal wound, debridement of perineal wound
AFVSS, packing not changed this morning
WBC 8.9. Hemoglobin stable 8.7.
� Nursing to change dressing. Daily wound care orders in place.
� Discussed with Dr. Alas from plastics; continue local wound care, he would not consider closing wound currently
� Appreciate wound RN; will need follow-up in the wound care center with Dr. Guidry
� Appreciate ID; continue IV Unasyn
� Continue regular diet
� On a Heparin drip, OK for PO anticoagulation
� MATT, resolved; strict I/Os
� Discussed with urology, replaced Smart due to retention; cont Floxmax
� Pain control with Tylenol and Dilaudid as needed
� Encourage OOB/IS; patient needs mesh underwear to keep packing in place if getting OOB; appreciate PT
� Appreciate Hospitalist and Cardiology
� Eventual cardiac cath
Subjective Data
-
Date of Service: March 27, 2024
No complaints. Denies worsening pain. No drainage. No fevers.
Objective Data
-
Intake and Output
03/26/24 03/27/24 03/28/24
06:59 06:59 06:59
Intake Total 1440 / 1440 2432 / 2432
Output Total 3650 / 3650 4625 / 4625
Balance -2210 / -2210 -2193 / -2193
Intake:
Oral fluids 1440 / 1440 2040 / 2040
IV fluids (Total) 192 / 192
IV piggybacks 200 / 200
Output:
Urine, Smart 3650 / 3650 1900 / 1900
Urine, Voided 2725 / 2725
Vital Signs
Temp Pulse Resp BP Pulse Ox
98.5 F 54 18 111/51 98
03/27/24 08:00 03/27/24 08:44 03/27/24 08:00 03/27/24 08:00 03/27/24 08:00
Lab Results
03/27/24 06:45
03/27/24 06:45
Calcium 8.2 mg/dl (8.4-10.2) L 03/27/24 06:45
Phosphorus 3.6 mg/dl (2.5-4.5) 03/25/24 06:35
Magnesium 2.0 mg/dl (1.6-2.3) 03/25/24 06:35
Total Bilirubin 0.4 mg/dl (0.2-1.3) 03/21/24 07:54
AST 21 U/L (17-59) 03/21/24 07:54
ALT 22 U/L (0-50) 03/21/24 07:54
Alkaline Phosphatase 42 U/L (38-126) 03/21/24 07:54
Total Protein 5.6 g/dl (6.3-8.2) L 03/21/24 07:54
Albumin 2.5 g/dl (3.5-5.0) L 03/21/24 07:54
Physical Exam
-
Gen: NAD
Rectal: dressing in place, surrounding tissues soft, no induration, no erythema, no active drainage or bleeding
[2024-03-27] MEDS: HEPARIN 25000 UNITS/250 ML IV (11:18)
[2024-03-27] MEDS: DILAUDID 1 MG IV (11:22)
[2024-03-27] MEDS: FLUSH (NSS) 2 FLUSH IV ×2 (11:23→15:16)
[2024-03-27 11:58] LABS: Glucose - Point of Care 136 mg/dl (70-99)
[2024-03-27] MEDS: TYLENOL PO (12:13)
--- NOTE | 2024-03-27 13:47 | W.PN.HOSP.TC ---
Today's Communication/Plan
-
cont wound care; hep ggt - transition to Oral anticoag as per cards; heart cath as outpatient
Assessment / Plan
Assessment / Plan
General: Well Developed and Well Nourished
HEENT: Normocephalic and Atraumatic
Respiratory: Clear to Auscultation; Negative Wheezes, Rales or Rhonchi
Cardiac: Irregular Rhythm
GI: Soft, Nontender, Nondistended and Normal Bowel Sounds
Genito-urinary: No Costovertebral Tender;
Rectal: dressing in place, surrounding tissues soft, no induration, no erythema, no active drainage or bleeding
Musculoskeletal: No Edema
Neuro: AO x 3
Hematologic / Lymphatic: No Lymphadenopathy
Psych: Calm
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 CT scan noted. Antibiotics per infectious disease consolidated to Unasyn. Appreciate colorectal surgery input. Had incision and drainage and debridement ironer or presser
03/16. Revisit to the OR 03/18 for further debridement. Status post additional wound inspection and debridement on 03/20. Blood cultures negative so far but they were drawn after starting antibiotics. Patient states pain in his perineum him
started about a week prior to admission. Discussed permanently stopping SGLT2 inhibitors moving forward. Informed his pilates coordinator Dr. Denson as well.
Hemodynamically improved. Not on vasopressors. Sepsis and shock resolved.
Acute bleeding from the wound on 03/23 requiring another trip to the OR for revision and packing. Continue holding anticoagulation with heparin.
MATT -due to severe volume depletion. Creatinine improving. Hold chlorthalidone, olmesartan. Hold NSAIDs. No peripheral edema. Hold further IV fluids. Discussed with Dr. Pena. May need IV Lasix soon. Smart discontinued for trial of voiding
on 03/22
DM2 with hyperglycemia -DKA resolved. Basal/bolus insulin to continue. Diabetes HIGHWALL DRILL OPERATOR following. Hemoglobin A1c 8%. Will be discharged on insulin.
At home he uses Farxiga 10 mg daily, Ozempic once weekly.
Moving forward, permanently discontinue SGLT-2 inhibitors given presentation with Williams's gangrene. Discussed with patient.
NSTEMI - Echocardiogram shows LVEF 55%, mild hypokinesis of the basal�mid inferior septal, apical lateral, basal inferior lance. Normal RV size and systolic function. Anticipate outpatient ischemic evaluation as per cardiology.
Plan is for ischemic evaluation with left heart cath tentatively on 03/24.
Rapid paroxysmal atrial fibrillation -successfully cardioverted to sinus rhythm in the ER. IV heparin ggt; Continue metoprolol. Dose has been adjusted for better rate control
Hyperthyroidism -followed by endocrinology, Dr. Denson. Patient is unsure of home dose but believes the methimazole was reduced to 5 mg once daily prior to admission. He tried to increase it back to 5 mg twice daily to abort the atrial
fibrillation to no avail.
TSH 2.32, free T4 1.44.
I spoke with Dr. Denson and confirmed that his home dose of methimazole should be 5 mg once daily on discharge.
Hyponatremia -resolved.
Essential hypertension -hypotensive on arrival due to rapid atrial fibrillation and volume depletion. IV fluid bolus ordered. May need vasopressors. Hold antihypertensives.
Hyperlipidemia - atorvastatin.
CAD/CABG -2020.
COPD without exacerbation
Full code
Update 03/27 - cont wound care; hep ggt - transition to Oral anticoag as per cards; heart cath as outpatient
Anticipated Discharge: Within 24 hours
Subjective/Interval History
-
Date of Service: March 27, 2024
No acute events overnight
Objective Data
-
Labs:
Laboratory Results
03/27/24 03/27/24
06:45 14:00
WBC 7.4
Hgb 8.7 L
Hct 26.0 L
Plt Count 250
APTT 127.7 H Pending
Sodium 136
Potassium 4.7
Chloride 103
Carbon Dioxide 30
BUN 9
Creatinine 1.2
Glucose 114 H
Calcium 8.2 L
Vital Signs:
Vital Signs
Temp Pulse Resp BP Pulse Ox
98.5 F 58 16 128/69 97
03/27/24 12:00 03/27/24 12:00 03/27/24 12:00 03/27/24 12:00 03/27/24 12:00
I&O
03/26/24 03/27/24 03/28/24
06:59 06:59 06:59
Intake Total 1440 / 1440 2432 / 2432
Output Total 3650 / 3650 4625 / 4625
Balance -2210 / -2210 -2193 / -219
Review of Systems
-
History Source: Patient
All other systems: Not reviewed unless documented
Data Reviewed
-
Diagnostic Radiology: Report Reviewed by me
CT Scan: Report Reviewed by me
Ultrasound: Report Reviewed by me
Labs: Labs Reviewed by me
[2024-03-27 15:16] LABS: APTT 66.9 Sec (23.4-35.0)
[2024-03-27 17:31] LABS: Glucose - Point of Care 105 mg/dl (70-99)
[2024-03-27 21:27] LABS: Glucose - Point of Care 128 mg/dl (70-99)
[2024-03-27] MEDS: LANTUS 0.15 UNITS SC (21:46)
[2024-03-27 21:54] LABS: APTT 99.4 Sec (23.4-35.0)
[2024-03-28] VITALS (9 sets, daily range): BP systolic 119–159; BP diastolic 54–72; PULSE 2–83; O2SAT 96; BMI 24.5
[2024-03-28] MEDS: TYLENOL 1000 MG PO ×4 (00:45→18:08)
[2024-03-28] MEDS: HEPARIN 25000 UNITS/250 ML IV (03:44)
[2024-03-28] MEDS: DILAUDID 0.5 MG IV ×2 (03:48→12:12)
[2024-03-28 04:20] LABS: APTT > 200 Sec (23.4-35.0)
[2024-03-28 05:50] LABS: Hematocrit 26.6 % (39.0-52.0); Hemoglobin 8.9 g/dL (13.0-18.0); Mean Corp Hgb Conc. 33.5 g/dL (33.0-37.0); Mean Corpuscular Hgb 28.6 pg (27.0-31.0); Mean Corpuscular Volume 85.5 fL (80.0-94.0); Mean Platelet Volume 8.6 fL (7.4-10.4); Platelet Count 281 10^3/uL (130-400); Red Blood Cell Count 3.11 10^6/uL (4.70-6.10); Red Cell Dist. Width 13.1 % (11.5-14.5); White Blood Cell Count 7.8 10^3/uL (4.8-10.8)
[2024-03-28 06:14] LABS: ALT (SGPT) 25 U/L (0-50); AST (SGOT) 23 U/L (17-59); Albumin 2.9 g/dl (3.5-5.0); Alkaline Phosphatase 44 U/L (38-126); Blood Urea Nitrogen 9 mg/dl (9-20); Calcium 8.3 mg/dl (8.4-10.2); Carbon Dioxide 28 mmol/L (22-30); Chloride 102 mmol/L (98-107); Estimated Creatinine Clearance 68 ml/min; Glucose 105 mg/dl (70-99); Potassium 4.2 mmol/L (3.5-5.1); Sodium 135 mmol/L (135-145); Total Bilirubin 0.2 mg/dl (0.2-1.3); Total Protein 6.1 g/dl (6.3-8.2); eGFR 59.47
[2024-03-28 08:03] LABS: Glucose - Point of Care 115 mg/dl (70-99)
[2024-03-28] MEDS: AUGMENTIN 875 MG/125 MG 1 TABLET PO ×2 (09:48→20:39)
[2024-03-28] MEDS: COLACE 100 MG PO ×2 (09:48→20:38)
[2024-03-28] MEDS: TAPAZOLE 5 MG PO (09:48)
[2024-03-28] MEDS: B COMPLEX w/VITAMIN C 1 CAPLET PO (09:48)
[2024-03-28] MEDS: LIPITOR 40 MG PO (09:49)
[2024-03-28] MEDS: NOVOLOG FLEXPEN 5 UNITS SC ×3 (09:49→18:13)
[2024-03-28] MEDS: LOW STRENGTH ASPIRIN 81 MG PO (09:49)
[2024-03-28] MEDS: TOPROL XL PO (09:49)
[2024-03-28] MEDS: FLOMAX 0.4 MG PO (09:49)
[2024-03-28] MEDS: NOVOLOG FLEXPEN-LOW RESISTANCE SC ×3 (09:52→18:08)
[2024-03-28] MEDS: FLUSH (NSS) 2 FLUSH IV (12:13)
--- NOTE | 2024-03-28 12:21 | W.PN.HOSP.TC ---
Today's Communication/Plan
-
wound care
stop hep ggt; switch to eliquis
Assessment / Plan
Assessment / Plan
General: Well Developed and Well Nourished
HEENT: Normocephalic and Atraumatic
Respiratory: Clear to Auscultation; Negative Wheezes, Rales or Rhonchi
Cardiac: Irregular Rhythm
GI: Soft, Nontender, Nondistended and Normal Bowel Sounds
Genito-urinary: No Costovertebral Tender;
Rectal: dressing in place, surrounding tissues soft, no induration, no erythema, no active drainage or bleeding
Musculoskeletal: No Edema
Neuro: AO x 3
Hematologic / Lymphatic: No Lymphadenopathy
Psych: Calm
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 CT scan noted. Antibiotics per infectious disease consolidated to Unasyn. Appreciate colorectal surgery input. Had incision and drainage and debridement wood model builder
03/16. Revisit to the OR 03/18 for further debridement. Status post additional wound inspection and debridement on 03/20. Blood cultures negative so far but they were drawn after starting antibiotics. Patient states pain in his perineum him
started about a week prior to admission. Discussed permanently stopping SGLT2 inhibitors moving forward. Informed his gas mask assembler Dr. Denson as well.
Hemodynamically improved. Not on vasopressors. Sepsis and shock resolved.
Acute bleeding from the wound on 03/23 requiring another trip to the OR for revision and packing. Continue holding anticoagulation with heparin.
MATT -due to severe volume depletion. Creatinine improving. Hold chlorthalidone, olmesartan. Hold NSAIDs. No peripheral edema. Hold further IV fluids. Discussed with Dr. Pena. May need IV Lasix soon. Smart discontinued for trial of voiding
on 03/22
DM2 with hyperglycemia -DKA resolved. Basal/bolus insulin to continue. Diabetes SHAKER WASHER following. Hemoglobin A1c 8%. Will be discharged on insulin.
At home he uses Farxiga 10 mg daily, Ozempic once weekly.
Moving forward, permanently discontinue SGLT-2 inhibitors given presentation with Williams's gangrene. Discussed with patient.
NSTEMI - Echocardiogram shows LVEF 55%, mild hypokinesis of the basal�mid inferior septal, apical lateral, basal inferior lance. Normal RV size and systolic function. Anticipate outpatient ischemic evaluation as per cardiology.
Plan is for ischemic evaluation with left heart cath tentatively on 03/24.
Rapid paroxysmal atrial fibrillation -successfully cardioverted to sinus rhythm in the ER. IV heparin ggt; Continue metoprolol. Dose has been adjusted for better rate control
Hyperthyroidism -followed by endocrinology, Dr. Denson. Patient is unsure of home dose but believes the methimazole was reduced to 5 mg once daily prior to admission. He tried to increase it back to 5 mg twice daily to abort the atrial
fibrillation to no avail.
TSH 2.32, free T4 1.44.
I spoke with Dr. Denson and confirmed that his home dose of methimazole should be 5 mg once daily on discharge.
Hyponatremia -resolved.
Essential hypertension -hypotensive on arrival due to rapid atrial fibrillation and volume depletion. IV fluid bolus ordered. May need vasopressors. Hold antihypertensives.
Hyperlipidemia - atorvastatin.
CAD/CABG -2020.
COPD without exacerbation
Full code
Update 03/27 - cont wound care; hep ggt - transition to Oral anticoag as per cards; heart cath as outpatient
Update 03/28: wound care; Switch to Eliquis
Anticipated Discharge: Within 24 hours
Subjective/Interval History
-
Date of Service: March 28, 2024
No acute events overnight
Objective Data
-
Labs:
Laboratory Results
03/28/24 03/28/24 03/28/24
03:43 05:04 12:25
WBC 7.8
Hgb 8.9 L
Hct 26.6 L
Plt Count 281
APTT > 200 H* Pending
Sodium 135
Potassium 4.2
Chloride 102
Carbon Dioxide 28
BUN 9
Creatinine 1.3
Glucose 105 H
Calcium 8.3 L
Total Bilirubin 0.2
AST 23
ALT 25
Alkaline Phosphatase 44
Vital Signs:
Vital Signs
Temp Pulse Resp BP Pulse Ox
98.7 F 75 16 159/72 98
03/28/24 11:40 03/28/24 11:40 03/28/24 11:40 03/28/24 11:40 03/28/24 11:40
I&O
03/27/24 03/28/24 03/29/24
06:59 06:59 06:59
Intake Total 2432 / 2432 2069 / 2069
Output Total 4625 / 4625 4200 / 4200
Balance -3 / -2193 -2129 / -2129
Review of Systems
-
History Source: Patient
All other systems: Not reviewed unless documented
Data Reviewed
-
Diagnostic Radiology: Report Reviewed by me
CT Scan: Report Reviewed by me
Ultrasound: Report Reviewed by me
Labs: Labs Reviewed by me
[2024-03-28 12:37] LABS: Glucose - Point of Care 145 mg/dl (70-99)
--- NOTE | 2024-03-28 12:58 | CM ---
Patient seen at bedside with patient . Patient states that he anticipates possible discharge tomorrow. IMM provided for patient to review. Patient plan is for [facility] to follow at discharge. CM will continue to follow for discharge planning needs.
Plan; home with [facility] to follow
[2024-03-28] MEDS: ELIQUIS 5 MG PO ×2 (13:32→20:38)
[2024-03-28] MEDS: ROXICODONE 5 MG PO (16:27)
[2024-03-28 17:40] LABS: Glucose - Point of Care 144 mg/dl (70-99)
[2024-03-28] MEDS: TOPROL XL 25 MG PO (20:39)
[2024-03-28 21:36] LABS: Glucose - Point of Care 169 mg/dl (70-99)
[2024-03-28] MEDS: LANTUS 0.15 UNITS SC (23:42)
[2024-03-29] VITALS (8 sets, daily range): BP systolic 118–140; BP diastolic 50–74; PULSE 2–66; BMI 24.1
[2024-03-29] MEDS: TYLENOL PO ×2 (01:00→12:29)
[2024-03-29] MEDS: TYLENOL 1000 MG PO ×2 (05:59→18:16)
--- NOTE | 2024-03-29 07:05 | PN.DE.MGMTRT ---
Insulin Management
- -
03/29/2024 Diabetes Management Consult Follow up
Patient admitted 03/14 due to heart rate issues, with a fib - cardioverted. 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 PMH afib, CAD, HTN, HLD, BPH, diabetes 20 years and anxiety. Prior to admission was taking farxinga
10 mg daily and Ozempic 1 mg weekly. A1c on admission 8%, cr 2, eGFR 35.49.
Patient is awake alert and oriented able to discuss diabetes management. States he has a glucose monitor with supplies.
03/29 Glucose has ranged 105 to 169. Will make no change to HS lantus 15 units and AC novolog 5 units with low corrective.
Prescriptions for lantus, novolog and pen needles in ambulatory orders.
Will follow.
Diabetes History
- -
Type of Diabetes: 2 requiring insulin
Pre-Admission Diabetes Regimen
Lab Results
Hemoglobin A1c 8.0 % (4.0-5.6) H 03/15/24 06:14
Insulin Pump Settings
IP Diabetes Regimen
03/28/24 03/28/24 03/28/24
08:01 12:35 17:38
POC Glucose 115 H 145 H 144 H
03/28/24
21:33
POC Glucose 169 H
Meal type: Lunch
Meal type: Breakfast
Amount consumed: 100%
Amount consumed: 100%
Patient Education
[2024-03-29 07:45] LABS: Glucose - Point of Care 131 mg/dl (70-99)
[2024-03-29 08:44] LABS: Hematocrit 28.5 % (39.0-52.0); Hemoglobin 9.5 g/dL (13.0-18.0); Mean Corp Hgb Conc. 33.3 g/dL (33.0-37.0); Mean Corpuscular Hgb 28.5 pg (27.0-31.0); Mean Corpuscular Volume 85.6 fL (80.0-94.0); Mean Platelet Volume 8.6 fL (7.4-10.4); Platelet Count 286 10^3/uL (130-400); Red Blood Cell Count 3.33 10^6/uL (4.70-6.10); Red Cell Dist. Width 13.2 % (11.5-14.5); White Blood Cell Count 6.8 10^3/uL (4.8-10.8)
[2024-03-29] MEDS: NOVOLOG FLEXPEN 5 UNITS SC ×3 (08:46→18:16)
[2024-03-29] MEDS: NOVOLOG FLEXPEN-LOW RESISTANCE SC ×3 (08:46→17:35)
[2024-03-29] MEDS: FLOMAX 0.4 MG PO (08:52)
[2024-03-29] MEDS: ELIQUIS 5 MG PO ×2 (08:53→20:40)
[2024-03-29] MEDS: COLACE 100 MG PO ×2 (08:53→20:40)
[2024-03-29] MEDS: TOPROL XL 25 MG PO ×2 (08:53→20:41)
[2024-03-29] MEDS: TAPAZOLE 5 MG PO (08:53)
[2024-03-29] MEDS: LOW STRENGTH ASPIRIN 81 MG PO (08:53)
[2024-03-29] MEDS: B COMPLEX w/VITAMIN C 1 CAPLET PO (08:56)
[2024-03-29] MEDS: AUGMENTIN 875 MG/125 MG 1 TABLET PO ×2 (08:56→20:40)
[2024-03-29] MEDS: LIPITOR 40 MG PO (08:56)
[2024-03-29 10:09] LABS: ALT (SGPT) 25 U/L (0-50); AST (SGOT) 25 U/L (17-59); Albumin 3.2 g/dl (3.5-5.0); Alkaline Phosphatase 45 U/L (38-126); Blood Urea Nitrogen 10 mg/dl (9-20); Calcium 8.5 mg/dl (8.4-10.2); Carbon Dioxide 28 mmol/L (22-30); Chloride 102 mmol/L (98-107); Estimated Creatinine Clearance 73 ml/min; Glucose 132 mg/dl (70-99); Potassium 4.4 mmol/L (3.5-5.1); Sodium 135 mmol/L (135-145); Total Bilirubin 0.4 mg/dl (0.2-1.3); Total Protein 6.6 g/dl (6.3-8.2); eGFR > 60.00
[2024-03-29] MEDS: ROXICODONE 5 MG PO ×2 (10:40→20:43)
--- NOTE | 2024-03-29 11:07 | CM ---
Addendum entered by Emiliana Jones RN 03/29/24 11:10:
IMM reviewed, signed and placed on chart.
Original Note:
Reviewed the chart notes and spoke with the patient at the bedside. Patient anticipates being discharged to home with VN services. CM continues to be available to patient/family and is monitoring medical plan for needs at discharge.
Plan: Discharge to home when medically stable with VN services.
--- NOTE | 2024-03-29 11:17 | W.PN.CRS1 ---
Today's Communication / Plan
-
� As below
Assessment/Plan
-
68-year-old with a PMH of A-fib (on Eliquis, last dose p.m. of 03/14), CAD s/p CABG 2020, diabetes, mild COPD, HTN, HLD who presents with 3 days of not feeling well and 5 days of worsening perineal pain on the right. Last cscope was 30 years ago,
reportedly normal. In the ED, he was noted to be in rapid A-fib and underwent urgent cardioversion due to hypotension and started on a hepgtt. He was also noted to be in MATT and mild DKA, HbA1c 8%, glucose 411. WBC of 26.1, Creatinine 3.1, NA 128.
He was initially admitted with IV antibiotics and a scrotal ultrasound was obtained to rule out a scrotal abscess, which was negative. A CTAP without contrast was done showing subcutaneous gas through out the right aspect of the perineum, extending
from the scrotum posteriorly to the ischiorectal space.
03/16 (1am) flex sig (well-perfused rectum), incision and drainage and debridement of perineal infection
03/16 (4pm) debridement of perineal wound, urology debrided small scrotal abscess and placed julien in R inguinal
03/18 additional debridement into inguinal region and base of scrotum with urology
03/20 minimal debridement, wound healthy with evidence of granulation; urology closed superficial defect in dartos fascia, partial closure around anus creating an anterior and posterior wound
03/23 Exam under anesthesia, control of bleeding from perineal wound, opening of partial closure and further debridement of perineal wound
AFVSS, packing changed
WBC 6.8 from 7.8, Hb 9.5 from 8.9
� Appreciate WOCN; continue daily packing by nurse; will need VNA and follow-up at the wound care center with Dr. Guidry
� Discussed with Dr. Alas from plastics; continue local wound care, he would not consider closing wound currently
� Appreciate ID; continue Augmentin
� Continue regular diet
� Continue Eliquis
� MATT, resolved; strict I/Os
� Continue Wade due to retention; cont Floxmax; f/u yrology for wade plan
� Pain control with Tylenol and Oxycodone PRN
� Encourage OOB/IS; patient needs mesh underwear to keep packing in place if getting OOB; appreciate PT
- Appreciate cardiology; cardiac cath as outpatient
� Appreciate Hospitalist
Subjective Data
Procedure
03/16/2024- Exam under anesthesia, debridement of perineal wound, pulse-irrigation of wound; Dr. Crowell from urology performed drainage of scrotal abscess with further debridement of scrotal and inguinal wound
03/18/24 Exam under anesthesia, debridement of fibrinous material
03/20/24 Exam under anesthesia, debridement of fibrinous material, partial closure around the anal sphincter
03/23/24- Exam under anesthesia, control of bleeding from perineal wound, debridement of perineal wound
Subjective Data
Date of Service: March 29, 2024
Doing well. Aside from dressing changes, minimal pain. Having BMs with control.
Objective Data
-
Vital Signs
Temp Pulse Resp BP Pulse Ox
98.0 F 63 18 137/69 98
03/29/24 07:57 03/29/24 07:57 03/29/24 07:57 03/29/24 07:57 03/29/24 07:57
Intake & Output
03/28/24 03/29/24 03/30/24
06:59 06:59 06:59
Intake Total 2069 1620 / 1620
Output Total 4200 / 4200 7145 / 3675
Balance -2129 / -2129 -2054 /
Intake:
Oral fluids 1919 1620 / 1620
IV piggybacks 150 / 150
Output:
Urine, Wade 4200 / 4200 3675 / 3675
Lab Results
03/29/24 08:08
03/29/24 08:08
Physical Exam
-
General: No Acute Distress and AOx3
HEENT: Grossly Normal
Abdomen: Soft, Non Distended and Non Tender
Skin: Warm and Dry
Wound: Dressing Changed and Other (Perineal wound clean with granulation tissue, minimal fibrinous exudate, no fecal contamination; packed with 1 wet-to-dry kerlix)
--- NOTE | 2024-03-29 11:29 | W.PN.CARDCBS ---
Today's Communication / Plan
-
Feels well with no new chest pains and no new bleeding.
Now back on Eliquis with stable hemoglobin
Continue metoprolol.
Okay for discharge from cardiology standpoint. Will arrange follow-up and discuss cardiac cath in several weeks once he is healed from his wound.
I advised him to call with any new chest pains
Impression / Plan
-
.
PCP: Dr. Hart
Primary Jordan Man: Dr. Bolanos
Impression:
Admitted with MATT, elevated Troponin and recurrent Afib with CV in the ER 03/14/24
MATT
NSTEMI, peak troponin 6.3
CAD s/p CABG x4 07/2020
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
Paroxysmal Afib
initially seen s/p CABG 07/2020 at
recurrent Afib treated with CV in [facility] 10/06/21
recurrent Afib treated with rate control and spontaneously converted to SR 10/09/21
DCCV in [facility] 03/14/2024
Chronic OAC with Eliquis
History of thyroid issues and tremors with amiodarone
Hypothyroidism
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
HTN
HLD
DM2
COPD
ALFREDO 07/2020: EF 60-65%, no RWMA, severe conc LVH, mod dilated LA, mildly dilated mid ascending aorta, mild sessile atheroma in descending aorta and distal arch
ECHO 10/11/21: EF 50 to 55%, no WMA, normal RA/LA size, no significant valve disease
Echo 03/15/24: EF 55%, mild hypokinesis of the basal-mid inferoseptal, apical lateral and basal inferior lance, normal RV size and function, trileaflet sclerotic aortic valve with dense calcification on the noncoronary cusp, no /AR
Plan:
-he has now had 5 operations for Williams's gangrene since admission
-Back on Eliquis. hemoglobin stable at 9.5
-he also ruled in for NSTEMI this admission with peak trop 6.3 and had RWMA by echo. for now would attempt to manage conservatively given ongoing bleeding/wound.
-no angina overnight
-continue toprol
-he has history of PAF and had afib earlier in admission. of note, he has history of tremors and thyroid issues on amiodarone in past, however would be willing to retry amiodarone if needed.
-ideally would cath patient this admission, however discussed current risks of proceeding and he expresses understanding. will continue to reevaluate safety and timing of cardiac cath, likely as OP
-OP amlodipine/olmesartan, chlorthalidone initially on hold due to MATT, normalized. now on hold due to relative hypotension. Would slowly restart amlodipine/olmesartan
-LDL 54. continue OP lipitor
-proBNP much improved from admission. appears euvolemic.
-OP farxiga has been stopped as felt to be etiology for Williams's gangrene.
HPI: Patient came to ER yesterday with complaints of feeling poorly for at least 3 days and was found to be in rapid A-fib and is now admitted with cardiology consultation. Patient was last seen in the office on 05/19/2023 and was in SR at that
time. Initially seen in AF after CABG 07/2020 none recurrence last noted to be 10/2021 as noted above. Patient felt as though he was in AF for about 3 days prior to admission. Patient felt that this correlated with a decrease in his outpatient
levothyroxine dosing in the last several weeks, so he increase the dose, but no improvement in his AF so he finally came to ER yesterday. Patient says he also came to ER because he has been feeling sick and felt as though he had the flu for
the last 1 to 2 months. He says he feels he has a fever at times and this will correlate to a temperature of 100.6 �F when he checks his temperature at home. He says his the symptoms wax and wane and that he feels congested much of the time. He
feels SOB at times, but not consistent. No orthopnea or PND. No bloating. No LE edema. In ER last night patient was found to be in rapid AF and denied missing any Eliquis doses so he had a successful CV and remains in SR this a.m. Patient
reports dramatic symptomatic improvement following rastafarian of SR. Patient also noted to be in MATT with Cre up to 3.1 last evening, but improved to 2.3 this a.m. Patient reports ongoing congestion, but less SOB. Initial troponin was elevated
at 5.73, then up to 6.03, then down to 5.53 and then even though the troponin was trending down another troponin was checked and was elevated at 6.32. A 5th troponin is now pending, but patient denies any chest pain. He does have a history of CAD
s/p CABG.
Progress Note - Jordan Man
Subjective
Date of Service: March 29, 2024
No new chest pains or shortness of breath. No bleeding.
Objective
Labs:
03/29/24 08:08
03/29/24 08:08
Labs
Hgb 9.5 g/dL (13.0-18.0) L 03/29/24 08:08
Hct 28.5 % (39.0-52.0) L 03/29/24 08:08
Plt Count 286 10^3/uL (130-400) 03/29/24 08:08
PT 13.9 Sec (11.4-14.6) 03/24/24 04:12
INR 1.04 03/24/24 04:12
APTT Cancelled 03/28/24 12:32
Sodium 135 mmol/L (135-145) 03/29/24 08:08
Potassium 4.4 mmol/L (3.5-5.1) 03/29/24 08:08
BUN 10 mg/dl (9-20) 03/29/24 08:08
Creatinine 1.2 mg/dL (0.7-1.3) 03/29/24 08:08
Glucose 132 mg/dl (70-99) H 03/29/24 08:08
Vital Signs and I&O:
Vital Signs
Temp Pulse Resp BP Pulse Ox
98.0 F 63 18 137/69 98
03/29/24 07:57 03/29/24 07:57 03/29/24 07:57 03/29/24 07:57 03/29/24 07:57
Vital Signs
Temp Pulse Resp BP Pulse Ox
98.0 F 63 18 137/69 98
03/29/24 07:57 03/29/24 07:57 03/29/24 07:57 03/29/24 07:57 03/29/24 07:57
Intake & Output
03/27/24 03/28/24 03/29/24 03/30/24
06:59 06:59 06:59 06:59
Intake Total 2432 / 2432 207 / 0 1620 / 1620
Output Total 4625 / 4625 4200 / 4200 3675 / 3675
Balance -2193 / -2193 -2130 / -0 -2054 / -2054
Physical Exam
Physical Exam
I saw and examined the patient.
The Chimney Builder Helper's note was reviewed and I agree with the note.
Comment:
GEN: No distress, awake, Ox3
HEENT: supple, anicteric, mmm
LUNGS: CTA, no wheezes/rales
CV: Reg, S1/S2, 1/6 syst LSB, no murmur
ABD: soft, BS+, NT/ND
EXT: No edema
NEURO: Gross non-focal
SKIN: dressing intact
[2024-03-29 12:41] LABS: Glucose - Point of Care 120 mg/dl (70-99)
--- NOTE | 2024-03-29 15:03 | W.PN.HOSP.TC ---
Today's Communication/Plan
-
Transition to oral anticoagulation
Plan is for ischemic evaluation as outpatient
Continue wound care
Will be completing course of antibiotics today.
Discharge planing
Assessment / Plan
Assessment / Plan
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 CT scan noted. Antibiotics per infectious disease consolidated to Unasyn. Appreciate colorectal surgery input. Had incision and drainage and debridement fiberglass bonding machine tender
03/16. Revisit to the OR 03/18 for further debridement. Status post additional wound inspection and debridement on 03/20. Blood cultures negative so far but they were drawn after starting antibiotics. Patient states pain in his perineum him
started about a week prior to admission. Discussed permanently stopping SGLT2 inhibitors moving forward. Informed his allergy physician Dr. Denson as well.
Hemodynamically improved. Not on vasopressors. Sepsis and shock resolved.
Acute bleeding from the wound on 03/23 requiring another trip to the OR for revision and packing. Continue holding anticoagulation with heparin.
MATT -due to severe volume depletion. Creatinine improving. Hold chlorthalidone, olmesartan. Hold NSAIDs. No peripheral edema. Hold further IV fluids. Discussed with Dr. Pena. May need IV Lasix soon. Smart discontinued for trial of voiding
on 03/22
DM2 with hyperglycemia -DKA resolved. Basal/bolus insulin to continue. 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 Hemoglobin A1c 8%. Will be discharged on insulin.
At home he uses Farxiga 10 mg daily, Ozempic once weekly.
Moving forward, permanently discontinue SGLT-2 inhibitors given presentation with Williams's gangrene. Discussed with patient.
NSTEMI - Echocardiogram shows LVEF 55%, mild hypokinesis of the basal�mid inferior septal, apical lateral, basal inferior lance. Normal RV size and systolic function. Anticipate outpatient ischemic evaluation as per cardiology.
Plan is for ischemic evaluation with left heart cath tentatively on 03/24.
Rapid paroxysmal atrial fibrillation -successfully cardioverted to sinus rhythm in the ER. IV heparin ggt; Continue metoprolol. Dose has been adjusted for better rate control
Hyperthyroidism -followed by endocrinology, Dr. Denson. Patient is unsure of home dose but believes the methimazole was reduced to 5 mg once daily prior to admission. He tried to increase it back to 5 mg twice daily to abort the atrial
fibrillation to no avail.
TSH 2.32, free T4 1.44.
I spoke with Dr. Denson and confirmed that his home dose of methimazole should be 5 mg once daily on discharge.
Hyponatremia -resolved.
Essential hypertension -hypotensive on arrival due to rapid atrial fibrillation and volume depletion. IV fluid bolus ordered. May need vasopressors. Hold antihypertensives.
Hyperlipidemia - atorvastatin.
CAD/CABG -2020.
COPD without exacerbation
Full code
Anticipated Discharge: Within 24 hours
Subjective/Interval History
-
Date of Service: March 29, 2024
Objective Data
-
Labs:
Laboratory Results
03/29/24
08:08
WBC 6.8
Hgb 9.5 L
Hct 28.5 L
Plt Count 286
Sodium 135
Potassium 4.4
Chloride 102
Carbon Dioxide 28
BUN 10
Creatinine 1.2
Glucose 132 H
Calcium 8.5
Total Bilirubin 0.4
AST 25
ALT 25
Alkaline Phosphatase 45
Vital Signs:
Vital Signs
Temp Pulse Resp BP Pulse Ox
98.3 F 72 18 131/71 99
03/29/24 11:35 03/29/24 11:35 03/29/24 11:35 03/29/24 11:35 03/29/24 11:35
I&O
03/28/24 03/29/24 03/30/24
06:59 06:59 06:59
Intake Total 2069 / 2069 1620 / 1620
Output Total 4200 / 4200 3675 / 3675
Balance -2130 / -2129 -2054 /
Physical Exam
-
General: Well Developed and Well Nourished
HEENT: Normocephalic and Atraumatic
Respiratory: Clear to Auscultation; Negative Wheezes, Rales or Rhonchi
Cardiac: Irregular Rhythm
GI: Soft, Nontender, Nondistended and Normal Bowel Sounds
Genito-urinary: No Costovertebral Tender
Musculoskeletal: No Edema
Neuro: AO x 3
Hematologic / Lymphatic: No Lymphadenopathy
Psych: Calm
[2024-03-29 17:06] LABS: Glucose - Point of Care 143 mg/dl (70-99)
[2024-03-29 21:38] LABS: Glucose - Point of Care 105 mg/dl (70-99)
[2024-03-29 22:46] LABS: Glucose - Point of Care 112 mg/dl (70-99)
[2024-03-29] MEDS: LANTUS 0.15 UNITS SC (22:47)
[2024-03-30] MEDS: TYLENOL PO (00:54)
[2024-03-30 03:15] VITALS: BP 105/43
[2024-03-30] MEDS: ROXICODONE 5 MG PO ×2 (03:25→08:37)
[2024-03-30 03:30] VITALS: PULSE 2
[2024-03-30] MEDS: TYLENOL 1000 MG PO ×2 (05:27→11:50)
[2024-03-30 06:00] VITALS: BMI 24.0
--- NOTE | 2024-03-30 07:15 | PN.DE.MGMTRT ---
Insulin Management
- -
03/30/2024 Diabetes Management Consult Follow up
Patient admitted 03/14 due to heart rate issues, with a fib - cardioverted. 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 PMH afib, CAD, HTN, HLD, BPH, diabetes 20 years and anxiety. Prior to admission was taking farxinga
10 mg daily and Ozempic 1 mg weekly. A1c on admission 8%, cr 2, eGFR 35.49.
Patient is awake alert and oriented able to discuss diabetes management. States he has a glucose monitor with supplies.
03/30 Glucose stable, range 105 to 143. Will make no change to HS lantus 15 units and AC novolog 5 units with low corrective.
Prescriptions for lantus, novolog and pen needles in ambulatory orders.
Will follow.
Diabetes History
- -
Type of Diabetes: 2 requiring insulin
Pre-Admission Diabetes Regimen
03/29/24
08:08
Creatinine 1.2
Lab Results
Hemoglobin A1c 8.0 % (4.0-5.6) H 03/15/24 06:14
Insulin Pump Settings
IP Diabetes Regimen
03/29/24 03/29/24 03/29/24
07:43 08:08 12:40
Glucose 132 H
POC Glucose 131 H 120 H
03/29/24 03/29/24 03/29/24
17:05 21:36 22:44
Glucose
POC Glucose 143 H 105 H 112 H
Meal type: Lunch
Meal type: Breakfast
Amount consumed: 100%
Amount consumed: 100%
Patient Education
[2024-03-30 07:30] VITALS: BP 124/62
[2024-03-30 07:49] LABS: Glucose - Point of Care 115 mg/dl (70-99)
[2024-03-30] MEDS: B COMPLEX w/VITAMIN C 1 CAPLET PO (08:14)
[2024-03-30] MEDS: COLACE 100 MG PO (08:14)
[2024-03-30] MEDS: ELIQUIS 5 MG PO (08:14)
[2024-03-30] MEDS: LOW STRENGTH ASPIRIN 81 MG PO (08:14)
[2024-03-30] MEDS: LIPITOR 40 MG PO (08:14)
[2024-03-30] MEDS: NOVOLOG FLEXPEN-LOW RESISTANCE SC (08:14)
[2024-03-30] MEDS: NOVOLOG FLEXPEN 5 UNITS SC ×2 (08:15→11:51)
[2024-03-30] MEDS: FLOMAX 0.4 MG PO (08:15)
[2024-03-30] MEDS: TAPAZOLE 5 MG PO (08:15)
[2024-03-30] MEDS: TOPROL XL PO ×2 (08:15→08:21)
[2024-03-30] MEDS: TOPROL XL 25 MG PO (08:25)
--- NOTE | 2024-03-30 08:46 | W.PN.CRS1 ---
Today's Communication / Plan
-
� As below
Assessment/Plan
-
68-year-old with a PMH of A-fib (on Eliquis), CAD s/p CABG 2020, diabetes, mild COPD (no meds), HTN, HLD who presents with 3 days of not feeling well and 5 days of worsening perineal pain on the right. Last cscope was 30 years ago, reportedly
normal. In the ED, he was noted to be in rapid A-fib and underwent urgent cardioversion due to hypotension and started on a hepgtt. He was also noted to be in MATT and mild DKA, HbA1c 8%, glucose 411. WBC of 26.1, Creatinine 3.1, NA 128. He was
initially admitted with IV antibiotics and a scrotal ultrasound was obtained to rule out a scrotal abscess, which was negative. A CTAP without contrast was done showing subcutaneous gas through out the right aspect of the perineum, extending from
the scrotum posteriorly to the ischiorectal space.
03/16 (1am) flex sig (well-perfused rectum), incision and drainage and debridement of perineal infection
03/16 (4pm) debridement of perineal wound, urology debrided small scrotal abscess and placed julien in R inguinal
03/18 additional debridement into inguinal region and base of scrotum with urology
03/20 minimal debridement, wound healthy with evidence of granulation; urology closed superficial defect in dartos fascia, partial closure around anus creating an anterior and posterior wound
03/23 eua, control of bleeding from perineal wound, opening of prior partial closure and further debridement of perineal wound
AFVSS
No labs today
� Appreciate WOCN; continue daily packing by nurse; will need VNA and follow-up at the wound care center with Dr. Guidry
� Discussed with Dr. Alas from plastics; continue local wound care, he would not consider closing wound currently
� Appreciate ID; off abx
� Continue regular diet
� Continue Eliquis
� MATT, resolved; strict I/Os
� Continue Wade due to retention; cont Floxmax; f/u urology for wade plan
� Pain control with Tylenol and Oxycodone PRN
� Encourage OOB/IS; patient needs mesh underwear to keep packing in place if getting OOB; appreciate PT
- Appreciate cardiology; cardiac cath as outpatient
� Appreciate Hospitalist
Subjective Data
Procedure
03/16/2024- Exam under anesthesia, debridement of perineal wound, pulse-irrigation of wound; Dr. Crowell from urology performed drainage of scrotal abscess with further debridement of scrotal and inguinal wound
03/18/24 Exam under anesthesia, debridement of fibrinous material
03/20/24 Exam under anesthesia, debridement of fibrinous material, partial closure around the anal sphincter
03/23/24- Exam under anesthesia, control of bleeding from perineal wound, debridement of perineal wound
Subjective Data
Date of Service: March 30, 2024
No overnight events. Pain well�controlled.
Objective Data
-
Vital Signs
Temp Pulse Resp BP Pulse Ox
98.2 F 62 16 124/62 96
03/30/24 07:30 03/30/24 08:25 03/30/24 07:30 03/30/24 07:30 03/30/24 07:30
Intake & Output
03/29/24 03/30/24 03/31/24
06:59 06:59 06:59
Intake Total 1620 / 1620 1859 / 1859
Output Total 3675 / 3675 2900 / 2900
Balance -2054 / -2054 -104 / -1040
Intake:
Oral fluids 1620 / 1620 1859 / 1860
Output:
Urine, Wade 3675 / 3675 2900 / 2900
Other:
Number of approximated MODERATE 3
amounts of urine
Number of unmeasured liquid
stools
Rectum 1
Lab Results
03/29/24 08:08
03/29/24 08:08
Physical Exam
-
General: No Acute Distress and AOx3
HEENT: Grossly Normal
Abdomen: Soft, Non Distended and Non Tender
Skin: Warm and Dry
Wound: Dressing in Place (Packing not changed, to be changed by nursing)
--- NOTE | 2024-03-30 10:04 | WOUNDNOTE ---
POSTERIOR VIEW WITH PACKING
--- NOTE | 2024-03-30 10:05 | WOUNDNOTE ---
ANTONINA RN NOTE: Followed up with patient, s/p OR on 03/23 for control of bleeding, opening of partial closure and further debridement. Patient able to have BM without difficulty this am or soiling wound and ambulated with walker in hallway. Scrotum
less swollen and nub card tender to the touch, patient premedicated for pain. R scrotum extending to the ischiorectal space, base red, clean, no signs of necrotic tissue and no bleeding. Packing with Saline moistened Kerlix, covered with ABD pads and
new mesh underwear. Patient has offloading cushion at bedside he uses when sitting. Plan is for patient to go home with daily dressing changes by VN and to follow up at [facility]. Supplies at bedside and discharge instructions updated. Nurse Alfonso
updated and will follow as needed.
[2024-03-30 11:40] VITALS: BP 124/65
[2024-03-30 11:49] LABS: Glucose - Point of Care 187 mg/dl (70-99)
[2024-03-30] MEDS: NOVOLOG FLEXPEN-LOW RESISTANCE 1 UNITS SC (11:51)
--- NOTE | 2024-03-30 12:14 | W.DS.TRANS ---
DC Summary - Application Coordinator
-
Discharge Instructions:
Sleep Apnea Risk Intermediate
Discharge Diagnosis/Procedures Williams's gangrene
Diet Diabetic, Carb Controlled
Instructions:
Stand-Alone Forms:
Changes to Home Medications: Yes
Discharge Medications:
DC Medications w/original date entered in [employer]
clonazepam 0.5 mg tablet 0.5 mg PO PRN PRN anxiety 07/25/20
atorvastatin 40 mg tablet 40 mg PO DAILY High cholesterol 07/28/20
acetaminophen 325 mg tablet 650 mg (2 x 325 mg) PO Q4HPRN PRN mild pain,headache,temp >101F 08/01/20
apixaban 5 mg tablet (Eliquis) 5 mg PO BID #60 tabs 08/01/20
tamsulosin 0.4 mg capsule (Flomax) 0.4 mg PO DAILY Urinary issue 10/06/21
B-complex with vitamin C 1 cap PO DAILY Supplement 03/15/24
amino acids (Amino Acid capsule) 1 cap PO DAILY Supplement 03/15/24
mecobalamin (vitamin B12) 1,000 mcg chewable tablet (B12 Active) 1,000 mcg PO DAILY Supplement 03/15/24
insulin aspart U-100 100 unit/mL (3 mL) subcutaneous pen (Novolog FlexPen U-100 Insulin aspart) 5 unit (0.05 mL) SC AC #5 ea 03/29/24
insulin glargine 100 unit/mL (3 mL) subcutaneous pen (Lantus Solostar U-100 Insulin) 15 unit (0.15 mL) SC HS #5 ea 03/29/24
pen needle, diabetic 32 gauge x ' (BD Ultra-Fine Esthela Pen Needle) #200 ea 03/29/24
aspirin 81 mg chewable tablet 81 mg PO DAILY #30 tabs 03/30/24
methimazole 5 mg tablet 5 mg PO DAILY Thyroid #0 tabs 03/30/24
metoprolol succinate 25 mg tablet,extended release 24 hr 25 mg PO BID #60 tabs 03/30/24
nitroglycerin 0.4 mg sublingual tablet 0.4 mg sublingual [id number] PRN chest pain #25 tabs 03/30/24
oxycodone 5 mg tablet 5 mg PO Q4HPRN PRN moderate pain #14 tabs 03/30/24
Home Medication Changes
Stop Amlodipine, Olmesartan, Chlortalidone, Farxiga, Advil, Ozempic
Pending Results: No
--- NOTE | 2024-03-30 13:37 | CM ---
Reviewed the chart notes and spoke with the patient at the bedside. The patient is being discharged today to home with VN services. Patient's spouse to provide transportation home. CM continues to be available to patient/family and is
monitoring medical plan for needs at discharge.
Plan: Discharge to home with VN services.
[2024-03-30 15:40] VITALS: BP 129/78
[2024-03-30 16:25] VITALS: BP 129/78
== END 2024-03-30 16:27 | disposition home health service (06) | DRG 853 ==
LOC: 2 NORTH 20:44
PROVIDERS: Hospitalist; Internal Medicine; Internal Medicine Cardiovascular Disease; Internal Medicine Critical Care Medicine; Nurse Practitioner Family; Nurse Practitioner Gerontology; ADMITTING PHYSICIAN Internal Medicine; ATTENDING PHYSICIAN Internal Medicine; CONSULT PHYSICIAN Internal Medicine Cardiovascular Disease; CONSULT PHYSICIAN Internal Medicine Critical Care Medicine; CONSULT PHYSICIAN Internal Medicine Infectious Disease; CONSULT PHYSICIAN Specialist; CONSULT PHYSICIAN Surgery; EMERGENCY PHYSICIAN Emergency Medicine; FAMILY PHYSICIAN Internal Medicine
PROC: 5A2204Z Restoration of Cardiac Rhythm, Single (ICD-10-PCS; 2024-03-14)
PROC: 0JBB0ZZ Excision of Perineum Subcutaneous Tissue and Fascia, Open Approach (ICD-10-PCS; 2024-03-15)
PROC: 0DJD8ZZ Inspection of Lower Intestinal Tract, Via Natural or Artificial Opening Endoscopic (ICD-10-PCS; 2024-03-16)
PROC: 5A09357 Assistance with Respiratory Ventilation, Less than 24 Consecutive Hours, Continuous Positive Airway Pressure (ICD-10-PCS; 2024-03-20)
PROC: 0W3M0ZZ Control Bleeding in Male Perineum, Open Approach (ICD-10-PCS; 2024-03-23)
DX: A41.9 Sepsis, unspecified organism (principal); E11.10 Type 2 diabetes mellitus with ketoacidosis without coma; R65.21 Severe sepsis with septic shock; I21.4 Non-ST elevation (NSTEMI) myocardial infarction; M72.6 Necrotizing fasciitis; N17.9 Acute kidney failure, unspecified; E87.1 Hypo-osmolality and hyponatremia; K61.1 Rectal abscess; L76.22 Postprocedural hemorrhage of skin and subcutaneous tissue following other procedure; N49.3 Fournier gangrene; I48.0 Paroxysmal atrial fibrillation; I10 Essential (primary) hypertension; E78.00 Pure hypercholesterolemia, unspecified; J44.9 Chronic obstructive pulmonary disease, unspecified; I25.10 Atherosclerotic heart disease of native coronary artery without angina pectoris; N40.1 Benign prostatic hyperplasia with lower urinary tract symptoms; R33.8 Other retention of urine; E05.90 Thyrotoxicosis, unspecified without thyrotoxic crisis or storm; G47.33 Obstructive sleep apnea (adult) (pediatric); N49.2 Inflammatory disorders of scrotum; Y83.8 Other surgical procedures as the cause of abnormal reaction of the patient, or of later complication, without mention of misadventure at the time of the procedure; T38.3X5A Adverse effect of insulin and oral hypoglycemic [antidiabetic] drugs, initial encounter; E86.9 Volume depletion, unspecified; Z11.52 Encounter for screening for COVID-19; Z79.01 Long term (current) use of anticoagulants; Z95.1 Presence of aortocoronary bypass graft; Z87.891 Personal history of nicotine dependence; Z79.84 Long term (current) use of oral hypoglycemic drugs
CPT/HCPCS: 88304; 71045; 71046; 74176; 76870; 80048; 80053; 80061; 80202; 81003; 82010; 82962; 83036; 83605; 83735; 83880; 83935; 84100; 84145; 84300; 84439; 84443; 84484; 85025; 85027; 85610; 85730; 86803; 86850; 86900; 86901; 86920; 87040; 87070; 87075; 87077; 87205; 87502; 87811; 92960; 93005; 93306; 93976; 94660; 96374; 97116; 97162; 97166; 97530; 99152; 99291; Q9950

== ENCOUNTER → 2024-04-05 12:27 | Outpatient (REF) | payer OTHER, SELFPAY | LOC: WOUND 12:27 | PROVIDERS: ATTENDING PHYSICIAN Surgery; FAMILY PHYSICIAN Internal Medicine | DX: S31.103A Unspecified open wound of abdominal wall, right lower quadrant without penetration into peritoneal cavity, initial encounter (principal); N49.3 Fournier gangrene; I11.9 Hypertensive heart disease without heart failure; J44.9 Chronic obstructive pulmonary disease, unspecified; Z95.1 Presence of aortocoronary bypass graft; E11.65 Type 2 diabetes mellitus with hyperglycemia; X58.XXXA Exposure to other specified factors, initial encounter | CPT/HCPCS: 99204 ==

== ENCOUNTER 2024-04-07 11:08 | Inpatient (IN) | payer OTHER, SELFPAY ==
[2024-04-06 20:30] VITALS: BP 122/74
[2024-04-06 21:08] LABS: % Basophils 0.3 % (0-2); % Immature Granulocytes 0.4 % (0-0.5); % Lymphocytes 14.3 % (20.5-51.1); % Monocytes 9.1 % (1.7-9.3); % Neutrophils 74.9 % (42.2-75.2); Absolute Eosinophils 0.1 10^3/uL (0-0.7); Absolute Lymphocytes 1.1 10^3/uL (1.2-3.4); Absolute Monocytes 0.7 10^3/uL (0.1-0.6); Absolute Neutrophils 5.7 10^3/uL (1.4-6.5); Hematocrit 26.1 % (39.0-52.0); Hemoglobin 8.7 g/dL (13.0-18.0); Mean Corp Hgb Conc. 33.3 g/dL (33.0-37.0); Mean Corpuscular Hgb 27.8 pg (27.0-31.0); Mean Corpuscular Volume 83.4 fL (80.0-94.0); Mean Platelet Volume 9.2 fL (7.4-10.4); Nucleated Red Blood Cells % 0 % (-); Platelet Count 253 10^3/uL (130-400); Red Blood Cell Count 3.13 10^6/uL (4.70-6.10); Red Cell Dist. Width 13.3 % (11.5-14.5); White Blood Cell Count 7.7 10^3/uL (4.8-10.8)
[2024-04-06 21:21] LABS: ALT (SGPT) 18 U/L (0-50); AST (SGOT) 18 U/L (17-59); Albumin 3.4 g/dl (3.5-5.0); Alkaline Phosphatase 42 U/L (38-126); Blood Urea Nitrogen 20 mg/dl (9-20); Calcium 8.3 mg/dl (8.4-10.2); Carbon Dioxide 20 mmol/L (22-30); Chloride 103 mmol/L (98-107); Glucose 224 mg/dl (70-99); Potassium 3.9 mmol/L (3.5-5.1); Sodium 134 mmol/L (135-145); Total Bilirubin 0.8 mg/dl (0.2-1.3); Total Protein 6.8 g/dl (6.3-8.2); eGFR 59.47
[2024-04-06 21:34] LABS: Troponin I 0.067 ng/ml
[2024-04-06 21:54] VITALS: BP 124/60
[2024-04-06 21:56] VITALS: BMI 24.5
[2024-04-06 22:00] VITALS: BP 113/62
[2024-04-06 23:00] VITALS: BP 120/64
--- NOTE | 2024-04-06 23:02 | ED.GENMED ---
History of Present Illness
General
Chief Complaint: Chest Pain
Source: patient and family
Exam Limitations: none
Time Seen by Provider: 04/06/24 22:30
Nursing documentation reviewed up to this point in time: agreed with
History of Present Illness
History of Present Illness:
This a pleasant 68-year-old male that presents to the emergency department with acute chest pain. Patient states that around 4 PM he developed chest pain which waxed and waned. At 7 PM he had another episode of this chest pain that caused him to
come into the emergency department. Upon arrival, he states that the pain has improved. Patient has had 5 groin surgeries performed. He was care center yesterday and told that his wounds were healing nicely. He does have an indwelling Smart
catheter. Patient does have a history of gout and states that he is in the midst of a flareup which is being treated by his family doctor. He was prescribed colchicine but did not picking supervisor the prescription. Patient does take Eliquis and had his
last dose today.
Vital signs are stable. Patient not hypoxic
Nursing note reviewed. I agree with nursing documentation up to this point in time.
Home Meds and allergies reviewed.
NUMBER AND COMPLEXITY OF PROBLEMS ADDRESSED AT THE ENCOUNTER
� Chronic conditions affecting care: Williams's gangrene, coronary artery disease, COPD, A-fib, hypertension, hyperlipidemia
� Acute Exacerbation and/or Progression of Chronic Illness: CAD
� Differential Diagnosis includes: ACS, troponin that is trending downwards from previous elevations several weeks ago
AMOUNT AND/OR COMPLEXITY OF DATA TO BE REVIEWED AND ANALYZED
I performed an independent evaluation of the following and my interpretation is:
EKG: Normal sinus rhythm rate of 88 with sinus arrhythmia present. Normal intervals, normal axis. No evidence of acute ischemia present.
Pulse Ox: Not Hypoxic
Raw Products Director: Sinus Rhythm
CT:
X-rays:
Ultrasound:
Laboratory Studies: Troponin of 0.067. Previous troponin on 03/25/2024 was 0.151
Other:
Review of other/old records:
Clinical information was obtained by an independent historian:
Prescriptions/Medications Considered but not given:
Further testing considered but not performed:
RISK OF COMPLICATIONS AND/OR MORBIDITY OR MORTALITY OF PATIENT MANAGEMENT
Social determinants of health affecting care: Good Social Support
Discussion with other providers: Hospitalist for admission
Escalation of care including admission/observation vs risk of discharge considered: After being observed in the emergency department, patient to be admitted for continued monitoring
CRITICAL CARE NOTE:
Total Time (exclusive of procedures):
Update:
Past History
Past History
ED Past Medical History: Arrthythmia, CAD, COPD, HTN, Hypercholesterolemia, NIDDM and Other (Sleep apnea, BPH, CABG, anxiety)
ED Past Surgical History: Other
Social History
Tobacco: Non-smoker
Alcohol: Other
Drug: None
Personal:
Living: with family
Employment: Other
Family History
Family History: Other
Review of Systems
Review of Systems
Allergies reviewed?: Yes
All Other Systems: ROS reviewed and negative except as documented in HPI and ROS
Constitutional: Reports fatigue; Denies fever or chills
EENT: Reports no symptoms
Respiratory: Reports no symptoms
Cardiac: Reports chest pain and diaphoresis; Denies palpitations or syncope
ABD/GI: Reports no symptoms
: Reports no symptoms and other (Indwelling Smart catheter)
Musculoskeletal: Reports no symptoms
Skin: Reports no symptoms (Was seen at wound care yesterday. Well-healing Williams's)
Neurological: Reports no symptoms
Endocrine: Reports no symptoms
Hematologic/Lymphatic: Reports no symptoms
Psychiatric: Reports no symptoms
Phy Exam
General Physical Exam
General Presentation: well appearing and mild distress
General age: appears stated age
General Skin: warm and dry
General Habitus: normal
General Mental: alert
General Hydration: appears well hydrated
General Chronic Disability: urinary catheter and other (Bandages on the scrotum and buttocks)
ENT Exam
ENT Exam: EOMI, pharynx normal, neck supple and normocephalic
Eye Exam
Eye Exam: PERRL, cornea clear and conjunctiva normal
Cardiovascular Exam
Cardiovascular Exam: regular rate/rhythm, no edema, no murmur and normal peripheral pulses
Pulmonary Exam
Pulmonary Exam: lungs clear, no respiratory distress, no rales, no crackles, no rhonchi, no stridor, no wheezing and no cough
Gastrointestinal Exam
Gastrointestinal Exam: normal bowel sounds, non tender, soft, no organomegaly, no pulsatile mass and non distended
Neurological Exam
Neurological Exam: alert, oriented x3, no motor deficits and speech normal
Musculoskeletal Exam
Musculoskeletal Exam: full ROM and no edema
Skin Exam
Skin Exam: normal color, warm/dry, no rash and no petechia
Psychiatric Exam
Psychiatric Exam: normal mood/affect
Scores
Heart Score for Chest Pain Patients
STEMI patient?: No
History: Highly Suspicious
ECG: Nonspecific Repolarization
Age: >/= 65 years
Risk Factors: >/= 3 Risk Factors or History of CAD
Troponin: >1 - <3 x Normal Limit
Heart Score for Chest Pain Patients: 8
Heart Score Risk: 72.7 % MACE over next 6 weeks
Course
Orders/Labs/Results
Orders:
Orders
04/06/24 20:21
Electrocardiogram (*1) Urgent
Reason for Study: Chest Pain
EKG- Treatment ONCE
04/06/24 21:01
Complete Blood Count/With Diff Urgent
Comprehensive Metabolic Panel Urgent
Troponin I Urgent
04/06/24 23:02
Morphine Sulfate 4 mg IV NOW STA
04/06/24 23:47
Admit/Transfer Patient As Directed
Co-Sign Provider:
Level of Care: Observation services
Assign to:: Telemetry
Physician / Group: Erick
Diagnosis: Chest Pain
Reason for Telemetry: Chest Pain syndromes
Date to Stop Telemetry: 04/08/24
Time to Stop Telemetry: 11:00
PRN Pain Medication Management As Directed
May give lesser potent ordered pain med per pt: Yes
preference::
Protocol:: Medication orders for pain may be administered in a
manner that supports deferring to patient preference
when the pt is:
- Requesting an ordered lesser potent pain medication.
Least to most potent pain medications are defined
as: acetaminophen < NSAID < tramadol < opioids
(morphine, oxycodone, hydromorphone).
- Requesting a lesser dose of the same medication IF
ORDERED.
- Requesting a less intrusive route of administration
if both routes are prescribed by the provider (PO <
IV).
04/06/24 23:48
Code Status As Directed
Resuscitation Status: Full Code
04/06/24 23:52
Insulin Glargine Lantus [Lantus] 10 units Subcutaneous Insulin Syringe [Syringe-Insulin] 0 unit SC NOW
04/07/24 00:50
Insulin Glargine Lantus [Lantus] 10 units Subcutaneous Insulin Syringe [Syringe-Insulin] 0 unit SC NOW
04/08/24 11:00
DC Protocol for Telemetry ONCE
Abnormal Lab Results
04/06/24 04/07/24
21:01 00:05
RBC 3.13 L 10^6/uL
(4.70-6.10)
Hgb 8.7 L g/dL
(13.0-18.0)
Hct 26.1 L %
(39.0-52.0)
Absolute Lymphs (auto) 1.1 L 10^3/uL
(1.2-3.4)
Absolute Monos (auto) 0.7 H 10^3/uL
(0.1-0.6)
Lymphocytes % 14.3 L %
(20.5-51.1)
Sodium 134 L mmol/L
(135-145)
Carbon Dioxide 20 L mmol/L
(22-30)
Glucose 224 H mg/dl
(70-99)
Calcium 8.3 L mg/dl
(8.4-10.2)
Troponin I 0.067 H* ng/ml
Albumin 3.4 L g/dl
(3.5-5.0)
POC Glucose 177 H mg/dl
(70-99)
04/06/24 21:01
04/06/24 21:01
Vital Signs
Initial and Last Documented VS:
Initial Vital Signs
Temp Pulse Resp BP Pulse Ox
97.5 F 92 20 122/74 95
04/06/24 20:30 04/06/24 20:30 04/06/24 20:30 04/06/24 20:30 04/06/24 20:30
Last Documented Vital Signs
Temp Pulse Resp BP Pulse Ox
97.3 F 58 19 122/56 94
04/06/24 20:30 04/07/24 02:00 04/07/24 02:00 04/07/24 02:00 04/07/24 02:00
*Critical Care Note
Total Time (30-74mins, 75-104mins- exclusive of procedures): Not Applicable
ED Attending Note
-
Portions of this chart may have been created with voice recognition software.� Occasional wrong word or��sound alike� substitutions may have occurred due to the inherent limitations of voice recognition software.
Discharge Plan
Departure
Patient Disposition: Admit
Date of Disposition: 04/06/24
Time of Disposition: 23:11
Presentation/result/management discussed w/ accepting MD/DO: Hospitalist
Patient with high blood pressure during this ER visit?: Yes
Condition: Good
Discharge Problem:
Chest pain, Williams gangrene in male
Interventions
Interventions:
*Risk Screen - Suicide Last Done: 04/06/24 20:30
*General Assessment Last Done: 04/06/24 21:59
*Neglect/Abuse Screening Last Done: 04/06/24 20:30
ED- Fall Risk Assessment Last Done: 04/06/24 21:59
*ED COVID-19 Vaccine History Last Done: 04/06/24 21:59
ED- Cardiac Assessment Last Done: 04/06/24 21:59
[2024-04-06] MEDS: MORPHINE SULFATE 4 MG IV (23:22)
--- NOTE | 2024-04-06 23:52 | HPS.HSE ---
Family Physician
-
Family Physician: Aiden Mejias
Chief Complaint
-
Chest Pain
History of Present Illness
Patient is a 68y M with PMH significant for ASCVD, DM-II and recent Williams's gangrene who presents to ED complaining of chest pain. Patient was recently admitted 03/14 - 03/30 for septic shock secondary to Williams's gangrene. He required a
total of 4 trips to the OR during his stay for debridement, hemostasis, etc. His admission was complicated by NSTEMI with intermittent chest pain and peak troponin of 6.32. Patient was seen by Cardiology during his stay and tentative plan was for
eventual ischemic evaluation as an outpatient.
Patient reports that his perineal wounds have been healing very well. [facility] and was seen there yesterday. He is no longer on abx therapy.
Patient notes that he has had continued episodes of intermittent chest pain since his discharge. Pain is substernal without radiation. No associated symptoms including dyspnea, diaphoresis or nausea.
Patient states that he typically takes 1-2 NTG tabs and his pain improves.
This evening, patient had a similar pain episode. He noted that his heart rate at that time was elevated at 125 bpm and he presented to the ED for further evaluation.
At the time of my examination, patient is resting comfortably in the ED in no distress. He denies any chest pain at present.
Medical History
Past Medical History
Past Medical History: Reports Other
Additional Past Medical History:
ASCVD
Williams's Gangrene (03/2024)
Hypertension
Paroxysmal Atrial Fibrillation
DM-II
Hyperthyroidism
Gout
COPD
Past Surgical History: Reports Other
Additional Past Surgical History:
Perineal Debridement (03/16, 03/18, 03/20 and 03/23)
CABG x4 (07/2020)
Social History
Tobacco: Former Smoker (quit 50 years ago)
Alcohol: Occasional
Drug: None
Personal:
Living: With Family
Employment: Employed
Family History
Family History: Not pertinent
Allergies / Home Medications
Allergies reflects when Allergies were last updated in [facility].
Home Medications with original date entered in [facility]
Allergy/Medication List:
Allergies
Allergy/AdvReac Type Severity Reaction Status Date / Time
dapagliflozin Allergy Williams's Verified 04/06/24 20:30
Gangrene
03/2024
Home Medications
clonazepam 0.5 mg tablet 0.5 mg PO DAILYPRN PRN anxiety 07/25/20
atorvastatin 40 mg tablet 40 mg PO DAILY High cholesterol 07/28/20
apixaban 5 mg tablet (Eliquis) 5 mg PO BID #60 tabs 08/01/20
tamsulosin 0.4 mg capsule (Flomax) 0.4 mg PO DAILY Urinary issue 10/06/21
insulin aspart U-100 100 unit/mL (3 mL) subcutaneous pen (Novolog FlexPen U-100 Insulin aspart) 5 unit (0.05 mL) SC AC #5 ea 03/29/24
insulin glargine 100 unit/mL (3 mL) subcutaneous pen (Lantus Solostar U-100 Insulin) 15 unit (0.15 mL) SC HS #5 ea 03/29/24
aspirin 81 mg chewable tablet 81 mg PO DAILY #30 tabs 03/30/24
methimazole 5 mg tablet 5 mg PO DAILY Thyroid #0 tabs 03/30/24
metoprolol succinate 25 mg tablet,extended release 24 hr 25 mg PO BID #60 tabs 03/30/24
nitroglycerin 0.4 mg sublingual tablet 0.4 mg sublingual [id number] PRN chest pain #25 tabs 03/30/24
oxycodone 5 mg tablet 5 mg PO Q4HPRN PRN moderate pain #14 tabs 03/30/24
acetaminophen 500 mg tablet (Tylenol Extra Strength) 1,000 mg PO Q6HPRN PRN mild pain 04/06/24
docusate sodium 100 mg capsule (Colace) 100 mg PO DAILY 04/06/24
Review of Systems
-
History Source: Patient
A 12 point ROS was completed and negative except as noted: Yes
Constitutional: Denies Fever or Chills
EENT: Denies Sore Throat
Respiratory: Denies Cough or Trouble Breathing
Cardiac: Reports Chest Pain; Denies Diaphoresis, Palpitations or Syncope
Abdomen/GI: Denies Abdominal Pain, Nausea, Vomiting or Diarrhea
: Denies Flank Pain
Musculoskeletal: Reports Joint Pain (R Foot pain / swelling.); Denies Edema
Neurological: Denies Dizzy or Headache
Psych: Denies Depression or Anxiety
Physical Exam
Vital Signs
Vital Signs
Temp Pulse Resp BP Pulse Ox
97.3 F 67 15 120/64 98
04/06/24 20:30 04/06/24 23:15 04/06/24 23:15 04/06/24 23:00 04/06/24 23:15
Physical Exam
General: Other (68y M in no acute distress.)
HEENT: Moist mucous membranes and PERRLA
Respiratory: Clear; No Wheezes, Rales or Rhonchi
Cardiac: S1/S2 and Regular Rhythm; No Murmur
GI: Soft, Non Tender, Non Distended and Normal Bowel Sounds
Genito-urinary: Other (Smart in place. Dressings in place over perineal wounds / surgical sites with minimal discharge.)
Musculoskeletal: Other (Mild erythema and edema of the R foot with tenderness.)
Neuro: AO x 3
Laboratory Results
-
04/06/24 21:01
04/06/24 21:01
Laboratory Results
Total Bilirubin 0.8 mg/dl (0.2-1.3) 04/06/24 21:01
AST 18 U/L (17-59) 04/06/24 21:01
ALT 18 U/L (0-50) 04/06/24 21:01
Alkaline Phosphatase 42 U/L (38-126) 04/06/24 21:01
Troponin I 0.067 ng/ml H* 04/06/24 21:01
Impression/Plan
-
A/P: Patient is a 68y M with PMH significant for ASCVD, DM-II and recent Williams's gangrene and sepsis who presents to ED complaining of chest pain.
Chest Pain
ASCVD
Recent NSTEMI
- Observe overnight for further evaluation and treatment.
- EKG without new / acute ischemic changes.
- Patient is pain free at present.
- Troponin is abnormal - but continues to trend down from recent NSTEMI.
- Continue current CV med regimen.
- Cardiology evaluation for additional recommendations.
- Follow for any new / worsening symptoms.
Williams's Gangrene
- Healing well. Continue local wound care.
- Maintain Smart catheter.
- No longer on abx therapy.
- Follow-up with outpatient Wound Care, CRS and Urology as planned.
Blood Loss Anemia - Subacute
- Hgb stable compared to recent values - but not yet recovered to pre-op baseline of 14-15.
- Check iron studies and consider iron infusions if needed.
- Follow for any evidence of new blood loss.
- Follow for changes in H&H.
- With ongoing angina - would have lower threshold for transfusion support.
Paroxysmal Atrial Fibrillation
- Stable. In NSR at present.
- Continue current medications including Eliquis for stroke risk reduction.
- Monitor on tele for any recurrent tachyarrhythmia.
DM-II
- Stable. Continue basal : bolus insulin regimen.
- Follow glucose and cover with SSI as needed.
Gout
- Pain in the R foot that started over this past week c/w prior gout episodes.
- Patient admits to recent dietary indiscretions that would explain his symptoms.
- Begin colchicine and follow for improvement in symptoms.
Hyperthyroidism
- Stable. Continue methimazole.
DVT Prophylaxis: On Eliquis
Code Status: Full
[2024-04-07] VITALS (9 sets, daily range): BP systolic 116–138; BP diastolic 55–70; BMI 24.1
[2024-04-07 00:07] LABS: Glucose - Point of Care 177 mg/dl (70-99)
[2024-04-07] MEDS: LANTUS 0.1 UNITS SC (00:38)
--- NOTE | 2024-04-07 03:30 | PTCARENOTE ---
Received patient from ED via stretcher. Patient stood and pivoted from stretcher to bed with assistance. AAOx3, patient denies chest pain. Chronic wade intact draining yellow urine. Right perineal wound with moderate amount of serosanguineous
drainage on ABD pad. Wound consult in place. Oriented patient to room and placed call tapia within reach.
[2024-04-07 03:58] LABS: Hematocrit 28.1 % (39.0-52.0); Hemoglobin 9.1 g/dL (13.0-18.0); Mean Corp Hgb Conc. 32.4 g/dL (33.0-37.0); Mean Corpuscular Hgb 27.4 pg (27.0-31.0); Mean Corpuscular Volume 84.6 fL (80.0-94.0); Mean Platelet Volume 8.9 fL (7.4-10.4); Platelet Count 225 10^3/uL (130-400); Red Blood Cell Count 3.32 10^6/uL (4.70-6.10); Red Cell Dist. Width 13.2 % (11.5-14.5); White Blood Cell Count 6.8 10^3/uL (4.8-10.8)
[2024-04-07 04:28] LABS: Blood Urea Nitrogen 20 mg/dl (9-20); Calcium 8.4 mg/dl (8.4-10.2); Carbon Dioxide 23 mmol/L (22-30); Chloride 104 mmol/L (98-107); Estimated Creatinine Clearance 73 ml/min; Glucose 154 mg/dl (70-99); Potassium 4.1 mmol/L (3.5-5.1); Sodium 136 mmol/L (135-145); eGFR > 60.00
[2024-04-07 04:32] LABS: Iron < 20 ug/dl (49-181)
[2024-04-07 04:37] LABS: Percent Saturation 7.75193 % (20-50); Total Iron Binding Capacity 258 ug/dl (261-462)
[2024-04-07 04:43] LABS: Troponin I 0.097 ng/ml
[2024-04-07 06:23] LABS: Glucose - Point of Care 134 mg/dl (70-99)
[2024-04-07 07:28] LABS: Troponin I 0.098 ng/ml
[2024-04-07 08:41] LABS: Glucose - Point of Care 170 mg/dl (70-99)
--- NOTE | 2024-04-07 08:50 | CON.CAR ---
Consultation
Consultation Request
Date/Time Consultation Requested: April 07, 2024
Date/Time Consultation Performed: April 07, 2024
Requesting Provider: Hospitalist
Performing Provider: Dr David Kay
Reason for Consultation: Chest pain
Medical History
-
Chief Complaint: Chest pain
History of Present Illness:
Primary care physician: Dr. Alessandro Cowan
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 Maxx Bolanos.
He presents with recurrent chest pain concerning for unstable angina.
He has known ASCVD(coronary artery bypass grafting surgery July 2020), paroxysmal atrial fibrillation, COPD, hypertension, DM-II and recent Williams's gangrene. He was recently admitted 03/14 - 03/30 for septic shock secondary to Williams's
gangrene. He required multiple surgeries for debridement and hemostasis. He complained intermittently of chest pain during this hospital stay and was diagnosed with non-ST segment elevation myocardial troponin with peak troponin of 6.32.
Echocardiogram during his hospital stay demonstrated new wall motion abnormalities of the overall preserved LVEF compared to prior echocardiogram from October 2021.
At his discharge March 29, 2024 cardiac plan was to eventually proceed with ischemic evaluation with coronary angiography when she was more fully recovered from his acute illness.
He presented to [facility] emergency department April 06, 2024 with recurrent chest discomfort with physical activity requiring 1-2 nitroglycerin tablets for resolution of pain.
ECG this admission finds normal sinus rhythm with inferior and lateral ST abnormalities.
Troponins this admission 0.067, 0.097, 0.098
Echocardiogram March 15, 2024 normal LV size and function. There is mild hypokinesis of the basal�mid inferior septal, apical lateral and basal inferior lance. Overall LVEF is estimated at 55%. There is no significant valvular disease.
Compared to echocardiogram October 10, 2021 regional wall motion abnormalities are new.
PMH:
- Known CAD
NSTEMI, peak troponin 6.09 Mar 2024
CAD s/p CABG x4 07/2020
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
status post surgery 03/15/24, 03/16/24, 03/18/2024
minimal debridement 03/20/2024
reoperation from hemorrhage from right perineal wound 03/23/24
- Paroxysmal Afib
initially seen s/p CABG 07/2020 at
recurrent Afib treated with CV in [facility] 10/06/21
recurrent Afib treated with rate control and spontaneously converted to SR 10/09/21
DCCV in [facility] 03/14/2024hronic OAC with Eliquis
History of thyroid issues and tremors with amiodarone
- Hypothyroidism
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
- HTN
- HLD
- DM2
- COPD
Social History
Tobacco: Former Smoker (Quit smoking 50 years ago)
Alcohol: Occasional
Drug: None
Personal:
Living: With Family
Employment: Employed
Family History
Family History: Reviewed & Not Pertinent
Allergies / Home Medications
Allergy/AdvReac Type Severity Reaction Status Date / Time
dapagliflozin Allergy Williams's Verified 04/06/24 20:30
Gangrene
03/2024
�Medication �Instructions �Recorded �Confirmed �Type
clonazepam 0.5 mg tablet 0.5 mg PO DAILYPRN PRN anxiety 07/25/20 04/06/24 History
atorvastatin 40 mg tablet 40 mg PO DAILY High cholesterol 07/28/20 04/06/24 History
apixaban 5 mg tablet (Eliquis) 5 mg PO BID #60 tabs 08/01/20 04/06/24 Rx
tamsulosin 0.4 mg capsule (Flomax) 0.4 mg PO DAILY Urinary issue 10/06/21 04/06/24 History
insulin aspart U-100 100 unit/mL 5 unit (0.05 mL) SC AC #5 ea 03/29/24 04/06/24 Rx
(3 mL) subcutaneous pen (Novolog
FlexPen U-100 Insulin aspart)
insulin glargine 100 unit/mL (3 15 unit (0.15 mL) SC HS #5 ea 03/29/24 04/06/24 Rx
mL) subcutaneous pen (Lantus
Solostar U-100 Insulin)
aspirin 81 mg chewable tablet 81 mg PO DAILY #30 tabs 03/30/24 04/06/24 Rx
methimazole 5 mg tablet 5 mg PO DAILY Thyroid #0 tabs 03/30/24 04/06/24 Rx
metoprolol succinate 25 mg 25 mg PO BID #60 tabs 03/30/24 04/06/24 Rx
tablet,extended release 24 hr
nitroglycerin 0.4 mg sublingual 0.4 mg sublingual [id number] PRN 03/30/24 04/06/24 Rx
tablet chest pain #25 tabs
oxycodone 5 mg tablet 5 mg PO Q4HPRN PRN moderate pain 03/30/24 04/06/24 Rx
#14 tabs
acetaminophen 500 mg tablet 1,000 mg PO Q6HPRN PRN mild pain 04/06/24 04/06/24 History
(Tylenol Extra Strength)
docusate sodium 100 mg capsule 100 mg PO DAILY 04/06/24 04/06/24 History
(Colace)
Review of Systems
-
History Source: Patient
All other systems: Negative unless noted
Constitutional: No Symptoms
EENT: No Symptoms
Respiratory: No Symptoms
Cardiac: Chest Pain
Abdomen/GI: No Symptoms
: No Symptoms
Musculoskeletal: Joint Pain (Right foot)
Skin: No Symptoms
Neurological: No Symptoms
Hematologic/Lymphatic: No Symptoms
Physical Exam
Vital Signs
Temp Pulse Resp BP Pulse Ox
99.4 F 65 20 135/70 98
04/07/24 03:28 04/07/24 03:28 04/07/24 03:28 04/07/24 03:28 04/07/24 04:04
Lab Results
04/07/24 03:40
04/07/24 03:40
Troponin I 0.098 ng/ml H* 04/07/24 06:30
Physical Exam
General: Well Developed, Well Nourished and No Apparent Distress
HEENT: Normocephalic and Moist Mucous Membranes
Respiratory: Clear and Non Labored Respirations
Cardiac: S1/S2, Regular Rhythm and Murmur (Normal S1 and S2, no S3 no S4 is a grade 1 with 6 apical holosystolic murmur no rub.)
Breast: Deferred by me
GI: Soft, Non Tender, Non Distended and Normal Bowel Sounds
Rectal: Deferred by Provider
Genito-urinary: Other ( (Smart in place. Dressings in place over perineal wounds / surgical sites with minimal discharge.))
Musculoskeletal: Other ((Mild erythema and edema of the R foot with tenderness.))
Neuro: Awake, Alert, Oriented and AO x 3
Psych: Calm
Impression / Plan
-
Assessment:
- Unstable angina
- Known CAD
NSTEMI, peak troponin 6.09 Mar 2024 and echocardiogram with new wall motion abnormalities
CAD s/p CABG x4 07/2020
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
status post surgery 03/15/24, 03/16/24, 03/18/2024
minimal debridement 03/20/2024
reoperation from hemorrhage from right perineal wound 03/23/24
- Paroxysmal Afib
initially seen s/p CABG 07/2020 at
recurrent Afib treated with CV in [facility] 10/06/21
recurrent Afib treated with rate control and spontaneously converted to SR 10/09/21
DCCV in [facility] 03/14/2024
Chronic OAC with Eliquis
History of thyroid issues and tremors with amiodarone
- Hypothyroidism
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
- HTN
- HLD
- DM2
- COPD
Recommendations:
He has had symptoms of unstable angina despite medical therapy which has included beta-austen and aspirin. He has required sublingual nitroglycerin for resolution of pain. He had prior coronary artery bypass grafting surgery in 2020. At his
hospital stay earlier this month he had non-ST segment elevation myocardial infarction with new wall motion abnormalities on echocardiogram (hypokinesis of the basal�mid inferior septal, apical lateral and basal inferior lance.).
I discussed this in detail with the patient. We discussed management options and have decided to move towards coronary angiography and possible intervention.
- Coronary angiography tomorrow
- Hold Eliquis tonight and tomorrow morning (Eliquis has been discontinued therefore we will need to resume once appropriate after coronary evaluation tomorrow)
- Has been pain-free at rest so far today. Will hold off on IV heparin but if he develops any further chest discomfort requiring nitroglycerin, would start IV heparin
- Maintain beta-austen, Toprol-XL 25 mg twice daily
- Maintain aspirin
- Maintain statin
- N.p.o. after midnight
Regarding atrial fibrillation, he has maintained sinus rhythm this hospital stay.
- Continue beta-austen, Toprol-XL 25 mg twice daily
- Eventually will need to resume Eliquis 5 mg twice daily for atrial fibrillation related thromboembolic risk reduction
Discussed with patient and all of his questions has been answered.
Discussed with nursing staff.
Total time spent today was 76 minutes in preparing to see the patient, seeing the patient and coordination of care. This included review of recent laboratory evaluations, cardiact testing, imaging studies, primary care rtecords, specialty
consultations, hospital records, as well as personally interviewing and examining the patient, which included discussion of their tests, review/ordering medications, and communicating with other healthcare professionals and also treatment planning
as well as counseling.
Data Reviewed
-
EKG: Tracing Personally Visualized and interpreted
Radiology: Report Reviewed by me
Medical Tests (Nuc Med, Echo etc): Report Reviewed by me
Labs: Labs Reviewed by me
Old Records: Requested
Total Time Spent with Patient (in minutes): 76
[2024-04-07] MEDS: COLACE 100 MG PO (09:17)
[2024-04-07] MEDS: FLOMAX 0.4 MG PO (09:17)
[2024-04-07] MEDS: COLCHICINE 0.6 MG PO (09:18)
[2024-04-07] MEDS: LIPITOR 40 MG PO (09:18)
[2024-04-07] MEDS: ELIQUIS 5 MG PO (09:18)
[2024-04-07] MEDS: TAPAZOLE 5 MG PO (09:18)
[2024-04-07] MEDS: LOW STRENGTH ASPIRIN 81 MG PO (09:18)
[2024-04-07] MEDS: TOPROL XL 25 MG PO ×2 (09:20→20:46)
--- NOTE | 2024-04-07 10:57 | W.PN.HOSP.TC ---
Today's Communication/Plan
-
see outlined plan
Assessment / Plan
Assessment / Plan
Assessment:
Chest Pain
ASCVD
Recent NSTEMI
- EKG without new / acute ischemic changes.
- Patient is pain free at present.
- Troponin is abnormal - but continues to trend down from recent NSTEMI.
- Continue current CV med regimen
- DCA cards following; NPO p MN for cath
- if develops chest pain again; will need IV heparin drip
Williams's Gangrene
- Healing well. Continue local wound care.
- Maintain Smart catheter.
- No longer on abx therapy.
- Follow-up with outpatient Wound Care, CRS and Urology as planned. Wound care service can evaluate while inpatient.
Blood Loss Anemia - Subacute
- Hgb stable compared to recent values - but not yet recovered to pre-op baseline of 14-15.
- Iron deficiency - start IV Iron infusions
- Follow for any evidence of new blood loss.
- Follow for changes in H&H.
Paroxysmal Atrial Fibrillation
- Stable. In NSR at present.
- Continue current medications. Holding Eliquis for cath.
- Monitor on tele for any recurrent tachyarrhythmia.
DM-II
- Stable. Continue basal : bolus insulin regimen.
- Follow glucose and cover with SSI as needed.
Gout
- Pain in the R foot that started over this past week c/w prior gout episodes.
- Patient admits to recent dietary indiscretions that would explain his symptoms.
- continue colchicine and follow for improvement in symptoms.
Hyperthyroidism
- Stable. Continue methimazole.
DVT Prophylaxis: SCDS, (Eliquis on hold for cath)
Code Status: Full
Anticipated Discharge: > 48 hours
Subjective/Interval History
-
Date of Service: April 07, 2024
no active chest pain at this time
for Cath tomorrow
Objective Data
-
Labs:
Laboratory Results
04/07/24
03:40
WBC 6.8
Hgb 9.1 L
Hct 28.1 L
Plt Count 225
Sodium 136
Potassium 4.1
Chloride 104
Carbon Dioxide 23
BUN 20
Creatinine 1.2
Glucose 154 H
Calcium 8.4
Vital Signs:
Vital Signs
Temp Pulse Resp BP Pulse Ox
99.9 F 66 20 134/67 95
04/07/24 07:10 04/07/24 09:20 04/07/24 07:10 04/07/24 09:20 04/07/24 07:10
Physical Exam
-
General: No Apparent Distress
HEENT: Normocephalic and Atraumatic
Respiratory: Negative Wheezes
Cardiac: Regular Rhythm and S1/S2
GI: Soft and Nontender
Genito-urinary: No Costovertebral Tender
Neuro: AO x 3
Psych: Calm
Data Reviewed
-
Total Time Spent with Patient (in minutes): 45
Labs: Labs Reviewed by me
[2024-04-07 11:52] LABS: Glucose - Point of Care 116 mg/dl (70-99)
[2024-04-07] MEDS: NOVOLOG FLEXPEN-LOW RESISTANCE SC ×2 (12:40→20:45)
[2024-04-07] MEDS: FERRLECIT 110 MG IV (15:35)
[2024-04-07] MEDS: MORPHINE SULFATE 2 MG IV ×2 (15:36→20:46)
[2024-04-07 17:30] LABS: Glucose - Point of Care 169 mg/dl (70-99)
[2024-04-07 20:44] LABS: Troponin I 0.071 ng/ml
[2024-04-07 22:47] LABS: Glucose - Point of Care 175 mg/dl (70-99)
[2024-04-07] MEDS: LANTUS SC (23:50)
[2024-04-07] MEDS: LANTUS 0.07 UNITS SC (23:53)
[2024-04-08] VITALS (8 sets, daily range): BP systolic 125–144; BP diastolic 51–80
[2024-04-08] MEDS: TYLENOL 1000 MG PO ×2 (00:09→20:40)
[2024-04-08] MEDS: NOVOLOG FLEXPEN-LOW RESISTANCE SC ×2 (00:18→16:09)
[2024-04-08 00:45] LABS: COVID-19 Antigen Negative (Negative)
--- NOTE | 2024-04-08 01:10 | PTCARENOTE ---
Report called to IVU RN and patient transferred to 2255 via wheelchair with all belongings.
--- NOTE | 2024-04-08 02:55 | PTCARENOTE ---
Received 4th floor transfer into room 3658. Pt a turn in pivot from WC to bed, and required two assist d/t pts 'gout flare up'. Tele monitor applied, pt NSR. Patient denies any chest pain at this time. Sating 94% RA, and has an occasional moist
cough. Patient Aware to remain NPO at midnight for possible cath on 04/08. Smart draining yellow urine. Right groin dressing intact, previous RN packed site. Patient oriented to room, and call tapia within reach.
[2024-04-08 04:35] LABS: Hematocrit 26.8 % (39.0-52.0); Hemoglobin 8.9 g/dL (13.0-18.0); Mean Corp Hgb Conc. 33.2 g/dL (33.0-37.0); Mean Corpuscular Hgb 27.6 pg (27.0-31.0); Platelet Count 224 10^3/uL (130-400); Red Blood Cell Count 3.23 10^6/uL (4.70-6.10); Red Cell Dist. Width 13.2 % (11.5-14.5); White Blood Cell Count 7.1 10^3/uL (4.8-10.8)
[2024-04-08 04:58] LABS: Blood Urea Nitrogen 18 mg/dl (9-20); Calcium 8.3 mg/dl (8.4-10.2); Carbon Dioxide 24 mmol/L (22-30); Chloride 103 mmol/L (98-107); Estimated Creatinine Clearance 80 ml/min; Glucose 166 mg/dl (70-99); Potassium 3.8 mmol/L (3.5-5.1); Sodium 135 mmol/L (135-145); eGFR > 60.00
[2024-04-08 05:01] LABS: Troponin I 0.069 ng/ml
[2024-04-08 06:14] LABS: Glucose - Point of Care 166 mg/dl (70-99)
[2024-04-08] MEDS: NOVOLOG FLEXPEN-LOW RESISTANCE 1 UNITS SC ×2 (06:19→18:38)
--- NOTE | 2024-04-08 08:29 | VNURNOTE ---
Chart reviewed. Patient is current with [facility] BEDS AT THE [facility] nursing. Will continue to follow hospital course and DC plans.
[2024-04-08] MEDS: LIPITOR 40 MG PO (09:08)
[2024-04-08] MEDS: COLACE 100 MG PO (09:08)
[2024-04-08] MEDS: TAPAZOLE 5 MG PO (09:08)
[2024-04-08] MEDS: COLCHICINE 0.6 MG PO (09:09)
[2024-04-08] MEDS: LOW STRENGTH ASPIRIN 81 MG PO (09:09)
[2024-04-08] MEDS: TOPROL XL 25 MG PO ×2 (09:10→20:37)
[2024-04-08] MEDS: FLOMAX 0.4 MG PO (09:11)
--- NOTE | 2024-04-08 09:35 | W.PN.HOSP.TC ---
Today's Communication/Plan
-
Fever workup as outlined with empiric Abx as outlined
cath postponed at least 24 hours - d/w Cards
Assessment / Plan
Assessment / Plan
Assessment:
Chest Pain
ASCVD
Recent NSTEMI
- EKG without new / acute ischemic changes.
- Patient is pain free at present.
- Troponin is abnormal - but continues to trend down from recent NSTEMI. no need to trend further
- Continue current CV med regimen
- DCA cards following; NPO p MN for cath Friday (postponed today due to fever, see below)
- if develops chest pain again; will need IV heparin drip
Febrile illness
- possible sources include R foot cellulitis, vs UTI vs bronchitis vs other
- start empiric Rocephin, Doxy to cover above possibilities
- pending UA, CXR, Bcx x 2
- COVID/Flu negative
Williams's Gangrene
- Healing well. Continue local wound care.
- Maintain Smart catheter.
- No longer on abx therapy.
- Follow-up with outpatient Wound Care, CRS and Urology as planned. Wound care service can evaluate while inpatient.
Blood Loss Anemia - Subacute
- Hgb stable compared to recent values - but not yet recovered to pre-op baseline of 14-15.
- Iron deficiency - continue IV Iron infusions
- Follow for any evidence of new blood loss.
- Follow for changes in H&H.
Paroxysmal Atrial Fibrillation
- Stable. In NSR at present.
- Continue current medications. Holding Eliquis for cath.
- Monitor on tele for any recurrent tachyarrhythmia.
DM-II
- Stable. Continue basal : bolus insulin regimen.
- Follow glucose and cover with SSI as needed.
Gout
- Pain in the R foot that started over this past week c/w prior gout episodes.
- Patient admits to recent dietary indiscretions that would explain his symptoms.
- continue colchicine and follow for improvement in symptoms.
Hyperthyroidism
- Stable. Continue methimazole.
DVT Prophylaxis: SCDS, (Eliquis on hold for cath)
Code Status: Full
Anticipated Discharge: > 48 hours
Subjective/Interval History
-
Date of Service: April 08, 2024
Febrile overnight
reports some upper airway mucous, no chest pain, sob, no chills, no GI complaints.
COVID/Flu negative
Bcx and UA, along with CXR pending
Objective Data
-
Labs:
Laboratory Results
04/08/24
04:23
WBC 7.1
Hgb 8.9 L
Hct 26.8 L
Plt Count 224
Sodium 135
Potassium 3.8
Chloride 103
Carbon Dioxide 24
BUN 18
Creatinine 1.1
Glucose 166 H
Calcium 8.3 L
Vital Signs:
Vital Signs
Temp Pulse Resp BP Pulse Ox
99.1 F 77 18 143/66 95
04/08/24 09:19 04/08/24 09:10 04/08/24 09:19 04/08/24 09:10 04/08/24 04:17
I&O
04/07/24 04/08/24 04/09/24
06:59 06:59 06:59
Intake Total 660 / 660
Output Total 1150 / 1150
Balance -490 / -490
Physical Exam
-
General: No Apparent Distress
HEENT: Normocephalic and Atraumatic
Respiratory: Negative Wheezes
Cardiac: Regular Rhythm and S1/S2
GI: Soft and Nontender
Genito-urinary: No Costovertebral Tender and Smart
Musculoskeletal: No Edema
Neuro: AO x 3
Hematologic / Lymphatic: No Lymphadenopathy
Psych: Calm
Data Reviewed
-
Total Time Spent with Patient (in minutes): 44
Labs: Labs Reviewed by me
[2024-04-08 09:58] LABS: Troponin I 0.067 ng/ml
--- NOTE | 2024-04-08 09:58 | W.PN.CARDCBS ---
Addendum entered and electronically signed by Maxx Bolanos MD 04/08/24 12:23:
I saw and examined the patient.
The SCUBA INSTRUCTOR or PA's note was reviewed and I agree with the note.
Comment: General: Well developed, well nourished in NAD.
Neck: Supple, no JVD, HJR, carotids +2 B/L, no bruits bilaterally.
Heart: Non displaced PMI, RRR, no murmurs, No S3, S4, no rubs.
Lungs: Clear to auscultation bilaterally, no wheeze, rhonchi, rubs bilaterally,
normal expiratory phase.
Abdomen: Normal bowel sounds, soft, non-tender, non-distended.
Extremities: No clubbing, cyanosis or edema bilaterally.
Neuro: Grossly nonfocal, awake, alert and oriented x3.
Catheterization postponed due to fever. Eliquis is on hold and eventual need to be resumed. Will hold off on heparin given multiple bleeds from Williams's gangrene on last admission.
Original Note:
Today's Communication / Plan
-
Cath postponed to tomorrow due to fever overnight
Chest pain free
Cont aspirin
Eliquis on hold and evenutally resume
Impression / Plan
-
PCP: Dr. Hart
Primary Wire Saw Operator: Dr. Bolanos
Impression:
Admitted with chest pain/USA 04/06/24
Recent admission for NSTEMI and Williams's gangrene 03/14/24 until 03/30/24
MATT
NSTEMI, peak troponin 6.3
CAD
s/p CABG x4 07/2020
s/p NSTEMI with peak Troponin 6.32 03/2024
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
Paroxysmal Afib
initially seen s/p CABG 07/2020 at
[facility]
recurrent Afib treated with rate control and spontaneously converted to SR 10/09/21
DCCV in [facility] 4Chronic OAC with Eliquis
History of thyroid issues and tremors with amiodarone
Hypothyroidism
patient reports possible Fior's, but not officially diagnosedHTN
HLD
DM2
COPD
ALFREDO 07/2020: EF 60-65%, no RWMA, severe conc LVH, mod dilated LA, mildly dilated mid ascending aorta, mild sessile atheroma in descending aorta and distal arch
ECHO 10/11/21: EF 50 to 55%, no WMA, normal RA/LA size, no significant valve disease
Echo 03/15/24: EF 55%, mild hypokinesis of the basal-mid inferoseptal, apical lateral and basal inferior lance, normal RV size and function, trileaflet sclerotic aortic valve with dense calcification on the noncoronary cusp, no /AR
Plan:
-Patient was scheduled for cardiac cath 04/08/24, but had a fever with temp up to 101 degrees Fahrenheit overnight. Case d/w hospitalist attending and plan is for empiric antibiotics and cultures.
-Troponin peaked at 0.098 this admission. Pain free now.
-Patient is not on Heparin gtt due to recurrent bleeding last admission. Last dose of Eliquis 5 mg BID was 04/06/24 AM.
-Cont aspirin 81 mg daily
-Cont Toprol XL 25 mg BID
-Check CVE, LDL was 54 last admission and outpatient dose of atorvastatin 40 mg daily has been continued
-Tele reviewed by me and patient remains in SR following CV [facility] 03/[facility] PM.
Progress Note - Wire Saw Operator
Subjective
Date of Service: April 08, 2024
No perineal pain, no chills
Objective
Labs:
04/08/24 04:23
04/08/24 04:23
Labs
Hgb 8.9 g/dL (13.0-18.0) L 04/08/24 04:23
Hct 26.8 % (39.0-52.0) L 04/08/24 04:23
Plt Count 224 10^3/uL (130-400) 04/08/24 04:23
Sodium 135 mmol/L (135-145) 04/08/24 04:23
Potassium 3.8 mmol/L (3.5-5.1) 04/08/24 04:23
BUN 18 mg/dl (9-20) 04/08/24 04:23
Creatinine 1.1 mg/dL (0.7-1.3) 04/08/24 04:23
Glucose 166 mg/dl (70-99) H 04/08/24 04:23
Troponins
04/06/24 04/07/24 04/07/24
21:01 03:40 06:30
Troponin I 0.067 H* 0.097 H* D 0.098 H*
04/07/24 04/07/24 04/08/24
15:10 20:11 04:23
Troponin I Cancelled 0.071 H* 0.069 H*
04/08/24
09:01
Troponin I 0.067 H*
Vital Signs and I&O:
Vital Signs
Temp Pulse Resp BP Pulse Ox
99.1 F 77 18 143/66 96
04/08/24 09:19 04/08/24 09:10 04/08/24 09:19 04/08/24 09:10 04/08/24 09:48
Vital Signs
Temp Pulse Resp BP Pulse Ox
99.1 F 77 18 143/66 96
04/08/24 09:19 04/08/24 09:10 04/08/24 09:19 04/08/24 09:10 04/08/24 09:48
Intake & Output
04/06/24 04/07/24 04/08/24 04/09/24
06:59 06:59 06:59 06:59
Intake Total 660 / 660
Output Total 1150 / 1150
Balance -490 / -490
Physical Exam
Physical Exam
GEN: AAOx3
HEENT: MMM
LUNGS: RA. No audible wheeze
CV: SR on tele.
ABD: ND
EXT: No edema B/L
NEURO: Gross non-focal
SKIN: No rash
[2024-04-08 10:05] LABS: Urine Albumin 1+ (Neg - Trace); Urine Bilirubin Negative (Negative); Urine Character Slightly Cloudy (Clear); Urine Color Yellow; Urine Glucose Negative (Negative); Urine Ketone Negative (Negative); Urine Leukocyte 1+ (Negative); Urine Nitrite Positive (Negative); Urine Occult Blood 3+ (Negative); Urine Specific Gravity 1.015 (<1.030); Urine Urobilinogen Negative (Neg - 1+)
[2024-04-08 10:24] LABS: Urine Bacteria Many (Negative); Urine White Cell 70-80 /HPF (0-5); Urine Yeast Many (Negative)
--- NOTE | 2024-04-08 10:32 | CM ---
Reviewed chart. Met with Mr. Trinidad to review discharge plans. He states he is feeling okay and waiting to have a Cardiac Cath. He states prior to admission he resides with his spouse in a three story home with one step to enter. He states he
has a full flight of steps to get to bedroom/full bathroom. He states he has a powder room on the first floor. He states prior to admission he was independent with ambulation and adls. He states he does not have any DME in the home. He states he
is current with [facility] for wound care. He is agreeable to continuing with [facility]. Telephone call to [facility] to make the new referral. Will send referral to [facility] to resume services. He states he has a
prescription plan and uses [facility]. Medical work-up in progress. The discharge plan is to return home with his spouse and resumption of [facility] when medically stable.
--- NOTE | 2024-04-08 10:34 | WOUNDNOTE ---
ANTONINA RN note: Patient admitted with chest pain
See H&P for complete history.
PMH: A Fib, CAD, HTN, urgency, DM, gout, and anxiety. Recent admission for determined necrosis of soft tissue infection requiring multiple I&D's in OR. Patient has [facility] for daily wound care and patient has followed up with [facility]. This repairer typewriter spoke
to Dr. Guidry prior to assessment regarding wound/plan of care.
Wound Location and type/assessment: Right groin perineal wound dressing last changed over night. At time of assessment patient denied pain/discomfort and packing had a small amount of serosanguineous drainage. No erythema or odor noted. Sacrum and
heels intact.
Appetite: Good.
Pressure redistribution devices in place: Versa Care Accumax, patient turns easily in bed.
Plan: Packing daily with saline moistened Kerlix, cover with ABD's and secure with mesh underwear. Updated nurse, care plan and will follow as needed.
Note to case management of equipment requested for discharge: VN
Recommend follow up at wound care center upon discharge.
[2024-04-08] MEDS: ROCEPHIN 1000 MG IV (13:34)
[2024-04-08] MEDS: STERILE WATER FOR INJECTION 10 ML IV (13:34)
[2024-04-08] MEDS: FERRLECIT 110 MG IV (13:34)
[2024-04-08] MEDS: VIBRAMYCIN 100 MG PO ×2 (13:55→20:37)
--- NOTE | 2024-04-08 17:33 | PTCARENOTE ---
exchanged wade catheter,
[2024-04-08 18:18] LABS: Glucose - Point of Care 150 mg/dl (70-99)
[2024-04-08 19:29] LABS: Hepatitis C Antibody Negative (Negative)
[2024-04-08 22:57] LABS: Glucose - Point of Care 224 mg/dl (70-99)
[2024-04-09] VITALS (7 sets, daily range): BP systolic 124–152; BP diastolic 44–82
[2024-04-09] MEDS: LANTUS 0.15 UNITS SC ×2 (00:21→21:55)
[2024-04-09] MEDS: NOVOLOG FLEXPEN-LOW RESISTANCE 2 UNITS SC ×2 (00:22→14:00)
--- NOTE | 2024-04-09 03:19 | PTCARENOTE ---
Assumed care of the pt @ 1900. AAOx3 SR on the monitor VSS Tylenol given for b/l foot pain NPO mn for possible cath. wound dressing in place.
[2024-04-09 04:24] LABS: Hematocrit 27.2 % (39.0-52.0); Mean Corp Hgb Conc. 33.1 g/dL (33.0-37.0); Mean Corpuscular Hgb 27.6 pg (27.0-31.0); Mean Corpuscular Volume 83.4 fL (80.0-94.0); Mean Platelet Volume 9.3 fL (7.4-10.4); Platelet Count 257 10^3/uL (130-400); Red Blood Cell Count 3.26 10^6/uL (4.70-6.10); Red Cell Dist. Width 13.1 % (11.5-14.5); White Blood Cell Count 6.2 10^3/uL (4.8-10.8)
[2024-04-09 04:52] LABS: Blood Urea Nitrogen 18 mg/dl (9-20); Calcium 8.4 mg/dl (8.4-10.2); Carbon Dioxide 27 mmol/L (22-30); Chloride 103 mmol/L (98-107); Estimated Creatinine Clearance 80 ml/min; Glucose 160 mg/dl (70-99); Sodium 136 mmol/L (135-145); eGFR > 60.00
[2024-04-09 07:01] LABS: Glucose - Point of Care 183 mg/dl (70-99)
[2024-04-09] MEDS: NOVOLOG FLEXPEN-LOW RESISTANCE 1 UNITS SC ×3 (07:03→23:24)
[2024-04-09] MEDS: COLCHICINE 0.6 MG PO (07:38)
[2024-04-09] MEDS: FLOMAX 0.4 MG PO (07:39)
[2024-04-09] MEDS: LIPITOR 40 MG PO (07:39)
[2024-04-09] MEDS: LOW STRENGTH ASPIRIN 81 MG PO (07:39)
[2024-04-09] MEDS: TOPROL XL 25 MG PO ×2 (07:39→19:45)
[2024-04-09] MEDS: TYLENOL 1000 MG PO (07:39)
[2024-04-09] MEDS: VIBRAMYCIN 100 MG PO ×2 (07:39→19:45)
[2024-04-09] MEDS: COLACE 100 MG PO (07:40)
[2024-04-09] MEDS: TAPAZOLE 5 MG PO (07:43)
[2024-04-09] MEDS: STERILE WATER FOR INJECTION 10 ML IV (10:14)
[2024-04-09] MEDS: ROCEPHIN 1000 MG IV (10:14)
[2024-04-09 10:32] LABS: Glucose - Point of Care 185 mg/dl (70-99)
--- NOTE | 2024-04-09 10:49 | W.PN.HOSP.TC ---
Today's Communication/Plan
-
IV heparin drip and observe for bleeding at groin wounds; Cath tentatively Friday
continue Abx ; follow cultures
Assessment / Plan
Assessment / Plan
Assessment:
Chest Pain
ASCVD
Recent NSTEMI
- EKG without new / acute ischemic changes.
- Patient is pain free at present.
- Troponin is abnormal - but continues to trend down from recent NSTEMI. no need to trend further
- Continue current CV med regimen
- DCA cards following; NPO p MN for cath now postponed to Friday.
- starting IV heparin drip per Cardiology to assess if any evidence of bleeding at groin site. Heparin drip requires intensive monitoring of PTTs
Febrile illness
- CAUTI per UA, possible R foot cellulitis vs bronchitis also contributing
- continue empiric Rocephin, Doxy, day 2 to cover above possibilities
- Chronic wade exchanged at bedside 04/08/24
- CXR with minimal atelectasis; IS ordered
- Bcx so far NGTD
- COVID/Flu negative
Williams's Gangrene
- Healing well. Continue local wound care.
- Maintain Wade catheter.
- No longer on abx therapy.
- Follow-up with outpatient Wound Care, CRS and Urology as planned. Wound care service can evaluate while inpatient.
Blood Loss Anemia - Subacute
- Hgb stable compared to recent values - but not yet recovered to pre-op baseline of 14-15.
- Iron deficiency - continue IV Iron infusions x 5 day course
- Follow for any evidence of new blood loss.
- Follow for changes in H&H.
Paroxysmal Atrial Fibrillation
- Stable. In NSR at present.
- Continue current medications. Holding Eliquis for cath. Heparin drip requires intensive monitoring of PTTs
- Monitor on tele for any recurrent tachyarrhythmia.
DM-II
- Stable. Continue basal : bolus insulin regimen.
- Follow glucose and cover with SSI as needed.
Gout
- Pain in the R foot that started over this past week c/w prior gout episodes.
- Patient admits to recent dietary indiscretions that would explain his symptoms.
- continue colchicine, day 3 and follow for improvement in symptoms.
Hyperthyroidism
- Stable. continue methimazole.
DVT Prophylaxis: IV Heparin drip
Code Status: Full
Anticipated Discharge: > 48 hours
Subjective/Interval History
-
Date of Service: April 09, 2024
Febrile to 100.5 Tmax last evening 7pm, no fever since
Wade exchanged yesterday
IV heparin started by Cardiology
Objective Data
-
Labs:
Laboratory Results
04/09/24 04/09/24
03:35 10:29
WBC 6.2
Hgb 9.0 L
Hct 27.2 L
Plt Count 257
APTT Pending
Sodium 136
Potassium 4.0
Chloride 103
Carbon Dioxide 27
BUN 18
Creatinine 1.1
Glucose 160 H
Calcium 8.4
Vital Signs:
Vital Signs
Temp Pulse Resp BP Pulse Ox
98.7 F 69 20 130/70 95
04/09/24 10:33 04/09/24 07:00 04/09/24 06:53 04/09/24 06:55 04/09/24 06:55
I&O
04/08/24 04/09/24 04/10/24
06:59 06:59 06:59
Intake Total 660 / 660 0 / 0
Output Total 1150 / 1150 1999
Balance -490 / -490 -1999 /
Physical Exam
-
General: No Apparent Distress
HEENT: Normocephalic and Atraumatic
Respiratory: Negative Wheezes
Cardiac: Regular Rhythm and S1/S2
GI: Soft and Nontender
Genito-urinary: Wade
Musculoskeletal: No Edema
Neuro: AO x 3
Hematologic / Lymphatic: No Lymphadenopathy
Psych: Calm
Data Reviewed
-
Total Time Spent with Patient (in minutes): 51
Labs: Labs Reviewed by me
[2024-04-09 10:51] LABS: APTT 41.3 Sec (23.4-35.0)
[2024-04-09] MEDS: HEPARIN 25000 UNITS/250 ML IV (11:28)
[2024-04-09] MEDS: NOVOLOG FLEXPEN-LOW RESISTANCE SC (11:33)
--- NOTE | 2024-04-09 12:38 | CM ---
Reviewed chart. Met with Mr. Trinidad to review discharge plans. He states his Cardiac Cath will be on Friday. Prior to admission he resides with his spouse in a three story home with one step to enter. He has a full flight of steps to get to
bedroom/full bathroom. He has a powder room on the first floor. Prior to admission he was independent with ambulation and adls. He does not have any DME in the home. He is current with [facility]. Referral sent to resume services
upon discharge. He has a prescription plan and uses [facility]. Medical work-up in progress. The discharge plan is to return home with his spouse and resumption of [facility] when medically stable.
--- NOTE | 2024-04-09 13:20 | W.PN.CARDCBS ---
Addendum entered and electronically signed by Maxx Bolanos MD 04/09/24 13:29:
I saw and examined the patient.
The GARAGE ATTENDANT or PA's note was reviewed and I agree with the note.
Comment: General: Well developed, well nourished in NAD.
Neck: Supple, no JVD, HJR, carotids +2 B/L, no bruits bilaterally.
Heart: Non displaced PMI, RRR, no murmurs, No S3, S4, no rubs.
Lungs: Clear to auscultation bilaterally, no wheeze, rhonchi, rubs bilaterally,
Extremities: No clubbing, cyanosis or edema bilaterally.
Neuro: Grossly nonfocal, awake, alert and oriented x3.
Continues with low-grade fevers. Hold off on cath for now given multiple complications from Williams's gangrene on last admission. Will also start IV heparin and follow hemoglobin closely. If remains stable we will do cardiac catheterization
04/12/2024. Discussed with primary service
Original Note:
Today's Communication / Plan
-
Follow fever curve. Continue empiric antibiotics. Awaiting culture data
Tentatively for cath on 04/12/2024
Restart IV heparin
Continue aspirin, Toprol, atorvastatin
Follow hemoglobin
Impression / Plan
-
PCP: Dr. Hart
Primary Engine Research Engineer: Dr. Bolanos
Impression:
Admitted with chest pain/USA 04/06/24
Recent admission for NSTEMI and Williams's gangrene 03/14/24 until 03/30/24
MATT
NSTEMI, peak troponin 6.3
CAD
s/p CABG x4 07/2020
s/p NSTEMI with peak Troponin 6.32 03/2024
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
Paroxysmal Afib
initially seen s/p CABG 07/2020 at
recurrent Afib treated with CV in [facility] 10/06/21
recurrent Afib treated with rate control and spontaneously converted to SR 10/09/21
[facility] with Eliquis
History of thyroid issues and tremors with amiodarone
Hypothyroidism
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
HTN
HLD
DM2
COPD
ALFREDO 07/2020: EF 60-65%, no RWMA, severe conc LVH, mod dilated LA, mildly dilated mid ascending aorta, mild sessile atheroma in descending aorta and distal arch
ECHO 10/11/21: EF 50 to 55%, no WMA, normal RA/LA size, no significant valve disease
Echo 03/15/24: EF 55%, mild hypokinesis of the basal-mid inferoseptal, apical lateral and basal inferior lance, normal RV size and function, trileaflet sclerotic aortic valve with dense calcification on the noncoronary cusp, no /AR
Plan:
-Temp overnight as high as 100.5. Thus far blood cultures negative. Urine culture pending. Continue empiric antibiotics per primary service
-Remains chest pain-free at present
-Eliquis on hold. Now back on IV heparin
-Continue aspirin. Hemoglobin 9.0
-Will plan for cardiac catheterization tentatively on 04/12/2024 pending no recurrences of bleeding or acute infectious issues
-Continue Toprol, atorvastatin
-Continue wound care
Progress Note - Engine Research Engineer
Subjective
Date of Service: April 09, 2024
No pain overnight
Objective
Labs:
04/09/24 03:35
04/09/24 03:35
Labs
Hgb 9.0 g/dL (13.0-18.0) L 04/09/24 03:35
Hct 27.2 % (39.0-52.0) L 04/09/24 03:35
Plt Count 257 10^3/uL (130-400) 04/09/24 03:35
APTT 41.3 Sec (23.4-35.0) H 04/09/24 10:29
Sodium 136 mmol/L (135-145) 04/09/24 03:35
Potassium 4.0 mmol/L (3.5-5.1) 04/09/24 03:35
BUN 18 mg/dl (9-20) 04/09/24 03:35
Creatinine 1.1 mg/dL (0.7-1.3) 04/09/24 03:35
Glucose 160 mg/dl (70-99) H 04/09/24 03:35
Troponins
04/06/24 04/07/24 04/07/24
21:01 03:40 06:30
Troponin I 0.067 H* 0.097 H* D 0.098 H*
04/07/24 04/07/24 04/08/24
15:10 20:11 04:23
Troponin I Cancelled 0.071 H* 0.069 H*
04/08/24
09:01
Troponin I 0.067 H*
Vital Signs and I&O:
Vital Signs
Temp Pulse Resp BP Pulse Ox
98.4 F 69 18 130/70 98
04/09/24 11:50 04/09/24 07:00 04/09/24 11:50 04/09/24 06:55 04/09/24 11:50
Vital Signs
Temp Pulse Resp BP Pulse Ox
98.4 F 69 18 130/70 98
04/09/24 11:50 04/09/24 07:00 04/09/24 11:50 04/09/24 06:55 04/09/24 11:50
Intake & Output
04/07/24 04/08/24 04/09/24 04/10/24
07:59 07:59 07:59 07:59
Intake Total 660 / 660
Output Total 1150 / 1150 1999
Balance -490 / -490 -1999
[2024-04-09 13:56] LABS: Glucose - Point of Care 227 mg/dl (70-99)
--- NOTE | 2024-04-09 14:00 | PTCARENOTE ---
Patient having some relief of his gout pain in his feet. Heparin infusing per MAR. Right Williams ulcer dressing packed with Kerlix, mild sanguinous drainage, wound bed clean with no eschar. Call tapia in reach
[2024-04-09] MEDS: FERRLECIT 110 MG IV (16:52)
[2024-04-09 17:21] LABS: APTT 40.4 Sec (23.4-35.0)
[2024-04-09 17:31] LABS: Glucose - Point of Care 173 mg/dl (70-99)
--- NOTE | 2024-04-09 20:00 | PTCARENOTE ---
Received pt from [facility]. pt resting comfortably in bed. Pt is waiting for heart cath scheduled for 04/12/2024 and is currently on a Heparin gtt. pt is AAOx4, pt denies pain. NSR on monitor. VSS. Heart sounds audible, radial and DP pulses
palpable, trace pedal edema. lungs sounds are course throughout with productive cough, spo2 98% on RA. +bs x4 quadrants, abdomen soft non tender. pt voiding clear yellow urine via chronic wade catheter, wade care provided. perineal wound present
on admission, dressing clean dry and intact, wound care consulted. PIV maintained. call tapia within reach. will continue to monitor.
[2024-04-09 21:49] LABS: Glucose - Point of Care 184 mg/dl (70-99)
[2024-04-09 23:25] LABS: Glucose - Point of Care 184 mg/dl (70-99)
[2024-04-09 23:55] LABS: APTT 49.6 Sec (23.4-35.0)
[2024-04-10] VITALS (7 sets, daily range): BP systolic 115–140; BP diastolic 56–74
--- NOTE | 2024-04-10 | PTCARENOTE ---
Pt resting comfortably in bed. NSR, VSS. PTT lab drawn and heparin gtt adjusted. pt in not yet therapeutic, see worklist. call tapia within reach. will continue to monitor.
--- NOTE | 2024-04-10 04:00 | PTCARENOTE ---
pt assessment unchanged. NSR on monitor. VSS. labs drawn and sent. Heparin adjusted and new PTT ordered. Tylenol given for neck pain. will continue to monitor.
[2024-04-10] MEDS: HEPARIN 25000 UNITS/250 ML IV ×2 (04:20→22:06)
[2024-04-10 04:27] LABS: Hematocrit 26.3 % (39.0-52.0); Hemoglobin 8.7 g/dL (13.0-18.0); Mean Corp Hgb Conc. 33.1 g/dL (33.0-37.0); Mean Corpuscular Hgb 27.2 pg (27.0-31.0); Mean Corpuscular Volume 82.2 fL (80.0-94.0); Platelet Count 256 10^3/uL (130-400); White Blood Cell Count 5.4 10^3/uL (4.8-10.8)
[2024-04-10 04:34] LABS: APTT 62.8 Sec (23.4-35.0)
[2024-04-10] MEDS: TYLENOL 1000 MG PO ×2 (04:37→21:44)
[2024-04-10 04:47] LABS: Blood Urea Nitrogen 18 mg/dl (9-20); Calcium 8.2 mg/dl (8.4-10.2); Carbon Dioxide 27 mmol/L (22-30); Chloride 102 mmol/L (98-107); Estimated Creatinine Clearance 80 ml/min; Glucose 148 mg/dl (70-99); Potassium 4.1 mmol/L (3.5-5.1); Sodium 137 mmol/L (135-145); eGFR > 60.00
[2024-04-10] MEDS: NOVOLOG FLEXPEN-LOW RESISTANCE SC (08:06)
[2024-04-10] MEDS: LOW STRENGTH ASPIRIN 81 MG PO (08:07)
[2024-04-10] MEDS: TAPAZOLE 5 MG PO (08:07)
[2024-04-10] MEDS: TOPROL XL 25 MG PO ×2 (08:07→21:40)
[2024-04-10] MEDS: COLCHICINE 0.6 MG PO (08:07)
[2024-04-10] MEDS: VIBRAMYCIN 100 MG PO ×2 (08:07→21:40)
[2024-04-10] MEDS: COLACE 100 MG PO (08:07)
[2024-04-10] MEDS: FLOMAX 0.4 MG PO (08:07)
[2024-04-10] MEDS: LIPITOR 40 MG PO (08:07)
[2024-04-10 08:14] LABS: Glucose - Point of Care 162 mg/dl (70-99)
[2024-04-10] MEDS: NOVOLOG FLEXPEN-LOW RESISTANCE 1 UNITS SC ×2 (08:14→17:00)
--- NOTE | 2024-04-10 08:50 | W.PN.CARDCBS ---
Today's Communication / Plan
-
Cath on 04/12/2024 if remains afebrile and hemoglobin remained stable on heparin
Impression / Plan
-
PCP: Dr. Hart
Primary Skin Lifter Bacon: Dr. Bolanos
Impression:
Admitted with chest pain/[place] 04/06/24
Recent admission for NSTEMI and Williams's gangrene 03/14/24 until 03/30/24
NSTEMI, peak troponin 6.3
CAD
s/p CABG x4 07/2020
s/p NSTEMI with peak Troponin 6.32 03/2024
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
Paroxysmal Afib
initially seen s/p CABG 07/2020 at
recurrent Afib treated with CV in [facility] 10/06/21
recurrent Afib treated with rate control and spontaneously converted to SR 10/09/21
[facility] with Eliquis
History of thyroid issues and tremors with amiodarone
Hypothyroidism
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
HTN
HLD
DM2
COPD
ALFREDO 07/2020: EF 60-65%, no RWMA, severe conc LVH, mod dilated LA, mildly dilated mid ascending aorta, mild sessile atheroma in descending aorta and distal arch
ECHO 10/11/21: EF 50 to 55%, no WMA, normal RA/LA size, no significant valve disease
Echo 03/15/24: EF 55%, mild hypokinesis of the basal-mid inferoseptal, apical lateral and basal inferior lance, normal RV size and function, trileaflet sclerotic aortic valve with dense calcification on the noncoronary cusp, no /AR
Plan:
No further fever
Tolerating heparin with relatively stable hemoglobin
Will plan for cardiac catheterization tentatively on 04/12/2024 pending no recurrences of bleeding or acute infectious issues
Eventual will need Eliquis restarted
Discussed with nursing
Progress Note - Skin Lifter Bacon
Subjective
Date of Service: April 10, 2024
No chest pain or shortness of breath
Objective
Labs:
04/10/24 04:12
04/10/24 04:12
Labs
Hgb 8.7 g/dL (13.0-18.0) L 04/10/24 04:12
Hct 26.3 % (39.0-52.0) L 04/10/24 04:12
Plt Count 256 10^3/uL (130-400) 04/10/24 04:12
APTT 62.8 Sec (23.4-35.0) H 04/10/24 04:12
Sodium 137 mmol/L (135-145) 04/10/24 04:12
Potassium 4.1 mmol/L (3.5-5.1) 04/10/24 04:12
BUN 18 mg/dl (9-20) 04/10/24 04:12
Creatinine 1.1 mg/dL (0.7-1.3) 04/10/24 04:12
Glucose 148 mg/dl (70-99) H 04/10/24 04:12
Troponins
04/07/24 04/07/24 04/08/24
15:10 20:11 04:23
Troponin I Cancelled 0.071 H* 0.069 H*
04/08/24
09:01
Troponin I 0.067 H*
Vital Signs and I&O:
Vital Signs
Temp Pulse Resp BP Pulse Ox
98.1 F 63 16 140/69 96
04/10/24 08:29 04/10/24 08:07 04/10/24 04:03 04/10/24 08:07 04/10/24 08:06
Vital Signs
Temp Pulse Resp BP Pulse Ox
98.1 F 63 16 140/69 96
04/10/24 08:29 04/10/24 08:07 04/10/24 04:03 04/10/24 08:07 04/10/24 08:06
Intake & Output
04/08/24 04/09/24 04/10/24 04/11/24
06:59 06:59 06:59 06:59
Intake Total 660 / 660 0 / 0 1060 / 1060
Output Total 1150 / 1150 1999 2650 / 2650
Balance -490 / -490 -1999 / -2000 -1590 / -1590
Physical Exam
Physical Exam
General: Well developed, well nourished in NAD.
Neck: Supple, no JVD, HJR, carotids +2 B/L, no bruits bilaterally.
Heart: Non displaced PMI, RRR, no murmurs, No S3, S4, no rubs.
Lungs: Clear to auscultation bilaterally, no wheeze, rhonchi, rubs bilaterally,
normal expiratory phase.
Extremities: No clubbing, cyanosis or edema bilaterally.
Neuro: Grossly nonfocal, awake, alert and oriented x3.
[2024-04-10] MEDS: STERILE WATER FOR INJECTION 10 ML IV (09:25)
[2024-04-10] MEDS: ROCEPHIN 1000 MG IV (09:25)
[2024-04-10 11:08] LABS: APTT 72.4 Sec (23.4-35.0)
[2024-04-10 11:52] LABS: Glucose - Point of Care 233 mg/dl (70-99)
[2024-04-10] MEDS: NOVOLOG FLEXPEN-LOW RESISTANCE 2 UNITS SC (12:31)
[2024-04-10] MEDS: FERRLECIT 110 MG IV (13:57)
[2024-04-10 16:53] LABS: Glucose - Point of Care 187 mg/dl (70-99)
--- NOTE | 2024-04-10 17:28 | W.PN.HOSP.TC ---
Today's Communication/Plan
-
continue Abx follow cultures
continue IV Heparin and plan Cath Friday
Assessment / Plan
Assessment / Plan
Assessment:
Chest Pain
ASCVD
Recent NSTEMI
- EKG without new / acute ischemic changes.
- Patient is pain free at present.
- Troponin is abnormal - but continues to trend down from recent NSTEMI. no need to trend further
- Continue current CV med regimen
- DCA cards following; NPO p MN for cath Friday.
- continue IV heparin drip per Cardiology to assess if any evidence of bleeding at groin site. Heparin drip requires intensive monitoring of PTTs
Febrile illness
- CAUTI per UA, possible R foot cellulitis vs bronchitis also contributing
- continue empiric Rocephin, Doxy, day 3 to cover above possibilities. Follow cultures
- Chronic wade exchanged at bedside 04/08/24
- CXR with minimal atelectasis; IS ordered
- Bcx so far NGTD
- COVID/Flu negative
Williams's Gangrene
- Healing well. Continue local wound care.
- Maintain Wade catheter.
- No longer on abx therapy.
- Follow-up with outpatient Wound Care, CRS and Urology as planned. Wound care service can evaluate while inpatient.
Blood Loss Anemia - Subacute
- Hgb stable compared to recent values - but not yet recovered to pre-op baseline of 14-15.
- Iron deficiency - continue IV Iron infusions x 5 day course
- Follow for any evidence of new blood loss.
- Follow for changes in H&H.
Paroxysmal Atrial Fibrillation
- Stable. In NSR at present.
- Continue current medications. Holding Eliquis for cath. Heparin drip requires intensive monitoring of PTTs
- Monitor on tele for any recurrent tachyarrhythmia.
DM-II
- Stable. Continue basal : bolus insulin regimen.
- Follow glucose and cover with SSI as needed.
Gout
- Pain in the R foot that started over this past week c/w prior gout episodes.
- Patient admits to recent dietary indiscretions that would explain his symptoms.
- continue colchicine, day 4 and follow for improvement in symptoms.
Hyperthyroidism
- Stable. continue methimazole.
DVT Prophylaxis: IV Heparin drip
Code Status: Full
Anticipated Discharge: > 48 hours
Subjective/Interval History
-
Date of Service: April 10, 2024
no new complaints
Objective Data
-
Labs:
Laboratory Results
04/10/24 04/10/24
10:48 17:30
APTT 72.4 H Pending
Vital Signs:
Vital Signs
Temp Pulse Resp BP Pulse Ox
97.6 F 69 18 115/73 98
04/10/24 16:36 04/10/24 16:36 04/10/24 16:36 04/10/24 16:36 04/10/24 16:36
I&O
04/09/24 04/10/24 04/11/24
06:59 06:59 06:59
Intake Total 0 / 0 1060 / 1060 900 / 900
Output Total 1999 / 1999 2650 / 2650 2100 / 2100
Balance -2000 / -2000 -1590 / -1590 -1200 / -1200
Physical Exam
-
General: No Apparent Distress
HEENT: Normocephalic and Atraumatic
Respiratory: Negative Wheezes
Cardiac: Regular Rhythm and S1/S2
GI: Soft and Nontender
Neuro: AO x 3
Hematologic / Lymphatic: No Lymphadenopathy
Psych: Calm
Data Reviewed
-
Total Time Spent with Patient (in minutes): 51
Labs: Labs Reviewed by me
[2024-04-10 17:56] LABS: APTT 75.8 Sec (23.4-35.0)
[2024-04-10] MEDS: LANTUS 0.15 UNITS SC (21:40)
[2024-04-10 21:45] LABS: Glucose - Point of Care 218 mg/dl (70-99)
[2024-04-11 00:40] LABS: APTT 80.5 Sec (23.4-35.0)
[2024-04-11 02:39] VITALS: BP 130/61
--- NOTE | 2024-04-11 03:06 | PTCARENOTE ---
Assumed care of the pt @1900 Pt AAOx3 SB 50's on the monitor VSS. Heparin gtt infusing per protocol. Tylenol given for headache. Call tapia within reach. Smart drain clear yellow
[2024-04-11 04:37] LABS: Hemoglobin 9.3 g/dL (13.0-18.0); Mean Corp Hgb Conc. 32.1 g/dL (33.0-37.0); Mean Corpuscular Hgb 26.6 pg (27.0-31.0); Mean Corpuscular Volume 82.9 fL (80.0-94.0); Platelet Count 294 10^3/uL (130-400); Red Cell Dist. Width 13.1 % (11.5-14.5); White Blood Cell Count 5.8 10^3/uL (4.8-10.8)
[2024-04-11 04:49] LABS: APTT 71.2 Sec (23.4-35.0)
[2024-04-11 05:06] LABS: Blood Urea Nitrogen 20 mg/dl (9-20); Calcium 8.4 mg/dl (8.4-10.2); Carbon Dioxide 28 mmol/L (22-30); Chloride 102 mmol/L (98-107); Estimated Creatinine Clearance 80 ml/min; Glucose 165 mg/dl (70-99); Potassium 4.3 mmol/L (3.5-5.1); Sodium 138 mmol/L (135-145); eGFR > 60.00
[2024-04-11 07:28] VITALS: BP 128/69
[2024-04-11 08:24] LABS: Glucose - Point of Care 181 mg/dl (70-99)
[2024-04-11] MEDS: NOVOLOG FLEXPEN-LOW RESISTANCE 1 UNITS SC ×2 (08:36→18:04)
[2024-04-11] MEDS: LIPITOR 40 MG PO (08:37)
[2024-04-11] MEDS: COLACE 100 MG PO (08:37)
[2024-04-11] MEDS: VIBRAMYCIN 100 MG PO ×2 (08:37→21:02)
[2024-04-11] MEDS: LOW STRENGTH ASPIRIN 81 MG PO (08:37)
[2024-04-11] MEDS: FLOMAX 0.4 MG PO (08:37)
[2024-04-11] MEDS: COLCHICINE 0.6 MG PO (08:38)
[2024-04-11] MEDS: TOPROL XL 25 MG PO ×2 (08:38→21:02)
[2024-04-11] MEDS: TAPAZOLE 5 MG PO (08:38)
[2024-04-11] MEDS: HEPARIN 25000 UNITS/250 ML IV (10:15)
[2024-04-11] MEDS: ROCEPHIN 1000 MG IV (10:19)
[2024-04-11] MEDS: STERILE WATER FOR INJECTION 10 ML IV (10:19)
--- NOTE | 2024-04-11 10:35 | W.PN.CARDCBS ---
Today's Communication / Plan
-
Continue IV heparin
Cardiac cath 04/12
Eventually resume Eliquis
Impression / Plan
-
PCP: Dr. Hart
Primary Financial Sales Consultant: Dr. Bolanos
Impression:
Admitted with chest pain/[place] 04/06/24
Recent admission for NSTEMI and Williams's gangrene 03/14/24 until 03/30/24
NSTEMI, peak troponin 6.3
CAD
s/p CABG x4 07/2020
s/p NSTEMI with peak Troponin 6.32 03/2024
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
Paroxysmal Afib
initially seen s/p CABG 07/2020 at
recurrent Afib treated with CV in [facility] 10/06/21
recurrent Afib treated with rate control and spontaneously converted to SR 10/09/21
DCCV in [facility] 03/14/2024
Chronic OAC with Eliquis
History of thyroid issues and tremors with amiodarone
Hypothyroidism
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
HTN
HLD
DM2
COPD
ALFREDO 07/2020: EF 60-65%, no RWMA, severe conc LVH, mod dilated LA, mildly dilated mid ascending aorta, mild sessile atheroma in descending aorta and distal arch
ECHO 10/11/21: EF 50 to 55%, no WMA, normal RA/LA size, no significant valve disease
Echo 03/15/24: EF 55%, mild hypokinesis of the basal-mid inferoseptal, apical lateral and basal inferior lance, normal RV size and function, trileaflet sclerotic aortic valve with dense calcification on the noncoronary cusp, no /AR
Plan:
No further fevers and hemoglobin has been stable on IV heparin
For cardiac catheterization on 04/12/2024
Eventually resume Eliquis and continue IV heparin for now
Progress Note - Financial Sales Consultant
Subjective
Date of Service: April 11, 2024
No complaints
Objective
Labs:
04/11/24 04:11
04/11/24 04:11
Labs
Hgb 9.3 g/dL (13.0-18.0) L 04/11/24 04:11
Hct 29.0 % (39.0-52.0) L 04/11/24 04:11
Plt Count 294 10^3/uL (130-400) 04/11/24 04:11
APTT 71.2 Sec (23.4-35.0) H 04/11/24 04:15
Sodium 138 mmol/L (135-145) 04/11/24 04:11
Potassium 4.3 mmol/L (3.5-5.1) 04/11/24 04:11
BUN 20 mg/dl (9-20) 04/11/24 04:11
Creatinine 1.1 mg/dL (0.7-1.3) 04/11/24 04:11
Glucose 165 mg/dl (70-99) H 04/11/24 04:11
Vital Signs and I&O:
Vital Signs
Temp Pulse Resp BP Pulse Ox
98.9 F 68 20 128/69 96
04/11/24 07:25 04/11/24 08:38 04/11/24 07:25 04/11/24 08:38 04/11/24 07:25
Vital Signs
Temp Pulse Resp BP Pulse Ox
98.9 F 68 20 128/69 96
04/11/24 07:25 04/11/24 08:38 04/11/24 07:25 04/11/24 08:38 04/11/24 07:25
Intake & Output
04/09/24 04/10/24 04/11/24 04/12/24
06:59 06:59 06:59 06:59
Intake Total 0 / 0 1060 / 1060 1488 / 1488 498 / 498
Output Total 1999 2650 / 2650 3100 / 3100 2300 / 2300
Balance -1999 / -1590 / -1590 -161 / -161 -1802 / -1802
Physical Exam
Physical Exam
General: Well developed, well nourished in NAD.
Neck: Supple, no JVD, HJR, carotids +2 B/L, no bruits bilaterally.
Heart: Non displaced PMI, RRR, no murmurs, No S3, S4, no rubs.
Lungs: Clear to auscultation bilaterally, no wheeze, rhonchi, rubs bilaterally,
normal expiratory phase.
Extremities: No clubbing, cyanosis or edema bilaterally.
Neuro: Grossly nonfocal, awake, alert and oriented x3.
--- NOTE | 2024-04-11 10:48 | W.PN.HOSP.TC ---
Today's Communication/Plan
-
continue IV heparin
continue antibiotics
Cath Friday
Assessment / Plan
Assessment / Plan
Assessment:
Chest Pain
ASCVD
Recent NSTEMI
- EKG without new / acute ischemic changes.
- Patient is pain free at present.
- Troponin is abnormal - but continues to trend down from recent NSTEMI. no need to trend further
- Continue current CV med regimen
- DCA cards following; NPO p MN for cath Friday.
- continue IV heparin drip per Cardiology to assess if any evidence of bleeding at groin site. Heparin drip requires intensive monitoring of PTTs
- Hb is stable
Febrile illness
- CAUTI - POA - from Multi-drug resistant E. coli and Klebsiella
- other possible sources are R foot cellulitis vs bronchitis also contributing
- continue empiric Rocephin, Doxy, day 07/15 to cover above possibilities. Follow cultures
- Chronic wade exchanged at bedside 04/08/24
- CXR with minimal atelectasis; IS ordered
- Bcx so far NGTD
- COVID/Flu negative
Williams's Gangrene
- Healing well. Continue local wound care.
- Maintain Wade catheter.
- No longer on abx therapy.
- Follow-up with outpatient Wound Care, CRS and Urology as planned. Wound care service can evaluate while inpatient.
Blood Loss Anemia - Subacute
- Hgb stable compared to recent values - but not yet recovered to pre-op baseline of 14-15.
- Iron deficiency - completed 5 day IV Iron infusions course
- Follow for any evidence of new blood loss.
- Follow for changes in H&H.
Paroxysmal Atrial Fibrillation
- Stable. In NSR at present.
- Continue current medications. Holding Eliquis for cath. Heparin drip requires intensive monitoring of PTTs
- Monitor on tele for any recurrent tachyarrhythmia.
DM-II
- Stable. Continue basal : bolus insulin regimen.
- Follow glucose and cover with SSI as needed.
Gout
- Pain in the R foot that started over this past week c/w prior gout episodes.
- Patient admits to recent dietary indiscretions that would explain his symptoms.
- continue colchicine, day 5 and follow for improvement in symptoms.
Hyperthyroidism
- Stable. continue methimazole.
DVT Prophylaxis: IV Heparin drip
Code Status: Full
Anticipated Discharge: > 48 hours
Subjective/Interval History
-
Date of Service: April 11, 2024
no fever >48 hours
denies any complaints
Hb stable
Objective Data
-
Labs:
Laboratory Results
04/11/24 04/11/24 04/11/24
00:18 04:11 04:15
WBC 5.8
Hgb 9.3 L
Hct 29.0 L
Plt Count 294
APTT 80.5 H 71.2 H
Sodium 138
Potassium 4.3
Chloride 102
Carbon Dioxide 28
BUN 20
Creatinine 1.1
Glucose 165 H
Calcium 8.4
04/11/24
11:15
WBC
Hgb
Hct
Plt Count
APTT Pending
Sodium
Potassium
Chloride
Carbon Dioxide
BUN
Creatinine
Glucose
Calcium
Vital Signs:
Vital Signs
Temp Pulse Resp BP Pulse Ox
98.9 F 68 20 128/69 96
04/11/24 07:25 04/11/24 08:38 04/11/24 07:25 04/11/24 08:38 04/11/24 07:25
I&O
04/10/24 04/11/24 04/12/24
06:59 06:59 06:59
Intake Total 1060 / 1060 1488 / 1488 498 / 498
Output Total 2650 / 2650 3100 / 3100 2300 / 2300
Balance -1590 / -1590 -1612 / -1612 -1802 / -1802
Physical Exam
-
General: No Apparent Distress
HEENT: Normocephalic and Atraumatic
Respiratory: Negative Wheezes
Cardiac: Regular Rhythm and S1/S2
GI: Soft
Genito-urinary: No Costovertebral Tender
Neuro: AO x 3
Hematologic / Lymphatic: No Lymphadenopathy
Psych: Calm
Data Reviewed
-
Total Time Spent with Patient (in minutes): 51
Labs: Labs Reviewed by me
--- NOTE | 2024-04-11 11:54 | PTCARENOTE ---
received patient this am in bed. montior shows NSR, VSS. IV heparin @ 1800untis/hr. lung rankin fine crackles throughout. Smart remains in place, draining clear yellow urine. patient presently has gout in both feet, walker being used,difficult to
ambulate to BR. scrotum dsg. will be changed today.
[2024-04-11 12:01] VITALS: BP 144/69
[2024-04-11 12:55] LABS: Glucose - Point of Care 211 mg/dl (70-99)
[2024-04-11 12:57] LABS: APTT 64.6 Sec (23.4-35.0)
[2024-04-11] MEDS: NOVOLOG FLEXPEN-LOW RESISTANCE 2 UNITS SC (14:42)
[2024-04-11] MEDS: FERRLECIT 110 MG IV (14:43)
[2024-04-11 15:40] VITALS: BP 142/70
[2024-04-11 18:07] LABS: Glucose - Point of Care 173 mg/dl (70-99)
[2024-04-11 19:11] VITALS: BP 139/69
[2024-04-11 19:50] LABS: APTT 116.4 Sec (23.4-35.0)
[2024-04-11] MEDS: MORPHINE SULFATE 2 MG IV (21:02)
[2024-04-11 21:10] LABS: Glucose - Point of Care 192 mg/dl (70-99)
[2024-04-11] MEDS: LANTUS 0.15 UNITS SC (21:10)
[2024-04-11 23:33] VITALS: BP 132/70
[2024-04-12] VITALS (11 sets, daily range): BP systolic 131–157; BP diastolic 63–82
[2024-04-12] MEDS: HEPARIN 25000 UNITS/250 ML IV ×3 (01:50→19:18)
--- NOTE | 2024-04-12 03:12 | PTCARENOTE ---
Assumed care of the pt @ 1900 Pt AAOx3 SR/SB on the monitor VSS Tmax 99.1 Heparin gtt infusing per protocol. Smart draining clear yellow. NPO p mn for Cath. Call tapia within reach.
[2024-04-12 04:10] LABS: Hematocrit 28.1 % (39.0-52.0); Mean Corpuscular Hgb 27.1 pg (27.0-31.0); Mean Corpuscular Volume 84.6 fL (80.0-94.0); Platelet Count 277 10^3/uL (130-400); Red Blood Cell Count 3.32 10^6/uL (4.70-6.10); Red Cell Dist. Width 13.1 % (11.5-14.5); White Blood Cell Count 5.8 10^3/uL (4.8-10.8)
[2024-04-12 04:20] LABS: APTT 65.1 Sec (23.4-35.0)
[2024-04-12 04:33] LABS: Blood Urea Nitrogen 20 mg/dl (9-20); Calcium 8.7 mg/dl (8.4-10.2); Carbon Dioxide 27 mmol/L (22-30); Chloride 101 mmol/L (98-107); Estimated Creatinine Clearance 88 ml/min; Glucose 159 mg/dl (70-99); Potassium 4.2 mmol/L (3.5-5.1); Sodium 135 mmol/L (135-145); eGFR > 60.00
[2024-04-12] MEDS: TYLENOL 1000 MG PO ×2 (05:53→21:15)
[2024-04-12] MEDS: LOW STRENGTH ASPIRIN 81 MG PO (08:58)
[2024-04-12] MEDS: COLCHICINE 0.6 MG PO (08:58)
[2024-04-12] MEDS: LIPITOR 40 MG PO (08:58)
[2024-04-12] MEDS: FLOMAX 0.4 MG PO (08:58)
[2024-04-12] MEDS: TOPROL XL 25 MG PO ×2 (08:58→19:31)
[2024-04-12] MEDS: VIBRAMYCIN 100 MG PO ×2 (08:58→19:31)
[2024-04-12] MEDS: TAPAZOLE 5 MG PO (08:58)
[2024-04-12] MEDS: COLACE PO (08:59)
[2024-04-12] MEDS: NOVOLOG FLEXPEN-LOW RESISTANCE SC ×2 (09:04→13:38)
[2024-04-12 09:05] LABS: Glucose - Point of Care 146 mg/dl (70-99)
--- NOTE | 2024-04-12 09:37 | W.PN.HOSP.TC ---
Today's Communication/Plan
-
continue Abx as outlined
Cardiac cath today
Assessment / Plan
Assessment / Plan
Assessment:
Chest Pain
ASCVD
Recent NSTEMI
- EKG without new / acute ischemic changes.
- Patient is pain free at present.
- Troponin is abnormal - but continues to trend down from recent NSTEMI. no need to trend further
- Continue current CV med regimen
- DCA cards following; for cath today.
- continue IV heparin drip per Cardiology to assess if any evidence of bleeding at groin site. Heparin drip requires intensive monitoring of PTTs
- Hb is stable on IV heparin
Febrile illness
- CAUTI - POA - from Multi-drug resistant E. coli and Klebsiella
- other possible sources are R foot cellulitis vs bronchitis also contributing
- continue empiric Rocephin, Doxy, day 08/14 to cover above possibilities. Follow cultures
- Chronic wade exchanged at bedside 04/08/24
- CXR with minimal atelectasis; IS ordered
- Bcx so far NGTD
- COVID/Flu negative
Williams's Gangrene
- Healing well. Continue local wound care.
- Maintain Wade catheter.
- No longer on abx therapy.
- Follow-up with outpatient Wound Care, CRS and Urology as planned. Wound care service can evaluate while inpatient.
Blood Loss Anemia - Subacute
- Hgb stable compared to recent values - but not yet recovered to pre-op baseline of 14-15.
- Iron deficiency - completed 5 day IV Iron infusions course
- Follow for any evidence of new blood loss.
- Follow for changes in H&H.
Paroxysmal Atrial Fibrillation
- Stable. In NSR at present.
- Continue current medications. Holding Eliquis for cath. Heparin drip requires intensive monitoring of PTTs
- Monitor on tele for any recurrent tachyarrhythmia.
DM-II
- Stable. Continue basal : bolus insulin regimen.
- Follow glucose and cover with SSI as needed.
Gout
- Pain in the R foot that started over this past week c/w prior gout episodes.
- Patient admits to recent dietary indiscretions that would explain his symptoms.
- continue colchicine, day 5 and follow for improvement in symptoms.
Hyperthyroidism
- Stable. continue methimazole.
DVT Prophylaxis: IV Heparin drip
Code Status: Full
Anticipated Discharge: > 48 hours
Subjective/Interval History
-
Date of Service: April 12, 2024
no complaints
for Cath this AM
Objective Data
-
Labs:
Laboratory Results
04/12/24 04/12/24
03:51 12:00
WBC 5.8
Hgb 9.0 L
Hct 28.1 L
Plt Count 277
APTT 65.1 H Pending
Sodium 135
Potassium 4.2
Chloride 101
Carbon Dioxide 27
BUN 20
Creatinine 1.0
Glucose 159 H
Calcium 8.7
Vital Signs:
Vital Signs
Temp Pulse Resp BP Pulse Ox
98.6 F 73 18 136/69 96
04/12/24 08:03 04/12/24 08:58 04/12/24 08:03 04/12/24 08:58 04/12/24 08:03
I&O
04/11/24 04/12/24 04/13/24
06:59 06:59 06:59
Intake Total 1488 / 1488 1306 / 1306
Output Total 3100 / 3100 5700 / 5700
Balance -1612 / -1612 -4394 / -4394
Physical Exam
-
General: No Apparent Distress
HEENT: Normocephalic and Atraumatic
Respiratory: Negative Wheezes
Cardiac: Regular Rhythm and S1/S2
GI: Soft
Genito-urinary: Clear Urine and Wade
Neuro: AO x 3
Hematologic / Lymphatic: No Lymphadenopathy
Psych: Calm
Data Reviewed
-
Total Time Spent with Patient (in minutes): 51
Labs: Labs Reviewed by me
--- NOTE | 2024-04-12 09:48 | PTCARENOTE ---
Addendum entered by Kimberly Recinos RN 04/12/24 09:51:
downloaded VS from previous shift
Original Note:
received patient this am.monitor shows NSR, VSS. patient remains NPO for cardiac cath today. IV heparin @ 1900units/hr. patient has Smart, intact, draining yellow urine. bilat. feet feel 'alittle better today' from his gout. will change scrotal
dsg. after cath.
[2024-04-12] MEDS: STERILE WATER FOR INJECTION 10 ML IV (10:16)
[2024-04-12] MEDS: ROCEPHIN 1000 MG IV (10:16)
--- NOTE | 2024-04-12 11:01 | PTCARENOTE ---
scrotal dsg. changed as ordered. to cleaning laborer via bed accompanied by cleaning laborer RN.
--- NOTE | 2024-04-12 12:34 | PTCARENOTE ---
patient returned from optical lab technician with Left radial R band, distal pulse palpable,o2 sat 97%. monitor shows NSR,VSS.
[2024-04-12 13:28] LABS: Glucose - Point of Care 129 mg/dl (70-99)
--- NOTE | 2024-04-12 14:05 | CM ---
Chart reviewed. Patient is independent of ADLS, lives with his in a [address], [address], 0 [address]ME. Patient is current with [facility]. Plan is for the patient to return home with [facility]. CM to follow
[2024-04-12] MEDS: LASIX 20 MG IV (14:30)
[2024-04-12] MEDS: FLUSH (NSS) 1 FLUSH IV (14:31)
--- NOTE | 2024-04-12 14:44 | CON.CRS ---
Consultation
-
Date/Time Consultation Requested: 04/12/2024, 14:21
Date/Time Consultation Performed: 04/12/2024, 15:00
Requesting Provider: Vivian Luu MD
Performing Provider: Bob Pena MD
Reason for Consultation: recent tarsha's Gangrene
Medical History
-
Chief Complaint: chest pain
History of Present Illness:
68-year-old male presents to [facility] on 04/06/2024 complaining of chest pain. The patient had an extensive admission recently in our hospital from 03/14/2024 through 03/30/2024. He initially had come in with a perineal wound it was found
to have Tarsha's gangrene. He underwent for debridement surgeries by Dr. Pena during this admission. Last surgery was on 03/23/2024. He was sent home with follow-up at our wound care center. He was restarted on Eliquis. His antibiotics were
completed during his stay. He then presented to our ER on 04/06/2024 complaining of chest pain. He is currently on IV heparin gtt. His vitals are normal and he has remained afebrile. His WBC has been normal since this admission. Given his cardiac
symptoms, cardiology would like to perform a cardiac cath on him and are looking for our opinion to proceed.
Past Medical History
Past Medical History: Other (And atrial fibrillation on Eliquis, CAD status post CABG 2020, diabetes, COPD, hyper tension, hyperlipidemia, Anthony's gangrene, history of MATT, history of DKA)
Past Surgical History: Other (Incision and drainage of right perineum with debridement 03/2024, CABG 2020)
Social History
Tobacco: Former Smoker (Quit 50 years ago)
Alcohol: Occasional
Family History
Family History: Reviewed & Not Pertinent and Other (No family history of cancer)
Allergies / Home Medications
Allergy/AdvReac Type Severity Reaction Status Date / Time
dapagliflozin Allergy Tarsha's Verified 04/06/24 20:30
Gangrene
03/2024
�Medication �Instructions �Recorded �Confirmed �Type
clonazepam 0.5 mg tablet 0.5 mg PO DAILYPRN PRN anxiety 07/25/20 04/06/24 History
atorvastatin 40 mg tablet 40 mg PO DAILY High cholesterol 07/28/20 04/06/24 History
apixaban 5 mg tablet (Eliquis) 5 mg PO BID #60 tabs 08/01/20 04/06/24 Rx
tamsulosin 0.4 mg capsule (Flomax) 0.4 mg PO DAILY Urinary issue 10/06/21 04/06/24 History
insulin aspart U-100 100 unit/mL 5 unit (0.05 mL) SC AC #5 ea 03/29/24 04/06/24 Rx
(3 mL) subcutaneous pen (Novolog
FlexPen U-100 Insulin aspart)
insulin glargine 100 unit/mL (3 15 unit (0.15 mL) SC HS #5 ea 03/29/24 04/06/24 Rx
mL) subcutaneous pen (Lantus
Solostar U-100 Insulin)
aspirin 81 mg chewable tablet 81 mg PO DAILY #30 tabs 03/30/24 04/06/24 Rx
methimazole 5 mg tablet 5 mg PO DAILY Thyroid #0 tabs 03/30/24 04/06/24 Rx
metoprolol succinate 25 mg 25 mg PO BID #60 tabs 03/30/24 04/06/24 Rx
tablet,extended release 24 hr
nitroglycerin 0.4 mg sublingual 0.4 mg sublingual [id number] PRN 03/30/24 04/06/24 Rx
tablet chest pain #25 tabs
oxycodone 5 mg tablet 5 mg PO Q4HPRN PRN moderate pain 03/30/24 04/06/24 Rx
#14 tabs
acetaminophen 500 mg tablet 1,000 mg PO Q6HPRN PRN mild pain 04/06/24 04/06/24 History
(Tylenol Extra Strength)
docusate sodium 100 mg capsule 100 mg PO DAILY Constipation 04/06/24 04/06/24 History
(Colace)
Review of Systems
-
All other systems: Negative unless noted
Cardiac: Chest Pain
A 10 point review of systems was completed, and was negative except as per HPI.
Physical Exam
Vital Signs
Temp 98.6 F 04/12/24 08:03
Pulse 63 04/12/24 14:30
Resp Rate 18 04/12/24 08:03
Blood pressure 153/71 04/12/24 14:30
SaO2 97 04/12/24 12:30
Body Mass Index (BMI) 24.1
Lab Results / Allergies
04/12/24 03:51
04/12/24 03:51
WBC 5.8 10^3/uL (4.8-10.8) 04/12/24 03:51
Hgb 9.0 g/dL (13.0-18.0) L 04/12/24 03:51
Hct 28.1 % (39.0-52.0) L 04/12/24 03:51
Plt Count 277 10^3/uL (130-400) 04/12/24 03:51
Abs Immat Gran (auto) 0.0 10^3/uL (0-0.05) 04/06/24 21:01
Neutrophils % 74.9 % (42.2-75.2) 04/06/24 21:01
Allergy/AdvReac Type Severity Reaction Status Date / Time
dapagliflozin Allergy Tarsha's Verified 04/06/24 20:30
Gangrene
03/2024
Physical Exam
General: Well Developed, Well Nourished and No Apparent Distress
GI: Soft, Non Tender and Non Distended
Rectal: Other (wound c/d/i with no signs of active bleeding, healing as expected, no erythema or purulent output)
Neuro: AO x 3
Data Reviewed
-
Labs: Labs Reviewed by me, Discussed with Physician and Discussed with Family
Old Records: Reviewed
Assessment / Plan
-
Assessment: 68-year-old male with recent admission due to Tarsha's gangrene status post 4 debridement, returns to [facility] with chest pain and recent NSTEMI now needing a cardiac cath
Plan:
Wound is clean dry and intact. There is no evidence of new infection and there is no active bleeding. Okay to proceed with cardiac cath tomorrow perspective. No plans for further surgery from our perspective at this time. Continue local wound
care.
--- NOTE | 2024-04-12 15:12 | ITS.CL.CATH ---
Credit Review Officer - Catheterization
Cardiac Catheterization
Procedure Report:
LEFT HEART CATHETERIZATION
Date of Procedure: April 12, 2024
Referring: Dr. Maxx Bolanos
PROCEDURES:
1. Left heart catheterization with coronary angiography
2. Ascending aortography searching for the origin of the sequential SVG graft which is felt to be occluded
INDICATION: This is a 68-year-old gentleman with a history of multivessel coronary artery disease with prior coronary artery bypass surgery in July 2020 with a DAUGHERTY-LAD and HFE-ubewn-OZ-PDA. He presented to [facility] emergency department
on 04/06/2024 with complaints of substernal chest tightness and subsequently ruled in for a non-ST segment elevation myocardial infarction. 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
gangrene and required multiple surgeries and debridement. He is now referred for coronary angiography.
ACCESS: Left radial artery, 6 Japanese sheath
HEMODYNAMICS : (mmHg)
AO (s/d) : 148/69, 99
LV (s/d) : 150/13
LVEDP : 33
CORONARY ANGIOGRAPHY
Dominance: Right
LEFT MAIN: The left main has an 85% mid stenosis
LEFT ANTERIOR DESCENDING: The LAD arises normally from the left main. There is a DAUGHERTY graft anastomosed to the mid LAD which is widely patent. There is antegrade and retrograde filling of the LAD. The mid LAD proximal to the graft anastomosis is
diffusely diseased while the LAD beyond the DAUGHERTY touchdown is a moderate caliber vessel that wraps completely around the apex and supplies collaterals to the PDA.
RAMUS: The ramus intermedius is noted to be a small caliber vessel that bifurcates proximally into 2 daughter branches. The distal limb of the sequential UUF-wdymi1-epvco4 branch-PDA is patent while the proximal limb of this triple sequential graft
is felt to be occluded
CIRCUMFLEX: The [place] circumflex is found to be a small caliber vessel giving rise to a very small OM1 and terminating in a very small OM 2. The mid circumflex has a heavily calcified 90% stenosis supplying 2 small distal obtuse marginal branches
RIGHT CORONARY ARTERY: The right coronary artery is known to be a dominant vessel and is heavily calcified. There is a proximal long 30% stenosis. The mid right coronary artery has calcified tandem 70% stenoses and heavily calcified 90% stenosis
before the origin of the PDA or posterolateral branch which are noted to fill via isdf-zr-ljymt collateral and by the sequential portion of the SVG
GRAFT ANGIOGRAPHY:
1. DAUGHERTY-LAD: The DAUGHERTY graft to the mid LAD is widely patent. There is antegrade and retrograde filling of the LAD both proximal and distal to the graft anastomosis. Proximal to the anastomosis the LAD is diffusely diseased.
2. SVG-ramus1- ramus2-PDA: The vein graft is 100% occluded at its origin from the aorta through the first anastomotic segment. The sequential portion of the graft from the from ramus1 to ramus2 and onto the PDA is patent
ASCENDING AORTOGRAPHY: Ascending aortography was performed to determine if the SVG origin could be identified. The vein graft was not cannulated selectively and was not noted to fill by nonselective angiography. There was no retrograde filling
noted during [place] vessel angiography and the SVG is be occluded at its origin
RADIATION SUMMARY: Fluoro Time (min): 7.2, Dose (mGy): 518.2, DAP (Gy.cm2) : 45.8
Closure Device: TR band
CONCLUSION
1. Severe multivessel [place] coronary artery disease with new 85% mid left main stenosis. The DAUGHERTY-LAD is widely patent. The XHV-Jwqzb6-Lkhgi6-PDA is 100% occluded at its origin but the sequential portion of the graft is patent.
RECOMMENDATIONS
1. Will discuss with Hospitalist service to determine if the patient has any additional upcoming procedures. If he is surgically cleared then stenting of the mid left main is a reasonable initial strategy.
Copy to: Dr. Maxx Bolanos
[2024-04-12 17:42] LABS: Glucose - Point of Care 252 mg/dl (70-99)
[2024-04-12] MEDS: NOVOLOG FLEXPEN-LOW RESISTANCE 3 UNITS SC (17:42)
--- NOTE | 2024-04-12 18:40 | PTCARENOTE ---
patient requested me to change his perineum/scrotal dsg. changed as ordered.
[2024-04-12] MEDS: PLAVIX 600 MG PO (18:44)
[2024-04-12 21:29] LABS: Glucose - Point of Care 196 mg/dl (70-99)
[2024-04-12] MEDS: LANTUS 0.15 UNITS SC (22:47)
[2024-04-12 23:13] LABS: APTT 77.4 Sec (23.4-35.0)
[2024-04-13] VITALS (15 sets, daily range): BP systolic 108–144; BP diastolic 57–84
--- NOTE | 2024-04-13 02:41 | PTCARENOTE ---
Assumed care of the pt @1900 AAOx3 SB/SR on the monitor VSS left radial cath site dressing c/d/i no hematoma. NPO @ mn for Cath. wade draining clear yellow. Wound cleaned and dressing changed Donell with NSS.
[2024-04-13] MEDS: KLONOPIN 0.5 MG PO (05:32)
[2024-04-13 06:37] LABS: APTT 65.7 Sec (23.4-35.0)
[2024-04-13 06:38] LABS: Blood Urea Nitrogen 23 mg/dl (9-20); Calcium 8.8 mg/dl (8.4-10.2); Carbon Dioxide 26 mmol/L (22-30); Chloride 101 mmol/L (98-107); Estimated Creatinine Clearance 73 ml/min; Glucose 110 mg/dl (70-99); Potassium 4.1 mmol/L (3.5-5.1); Sodium 139 mmol/L (135-145); eGFR > 60.00
[2024-04-13 06:42] LABS: Hematocrit 31.6 % (39.0-52.0); Hemoglobin 9.9 g/dL (13.0-18.0); Mean Corp Hgb Conc. 31.3 g/dL (33.0-37.0); Mean Corpuscular Hgb 26.6 pg (27.0-31.0); Mean Corpuscular Volume 84.9 fL (80.0-94.0); Mean Platelet Volume 9.3 fL (7.4-10.4); Platelet Count 336 10^3/uL (130-400); Red Blood Cell Count 3.72 10^6/uL (4.70-6.10); Red Cell Dist. Width 13.3 % (11.5-14.5); White Blood Cell Count 7.1 10^3/uL (4.8-10.8)
[2024-04-13 07:42] LABS: Glucose - Point of Care 153 mg/dl (70-99)
[2024-04-13] MEDS: PROTONIX 40 MG PO (07:45)
[2024-04-13] MEDS: FLOMAX 0.4 MG PO (07:45)
[2024-04-13] MEDS: LIPITOR 40 MG PO (07:45)
[2024-04-13] MEDS: VIBRAMYCIN 100 MG PO ×2 (07:45→20:17)
[2024-04-13] MEDS: TAPAZOLE 5 MG PO (07:45)
[2024-04-13] MEDS: COLACE 100 MG PO (07:45)
[2024-04-13] MEDS: LOW STRENGTH ASPIRIN 81 MG PO (07:46)
[2024-04-13] MEDS: COLCHICINE 0.6 MG PO (07:46)
[2024-04-13] MEDS: PLAVIX 75 MG PO (07:46)
[2024-04-13] MEDS: TOPROL XL 25 MG PO ×2 (07:46→20:18)
[2024-04-13] MEDS: NOVOLOG FLEXPEN-LOW RESISTANCE SC ×2 (07:46→12:42)
[2024-04-13] MEDS: FLUSH (NSS) 1 FLUSH IV (07:47)
[2024-04-13] MEDS: TYLENOL 1000 MG PO (07:54)
[2024-04-13] MEDS: HEPARIN 25000 UNITS/250 ML IV (07:59)
--- NOTE | 2024-04-13 08:02 | PTCARENOTE ---
The patient is aaox3, vss, NSR is noted on the monitor. Heparin gtt is running at 2000 units/hr. His left wrist dressing is c/d/i. A positive left radial pulse is noted. His rt perineum dressing is c/d/i. He complains of a 2/10 pain in is right
perineum and 4/10 in his right foot (gout). Colchicine and Tylenol given as ordered. He has an occasional productive cough that produces clear sputum. He asked to have his right perineum dressing changed this afternoon.
[2024-04-13] MEDS: ROCEPHIN 1000 MG IV (10:27)
[2024-04-13] MEDS: FLUSH (NSS) 2 FLUSH IV (10:27)
[2024-04-13] MEDS: STERILE WATER FOR INJECTION 10 ML IV (10:27)
--- NOTE | 2024-04-13 11:25 | W.PN.HOSP.TC ---
Today's Communication/Plan
-
s/p Plavix load
for repeat Cath with L main intervention today
continue antibiotics
Assessment / Plan
Assessment / Plan
Assessment:
Chest Pain
ASCVD
Recent NSTEMI
- EKG without new / acute ischemic changes.
- Patient is pain free at present.
- Troponin is abnormal - but continues to trend down from recent NSTEMI. no need to trend further
- Continue current CV med regimen
- s/p cath 04/12: Severe multivessel [place] coronary artery disease with new 85% mid left main stenosis. The DAUGHERTY-LAD is widely patent. The CUG-Mzsfk0-Vrafs1-PDA is 100% occluded at its origin but the sequential portion of the graft is patent.
- repeat cath today for L main intervention; s/p Plavix load
Febrile illness
- CAUTI - POA - from Multi-drug resistant E. coli and Klebsiella
- other possible sources are R foot cellulitis vs bronchitis also contributing
- continue empiric Rocephin, Doxy, day 09/14 to cover above possibilities. Follow cultures
- Chronic wade exchanged at bedside 04/08/24
- CXR with minimal atelectasis; IS ordered
- Bcx so far NGTD
- COVID/Flu negative
Williams's Gangrene
- Healing well. Continue local wound care.
- Maintain Wade catheter.
- No longer on abx therapy.
- appreciate Colorectal consult; ok to proceed with CATH/DAPT. given bleeding would be small venous bleeding, options to control potential bleeding include cautery or packing.
- Follow-up with outpatient Wound Care, CRS and Urology as planned.
Blood Loss Anemia - Subacute
- Hgb stable compared to recent values - but not yet recovered to pre-op baseline of 14-15.
- Iron deficiency - completed 5 day IV Iron infusions course
- Follow for any evidence of new blood loss.
- Follow for changes in H&H.
Paroxysmal Atrial Fibrillation
- Stable. In NSR at present.
- Continue current medications. Holding Eliquis for cath.
- Monitor on tele for any recurrent tachyarrhythmia.
DM-II
- Stable. Continue basal : bolus insulin regimen.
- Follow glucose and cover with SSI as needed.
Gout
- Pain in the R foot that started over this past week c/w prior gout episodes.
- Patient admits to recent dietary indiscretions that would explain his symptoms.
- continue colchicine, day 6of 7 and follow for improvement in symptoms.
Hyperthyroidism
- Stable. continue methimazole.
DVT Prophylaxis: IV Heparin drip
Code Status: Full
Anticipated Discharge: > 48 hours
Subjective/Interval History
-
Date of Service: April 13, 2024
no new complaints
for repeat cath with intervention today; plavix loaded last night
Objective Data
-
Labs:
Laboratory Results
04/13/24 04/13/24
04:28 13:00
WBC 7.1
Hgb 9.9 L
Hct 31.6 L
Plt Count 336 D
APTT 65.7 H Pending
Sodium 139
Potassium 4.1
Chloride 101
Carbon Dioxide 26
BUN 23 H
Creatinine 1.2
Glucose 110 H
Calcium 8.8
Vital Signs:
Vital Signs
Temp Pulse Resp BP Pulse Ox
98.6 F 68 16 144/65 97
04/13/24 06:49 04/13/24 06:49 04/13/24 06:49 04/13/24 06:49 04/13/24 07:45
I&O
04/12/24 04/13/24 04/14/24
06:59 06:59 06:59
Intake Total 1306 / 1306 794 / 794 0 / 0
Output Total 5700 / 5700 4550 / 4550 1075 / 107
Balance -4394 / -4394 -3756 / -3756 -1074 / -1074
Physical Exam
-
General: No Apparent Distress
HEENT: Normocephalic and Atraumatic
Respiratory: Negative Wheezes
Cardiac: Regular Rhythm and S1/S2
GI: Soft and Nontender
Genito-urinary: Clear Urine and Wade
Neuro: AO x 3
Psych: Calm
Data Reviewed
-
Total Time Spent with Patient (in minutes): 44
Labs: Labs Reviewed by me
--- NOTE | 2024-04-13 11:28 | CM ---
Chart reviewed. Patient is waiting to go back to the rn labor delivery for a stent placement. Patient is independent of ADLS, lives with his in a [address], 1 [address]SE [address]LOS, 0 DME. Patient is current with [facility]. Plan is for the patient to return home with [facility].
CM to follow
[2024-04-13 12:41] LABS: Glucose - Point of Care 119 mg/dl (70-99)
[2024-04-13 13:51] LABS: ACT-LR - POC 274 Seconds (116-155)
[2024-04-13 14:26] LABS: ACT-LR - POC 232 Seconds (116-155)
[2024-04-13] MEDS: NSS 1000 IV (14:43)
--- NOTE | 2024-04-13 15:10 | PTCARENOTE ---
Received the patient back form the laboratory equipment cleaner in his bed. The patient is aaox3, vss, 96% on RA. Right R-band in place. A positive right radial pulse is noted. NSR is noted on the monitor. Activity restrictions and expected oob time reviewed with the
patient. His call tapia is within reach.
--- NOTE | 2024-04-13 15:15 | ITS.CL.ANGIO ---
Sales Engineer Account Manager - Angioplasty
Angioplasty
Procedure Report:
ANGIOPLASTY REPORT
Date of Procedure: April 13, 2024
Referring: Dr. Maxx Bolanos
INDICATIONS: Non-ST segment elevation myocardial infarction. For complete details refer to the catheterization report from April 12, 2024
PROCEDURES:
1. Successful stenting of the mid to distal left main with a 3.5 x 12 mm Chris stent that was implanted at nominal pressures and postdilated to high pressures with a 3.5 mm noncompliant balloon
ACCESS: Right radial artery, 6 [place] sheath
ANGIOPLASTY REPORT: Arterial access was obtained in the right radial artery and a 6 [place] sheath was inserted. Intravenous heparin was administered and the ACT was monitored during the procedure and maintained within therapeutic limits. The
patient received a 600 mg loading dose of clopidogrel on 04/12/2024 and 75 mg in addition to aspirin 81 mg this morning.
The origin of the left main was cannulated with a 6 [place] JL 4 guiding catheter and a BMW guidewire was advanced beyond the left main stenosis and into the ramus intermedius. Balloon predilation was performed with a 2.25 mm Euphora balloon and I
attempted to cross the lesion with a 3.5 x 12 mm Alden stent. Unfortunately, the stent would not cross and was removed from the artery. A 2.5 noncompliant Euphora balloon was then advanced across the stenotic segment in the mid to distal left main
and the lesion was again predilated with a noncompliant balloon which was achieved adequate expansion. A GuideLiner was then advanced over the balloon catheter and into the distal left main. The 3.5 x 12 mm Alden stent was then advanced to the
distal left main and unsheathed by the GuideLiner. The Alden stent was implanted at nominal pressures then post dilated with a 3.5 mm NC balloon
COMPLICATIONS: None
RADIATION SUMMARY: Fluoro Time (min): 10.8, Dose (mGy): 1483, DAP (Gy.cm2) : 89.8
CONCLUSION
1. Successful stenting of the mid to distal left main with a 3.5 x 12 mm Chris stent that was postdilated to high pressures with a 3.5 mm noncompliant balloon
RECOMMENDATIONS
1. Aspirin, Plavix, and Eliquis for 1 week then Plavix and Eliquis.
2. Do not interrupt Plavix or Eliquis. Cardiology needs to be involved if either medication needs to be held for any upcoming procedures (none currently planned)
Copy to: Dr. Maxx Bolanos
--- NOTE | 2024-04-13 17:41 | PTCARENOTE ---
Patient's right R-band removed without complications. Redressed with a Tegaderm over gauze.
[2024-04-13 18:50] LABS: Glucose - Point of Care 199 mg/dl (70-99)
[2024-04-13] MEDS: NOVOLOG FLEXPEN-LOW RESISTANCE 1 UNITS SC (19:05)
[2024-04-13] MEDS: ELIQUIS 5 MG PO (20:19)
--- NOTE | 2024-04-13 21:03 | PTCARENOTE ---
pt. received at change of shift. pt seen and assessed in room. pt. aox3, b/l radial wrist c/d/i, no complaints of pain at this time. tele reading nsr in the 60s. VS WNL. RN explains plan of care to pt. pt verbalizes understanding. call tapia within
reach. continuing to monitor at this time.
[2024-04-13 21:21] LABS: Glucose - Point of Care 198 mg/dl (70-99)
[2024-04-13] MEDS: LANTUS 0.15 UNITS SC (22:42)
[2024-04-14 03:47] VITALS: BP 130/61
[2024-04-14 04:49] LABS: Hematocrit 29.2 % (39.0-52.0); Hemoglobin 9.5 g/dL (13.0-18.0); Mean Corp Hgb Conc. 32.5 g/dL (33.0-37.0); Platelet Count 306 10^3/uL (130-400); Red Blood Cell Count 3.52 10^6/uL (4.70-6.10); Red Cell Dist. Width 13.8 % (11.5-14.5); White Blood Cell Count 6.5 10^3/uL (4.8-10.8)
[2024-04-14 05:07] LABS: Blood Urea Nitrogen 18 mg/dl (9-20); Calcium 8.7 mg/dl (8.4-10.2); Carbon Dioxide 26 mmol/L (22-30); Chloride 103 mmol/L (98-107); Estimated Creatinine Clearance 80 ml/min; Glucose 139 mg/dl (70-99); Potassium 4.4 mmol/L (3.5-5.1); Sodium 138 mmol/L (135-145); eGFR > 60.00
[2024-04-14 08:06] VITALS: BP 134/71
[2024-04-14 08:09] LABS: Glucose - Point of Care 164 mg/dl (70-99)
[2024-04-14 08:37] LABS: ACT-LR - POC > 397 Seconds (116-155)
[2024-04-14] MEDS: LIPITOR 40 MG PO (08:38)
[2024-04-14] MEDS: COLACE 100 MG PO (08:38)
[2024-04-14] MEDS: FLOMAX 0.4 MG PO (08:38)
[2024-04-14] MEDS: VIBRAMYCIN 100 MG PO (08:38)
[2024-04-14] MEDS: PLAVIX 75 MG PO (08:38)
[2024-04-14] MEDS: TAPAZOLE 5 MG PO (08:38)
[2024-04-14] MEDS: TOPROL XL 25 MG PO (08:38)
[2024-04-14] MEDS: LOW STRENGTH ASPIRIN 81 MG PO (08:38)
[2024-04-14] MEDS: PROTONIX 40 MG PO (08:38)
[2024-04-14] MEDS: COLCHICINE 0.6 MG PO (08:38)
[2024-04-14] MEDS: ELIQUIS 5 MG PO (08:38)
[2024-04-14] MEDS: FLUSH (NSS) 2 FLUSH IV ×2 (08:39→10:28)
--- NOTE | 2024-04-14 09:40 | W.PN.CARDCBS ---
Addendum entered and electronically signed by Thu Skinner MD 04/14/24 14:20:
I saw and examined the patient.
The Hot Dip Tinning Supervisor's note was reviewed and I agree with the note.
Comment: Patient is doing well and does not offer any complaints. No issues at the right radial access site. No recurrent chest discomfort or shortness of breath. He has been out of bed ambulating without any difficulty.
Vital signs and lab work reviewed. On exam patient is well-appearing, no acute distress, no carotid bruit, normal carotid upstrokes, no JVD, lungs are clear to auscultation bilaterally, regular rate, normal S1 and S2, abdomen is soft, nontender,
nondistended with active bowel sounds, warm extremities without significant edema. Right radial access site without evidence of hematoma or bruit.
Recommendations:
1. Triple therapy with daily baby aspirin, Plavix and Eliquis for 1 week. Plan to discontinue aspirin on April 20, 2024 and continue daily Plavix and Eliquis to minimize risk for bleeding.
2. Continue high intensity statin and beta-austen as tolerated.
3. Remainder of plan as below. Outpatient cardiology follow-up will be set up.
4. Outpatient referral for cardiac rehab.
5. Stable for discharge home from a cardiac standpoint.
Thu Skinner MD, [facility], [facility]
Original Note:
Today's Communication / Plan
-
Aspirin should stop 1 week post-PCI. Cont Plavix and Eliquis.
Restarting benazepril 20 mg daily
Cont Toprol XL 25 mg BID
Cont atorvastatin
Cardiac rehab consulted
D/C to home today
52 min in coordination of care and face to face interaction
Impression / Plan
-
PCP: Dr. Hart
Primary Supplier Specialist: Dr. Bolanos
Impression:
Admitted with chest pain/[place] 04/06/24
Recent admission for NSTEMI and Williams's gangrene 03/14/24 until 03/30/24
NSTEMI, peak troponin 0.098
CAD
s/p CABG x4 07/2020
s/p NSTEMI with peak Troponin 6.32 03/2024
s/p NSTEMI peak Troponin 0.098 and 3.5 mm [place] HILARIO to mid to distal LM 04/13/24
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
Paroxysmal Afib
initially seen s/p CABG 07/2020 at
recurrent Afib treated with CV in [facility] 10/06/21
recurrent Afib treated with rate control and spontaneously converted to SR 10/09/21
DCCV in [facility] 03/14/2024
Chronic OAC with Eliquis
History of thyroid issues and tremors with amiodarone
Hypothyroidism
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
HTN
HLD
DM2
COPD
ALFREDO 07/2020: EF 60-65%, no RWMA, severe conc LVH, mod dilated LA, mildly dilated mid ascending aorta, mild sessile atheroma in descending aorta and distal arch
ECHO 10/11/21: EF 50 to 55%, no WMA, normal RA/LA size, no significant valve disease
Echo 03/15/24: EF 55%, mild hypokinesis of the basal-mid inferoseptal, apical lateral and basal inferior lance, normal RV size and function, trileaflet sclerotic aortic valve with dense calcification on the noncoronary cusp, no /AR
Plan:
-Patient feels well and no chest pain. ECG reviewed by me 04/14/24 without acute ischemic changes and is SR
-Peak Troponin 0.098 this admission and was managed as a NSTEMI.
-New to Plavix and plan is for Plavix and Eliquis. Cardiology needs to be involved if either medication needs to be held for any upcoming procedures (none currently planned). Stop aspirin 1 week after PCI.
-Cont Toprol XL 25 mg BID
-Previous outpatient doses of benazepril 40 mg daily and chlorthalidone 25 mg daily were hold due to MATT during his 03/2024 admission. Cre has improved and BP stable so will restart benazepril 20 mg daily on 04/14/24 and check BMP in 1-2 weeks.
-Check CVE, ordered by me. LDL was 54 last admission and outpatient dose of atorvastatin 40 mg daily has been continued
-Patient with known paroxysmal Afib and remains in SR following CV in [facility] 03/14/24 PM.
-Cardiac rehab consulted.
-Patient is stable from a cardiac standpoint and can be d/c'd to home on 04/14/24.
Progress Note - Supplier Specialist
Subjective
Date of Service: April 14, 2024
Feels well, no chest pain
Objective
Labs:
04/14/24 04:01
04/14/24 04:01
Labs
Hgb 9.5 g/dL (13.0-18.0) L 04/14/24 04:01
Hct 29.2 % (39.0-52.0) L 04/14/24 04:01
Plt Count 306 10^3/uL (130-400) 04/14/24 04:01
APTT Cancelled 04/13/24 13:00
Sodium 138 mmol/L (135-145) 04/14/24 04:01
Potassium 4.4 mmol/L (3.5-5.1) 04/14/24 04:01
BUN 18 mg/dl (9-20) 04/14/24 04:01
Creatinine 1.1 mg/dL (0.7-1.3) 04/14/24 04:01
Glucose 139 mg/dl (70-99) H 04/14/24 04:01
Vital Signs and I&O:
Vital Signs
Temp Pulse Resp BP Pulse Ox
98.7 F 60 20 134/71 95
04/14/24 08:03 04/14/24 08:06 04/14/24 08:03 04/14/24 08:06 04/14/24 08:06
Vital Signs
Temp Pulse Resp BP Pulse Ox
98.7 F 60 20 134/71 95
04/14/24 08:03 04/14/24 08:06 04/14/24 08:03 04/14/24 08:06 04/14/24 08:06
Intake & Output
04/12/24 04/13/24 04/14/24 04/15/24
06:59 06:59 06:59 06:59
Intake Total 1306 / 1306 794 / 794 1520 / 1520
Output Total 5700 / 5700 4550 / 4550 4050 / 4050
Balance -4394 / -4394 -3756 / -3756 -2530 / -2530
Physical Exam
Physical Exam
GEN: AAOx3
HEENT: MMM
LUNGS: RA. No audible wheeze
CV: SR on tele.
ABD: ND
EXT: Right radial dressing removed and no bruising or tenderness. No edema B/L
NEURO: Gross non-focal
SKIN: No rash
Scores
DENNY for NSTEMI
Age >/= 65: Yes
>/=3 CAD risk factors-HTN,High Chol,Fam hx CAD,DM,Smoker: Yes
Known CAD (stenosis >/=50%): Yes
ASA use in past 7 days: Yes
Severe angina (>/= 2 episodes in 24 hrs): Yes
EKG ST Changes >/= 0.5mm: No
Positive cardiac marker: Yes
Score: 6
Risk at 14 days-mortality, new/recurrent MA, severe ischemia: High Risk- 41% Risk at 14 days- all cause mortality, new or recurrent MA, or severe recurrent ischemia requiring urgent revascularization
[2024-04-14 10:17] LABS: Glucose - Point of Care 145 mg/dl (70-99)
[2024-04-14] MEDS: NOVOLOG FLEXPEN-LOW RESISTANCE SC (10:19)
[2024-04-14] MEDS: ROCEPHIN 1000 MG IV (10:28)
[2024-04-14] MEDS: STERILE WATER FOR INJECTION 10 ML IV (10:28)
--- NOTE | 2024-04-14 11:00 | PTCARENOTE ---
The patient is aaox3, vss, 98% on RA, NSR on the monitor. BL wrists are CORNELIO. He states that his BL feet (gout) are feeling better today. His right perineum dressing is c/d/i. He has no complaints.
--- NOTE | 2024-04-14 11:28 | CM ---
Chart reviewed. Patient is independent of ADLS, lives with his in a 3 [address], 1 [address], 0 DME. Plan is for the patient to return home with [facility]. CM to follow
[2024-04-14 11:35] VITALS: BP 147/63
[2024-04-14 12:33] LABS: HDL Cholesterol 32 mg/dl; LDL Cholesterol, Calculated 39 mg/dl; Total Cholesterol 89 mg/dl (50-199); Triglyceride 93 mg/dl (10-149); Very Low Density Lipoprotein 18 mg/dl (0-30)
[2024-04-14 13:44] LABS: Glucose - Point of Care 237 mg/dl (70-99)
[2024-04-14] MEDS: NOVOLOG FLEXPEN-LOW RESISTANCE 2 UNITS SC (13:44)
[2024-04-14 15:42] VITALS: BP 122/71
--- NOTE | 2024-04-14 16:25 | W.PN.HOSP.TC ---
Today's Communication/Plan
-
dc now
Assessment / Plan
Assessment / Plan
Assessment:
Chest Pain
ASCVD
Recent NSTEMI
- EKG without new / acute ischemic changes.
- Patient is pain free at present.
- Troponin is abnormal - but continues to trend down from recent NSTEMI. no need to trend further
- Continue current CV med regimen
- s/p cath 04/12: Severe multivessel [place] coronary artery disease with new 85% mid left main stenosis. The DAUGHERTY-LAD is widely patent. The ZWW-Nzshh7-Vppnr3-PDA is 100% occluded at its origin but the sequential portion of the graft is patent.
- repeat cath 04/13 for L main intervention; s/p Plavix load
Febrile illness
- CAUTI - POA - from Multi-drug resistant E. coli and Klebsiella
- other possible sources are R foot cellulitis vs bronchitis also contributing
- continue empiric Rocephin, Doxy, day 10/14 to cover above possibilities. Follow cultures, discussed with Dr. Luu, will go with Omnicef 300 mg bid x 3 days
- Chronic wade exchanged at bedside 04/08/24, wade remains in place, will have appt with Dr. Crowell
- CXR with minimal atelectasis; IS ordered
- Bcx so far NGTD
- COVID/Flu negative
Williams's Gangrene
- Healing well. Continue local wound care.
- Maintain Wade catheter.
- No longer on abx therapy.
- appreciate Colorectal consult; ok to proceed with CATH/DAPT. given bleeding would be small venous bleeding, options to control potential bleeding include cautery or packing.
- Follow-up with outpatient Wound Care, CRS and Urology as planned.
Blood Loss Anemia - Subacute
- Hgb stable compared to recent values - but not yet recovered to pre-op baseline of 14-15.
- Iron deficiency - completed 5 day IV Iron infusions course
- Follow for any evidence of new blood loss.
- Follow for changes in H&H.
Paroxysmal Atrial Fibrillation
- Stable. In NSR at present.
- Continue current medications. Holding Eliquis for cath.
- Monitor on tele for any recurrent tachyarrhythmia.
DM-II
- Stable. Continue basal : bolus insulin regimen.
- Follow glucose and cover with SSI as needed.
Gout
- Pain in the R foot that started over this past week c/w prior gout episodes.
- Patient admits to recent dietary indiscretions that would explain his symptoms.
- continue colchicine, day 6of 7 and follow for improvement in symptoms.
Hyperthyroidism
- Stable. continue methimazole.
DVT Prophylaxis: IV Heparin drip
Code Status: Full
reviewed with
More than 30 minutes spent in discharge including
Final examination of the patient
Summarizing hospital stay
Instructions for continuing care to all relevant caregivers
Preparation of discharge records, prescriptions, and referral forms
Total time spent (in minutes): 45
Anticipated Discharge: Today
Subjective/Interval History
-
Date of Service: April 14, 2024
No chest pain, anxiously awaiting dc
Objective Data
-
Labs:
Laboratory Results
04/14/24
04:01
WBC 6.5
Hgb 9.5 L
Hct 29.2 L
Plt Count 306
Sodium 138
Potassium 4.4
Chloride 103
Carbon Dioxide 26
BUN 18
Creatinine 1.1
Glucose 139 H
Calcium 8.7
Vital Signs:
Vital Signs
Temp Pulse Resp BP Pulse Ox
99 F 76 20 122/71 95
04/14/24 15:40 04/14/24 15:42 04/14/24 15:40 04/14/24 15:42 04/14/24 15:40
I&O
04/13/24 04/14/24 04/15/24
06:59 06:59 06:59
Intake Total 794 / 794 1520 / 1520 480 / 480
Output Total 4550 / 4550 4050 / 4050 900 / 900
Balance -3756 / -3756 -2530 / -2530 -420 / -420
Review of Systems
-
History Source: Patient and Family ( at bedside)
Constitutional: Denies Fever
EENT: Reports No Symptoms Reported
Respiratory: Reports Cough
Cardiac: Reports No Symptoms; Denies Chest Pain
Abdomen/GI: Reports No Symptoms
Musculoskeletal: Reports Joint Pain (rt lateral foot pain)
Physical Exam
-
General: Well Developed, Well Nourished and No Apparent Distress
HEENT: Normocephalic, Atraumatic and Moist Mucous Membranes
Respiratory: Rhonchi (scattered rhonchi)
Cardiac: Regular Rhythm and S1/S2
GI: Soft, Nontender and Nondistended
Musculoskeletal: No Clubbing, No Cyanosis, No Edema and Other (rt lateral foot with gout changes)
Neuro: Awake, Alert and Oriented
--- NOTE | 2024-04-15 06:40 | W.DS.TRANS ---
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
-
Discharge Instructions:
Discharge Diagnosis/Procedures Angioplasty and stent to Left Main artery
Diet Low Fat
Activity Other activity
Driving Restrictions No driving for 24 hours
Bathing Restrictions OK to Shower
Blood Work Non-fasting blood work in 1-2 weeks to check
kidney function and blood count. CBC, CMP
Other Services Cardiac Rehab,VN
Instructions:
Stand-Alone Forms: DC Instructions- Cath/EP Lab
Changes to Home Medications: Yes
Discharge Medications:
DC Medications w/original date entered in [facility] [employer]
clonazepam 0.5 mg tablet 0.5 mg PO DAILYPRN PRN anxiety 07/25/20
atorvastatin 40 mg tablet 40 mg PO DAILY High cholesterol 07/28/20
apixaban 5 mg tablet (Eliquis) 5 mg PO BID #60 tabs 08/01/20
tamsulosin 0.4 mg capsule (Flomax) 0.4 mg PO DAILY Urinary issue 10/06/21
insulin aspart U-100 100 unit/mL (3 mL) subcutaneous pen (Novolog FlexPen U-100 Insulin aspart) 5 unit (0.05 mL) SC AC #5 ea 03/29/24
insulin glargine 100 unit/mL (3 mL) subcutaneous pen (Lantus Solostar U-100 Insulin) 15 unit (0.15 mL) SC HS #5 ea 03/29/24
aspirin 81 mg chewable tablet 81 mg PO DAILY #30 tabs 03/30/24
methimazole 5 mg tablet 5 mg PO DAILY Thyroid #0 tabs 03/30/24
metoprolol succinate 25 mg tablet,extended release 24 hr 25 mg PO BID #60 tabs 03/30/24
nitroglycerin 0.4 mg sublingual tablet 0.4 mg sublingual [id number] PRN chest pain #25 tabs 03/30/24
docusate sodium 100 mg capsule (Colace) 100 mg PO DAILY Constipation 04/06/24
benazepril 20 mg tablet 20 mg PO DAILY Heart disease/condition #30 tabs 04/14/24
cefdinir 300 mg capsule 300 mg PO Q12H 5 days #10 caps 04/14/24
clopidogrel 75 mg tablet 75 mg PO DAILY Heart disease/condition #30 tabs 04/14/24
colchicine 0.6 mg tablet 0.6 mg PO DAILY #30 tabs 04/14/24
pantoprazole 40 mg tablet,delayed release 40 mg PO DAILY Gastrointestinal issue #30 tabs 04/14/24
Home Medication Changes
Toprol started
Omnicef for 5 days
Protonix started
short term Aspirin
Plavix started
Pending Results: No
== END 2024-04-14 18:34 | disposition home health service (06) | DRG 322 ==
LOC: IVU 11:08
PROVIDERS: Emergency Medicine; Internal Medicine; Internal Medicine Interventional Cardiology; Nurse Practitioner Family; Physician Assistant; ADMITTING PHYSICIAN Hospitalist; ATTENDING PHYSICIAN Internal Medicine; CONSULT PHYSICIAN Internal Medicine Cardiovascular Disease; CONSULT PHYSICIAN Surgery; EMERGENCY PHYSICIAN Student in an Organized Health Care Education/Training Program; FAMILY PHYSICIAN Internal Medicine
PROC: B211YZZ Fluoroscopy of Multiple Coronary Arteries using Other Contrast (ICD-10-PCS; 2024-04-12)
PROC: B213YZZ Fluoroscopy of Multiple Coronary Artery Bypass Grafts using Other Contrast (ICD-10-PCS; 2024-04-12)
PROC: 4A023N7 Measurement of Cardiac Sampling and Pressure, Left Heart, Percutaneous Approach (ICD-10-PCS; 2024-04-12)
PROC: 02703DZ Dilation of Coronary Artery, One Artery with Intraluminal Device, Percutaneous Approach (ICD-10-PCS; 2024-04-13)
DX: I21.4 Non-ST elevation (NSTEMI) myocardial infarction (principal); T83.511A Infection and inflammatory reaction due to indwelling urethral catheter, initial encounter; D62 Acute posthemorrhagic anemia; L76.22 Postprocedural hemorrhage of skin and subcutaneous tissue following other procedure; I25.810 Atherosclerosis of coronary artery bypass graft(s) without angina pectoris; N39.0 Urinary tract infection, site not specified; I25.10 Atherosclerotic heart disease of native coronary artery without angina pectoris; I48.0 Paroxysmal atrial fibrillation; B96.1 Klebsiella pneumoniae [K. pneumoniae] as the cause of diseases classified elsewhere; B96.20 Unspecified Escherichia coli [E. coli] as the cause of diseases classified elsewhere; M1A.0710 Idiopathic chronic gout, right ankle and foot, without tophus (tophi); E05.90 Thyrotoxicosis, unspecified without thyrotoxic crisis or storm; E78.00 Pure hypercholesterolemia, unspecified; I10 Essential (primary) hypertension; J44.9 Chronic obstructive pulmonary disease, unspecified; N49.3 Fournier gangrene; N40.0 Benign prostatic hyperplasia without lower urinary tract symptoms; G47.30 Sleep apnea, unspecified; F41.9 Anxiety disorder, unspecified; Z11.52 Encounter for screening for COVID-19; Z95.1 Presence of aortocoronary bypass graft; Z79.01 Long term (current) use of anticoagulants; Z79.4 Long term (current) use of insulin; Z79.82 Long term (current) use of aspirin; Z79.899 Other long term (current) drug therapy; Z87.891 Personal history of nicotine dependence; Y84.6 Urinary catheterization as the cause of abnormal reaction of the patient, or of later complication, without mention of misadventure at the time of the procedure; Y83.8 Other surgical procedures as the cause of abnormal reaction of the patient, or of later complication, without mention of misadventure at the time of the procedure
CPT/HCPCS: 71046; 80048; 80053; 80061; 81003; 81015; 82962; 83540; 83550; 84484; 85025; 85027; 85347; 85730; 86803; 87040; 87070; 87077; 87086; 87186; 87502; 87811; 93005; 93459; 93567; 96374; 99285; C1725; C1769; C1874; C1894; C9600; J2916; Q9967

== ENCOUNTER → 2024-04-22 13:16 | Outpatient (REF) | payer OTHER, SELFPAY | LOC: WOUND 13:16 | PROVIDERS: ATTENDING PHYSICIAN Surgery; FAMILY PHYSICIAN Internal Medicine | DX: S31.103A Unspecified open wound of abdominal wall, right lower quadrant without penetration into peritoneal cavity, initial encounter (principal); N49.3 Fournier gangrene; E11.65 Type 2 diabetes mellitus with hyperglycemia; J44.9 Chronic obstructive pulmonary disease, unspecified; Z95.1 Presence of aortocoronary bypass graft; X58.XXXA Exposure to other specified factors, initial encounter | CPT/HCPCS: 99213 ==

== ENCOUNTER → 2024-05-06 10:51 | Outpatient (REF) | payer OTHER, SELFPAY | LOC: WOUND 10:51 | PROVIDERS: ATTENDING PHYSICIAN Surgery; FAMILY PHYSICIAN Internal Medicine | DX: S31.103A Unspecified open wound of abdominal wall, right lower quadrant without penetration into peritoneal cavity, initial encounter (principal); N49.3 Fournier gangrene; E11.65 Type 2 diabetes mellitus with hyperglycemia; J44.9 Chronic obstructive pulmonary disease, unspecified; Z95.1 Presence of aortocoronary bypass graft; X58.XXXA Exposure to other specified factors, initial encounter | CPT/HCPCS: 99213 ==

== ENCOUNTER → 2024-05-20 11:02 | Outpatient (REF) | payer OTHER, SELFPAY | LOC: WOUND 11:02 | PROVIDERS: ATTENDING PHYSICIAN Surgery; FAMILY PHYSICIAN Internal Medicine | DX: S31.103A Unspecified open wound of abdominal wall, right lower quadrant without penetration into peritoneal cavity, initial encounter (principal); N49.3 Fournier gangrene; E11.65 Type 2 diabetes mellitus with hyperglycemia; J44.9 Chronic obstructive pulmonary disease, unspecified; Z95.1 Presence of aortocoronary bypass graft; X58.XXXA Exposure to other specified factors, initial encounter | CPT/HCPCS: 99213 ==

== ENCOUNTER → 2024-05-27 10:31 | Outpatient (REF) | payer OTHER, SELFPAY | LOC: WOUND 10:31 | PROVIDERS: ATTENDING PHYSICIAN Surgery; FAMILY PHYSICIAN Internal Medicine | DX: S31.103A Unspecified open wound of abdominal wall, right lower quadrant without penetration into peritoneal cavity, initial encounter (principal); N49.3 Fournier gangrene; E11.65 Type 2 diabetes mellitus with hyperglycemia; J44.9 Chronic obstructive pulmonary disease, unspecified; Z95.1 Presence of aortocoronary bypass graft; X58.XXXA Exposure to other specified factors, initial encounter | CPT/HCPCS: 99213 ==

== ENCOUNTER → 2024-06-10 10:25 | Outpatient (REF) | payer OTHER, SELFPAY | LOC: WOUND 10:25 | PROVIDERS: ATTENDING PHYSICIAN Surgery; FAMILY PHYSICIAN Internal Medicine | DX: S31.103A Unspecified open wound of abdominal wall, right lower quadrant without penetration into peritoneal cavity, initial encounter (principal); N49.3 Fournier gangrene; E11.65 Type 2 diabetes mellitus with hyperglycemia; J44.9 Chronic obstructive pulmonary disease, unspecified; Z95.1 Presence of aortocoronary bypass graft; X58.XXXA Exposure to other specified factors, initial encounter | CPT/HCPCS: 99213 ==

== ENCOUNTER 2025-02-20 15:48 | Observation (INO) | payer OTHER, SELFPAY ==
[2025-02-20] VITALS (14 sets, daily range): BP systolic 132–188; BP diastolic 73–98; PULSE 75–94; BMI 25.9; BMI 26.7
[2025-02-20 11:47] LABS: Glucose - Point of Care 189 mg/dl (70-99)
--- NOTE | 2025-02-20 12:41 | ED.CVA ---
History of Present Illness
General
Chief Complaint: CVA/TIA Symptoms
Source: patient and spouse
Exam Limitations: none
Time Seen by Provider: 02/20/25 12:04
Nursing documentation reviewed up to this point in time: agreed with
Onset of Stroke Symptoms
Onset of symptoms known: Yes
Date of onset of symptoms: 02/20/25
Time of onset of symptoms: 11:30
History of Present Illness
History of Present Illness:
6-year-old male presents with dizziness around 11:30 AM stood up felt dizzy had some numbness and tingling on the left side of his face left arm and left leg no slurred speech no arm or leg weakness no visual changes his blood sugar was in the high
normal range, make sure he took his morning Eliquis states he has not missed any of that, no fever or chills no nausea or vomiting feeling better for the most part with exception of a little bit of tingling to his arm and leg
Past History
Past History
ED Past Medical History: Arrthythmia, CAD, COPD, HTN, Hypercholesterolemia, NIDDM and Other (Sleep apnea, BPH, CABG, anxiety)
ED Past Surgical History: Other
Social History
Tobacco: Non-smoker
Alcohol: Other
Drug: None
Personal:
Living: with family
Employment: Other
Family History
Family History: Other
Phy Exam
Physical Exam
Physical Exam:
Physical Exam
General: no apparent distress, not acutely ill
Neck: No tongue
Heart: Regular
Lungs: no acute respiratory distress. clear bilaterally
Abdomen: Not
Neuro: alert and oriented. no focal neurological deficits normal [id number] no facial palsy
Skin: no rash
Psychiatric: well kept. interactive and cooperative
Extremities: no edema.
Scores
NIH Stroke Score
Level of Consciousness: 0 - Alert
LOC Questions: 0-Answers both correctly
LOC Commands: 0-Performs both correctly
Best Horizontal Gaze: 0-Normal
Visual Hernandez: 0=Normal, no visual loss
Facial Palsy: 0=Normal, symmetrical
Motor - Right Arm: 0=No drift 10 seconds
Motor - Left Arm: 0=No drift 10 seconds
Motor - Right Le-No drift 5 seconds
Motor - Left Le-No drift 5 seconds
Limb Ataxia: 0-Absent
Sensation: 1-Mild loss
Best Language: 0-No aphasia
Dysarthria: 0-Normal
Extinction and Inattention: 0-No abnormality
NIH Total Score:: 1
Course
Orders/Labs/Results
Orders:
Orders
02/20/25 11:[address] [CT Head W/o Iv Contrast] Urgent
Comment:
Reason For Exam: dizziness
02/20/25 11:47
Electrocardiogram (*1) Urgent
Reason for Study: Vertigo / Dizzy
EKG- Treatment ONCE
02/20/25 12:54
NEUROLOGY CONSULT Urgent
Consulting Provider: Randall Sterling
Was physician already notified: Yes
02/20/25 13:32
Complete Blood Count/With Diff Urgent
Comprehensive Metabolic Panel Urgent
02/20/25 14:39
Orthostatic VS- Treatment ONCE
Abnormal Lab Results
02/20/25 02/20/25
11:45 13:32
BUN 25 H mg/dl
(9-20)
Glucose 189 H mg/dl
(70-99)
POC Glucose 189 H mg/dl
(70-99)
02/20/25 13:32
02/20/25 13:32
Vital Signs
Initial and Last Documented VS:
Initial Vital Signs
Temp Pulse Resp BP Pulse Ox
97.6 F 95 16 188/93 95
02/20/25 11:39 02/20/25 11:39 02/20/25 11:39 02/20/25 11:39 02/20/25 11:39
Last Documented Vital Signs
Temp Pulse Resp BP Pulse Ox
97.6 F 68 14 154/79 95
02/20/25 11:39 02/20/25 14:00 02/20/25 14:00 02/20/25 14:00 02/20/25 14:00
MDM/Problems Addressed
Differential Diagnosis Includes:
TIA CVA orthostasis neuropathy
MDM/Problems Addressed:
Dizziness numbness
Chronic conditions affecting care: DM, HTN and Arrhythmia
Acute Exacerbation and/or Progression of Chronic Illness: Arrhythmia
*Radiology
Radiology exam reviewed: radiology read reviewed
*Pulse Oximetry
SaO2: 95
Oxygen Mode of Delivery: Room air
Patient hypoxic: no
*EKG
Interpreted by ED Provider?: Yes
Interpretation: abnormal
Comparison EKG: no comparison EKG present
Heart Rate: 78
Rate: normal
Rhythm: sinus
Ischemia: non-specific ST changes
*Groundskeeper Porter Interpretation
Rate: normal
Interpretation: normal
Heart Rate: 78
Rhythm: sinus
*Critical Care Note
Total Time (30-74mins, 75-104mins- exclusive of procedures): Not Applicable
Data Reviewed
Source: patient
Update Note
Update Note:
Update etiology not entirely clear could be orthostatic does have multiple cerebrovascular risk factors CT noted shows looks like an old CVA but no acute hemorrhage not a TNK candidate low NIH stroke score he is on Eliquis have requested neurology
consultation
Update, discussed with neuro, will admit MRI CTA
ED Attending Note
-
Portions of this chart may have been created with voice recognition software.� Occasional wrong word or��sound alike� substitutions may have occurred due to the inherent limitations of voice recognition software.
Discharge Plan
Departure
Patient Disposition: Admit
Date of Disposition: 02/20/25
Time of Disposition: 14:40
Admit to: Med/Surg and Telemetry
Presentation/result/management discussed w/ accepting MD/DO: Hospitalist
Patient with high blood pressure during this ER visit?: Yes
Condition: Good
Discharge Problem:
Brain TIA
Prescriptions:
No Action
clonazepam 0.5 MG tablet
0.5 mg PO DAILYPRN PRN (Reason: anxiety)
atorvastatin 40 MG tablet
40 mg PO DAILY
Eliquis 5 MG tablet
5 mg PO BID Qty: 60 2RF
tamsulosin [Flomax] 0.4 mg Capsule
0.4 mg PO DAILY
insulin aspart U-100 [Novolog FlexPen U-100 Insulin] 100 unit/mL (3 mL) Insulin Pen
5 unit SC AC Qty: 5 1RF
Rx Instructions:
E11.65
insulin glargine [Lantus Solostar U-100 Insulin] 100 unit/mL (3 mL) Insulin Pen
15 unit SC HS Qty: 5 1RF
Rx Instructions:
E11.65
aspirin 81 mg Tablet,Chewable
81 mg PO DAILY Qty: 30 0RF
metoprolol succinate 25 mg Tablet Extended Release 24 Hr
25 mg PO BID Qty: 60 0RF
nitroglycerin 0.4 MG tablet, sublingual
0.4 mg sublingual [id number] PRN (Reason: chest pain) Qty: 25 2RF
methimazole 5 mg Tablet
5 mg PO DAILY Qty: 0 0RF
docusate sodium [Colace] 100 mg Capsule
100 mg PO DAILY
clopidogrel 75 mg Tablet
75 mg PO DAILY Qty: 30 11RF
pantoprazole 40 mg Tablet,Delayed Release (Dr/Ec)
40 mg PO DAILY Qty: 30 11RF
benazepril 20 mg tablet
20 mg PO DAILY Qty: 30 11RF
colchicine 0.6 mg Tablet
0.6 mg PO DAILY Qty: 30 0RF
cefdinir 300 mg capsule
300 mg PO Q12H 5 Days Qty: 10 0RF
Referrals:
Aiden Mejias MD [Family Provider, Internal Medicine]
Interventions
Interventions:
*Risk Screen - Suicide Last Done: 02/20/25 11:46
*Neglect/Abuse Screening Last Done: 02/20/25 11:46
*ED- Fall Risk Assessment Last Done: 02/20/25 12:09
*ED COVID-19 Vaccine History Last Done: 02/20/25 12:09
*ED Influenza Vaccine History Last Done: 02/20/25 12:09
ED- Pulmonary Assessment Last Done: 02/20/25 12:09
ED- Neurological Assessment Last Done: 02/20/25 12:09
ED- Cardiac Assessment Last Done: 02/20/25 12:09
ED Swallowing Screen Last Done: 02/20/25 13:34
Discharge Date and Time
Print Language: FINNISH
--- NOTE | 2025-02-20 12:54 | CON.NEURO4 ---
Addendum entered and electronically signed by Randall Sterling MD 02/20/25 18:21:
The patient is on eliquis for atrial fibrillation and was also on Plavix at home.
He will not be on aspirin as he is already on eliquis and Plavix.
Addendum entered and electronically signed by Randall Sterling MD 02/20/25 16:43:
The patient likely had a episode of near syncope, while trying to stand up too fast from a sitting position, but also need to consider a TIA given the history of left-sided numbness and tingling in this patient with a history of atrial fibrillation
on eliquis, hypertension, CAD, DM and hypercholesterolemia.
Original Note:
Consultation - Neurology 4
-
CONSULTING PHYSICIAN: Dr. Randall Sterling
REFERRING PHYSICIAN: Dr. Sav Saavedra
DICTATED BY: Dr. Randall Sterling
DATE/TIME OF REQUEST: 02/20/2025
DATE/TIME OF CONSULTATION: 02/20/2025
Reason for Consultation: Dizziness, numbness of left side of body
ASSESSMENT AND PLAN:
69 years old male, with a past medical history of paroxysmal atrial fibrillation on eliquis, DM, presents with dizziness that started at around 11:30 AM today, when he stood up and felt dizzy had some numbness and tingling on the left side of his
face left arm and left leg. The patient says that he felt 'lightheaded ', when he tried to stand up. The patient returned to his baseline within about 10 minutes. He denies history of speech difficulty, facial droop, or focal weakness of arms or
legs. The NIHSS = 0. He is not a candidate for thrombolytic therapy as his symptoms have resolved.
. CT head does not show acute intracranial abnormality. 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
. CTA head/neck
. MRI brain without IV contrast.
. Echocardiogram.
. Aspirin 81 mg daily, Plavix 75 mg daily and atorvastatin 40 mg daily.
The patient likely had a syncopal episode while trying to get up too fast from a sitting position and feeling 'lightheaded' on doing so, however, need to cnsidere TIA/Stroke, due to risk factors including h/o atrial fibrillation on eliquis,
hypertension, DM and hypercholesterolemia, because he also complained of left-sided numbness and tingling.
History of Present Illness:
69 years old male, with a past medical history of paroxysmal atrial fibrillation on eliquis, DM, presents with dizziness around 11:30 AM when he stood up and felt dizzy had some numbness and tingling on the left side of his face left arm and left
leg. The patient says that he felt 'lightheaded ', when he tried to stand up. The patient returned to his baseline within about 10 minutes. He denies history of speech difficulty, facial droop, or focal weakness of arms or legs. The NIHSS = 0.
He is not a candidate for thrombolytic therapy as his symptoms resolved.
Past Medical History: Paroxysmal atrial fibrillation, CAD, COPD, HTN, Hypercholesterolemia, NIDDM and Other (Sleep apnea, BPH, CABG, anxiety)
Review of Systems:
The 12 point review systems were negative aside from as given in the history of present illness above.
Neurologic Examination:
Alert and oriented x 3,
Speech is clear,
The cranial nerves II to XII are grossly intact,
The motor strength is grossly 5/5 bilaterally in upper and lower extremities,
The sensation is grossly intact,
The cerebellar examination does not show a limb ataxia.
NIHSS = 0
Vital Signs and Labs
-
Vital Signs and Labs:
Vital Signs
Temp Pulse Resp BP Pulse Ox
36.4 C 91 17 174/97 95
02/20/25 11:39 02/20/25 12:09 02/20/25 12:09 02/20/25 12:07 02/20/25 12:42
Medications
-
Home Medications
�Medication �Instructions �Recorded
clonazepam 0.5 mg tablet 0.5 mg PO DAILYPRN PRN anxiety 07/25/20
atorvastatin 40 mg tablet 40 mg PO DAILY High cholesterol 07/28/20
apixaban 5 mg tablet (Eliquis) 5 mg PO BID #60 tabs 08/01/20
tamsulosin 0.4 mg capsule (Flomax) 0.4 mg PO DAILY Urinary issue 10/06/21
insulin aspart U-100 100 unit/mL 5 unit (0.05 mL) SC AC #5 ea 03/29/24
(3 mL) subcutaneous pen (Novolog
FlexPen U-100 Insulin aspart)
insulin glargine 100 unit/mL (3 15 unit (0.15 mL) SC HS #5 ea 03/29/24
mL) subcutaneous pen (Lantus
Solostar U-100 Insulin)
aspirin 81 mg chewable tablet 81 mg PO DAILY #30 tabs 03/30/24
methimazole 5 mg tablet 5 mg PO DAILY Thyroid #0 tabs 03/30/24
metoprolol succinate 25 mg 25 mg PO BID #60 tabs 03/30/24
tablet,extended release 24 hr
nitroglycerin 0.4 mg sublingual 0.4 mg sublingual [id number] PRN 03/30/24
tablet chest pain #25 tabs
docusate sodium 100 mg capsule 100 mg PO DAILY Constipation 04/06/24
(Colace)
benazepril 20 mg tablet 20 mg PO DAILY Heart 04/14/24
disease/condition #30 tabs
cefdinir 300 mg capsule 300 mg PO Q12H 5 days #10 caps 04/14/24
clopidogrel 75 mg tablet 75 mg PO DAILY Heart 04/14/24
disease/condition #30 tabs
colchicine 0.6 mg tablet 0.6 mg PO DAILY #30 tabs 04/14/24
pantoprazole 40 mg tablet,delayed 40 mg PO DAILY Gastrointestinal 04/14/24
release issue #30 tabs
[2025-02-20 13:41] LABS: Hematocrit 44.7 % (39.0-52.0); Hemoglobin 15.4 g/dL (13.0-18.0); Mean Corp Hgb Conc. 34.5 g/dL (33.0-37.0); Mean Corpuscular Volume 83.7 fL (80.0-94.0); Nucleated Red Blood Cells % 0 % (-); Platelet Count 196 10^3/uL (130-400); Red Cell Dist. Width 12.3 % (11.5-14.5)
[2025-02-20 13:53] LABS: ALT (SGPT) 29 U/L (0-50); AST (SGOT) 25 U/L (17-59); Albumin 4.8 g/dl (3.5-5.0); Alkaline Phosphatase 46 U/L (38-126); Blood Urea Nitrogen 25 mg/dl (9-20); Calcium 9.0 mg/dl (8.4-10.2); Carbon Dioxide 29 mmol/L (22-30); Chloride 102 mmol/L (98-107); Glucose 189 mg/dl (70-99); Potassium 3.8 mmol/L (3.5-5.1); Sodium 140 mmol/L (135-145); Total Protein 8.1 g/dl (6.3-8.2); eGFR > 60.00
--- NOTE | 2025-02-20 15:32 | HPS.HSE ---
Family Physician
-
Family Physician: Aiden Mejias
Chief Complaint
-
Lightheadedness
History of Present Illness
69 male history of paroxysmal atrial fibrillation, Williams's gangrene, hyperthyroidism, hypertension, type 2 insulin-dependent diabetes BPH who presents with a feeling of ongoing lightheadedness and left-sided numbness tingling along his left side
of face left hand specifically thumb and second digit that approximately since and left foot. States it began while he went to stand up from watching TV, stated that the dizziness felt a little bit different from usual orthostasis therefore sat
down did not clear up and then asked his to bring him to the ER. On his way to the ER he started developing his left-sided numbness. Denied palpitation shortness of breath chest discomfort. States he has not missed his Plavix or Eliquis.
Has not been taking long-acting insulin for more than a week as he ran out of the and has been taking his short acting insulin though. Blood glucose at the time of this lightheadedness episode was 218.
While in the ED hypertensive but otherwise hemodynamically stable. CBC unremarkable. BMP unremarkable apart from blood sugar of 189. CT brain with no acute abnormalities. Evaluated by neurology against TNK due to low NIH and on Eliquis however
did recommend MRI brain and 2D echocardiogram.
Drinks alcohol rarely. No smoking history. No drug use history
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
Medical History
Past Medical History
Past Medical History: Reports CAD
Past Surgical History: Reports Cardiac and Urological
Social History
Tobacco: Non-smoker
Alcohol: Occasional
Drug: None
Family History
Family History: Not pertinent
Allergies / Home Medications
Allergies reflects when Allergies were last updated in [facility].
Home Medications with original date entered in [facility]
Allergy/Medication List:
Allergies
Allergy/AdvReac Type Severity Reaction Status Date / Time
dapagliflozin Allergy Williams's Verified 11/16/25 13:22
Gangrene
03/2024
Home Medications
atorvastatin 40 mg tablet 40 mg PO DAILY High cholesterol 07/28/20
apixaban 5 mg tablet (Eliquis) 5 mg PO BID #60 tabs 08/01/20
insulin glargine 100 unit/mL (3 mL) subcutaneous pen (Lantus Solostar U-100 Insulin) 15 unit (0.15 mL) SC HS #5 ea 03/29/24
methimazole 5 mg tablet 5 mg PO DAILY Thyroid #0 tabs 03/30/24
nitroglycerin 0.4 mg sublingual tablet 0.4 mg sublingual [id number] PRN chest pain #25 tabs 03/30/24
benazepril 20 mg tablet 20 mg PO DAILY Heart disease/condition #30 tabs 04/14/24
clopidogrel 75 mg tablet 75 mg PO DAILY Heart disease/condition #30 tabs 04/14/24
pantoprazole 40 mg tablet,delayed release 40 mg PO DAILY Gastrointestinal issue #30 tabs 04/14/24
amlodipine 10 mg-olmesartan 40 mg tablet 1 tab PO DAILY 02/20/25
cyanocobalamin (vitamin B-12) 1,000 mcg tablet 1,000 mcg PO DAILY 02/20/25
finasteride 5 mg tablet 5 mg PO DAILY 02/20/25
insulin aspart U-100 100 unit/mL (3 mL) subcutaneous pen (Novolog FlexPen U-100 Insulin aspart) 1 sliding scale dose SC AC 02/20/25
metoprolol succinate 25 mg tablet,extended release 24 hr 75 mg PO BID 02/20/25
semaglutide 1 mg/dose (4 mg/3 mL) subcutaneous pen injector (Ozempic) 1 mg SC WE 02/20/25
tamsulosin 0.4 mg capsule 0.4 mg PO DAILY 02/20/25
therapeutic multivitamin 1 tab PO DAILY 02/20/25
Review of Systems
-
A 12 point ROS was completed and negative except as noted: Yes
Physical Exam
Vital Signs
Vital Signs
Temp Pulse Resp BP Pulse Ox
97.6 F 76 16 132/83 99
02/20/25 11:39 02/20/25 15:30 02/20/25 15:31 02/20/25 15:28 02/20/25 15:31
Physical Exam
General: Well Developed
Laboratory Results
-
02/20/25 13:32
02/20/25 13:32
Laboratory Results
Total Bilirubin 0.9 mg/dl (0.2-1.3) 02/20/25 13:32
AST 25 U/L (17-59) 02/20/25 13:32
ALT 29 U/L (0-50) 02/20/25 13:32
Alkaline Phosphatase 46 U/L (38-126) 02/20/25 13:32
Impression/Plan
-
NAD
Scleral Anicteric
MMM
No JVD
CTABL
RRR, S1/S2
Soft, NT, ND, BS+
Warm, Dry
AAOx3, equal strength 5/5 in upper and lower extremity, CN II to XII intact
Calm
TIA versus orthostasis versus hyperglycemia as at home reported 218 during event
Brain MRI
[facility] [place] [facility] [place]
2D echocardiogram
Telemetry
A1c
Lipid profile
Orthostatic vitals
Stroke protocol
Neurology consult placed by the ED
Atrial fibrillation�paroxysmal
Continue beta-austen and Eliquis
CAD s/p CABG and PCI
Continue beta-austen, Plavix, Lipitor
As needed sublingual nitroglycerin
Insulin-dependent diabetes type 2
Accu-Cheks
Carb controlled diet
Sliding scale
A1c
Long and short acting insulin
BPH
Continue Flomax and Proscar
Hyperthyroidism
Continue methimazole
Full code
Next of mahin Simpson
-Updated at bedside
[2025-02-20 17:00] LABS: Glucose - Point of Care 132 mg/dl (70-99)
--- NOTE | 2025-02-20 17:50 | PTCARENOTE ---
Reached out to hospitalist global consumer sector vice president (Dr. Sharif) and daytime attending (Dr. Anand) about duplicate insulin orders. RN also called pharmacy to confirm orders and pharmacist Mary told me she also reached out to MD's as well with same question. Pt's
poc glucose 137 on admit to [facility].
[2025-02-20] MEDS: ELIQUIS 5 MG PO (20:21)
[2025-02-20] MEDS: TOPROL XL 75 MG PO (20:21)
[2025-02-20 21:21] LABS: Glucose - Point of Care 142 mg/dl (70-99)
[2025-02-20] MEDS: LANTUS 0.15 UNITS SC (21:49)
[2025-02-21 03:14] VITALS: BP 125/56
[2025-02-21 06:57] LABS: Glucose - Point of Care 133 mg/dl (70-99)
[2025-02-21 07:15] VITALS: BP 163/84
--- NOTE | 2025-02-21 07:50 | W.PN.NEURO.1 ---
Today's Communication / Plan
-
. Check carotid ultrasound
. MRI brain without IV contrast
check orthostatics, provide abdominal binder
. Echocardiogram already planned
. Continue apixaban, continue Plavix 75 mg daily and atorvastatin 40 mg daily.
Neuro Assessment/Plan
Assessment
69 years old male, with a past medical history of paroxysmal atrial fibrillation on eliquis, DM, presents with dizziness that started at around 11:30 AM today, when he stood up and felt dizzy had some numbness and tingling on the left side of his
face left arm and left leg. The patient says that he felt 'lightheaded ', when he tried to stand up. The patient returned to his baseline within about 10 minutes. He denies history of speech difficulty, facial droop, or focal weakness of arms or
legs. The NIHSS = 0. He is not a candidate for thrombolytic therapy as his symptoms have resolved.
. CT head does not show acute intracranial abnormality. 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
The patient likely had a syncopal episode while trying to get up too fast from a sitting position and feeling 'lightheaded' on doing so, however, need to cnsidere TIA/Stroke, due to risk factors including h/o atrial fibrillation on eliquis,
hypertension, DM and hypercholesterolemia, because he also complained of left-sided numbness and tingling.
Plan
. Check carotid ultrasound
. MRI brain without IV contrast
check orthostatics, provide abdominal binder
. Echocardiogram already planned
. Continue apixaban, continue Plavix 75 mg daily and atorvastatin 40 mg daily.
Will follow pending results.
Subjective/Objective
Subjective Data
Date of Service: February 21, 2025
Objective Data
Vital Signs
Temp Pulse Resp BP Pulse Ox
37.0 C 64 18 163/84 96
02/21/25 07:15 02/21/25 07:15 02/21/25 07:15 02/21/25 07:15 02/21/25 07:15
Sodium 140 mmol/L (135-145) 02/20/25 13:32
Potassium 3.8 mmol/L (3.5-5.1) 02/20/25 13:32
BUN 25 mg/dl (9-20) H 02/20/25 13:32
Glucose 189 mg/dl (70-99) H 02/20/25 13:32
Calcium 9.0 mg/dl (8.4-10.2) 02/20/25 13:32
Patient Allergies
dapagliflozin Allergy (Verified 02/20/25 13:22)
Williams's Gangrene 03/2024
Data Reviewed
-
Echocardiogram: Pending
Orthostatic Testing: Ordered, Pending and Report Reviewed
Labs: Report Reviewed
Reviewed with: Physician and Nurse Practioner
Old Records: Summarized
Past History
Past History
ED Past Medical History: Arrthythmia, CAD, COPD, HTN, Hypercholesterolemia, NIDDM and Other (Sleep apnea, BPH, CABG, anxiety, orthostatic hypotension)
ED Past Surgical History: Other
Social History
Tobacco: Non-smoker
Alcohol: Other
Drug: None
Personal:
Living: with family
Employment: Other
Family History
Family History: Other
Medications
-
Medications:
Generic Name Dose Route Start Last Admin
Trade Name Freq PRN Reason Stop Dose Admin
Amlodipine Besylate 10 mg 02/21/25 08:00
Amlodipine 10 Mg Tablet PO 03/21/25 07:59
DAILY NARINDER
Apixaban 5 mg 02/20/25 20:00 02/20/25 20:21
Apixaban (Eliquis) 5 Mg Tablet PO 03/20/25 19:59 5 mg
BID NARINDER Administration
Atorvastatin Calcium 40 mg 02/21/25 08:00
Atorvastatin (Lipitor) 40 Mg Tablet PO 03/21/25 07:59
DAILY NARINDER
Clopidogrel Bisulfate 75 mg 02/21/25 08:00
Clopidogrel 75 Mg Tablet PO 03/21/25 07:59
DAILY NARINDER
Cyanocobalamin 1,000 mcg 02/21/25 08:00
Cyanocobalamin (Vitamin B-12) 500 Mcg Tablet PO 03/21/25 07:59
DAILY NARINDER
Dextrose 12.5 grams 02/20/25 15:34
Dextrose 50% (0.5 Grams/Ml) 50 Ml Syringe IV 03/20/25 15:33
[id number] PRN
hypoglycemia
Protocol
Docusate Sodium 100 mg 02/21/25 08:00
Docusate Sodium 100 Mg Capsule PO 03/21/25 07:59
DAILY NARINDER
Finasteride 5 mg 02/21/25 08:00
Finasteride 5 Mg Tablet PO 03/21/25 07:59
DAILY NARINDER
Glucagon 1 mg 02/20/25 15:34
Glucagon 1 Mg Vial IM 03/20/25 15:33
PRN PRN
hypoglycemia
Protocol
Insulin Glargine 15 units/ 0.15 mls @ 0 mls/hr 02/20/25 22:00 02/20/25 21:49
Device SC 03/20/25 21:59 0.15 mls
HS NARINDER Administration
As Directed
Insulin Aspart 0 units 02/20/25 16:30 02/20/25 17:54
Insulin Aspart Low Resistance 300 Units/3 Ml Pen.Injctr SC 03/20/25 16:29 Not Given
AC NARINDER
Protocol
Lorazepam 1 mg 02/21/25 07:52
Lorazepam 1 Mg Tablet PO 02/21/25 07:53
ONCE ONE
Losartan Potassium 100 mg 02/21/25 08:00
Losartan 100 Mg Tablet PO 03/21/25 07:59
DAILY NARINDER
Methimazole 5 mg 02/21/25 08:00
Methimazole 5 Mg Tablet PO 03/21/25 07:59
DAILY NARINDER
Metoprolol Succinate 75 mg 02/20/25 20:00 02/20/25 20:21
Metoprolol 25 Mg Extended Release Tablet PO 03/20/25 19:59 75 mg
BID NARINDER Administration
Nitroglycerin 0.4 mg 02/20/25 16:46
Nitroglycerin 0.4 Mg Sl Tablet SL 03/20/25 16:45
[id number] PRN
chest pain
Pantoprazole Sodium 40 mg 02/21/25 08:00
Pantoprazole 40 Mg Delayed Release Tablet PO 03/21/25 07:59
DAILY NARINDER
Sodium Chloride 0 flush 02/20/25 16:00
Sodium Chloride 0.9% (Flush) Syringe IV 03/20/25 15:59
PER PROTOCOL NARINDER
Tamsulosin HCl 0.4 mg 02/21/25 08:00
Tamsulosin 0.4 Mg Capsule PO 03/21/25 07:59
DAILY NARINDER
--- NOTE | 2025-02-21 08:12 | PN.DE.MGMTRT ---
Insulin Management
- -
02/21/2025: Diabetes Management Consult
69-year-old male presenting with ongoing lightheadedness, as well as numbness and tingling along the left side of face, left hand (thumb, 2nd digit), and left foot. PMH: CAD s/p CABG, PAF, HTN, Williams's gangrene, hyperthyroidism, BPH, and T2DM for
20 years.
Prior to admission, was taking Lantus 15 units HS, NovoLog 5 units AC, and weekly Ozempic injections. He reports he ran out of Lantus around 2 weeks ago, but was still taking his sort acting insulin -NovoLog with meals. Blood glucose in the ED was
218. A1C 6.7%, improved from 8.0 on 03/15/24. Cr 1.2, eGFR >60
Pt is awake, alert, oriented, offers no complaints, able to discuss diabetes care plan.
He sees Dr. Faith Denson at [facility] for thyroid management but NOT for diabetes management.
States he was taking Farxiga for a long time but it was discontinued when he developed SE- Williams's Gangrene.
He regularly checks his blood sugar and his fasting glucose is ~130's but only checks it once or twice a day. Advised pt to change his testing schedule to AC and HS and to call his Endo office and move up his follow-up appt. He was asking for a
script for a CGM and was instructed to ask for a script when he goes to see his Endo or PCP. He will call the diabetes office if he needs assistance with application of the CGM.
His glucose was 189 on admission and has remained stable, in range of 126 to 142. He has not required any corrective insulin with meals while NPO.
He was started on a diet, will add AC NovoLog 3 units. Continue Lantus 15 units HS and low corrective insulin with meals.
Reinforced need to take Lantus every day around the same time at night, also discussed holding NovoLog if he skips a meal. He verbalized understanding and agreed. Discussed with nurse. Will continue to follow.
Diabetes History
- -
Type of Diabetes: 2 requiring insulin
Pre-Admission Diabetes Regimen
02/20/25
13:32
Creatinine 1.2
Lab Results
Hemoglobin A1c Cancelled 02/20/25 16:46
Insulin Pump Settings
IP Diabetes Regimen
02/20/25 02/20/25 02/20/25
11:45 13:32 16:59
Glucose 189 H
POC Glucose 189 H 132 H
02/20/25 02/21/25
21:19 06:56
Glucose
POC Glucose 142 H 133 H
Meal type: Dinner
Amount consumed: 100%
Patient Education
[2025-02-21 08:32] LABS: Hematocrit 42.7 % (39.0-52.0); Hemoglobin 14.8 g/dL (13.0-18.0); Mean Corp Hgb Conc. 34.7 g/dL (33.0-37.0); Mean Corpuscular Volume 85.4 fL (80.0-94.0); Platelet Count 183 10^3/uL (130-400); Red Cell Dist. Width 12.2 % (11.5-14.5)
[2025-02-21] MEDS: COLACE 100 MG PO (08:45)
[2025-02-21] MEDS: TOPROL XL 75 MG PO (08:45)
[2025-02-21] MEDS: PROTONIX 40 MG PO (08:50)
[2025-02-21] MEDS: LIPITOR 40 MG PO (08:50)
[2025-02-21] MEDS: NORVASC 10 MG PO (08:50)
[2025-02-21] MEDS: COZAAR 100 MG PO (08:50)
[2025-02-21] MEDS: PROSCAR 5 MG PO (08:50)
[2025-02-21] MEDS: ELIQUIS 5 MG PO (08:50)
[2025-02-21] MEDS: PLAVIX 75 MG PO (08:50)
[2025-02-21] MEDS: FLOMAX 0.4 MG PO (08:50)
[2025-02-21] MEDS: VITAMIN B-12 1000 MCG PO (08:51)
[2025-02-21] MEDS: TAPAZOLE 5 MG PO (08:58)
[2025-02-21 09:29] LABS: Glycohemoglobin (HgbA1c) 6.7 % (4.0-5.9)
[2025-02-21 10:08] LABS: Blood Urea Nitrogen 20 mg/dl (9-20); Calcium 9.1 mg/dl (8.4-10.2); Carbon Dioxide 28 mmol/L (22-30); Chloride 105 mmol/L (98-107); Estimated Creatinine Clearance 70 ml/min; Glucose 126 mg/dl (70-99); HDL Cholesterol 46 mg/dl; LDL Cholesterol, Calculated 51 mg/dl; Potassium 4.0 mmol/L (3.5-5.1); Sodium 137 mmol/L (135-145); Very Low Density Lipoprotein 11 mg/dl (0-30); eGFR > 60.00
[2025-02-21 11:20] LABS: Glucose - Point of Care 152 mg/dl (70-99)
[2025-02-21 11:36] LABS: Glucose - Point of Care 147 mg/dl (70-99)
[2025-02-21 11:40] VITALS: BP 146/80; BP 159/89; BP 165/86; PULSE 62; PULSE 64; PULSE 73
[2025-02-21 11:41] VITALS: BP 159/89
[2025-02-21 15:18] VITALS: BP 153/80
[2025-02-21 15:53] VITALS: BP 156/84; BP 163/80; PULSE 71
--- NOTE | 2025-02-21 15:59 | PTOTSP ---
Pt is independent with ambulation without need for any assistive devices. No deficits were identified. PT will sign off.
[2025-02-21 16:54] LABS: Glucose - Point of Care 130 mg/dl (70-99)
--- NOTE | 2025-02-21 17:27 | CM ---
Addendum entered by Makenna Bradley 02/21/25 17:33:
PCP: Aiden Mejias
Rx: [facility]
Original Note:
IA completed at bedside. IMM completed on 02/20 in ED. Pt lives with in 2 story home with basement. Is independent in ADLs and IADLS. Full BR on the 2nd floor and basement. No insecurities identified. Conformed PCP, Rx, insurance and drug
coverage
Had [facility] in the past for a wound.
Potential DC after all testing is completed.
Plan: TBD post testing
--- NOTE | 2025-02-21 17:43 | W.DCSUMMARY ---
Discharge Summary
Discharge Data
Date of Admission: 02/20/25
Date of Discharge: 02/21/25
-
Pending Results: No
Hospital Course
69 male history of paroxysmal atrial fibrillation, Williams's gangrene, hyperthyroidism, hypertension, type 2 insulin-dependent diabetes BPH
Presented with lightheadedness and leftg sided numbness and tingling. Seen by neuro rec admit for brain mri, ultrasound carotid and 2d echo. Initial ct scan brain without acute findings. Was not deemed a candidate for TNK due to low NIH scale and
being on eliquis.
Outpatient PCP, neuro and cardiology follow up
Carotid ultrasound
IMPRESSION:
RIGHT: Calcified plaque is identified in the carotid bulb and internal carotid artery. Carotid velocity measurements are consistent with less than 50% internal carotid artery stenosis. Vertebral artery flow is antegrade.
LEFT: Mixed plaque is identified in the carotid bulb. Calcified plaque is identified in the internal carotid artery. Carotid velocity measurements are consistent with less than 50% internal carotid artery stenosis. Vertebral artery flow is antegrade.
MRI Brain
IMPRESSION: No evidence of acute intracranial abnormality.
Wedge-shaped region of encephalomalacia involving the anterolateral and inferior right frontal lobe, which likely from old infarction.
Mild to moderate diffuse atrophy. Moderate T2 and FLAIR white matter hyperintensities, commonly seen with aging and usually attributed to small vessel ischemic disease.
Isolated focus of decreased susceptibility weighted signal in the right frontal lobe, compatible with an isolated focus of old microhemorrhage/hemosiderin deposition.
On sagittal sequence, there appears to be slight compression of the anterior cervical spinal cord at C3-4 from posterior disc/osteophyte complex. If there are symptoms referrable to the cervical spine and further imaging evaluation is desired,
consideration for a focal spine MRI.
2d echo
SUMMARY
1. Ejection fraction is 55% by volumetric assesment.
2. Normal left ventricular size, wall thickness and systolic function. No regional wall motion abnormalities are seen.
3. Compared to a prior transthoracic echocardiogram study from 03/15/2024 Inferoseptal, lateral, inferior hypokinesis is no longer present.
4. Aortic sclerosis without stenosis. Dense focal calcification on the left coronary cusp.
seen and on the day of discharge which was 02/21. no new complaints. no acute overnight event
no further numbness tinglgling nor loss of sense stations
reviewed mri brain, informed him of the old stroke and b/l carotid stenosis
outpt pcp follow up
NAD
Scleral Anicteric
MMM
No JVD
CTABL
RRR, S1/S2
Soft, NT, ND, BS+
Warm, Dry
AAOx3, equal strength 5/5 in upper and lower extremity, CN II to XII intact
Calm
More than 30 minutes spent in discharge including
Final examination of the patient
Summarizing hospital stay
Instructions for continuing care to all relevant caregivers
Preparation of discharge records, prescriptions, and referral forms
Total time spent (in minutes): 33mins
Discharge Plan
-
Patient Disposition: Home (Routine Discharge)
Discharge Diagnosis/Procedures: TIA
Condition: Good
Diet: As tolerated, Low Fat, Low Cholesterol, Low Sodium and Diabetic, Carb Controlled
Activity: As tolerated
Activity Restrictions/Additional Instructions:
Presented with lightheadedness and leftg sided numbness and tingling. Seen by neuro rec admit for brain mri, ultrasound carotid and 2d echo. Inital ct scan brain without acute findings. Was not deemed a candidate for TNK due to low NIH scale and
being on eliquis.
Outpatient PCP, neuro and cardiology follow up
Carotid ultrasound
IMPRESSION:
RIGHT: Calcified plaque is identified in the carotid bulb and internal carotid artery. Carotid velocity measurements are consistent with less than 50% internal carotid artery stenosis. Vertebral artery flow is antegrade.
LEFT: Mixed plaque is identified in the carotid bulb. Calcified plaque is identified in the internal carotid artery. Carotid velocity measurements are consistent with less than 50% internal carotid artery stenosis. Vertebral artery flow is antegrade.
MRI Brain
IMPRESSION: No evidence of acute intracranial abnormality.
Wedge-shaped region of encephalomalacia involving the anterolateral and inferior right frontal lobe, which likely from old infarction.
Mild to moderate diffuse atrophy. Moderate T2 and FLAIR white matter hyperintensities, commonly seen with aging and usually attributed to small vessel ischemic disease.
Isolated focus of decreased susceptibility weighted signal in the right frontal lobe, compatible with an isolated focus of old microhemorrhage/hemosiderin deposition.
On sagittal sequence, there appears to be slight compression of the anterior cervical spinal cord at C3-4 from posterior disc/osteophyte complex. If there are symptoms referrable to the cervical spine and further imaging evaluation is desired,
consideration for a focal spine MRI.
2d echo
SUMMARY
1. Ejection fraction is 55% by volumetric assesment.
2. Normal left ventricular size, wall thickness and systolic function. No regional wall motion abnormalities are seen.
3. Compared to a prior transthoracic echocardiogram study from 03/15/2024 Inferoseptal, lateral, inferior hypokinesis is no longer present.
4. Aortic sclerosis without stenosis. Dense focal calcification on the left coronary cusp.
Referrals:
Aiden Mejias MD [Family Provider, Internal Medicine]
Prescriptions:
New
(DME) pen needle, diabetic [Esthela Pen Needle] 32 gauge x 5/32' Needle
Qty: 200 0RF
Rx Instructions:
1 box of 200 needles. PATIENT TAKING INSULIN 4 TIMES A DAY
refer to insulin instructions
Continued
atorvastatin 40 MG tablet
40 mg PO DAILY
Eliquis 5 MG tablet
5 mg PO BID Qty: 60 2RF
nitroglycerin 0.4 MG tablet, sublingual
0.4 mg sublingual [id number] PRN (Reason: chest pain) Qty: 25 2RF
methimazole 5 mg Tablet
5 mg PO DAILY Qty: 0 0RF
clopidogrel 75 mg Tablet
75 mg PO DAILY Qty: 30 11RF
pantoprazole 40 mg Tablet,Delayed Release (Dr/Ec)
40 mg PO DAILY Qty: 30 11RF
cyanocobalamin (vitamin B-12) 1,000 mcg Tablet
1,000 mcg PO DAILY
therapeutic multivitamin Tablet
1 tab PO DAILY
tamsulosin 0.4 mg capsule
0.4 mg PO DAILY
finasteride 5 mg tablet
5 mg PO DAILY
amlodipine-olmesartan 10-40 mg tablet
1 tab PO DAILY
Ozempic 1 mg/dose (4 mg/3 mL) pen injector
1 mg SC WE
metoprolol succinate 25 mg tablet extended release 24 hr
75 mg PO BID
clonazepam [Klonopin] 0.5 mg Tablet
0.5 mg PO HS
insulin glargine [Lantus Solostar U-100 Insulin] 100 unit/mL (3 mL) Insulin Pen
15 unit SC HS Qty: 5 1RF
Rx Instructions:
TAKE AT BEDTIME
Changed
insulin aspart U-100 [Novolog FlexPen U-100 Insulin] 100 unit/mL (3 mL) insulin pen
5 sliding scale dose SC AC Qty: 5 0RF
Rx Instructions:
take 5 units before meals
Discontinued
benazepril 20 mg tablet
20 mg PO DAILY Qty: 30 11RF
Discharge Orders:
Discharge Patient (As Directed); Ordered 02/21/25
Ordered By: Satya Anand
Discharge Date and Time
Print Language: AMHARIC
== END 2025-02-21 18:40 | disposition home or self-care (01) ==
LOC: 4 EAST ACU 15:48
PROVIDERS: ADMITTING PHYSICIAN Hospitalist; CONSULT PHYSICIAN Psychiatry & Neurology Neurology; EMERGENCY PHYSICIAN Emergency Medicine; FAMILY PHYSICIAN Internal Medicine
DX: G45.9 Transient cerebral ischemic attack, unspecified (principal); Z79.02 Long term (current) use of antithrombotics/antiplatelets; Z79.82 Long term (current) use of aspirin; Z79.899 Other long term (current) drug therapy; I25.10 Atherosclerotic heart disease of native coronary artery without angina pectoris; Z79.4 Long term (current) use of insulin; E11.9 Type 2 diabetes mellitus without complications; N40.0 Benign prostatic hyperplasia without lower urinary tract symptoms; E05.90 Thyrotoxicosis, unspecified without thyrotoxic crisis or storm; I48.0 Paroxysmal atrial fibrillation; R29.700 NIHSS score 0; Z79.01 Long term (current) use of anticoagulants
CPT/HCPCS: 70450; 70551; 80048; 80053; 80061; 82962; 83036; 85025; 85027; 92523; 93005; 93306; 93880; 97162; 99285; G0378